=== PATIENT | female | born 1955 | race Caucasian/White ===

== ENCOUNTER 2017-01-29 17:51 | Emergency (ER) | payer OTHER ==
[~2017-01-29] VITALS: Ht 160 cm; Wt 90.7 kg
[2017-01-29] MEDS ORDERED: CEPHALEXIN500 MG ORAL (18:35)
[2017-01-29] MEDS ORDERED: HYDROCHLOROTHIA25 MG ORAL (18:35)
[2017-01-29 18:45] VITALS: BP 142/81
--- NOTE | 2017-01-29 21:37 | Emergency Room Report ---
History of Present Illness General Chief Complaint: Lower Extremity Injury Source: Patient Present Illness [facility] The patient is a 61-year-old female presenting for leg swelling and possible toe infection. She noticed a redness around the left big toe approximately one week prior which has been getting worse. Pain is described as a 7/10 dull ache and worse with touch. She denies injury to the area. She states that she has had an ingrown toenail before this area which feels similar. She denies any fever or chills. She denies other symptoms including N, V, CP Allergies: Coded Allergies: ERYTHROMYCIN BASE (Verified Allergy, Severe, Hives, 01/29/17) SULFAMETHOXAZOLE (Verified Allergy, Severe, Shortness of Breath, 01/29/17) TRIMETHOPRIM (Verified Allergy, Severe, Shortness of Breath, 01/29/17) Patient History Past Medical History: see triage record Pertinent Family History: none Last Menstrual Period: na Now: No Reviewed Nursing Documentation: PMH: Agreed, PSxH: Agreed Nursing Documentation-PMH Past Medical History: No History, Except For Hx Hypertension: Yes Hx Asthma: Yes Hx COPD: Yes Review of Systems All Other Systems: negative except mentioned in HPI Physical Exam Vital Signs Date Time Temp Pulse Resp B/P Pulse Ox O2 Delivery O2 Flow Rate FiO2 01/29/17 18:05 98.1 88 18 142/81 90 Nasal Cannula 2.0 Sp02 EP Interpretation: reviewed, normal General Appearance: no apparent distress, alert, GCS 15, non-toxic Head: normocephalic, atraumatic Eyes: bilateral eye PERRL, bilateral eye normal inspection ENT: hearing grossly normal, normal pharynx, no angioedema, normal voice Musculoskeletal: normal range of motion, no calf tenderness, swelling - bilat lower legs, tender - TTP diffusely of the distal L 1st toe Neurologic: alert, oriented x3, responsive, motor strength/tone normal, sensory intact, speech normal Psychiatric: judgement/insight normal, memory normal, mood/affect normal, no suicidal/homicidal ideation Skin: rash - L 1st toe surrounding nail Medical Decision Making PA Attestation Dr. Chan is my supervising physician. Patient management was discussed with my supervising physician Diagnostic Impression: Primary Impression: Edema Qualified Codes: R60.9 - Edema, unspecified Additional Impression: Ingrowing toenail with infection ER Course The patient is a 61-year-old female presenting for leg swelling and possible toe infection Differential diagnosis considered: ingrown nail, cellulitis, paronychia, among others PE: NAD With nasal canula 2L Bilat pitting edema to lower legs. DP pulse 2+ bilat There is surrounding erythema of the first left toe nail. Tender to palpation. No discharge. The area is cleaned with normal saline and Betadine. Bandages applied to the area in order to help separate the medial skinfold from the nail She'll be prescribed Keflex and HCTZ and needs to followup with primary doctor. She may need podiatry referral. ER precautions are given Last Vital Signs Date Time Temp Pulse Resp B/P Pulse Ox O2 Delivery O2 Flow Rate FiO2 01/29/17 18:45 98.1 18 142/81 90 Nasal Cannula 2.0 01/29/17 18:05 88 Status: improved Disposition: HOME, SELF-CARE Condition: Improved Scripts Hydrochlorothiazide* (HYDROCHLOROTHIAZIDE*) 25 Mg Tablet 25 MG ORAL DAILY, #5 TAB Prov: CATRACHITO LANZA.ARuel 01/29/17 Cephalexin* (KEFLEX*) 500 Mg Capsule 500 MG ORAL EVERY 6 HOURS, #28 CAP Prov: CATRACHITO LANZA P.A. 01/29/17 Referrals: [facility],REFERR[facility] (PCP) Patient Instructions: Ingrown Toenail Additional Instructions: I discussed my findings with the patient. All questions and concerns have been answered. Treatment and medication compliance have been addressed. I advised the patient that they need to follow up with PMD in 3-5 days. Return to ED if symptoms worsen, new symptoms arise, or if needed for any reason. Patient verbalized understanding of discharge instructions. CATRACHITO LANZA Jan 29, 2017 21:37
== END 2017-01-29 18:48 | disposition home or self-care (01) ==
LOC: EMR 18:30
DX: R60.9 Edema, unspecified (principal); L60.0 Ingrowing nail; L03.032 Cellulitis of left toe; Z88.8 Allergy status to other drugs, medicaments and biological substances; Z88.2 Allergy status to sulfonamides; I10 Essential (primary) hypertension; J44.9 Chronic obstructive pulmonary disease, unspecified
CPT/HCPCS: 99284

== ENCOUNTER 2017-04-09 20:22 | Inpatient (IN) | payer OTHER ==
[~2017-04-09] VITALS: Ht 162.6 cm; Wt 95.3 kg
[~2017-04-09 20:22] MED LIST: CEPHALEXIN500 MG ORAL; HYDROCHLOROTHIA25 MG ORAL
[2017-04-09] MEDS ORDERED: Ipratropium 0.02% Inh Soln 2.5ml UD HHN ONE (20:45)
[2017-04-09] MEDS ORDERED: Albuterol ud Inhalation HHN ONE (20:45)
[2017-04-09] MEDS ORDERED: Solu-MEDROL 125mg Inj IVP ONE (20:45)
--- NOTE | 2017-04-09 21:14 | Emergency Room Report ---
History of Present Illness General Chief Complaint: Dyspnea/Respdistress Source: Patient Present Illness HPI 61YOF walk-in with 1 week "more altered than usual" per daughter, fever/chills SOB, on home O2. History of COPD Finished 2x Zpacks recently with no improvement Wants to "cough up sputum" but cant. Denies chest pain, Abd pain, nausea/vomiting Also c/o urinary retention/incontinence Allergies: Coded Allergies: ERYTHROMYCIN BASE (Verified Allergy, Severe, Hives, 01/29/17) SULFAMETHOXAZOLE (Verified Allergy, Severe, Shortness of Breath, 01/29/17) TRIMETHOPRIM (Verified Allergy, Severe, Shortness of Breath, 01/29/17) Patient History Past Medical History: COPD Past Surgical History: none Pertinent Family History: none Now: No Immunizations: UTD Reviewed Nursing Documentation: PMH: Agreed, PSxH: Agreed Nursing Documentation-PMH Hx Hypertension: Yes Hx Asthma: Yes Hx COPD: Yes Review of Systems All Other Systems: negative except mentioned in HPI Physical Exam Vital Signs Date Time Temp Pulse Resp B/P (MAP) Pulse Ox O2 Delivery O2 Flow Rate FiO2 04/09/17 20:23 98.2 93 22 130/86 77 Room Air 04/09/17 20:59 2.0 28 Sp02 EP Interpretation: reviewed, abnormal General Appearance: normal inspection, well appearing, no apparent distress, alert, GCS 15, non-toxic Head: normocephalic, atraumatic Eyes: bilateral eye PERRL, bilateral eye EOMI ENT: normal ENT inspection, hearing grossly normal, normal voice Neck: normal inspection, full range of motion, supple, no bony tend Respiratory: normal inspection, lungs clear, normal breath sounds, no respiratory distress, no retraction, no wheezing, accessory muscle use, speaking full sentences, wheezing Cardiovascular #1: regular rate, rhythm, no edema Gastrointestinal: normal inspection, normal bowel sounds, non tender, soft, no guarding, no hernia Genitourinary: no CVA tenderness Musculoskeletal: normal inspection, back normal, normal range of motion, Devorah' s Sign negative Neurologic: normal inspection, alert, oriented x3, responsive, customer relations assistant III-XII nml as tested, speech normal Psychiatric: normal inspection, judgement/insight normal, mood/affect normal Skin: normal inspection, normal color, no rash Lymphatic: normal inspection Medical Decision Making Diagnostic Impression: Primary Impression: Dyspnea Qualified Codes: R06.00 - Dyspnea, unspecified Additional Impressions: COPD exacerbation Dysuria ER Course CXR: No PNA Blood Cx pending Empiric abx given Improved with nebs, prednisone ABD: Normal pH with CO2 80 and bicarb 39 - likely chronic CO2 retention with appropriate metabolic compensation Tele admit Labs pending at time of signout Endorsed to DR Leung at 1030pm to followup labs/admission hospitalist EKG Diagnostic Results Rate: normal Rhythm: NSR ST Segments: no acute changes ASA given to the pt in ED: No Rhythm Strip Diag. Results EP Interpretation: yes Rate: 84 Rhythm: NSR, no PVC's, no ectopy Chest X-Ray Diagnostic Results Chest X-Ray Diagnostic Results : Chest X-Ray Ordered: Yes # of Views/Limited/Complete: 1 View Indication: Shortness of Breath EP Interpretation: Yes Interpretation: no consolidation, no effusion, no pneumothorax, no acute cardiopulmonary disease Impression: No acute disease Electronically Signed by: Dr Ciro Ball MD Last Vital Signs Date Time Temp Pulse Resp B/P (MAP) Pulse Ox O2 Delivery O2 Flow Rate FiO2 04/09/17 20:59 90 16 Nasal Cannula 2.0 28 04/09/17 20:59 97 04/09/17 20:23 98.2 130/86 Status: improved Disposition: ADMITTED INPATIENT Condition: Serious Scripts Lorazepam* (ATIVAN*) 1 Mg Tablet 1 MG ORAL THREE TIMES A DAY, #20 TAB Prov: LINOMIRALI 04/12/17 Amoxicillin/Potassium Clav 875-125* (AUGMENTIN 875-125 TABLET*) 1 Each Tablet 1 TAB ORAL TWICE A DAY for 5 Days, TAB Prov: LINO,MIRALI 04/12/17 Prednisone (Prednisone) 20 Mg Tablet 20 MG PO DAILY for 7 Days, TAB Prov: RUBIA HUYNH 04/12/17 CIRO BALL M.D. Apr 09, 2017 21:14
[2017-04-09 21:17] VITALS: BP 130/86
[2017-04-09 21:20] LABS: ABG BASE EXCESS 9.4; ABG PCO2 80.6 mmHg (35.0-45.0)
[2017-04-09 21:21] LABS: ABG ALLEN TEST POSITIVE
[2017-04-09 21:34] LABS: BASOPHILS % (AUTO) 2.6 % (0.0-2.0); EOSINOPHILS % (AUTO) 4.3 % (0.0-3.0); LYMPHOCYTES % (AUTO) 36.1 % (20.0-45.0); MEAN CORPUSCULAR HEMOGLOBIN 28.9 PG (27.0-31.0); MEAN CORPUSCULAR HGB CONC 32.1 G/DL (32.0-36.0); MEAN CORPUSCULAR VOLUME 90 FL (80-99); MEAN PLATELET VOLUME 7.2 FL (6.5-10.1); MONOCYTES % (AUTO) 7.8 % (1.0-10.0); NEUTROPHILS % (AUTO) 49.3 % (45.0-75.0); PLATELET COUNT 119 K/UL (150-450); RED CELL DISTRIBUTION WIDTH 13.2 % (11.6-14.8); WHITE BLOOD COUNT 6.7 K/UL (4.8-10.8)
[2017-04-09 21:51] LABS: TROPONIN I < 0.30 ng/mL (<=0.30)
[2017-04-09 21:52] LABS: ALANINE AMINOTRANSFERASE 12 U/L (3-33); ALBUMIN/GLOBULIN RATIO 1.1 (1.0-2.7); ANION GAP 9 (5-15); ASPARTATE AMINO TRANSFERASE 23 U/L (5-40); CALCIUM 8.6 mg/dL (8.6-10.2); CARBON DIOXIDE 34 mEQ/L (20-30); CHLORIDE 96 mEQ/L (98-107); CREATININE 0.7 mg/dL (0.5-0.9); GLOMERULAR FILTRATION RATE > 60 mL/min (>60); HEMOLYSIS 33; POTASSIUM 4.8 mEQ/L (3.4-4.9); SODIUM 139 mEQ/L (135-145); TOTAL PROTEIN 7.4 g/dL (6.6-8.7)
[2017-04-09 22:02] LABS: CKMB 4.5 ng/mL (< 3.8)
[2017-04-09 22:05] LABS: APPEARANCE,URINE CLEAR; KETONES,URINE NEGATIVE (NEGATIVE); LEUKOCYTE ESTERASE ,URINE NEGATIVE (NEGATIVE); NITRITE,URINE NEGATIVE (NEGATIVE); PH,URINE 6 (4.5-8.0); PROTEIN,URINE NEGATIVE (NEGATIVE); UROBILINOGEN,URINE NORMAL MG/DL (0.0-1.0)
[2017-04-09] MEDS ORDERED: Cefepime HCl 2 GM in D5W 110 ML IVPB ONE (22:15)
[2017-04-09 23:05] VITALS: BP 121/89
[2017-04-09] MEDS ORDERED: Cefepime 2gm ONE (23:28)
[2017-04-09] MEDS ORDERED: Ketorolac 30mg Inj IV PRN (23:45)
[2017-04-09] MEDS ORDERED: Nitroglycerin Subl 0.4mg tab SL PRN (23:45)
[2017-04-09] MEDS ORDERED: HYDROmorphone 1mg/ml Carpuject IM ONE (23:45)
[2017-04-09] MEDS ORDERED: Promethazine/Codeine 5ml UD ORAL PRN (23:45)
[2017-04-10] VITALS (7 sets, daily range): BP systolic 127–145; BP diastolic 55–87
[2017-04-10] MEDS: Solu-MEDROL 125mg Inj IV SCH ×5 (00:30→23:12)
--- NOTE | 2017-04-10 01:20 | Emergency Room Report ---
History of Present Illness General Chief Complaint: Dyspnea/Respdistress Source: Patient Present Illness Allergies: Coded Allergies: ERYTHROMYCIN BASE (Verified Allergy, Severe, Hives, 01/29/17) SULFAMETHOXAZOLE (Verified Allergy, Severe, Shortness of Breath, 01/29/17) TRIMETHOPRIM (Verified Allergy, Severe, Shortness of Breath, 01/29/17) Patient History Now: No Nursing Documentation-PMH Hx Hypertension: Yes Hx Asthma: Yes Hx COPD: Yes Physical Exam Vital Signs Date Time Temp Pulse Resp B/P (MAP) Pulse Ox O2 Delivery O2 Flow Rate FiO2 04/09/17 20:23 98.2 93 22 130/86 77 Room Air 04/09/17 20:59 2.0 28 Procedures Central Line Central Line : Consent: Verbal Central Line Lumen: triple Maximal Sterile Barrier Tech: yes cap, yes mask, yes sterile gown, yes sterile gloves, yes large sterile sheet, yes hand hygiene, yes chlorhexidine prep Central Line Postion: femoral (L) Anesthesia: Lidocaine Complications: none Central Line Post Position: sutured, good blood return Attempts: One Patient Tolerated: Well Complications: None Medical Decision Making Diagnostic Impression: Primary Impression: Dyspnea Qualified Codes: R06.00 - Dyspnea, unspecified Additional Impressions: Dysuria COPD exacerbation ER Course patient has difficult IV access. multiple attempts at peripheral line made. patient has h/o IVDA. I placed L femoral central line using ultrasound guided placement. Last Vital Signs Date Time Temp Pulse Resp B/P (MAP) Pulse Ox O2 Delivery O2 Flow Rate FiO2 04/09/17 23:05 99.1 92 20 121/89 92 Nasal Cannula 3.0 28 Status: improved Disposition: ADMITTED INPATIENT Condition: Serious Referrals: [facility]ERR[facility] (PCP) NEAL JEAN M.D. Apr 10, 2017 01:20
[2017-04-10] MEDS ORDERED: Zosyn 3.375gm inj ONE (02:14)
[2017-04-10] MEDS: Zosyn 3.375gm q8h **Extended infusion IVPB SCH ×6 (02:45→17:53)
[2017-04-10] MEDS: Albuterol/Ipratropium 3ml neb HHN PRN ×2 (03:28→20:31)
[2017-04-10] MEDS: Morphine Sulfate 2mg/ml Inj IVP PRN ×4 (04:35→22:01)
[2017-04-10] MEDS ORDERED: Piperacillin/Tazobactam 2.25 GM in D5W 55 ML IV SCH (06:00)
[2017-04-10] MEDS: Theophylline ER 100mg ORAL SCH ×2 (09:11→20:53)
[2017-04-10] MEDS: Heparin 5000 units/ml inj SUBQ SCH ×2 (09:13→20:55)
--- NOTE | 2017-04-10 11:31 | Diagnostic Imaging Report ---
Indication: Dyspnea Comparison: None A single view chest radiograph was obtained. Findings: The heart is borderline enlarged. Prominent pulmonary vascularity and some increased initial markings are noted. The bones are unremarkable. Impression: Suspected mild interstitial edema/CHF
--- NOTE | 2017-04-10 11:40 | History and Physical ---
History of Present Illness General Reason for Hospitalization: Dyspnea/Respdistress Present Illness HPI 61year old female with hx of EX IVDA, on Methadone, COPD, on home Oxygen walk- in with 1 week "more altered than usual" per daughter, fever/chills SOB, on home O2. Wants to "cough up sputum" but cant. Pt is being admitted for acute exacerbation of COPD bronchitis. Allergies: Coded Allergies: ERYTHROMYCIN BASE (Verified Allergy, Severe, Hives, 01/29/17) SULFAMETHOXAZOLE (Verified Allergy, Severe, Shortness of Breath, 01/29/17) TRIMETHOPRIM (Verified Allergy, Severe, Shortness of Breath, 01/29/17) Medication History Scheduled Cephalexin* (Keflex*), 500 MG ORAL EVERY 6 HOURS Hydrochlorothiazide* (Hydrochlorothiazide*), 25 MG ORAL DAILY Patient History Healthcare decision maker Resuscitation status Advanced Directive on File Past Medical/Surgical History Past Medical/Surgical History: (1) COPD exacerbation Review of Systems All Other Systems: negative except mentioned in HPI Physical Exam General Appearance: WD/WN Lines, tubes and drains: peripheral HEENT: normocephalic, atraumatic Neck: non-tender, supple, limited range of motion Respiratory/Chest: chest wall non-tender, lungs clear Breasts: no masses Cardiovascular/Chest: normal peripheral pulses Abdomen: normal bowel sounds Genitourinary/Rectal: normal genital exam Extremities: normal range of motion, non-tender Last 24 Hour Vital Signs Date Time Temp Pulse Resp B/P (MAP) Pulse Ox O2 Delivery O2 Flow Rate FiO2 04/10/17 08:00 86 04/10/17 07:58 96.8 96 22 145/87 93 Nasal Cannula 3.0 04/10/17 06:35 93 Nasal Cannula 3.0 32 04/10/17 06:35 Nasal Cannula 3.0 32 04/10/17 06:35 90 18 93 Nasal Cannula 3.0 32 04/10/17 06:35 90 18 93 Nasal Cannula 3.0 32 04/10/17 06:35 82 18 Nasal Cannula 3.0 32 04/10/17 04:00 97.3 78 21 129/65 94 Nasal Cannula 3.0 04/10/17 04:00 96 04/10/17 03:40 91 18 99 Nasal Cannula 3.0 32 04/10/17 03:33 95 Nasal Cannula 3.0 32 04/10/17 03:32 Nasal Cannula 3.0 32 04/10/17 03:31 82 18 95 Nasal Cannula 3.0 32 04/10/17 03:30 82 18 Nasal Cannula 3.0 32 04/10/17 02:50 82 04/10/17 02:22 98.8 85 15 139/83 92 Nasal Cannula 3.0 28 04/10/17 01:25 98.8 85 15 139/83 92 Nasal Cannula 3.0 04/09/17 23:05 99.1 92 20 121/89 92 Nasal Cannula 3.0 28 04/09/17 21:17 99.1 95 16 130/86 97 Nasal Cannula 2.0 28 04/09/17 21:17 92 14 Nasal Cannula 2.0 94 04/09/17 20:59 90 16 Nasal Cannula 2.0 28 04/09/17 20:59 90 16 97 Nasal Cannula 2.0 28 04/09/17 20:23 98.2 93 22 130/86 77 Room Air Laboratory Tests Test 04/09/17 19:45 04/09/17 20:10 04/09/17 21:11 Urine Color Pale yellow Urine Appearance Clear Urine pH 6 (4.5-8.0) Urine Specific [place] 1.005 (1.005-1.035) Urine Protein Negative (NEGATIVE) Urine Glucose (UA) Negative (NEGATIVE) Urine Ketones Negative (NEGATIVE) Urine Occult Blood Negative (NEGATIVE) Urine Nitrite Negative (NEGATIVE) Urine Bilirubin Negative (NEGATIVE) Urine Urobilinogen Normal MG/DL (0.0-1.0) Urine Leukocyte Esterase Negative (NEGATIVE) Arterial Blood pH 7.303 (7.350-7.450) Arterial Blood Partial Pressure CO2 80.6 mmHg (35.0-45.0) *H Arterial Blood Partial Pressure O2 96.5 mmHg (75.0-100.0) Arterial Blood HCO3 39.0 mmol/L (22.0-26.0) H Arterial Blood Oxygen Saturation 96.9 % (92.0-98.0) Arterial Blood Base Excess 9.4 Fidencio Test Positive White Blood Count 6.7 K/UL (4.8-10.8) Red Blood Count 4.40 M/UL (4.20-5.40) Hemoglobin 12.7 G/DL (12.0-16.0) Hematocrit 39.6 % (37.0-47.0) Mean Corpuscular Volume 90 FL (80-99) Mean Corpuscular Hemoglobin 28.9 PG (27.0-31.0) Mean Corpuscular Hemoglobin Concent 32.1 G/DL (32.0-36.0) Red Cell Distribution Width 13.2 % (11.6-14.8) Platelet Count 119 K/UL (150-450) L Mean Platelet Volume 7.2 FL (6.5-10.1) Neutrophils (%) (Auto) 49.3 % (45.0-75.0) Lymphocytes (%) (Auto) 36.1 % (20.0-45.0) Monocytes (%) (Auto) 7.8 % (1.0-10.0) Eosinophils (%) (Auto) 4.3 % (0.0-3.0) H Basophils (%) (Auto) 2.6 % (0.0-2.0) H Sodium Level 139 mEQ/L (135-145) Potassium Level 4.8 mEQ/L (3.4-4.9) Chloride Level 96 mEQ/L (98-107) L Carbon Dioxide Level 34 mEQ/L (20-30) H Anion Gap 9 (5-15) Blood Urea Nitrogen 10 mg/dL (7-23) Creatinine 0.7 mg/dL (0.5-0.9) Estimat Glomerular Filtration Rate > 60 mL/min (>60) Glucose Level 114 mg/dL (74-106) H Calcium Level 8.6 mg/dL (8.6-10.2) Total Bilirubin 0.2 mg/dL (0.0-1.2) Aspartate Amino Transf (AST/SGOT) 23 U/L (5-40) Alanine Aminotransferase (ALT/SGPT) 12 U/L (3-33) Alkaline Phosphatase 91 U/L (35-104) Total Creatine Kinase 108 U/L (26-140) Creatine Kinase MB 4.5 ng/mL (< 3.8) H Creatine Kinase MB Relative Index 4.1 Troponin I < 0.30 ng/mL (<=0.30) Pro-B-Type Natriuretic Peptide 231 pg/mL (0-125) H Total Protein 7.4 g/dL (6.6-8.7) Albumin 4.0 g/dL (3.5-5.2) Globulin 3.4 g/dL Albumin/Globulin Ratio 1.1 (1.0-2.7) Height (Feet): 5 Height (Inches): 4.00 Weight (Pounds): 210 Medications Current Medications Medications (Trade) Dose Ordered Sig/Sumeet Route PRN Reason Start Time Stop Time Status Last Admin Dose Admin Albuterol/ Ipratropium (DuoNeb 0.5-3(2.5)mg/3ml) 3 ml Q4H PRN HHN dyspnea 04/09/17 23:45 04/14/17 23:44 04/10/17 03:28 Chlorhexidine Gluconate (Lynne-Hex 2%) 1 applic DAILY TOPIC 04/10/17 12:00 05/10/17 11:59 Dextrose (Dextrose 50%) STAT PRN IV Hypoglycemia 04/09/17 23:45 05/09/17 23:44 Heparin Sodium (Porcine) (Heparin 5000 units/ml) 5,000 units EVERY 12 HOURS SUBQ 04/10/17 09:00 05/10/17 08:59 04/10/17 09:13 Ketorolac Tromethamine (Toradol 30mg) 30 mg Q8H PRN IV moderate pain 4-6 04/09/17 23:45 04/14/17 23:44 Lorazepam (Ativan 2mg/ml 1ml) 0.5 mg Q4H PRN IV For Anxiety 04/09/17 23:45 04/16/17 23:44 Methylprednisolone Sodium Succinate (Solu-MEDROL) 60 mg EVERY 6 HOURS IV 04/10/17 00:30 05/10/17 00:29 04/10/17 05:55 Morphine Sulfate (Morphine Sulfate) 2 mg Q4H PRN IVP severe pain 7-10 04/09/17 23:45 04/16/17 23:44 04/10/17 09:47 Nitroglycerin (Ntg) 0.4 mg Q5M X 3 DOSES PRN SL Prn Chest Pain 04/09/17 23:45 05/09/17 23:44 Ondansetron HCl (Zofran) 4 mg Q6H PRN IVP Nausea & Vomiting 04/09/17 23:45 05/09/17 23:44 Piperacillin Sod/ Tazobactam Sod 3.375 gm/Dextrose 110 ml @ 27.5 mls/hr Q8H IVPB 04/10/17 02:00 04/17/17 01:59 04/10/17 10:00 Promethazine HCl/ Codeine (Phenergan with Codeine) 5 ml Q6H PRN ORAL cough 04/09/17 23:45 05/09/17 23:44 04/10/17 09:12 Temazepam (Restoril) 15 mg HSPRN PRN ORAL Insomnia 04/09/17 23:45 04/16/17 23:44 Theophylline (Pancho-Dur) 100 mg EVERY 12 HOURS ORAL 04/10/17 09:00 05/10/17 08:59 04/10/17 09:11 Assessment/Plan Problem List: (1) Acute and chronic respiratory failure ICD Codes: J96.20 - Acute and chronic respiratory failure, unspecified whether with hypoxia or hypercapnia SNOMED: 55395844 (2) Pneumonia ICD Codes: J18.9 - Pneumonia, unspecified organism SNOMED: 021236288 (3) Morbid obesity ICD Codes: E66.01 - Morbid (severe) obesity due to excess calories SNOMED: 338126827, 85190701755822 (4) EX IVDA (5) COPD exacerbation ICD Codes: J44.1 - Chronic obstructive pulmonary disease with (acute) exacerbation SNOMED: 661913217, [id number] Assessment/Plan check sputum IV abx steroids respiratory treatment continue Methadone titrate fio2 to sat of 92% RUBIA HUYNH Apr 10, 2017 11:40
--- NOTE | 2017-04-10 11:42 | Pulmonology Progress Note ---
Assessment/Plan Problems: (1) Acute and chronic respiratory failure (2) Pneumonia (3) Morbid obesity (4) EX IVDA (5) COPD exacerbation Assessment/Plan improving slowly titrate fio2 continue abx/ steroids on Theophyline check echo. cxr bnp in am Subjective ROS Limited/Unobtainable: No Interval Events: less short of breath Allergies: Coded Allergies: ERYTHROMYCIN BASE (Verified Allergy, Severe, Hives, 01/29/17) SULFAMETHOXAZOLE (Verified Allergy, Severe, Shortness of Breath, 01/29/17) TRIMETHOPRIM (Verified Allergy, Severe, Shortness of Breath, 01/29/17) Objective Last 24 Hour Vital Signs Date Time Temp Pulse Resp B/P (MAP) Pulse Ox O2 Delivery O2 Flow Rate FiO2 04/10/17 08:00 86 04/10/17 07:58 96.8 96 22 145/87 93 Nasal Cannula 3.0 04/10/17 06:35 93 Nasal Cannula 3.0 32 04/10/17 06:35 Nasal Cannula 3.0 32 04/10/17 06:35 90 18 93 Nasal Cannula 3.0 32 04/10/17 06:35 90 18 93 Nasal Cannula 3.0 32 04/10/17 06:35 82 18 Nasal Cannula 3.0 32 04/10/17 04:00 97.3 78 21 129/65 94 Nasal Cannula 3.0 04/10/17 04:00 96 04/10/17 03:40 91 18 99 Nasal Cannula 3.0 32 04/10/17 03:33 95 Nasal Cannula 3.0 32 04/10/17 03:32 Nasal Cannula 3.0 32 04/10/17 03:31 82 18 95 Nasal Cannula 3.0 32 04/10/17 03:30 82 18 Nasal Cannula 3.0 32 04/10/17 02:50 82 04/10/17 02:22 98.8 85 15 139/83 92 Nasal Cannula 3.0 28 04/10/17 01:25 98.8 85 15 139/83 92 Nasal Cannula 3.0 04/09/17 23:05 99.1 92 20 121/89 92 Nasal Cannula 3.0 28 04/09/17 21:17 99.1 95 16 130/86 97 Nasal Cannula 2.0 28 04/09/17 21:17 92 14 Nasal Cannula 2.0 94 04/09/17 20:59 90 16 Nasal Cannula 2.0 28 04/09/17 20:59 90 16 97 Nasal Cannula 2.0 28 04/09/17 20:23 98.2 93 22 130/86 77 Room Air General Appearance: WD/WN HEENT: normocephalic, atraumatic Respiratory/Chest: crackles/rales, expiratory wheezing Cardiovascular: normal peripheral pulses, normal rate Abdomen: normal bowel sounds, no organomegaly Genitourinary: normal external genitalia Extremities: no clubbing Skin: no lesions Laboratory Tests 04/09/17 19:45: Urine Color Pale yellow, Urine Appearance Clear, Urine pH 6, Urine Specific [place] 1.005, Urine Protein Negative, Urine Glucose (UA) Negative, Urine Ketones Negative, Urine Occult Blood Negative, Urine Nitrite Negative, Urine Bilirubin Negative, Urine Urobilinogen Normal, Urine Leukocyte Esterase Negative 04/09/17 20:10: Arterial Blood pH 7.303L, Arterial Blood Partial Pressure CO2 80.6*H, Arterial Blood Partial Pressure O2 96.5, Arterial Blood HCO3 39.0H, Arterial Blood Oxygen Saturation 96.9, Arterial Blood Base Excess 9.4, Fidencio Test Positive 04/09/17 21:11: White Blood Count 6.7, Red Blood Count 4.40, Hemoglobin 12.7, Hematocrit 39.6, Mean Corpuscular Volume 90, Mean Corpuscular Hemoglobin 28.9, Mean Corpuscular Hemoglobin Concent 32.1, Red Cell Distribution Width 13.2, Platelet Count 119L, Mean Platelet Volume 7.2, Neutrophils (%) (Auto) 49.3, Lymphocytes (%) (Auto) 36.1, Monocytes (%) (Auto) 7.8, Eosinophils (%) (Auto) 4.3H, Basophils (%) (Auto ) 2.6H, Sodium Level 139, Potassium Level 4.8, Chloride Level 96L, Carbon Dioxide Level 34H, Anion Gap 9, Blood Urea Nitrogen 10, Creatinine 0.7, Estimat Glomerular Filtration Rate > 60, Glucose Level 114H, Calcium Level 8.6, Total Bilirubin 0.2, Aspartate Amino Transf (AST/SGOT) 23, Alanine Aminotransferase ( ALT/SGPT) 12, Alkaline Phosphatase 91, Total Creatine Kinase 108, Creatine Kinase MB 4.5H, Creatine Kinase MB Relative Index 4.1, Troponin I < 0.30, Pro-B- Type Natriuretic Peptide 231H, Total Protein 7.4, Albumin 4.0, Globulin 3.4, Albumin/Globulin Ratio 1.1 Current Medications Medications (Trade) Dose Ordered Sig/Sumeet Route PRN Reason Start Time Stop Time Status Last Admin Dose Admin Albuterol/ Ipratropium (DuoNeb 0.5-3(2.5)mg/3ml) 3 ml Q4H PRN HHN dyspnea 04/09/17 23:45 04/14/17 23:44 04/10/17 03:28 Chlorhexidine Gluconate (Lynne-Hex 2%) 1 applic DAILY TOPIC 04/10/17 12:00 05/10/17 11:59 Dextrose (Dextrose 50%) STAT PRN IV Hypoglycemia 04/09/17 23:45 05/09/17 23:44 Heparin Sodium (Porcine) (Heparin 5000 units/ml) 5,000 units EVERY 12 HOURS SUBQ 04/10/17 09:00 05/10/17 08:59 04/10/17 09:13 Ketorolac Tromethamine (Toradol 30mg) 30 mg Q8H PRN IV moderate pain 4-6 04/09/17 23:45 04/14/17 23:44 Lorazepam (Ativan 2mg/ml 1ml) 0.5 mg Q4H PRN IV For Anxiety 04/09/17 23:45 04/16/17 23:44 Methylprednisolone Sodium Succinate (Solu-MEDROL) 60 mg EVERY 6 HOURS IV 04/10/17 00:30 05/10/17 00:29 04/10/17 05:55 Morphine Sulfate (Morphine Sulfate) 2 mg Q4H PRN IVP severe pain 7-10 04/09/17 23:45 04/16/17 23:44 04/10/17 09:47 Nitroglycerin (Ntg) 0.4 mg Q5M X 3 DOSES PRN SL Prn Chest Pain 04/09/17 23:45 05/09/17 23:44 Ondansetron HCl (Zofran) 4 mg Q6H PRN IVP Nausea & Vomiting 04/09/17 23:45 05/09/17 23:44 Piperacillin Sod/ Tazobactam Sod 3.375 gm/Dextrose 110 ml @ 27.5 mls/hr Q8H IVPB 04/10/17 02:00 04/17/17 01:59 04/10/17 10:00 Promethazine HCl/ Codeine (Phenergan with Codeine) 5 ml Q6H PRN ORAL cough 04/09/17 23:45 05/09/17 23:44 04/10/17 09:12 Temazepam (Restoril) 15 mg HSPRN PRN ORAL Insomnia 04/09/17 23:45 04/16/17 23:44 Theophylline (Pancho-Dur) 100 mg EVERY 12 HOURS ORAL 04/10/17 09:00 05/10/17 08:59 04/10/17 09:11 RUBIA HUYNH Apr 10, 2017 11:42
[2017-04-10] MEDS ORDERED: Dyna-Hex 2% Top Sol 2oz TOPIC SCH (12:00)
[2017-04-10] MEDS ORDERED: KLONOPIN1 MG ORAL (12:47)
[2017-04-10] MEDS ORDERED: METHADONE HCL10 MG PO (12:47)
[2017-04-10] MEDS ORDERED: LISINOPRIL20 MG ORAL (12:47)
[2017-04-10] MEDS ORDERED: BENADRYL25 M3 PO (12:47)
[2017-04-10] MEDS ORDERED: DILAUDID4 MG ORAL (12:47)
[2017-04-10] MEDS ORDERED: NORVASC10 MG ORAL (12:47)
[2017-04-10] MEDS ORDERED: NS 275ml ONE (16:33)
[2017-04-10] MEDS ORDERED: Tubing IV Secondary IV ONE (16:33)
[2017-04-11] VITALS: BP 130/69
[2017-04-11] MEDS: Albuterol/Ipratropium 3ml neb HHN PRN (01:14)
[2017-04-11] MEDS: Zosyn 3.375gm q8h **Extended infusion IVPB SCH ×6 (02:25→17:35)
[2017-04-11] MEDS: Morphine Sulfate 2mg/ml Inj IVP PRN ×5 (02:25→20:34)
[2017-04-11 04:00] VITALS: BP 130/69
[2017-04-11] MEDS: Solu-MEDROL 125mg Inj IV SCH ×3 (06:08→17:34)
--- NOTE | 2017-04-11 07:24 | Cardiology Report ---
APPROVED REPORT EXAM: Two-dimensional and M-mode echocardiogram with Doppler and color Doppler. INDICATION Left ventricular function M-Mode DIMENSIONS IVSd0.7 (0.7-1.1cm)Left Atrium (MM)4.4 (1.6-4.0cm) LVDd5.4 (3.5-5.6cm)Aortic Root3.0 (2.0-3.7cm) PWd1.0 (0.7-1.1cm)Aortic Cusp Exc.2.0 (1.5-2.0cm) LVDs3.1 (2.5-4.0cm) PWs1.2 cm Normal left ventricular chamber size, systolic function and wall motion. Left ventricular ejection fraction estimated to be 60-65%. No evidence of left ventricular hypertrophy. No evidence of pericardial or pleural effusion. Mild bi-atrial enlargement by 2D. Focal aortic valve sclerosis with adequate cusp excursion. Thickened mitral valve leaflets with normal excursion. Mild mitral annulus and aortic root calcification. Pulmonic valve not well visualized. Normal tricuspid valve structure. IVC is normal in size and collapsible with respiration. IVC dilated at 3.1 cm and non-collapsible with respiration indicate increased RA pressure. A color flow and spectral Doppler study was performed and revealed: No aortic regurgitation. No mitral regurgitation. Mitral diastolic velocities suggest reduced left ventricular relaxation c/w diastolic dysfunction grade 1. No tricuspid regurgitation. Tricuspid systolic velocities suggests peak right ventricular systolic pressure of 25mmHg, however this may be an underestimation
[2017-04-11 07:25] LABS: MEAN CORPUSCULAR HEMOGLOBIN 28.7 PG (27.0-31.0); MEAN CORPUSCULAR VOLUME 90 FL (80-99); MEAN PLATELET VOLUME 8.6 FL (6.5-10.1); PLATELET COUNT 159 K/UL (150-450); RED BLOOD COUNT 4.35 M/UL (4.20-5.40); RED CELL DISTRIBUTION WIDTH 13.5 % (11.6-14.8); WHITE BLOOD COUNT 11.1 K/UL (4.8-10.8)
[2017-04-11 07:26] LABS: ALANINE AMINOTRANSFERASE 12 U/L (3-33); ALBUMIN/GLOBULIN RATIO 1.2 (1.0-2.7); ANION GAP 12 (5-15); ASPARTATE AMINO TRANSFERASE 16 U/L (5-40); CALCIUM 8.9 mg/dL (8.6-10.2); CARBON DIOXIDE 33 mEQ/L (20-30); CHLORIDE 93 mEQ/L (98-107); CREATININE 0.9 mg/dL (0.5-0.9); GLOMERULAR FILTRATION RATE > 60 mL/min (>60); HEMOLYSIS 2; POTASSIUM 3.7 mEQ/L (3.4-4.9); SODIUM 138 mEQ/L (135-145); TOTAL PROTEIN 7.3 g/dL (6.6-8.7)
[2017-04-11 08:35] VITALS: BP 115/71
[2017-04-11] MEDS: Heparin 5000 units/ml inj SUBQ SCH ×2 (09:00→20:34)
[2017-04-11 09:40] LABS: BAND NEUTROPHILS % (MANUAL) 0 % (0-8); BASOPHILS % (MANUAL) 0 % (0-2); EOSINOPHILS % (MANUAL) 0 % (0-3); LYMPHOCYTES % (MANUAL) 13 % (20-45); NEUTROPHILS % (MANUAL) 83 % (45-75); PLATELET ESTIMATE ADEQUATE; PLATELET MORPHOLOGY NORMAL; TOTAL CELLS COUNTED 100
[2017-04-11] MEDS: Theophylline ER 100mg ORAL SCH ×2 (09:48→20:32)
[2017-04-11] MEDS ORDERED: Lidocaine 1% Plain 30 ml INJ ONE (11:00)
[2017-04-11] MEDS: Dyna-Hex 2% Top Sol 2oz TOPIC SCH ×2 (11:00→17:32)
[2017-04-11] MEDS ORDERED: Heparin 2000 units/Ns 1000ml INJ ONE (11:00)
--- NOTE | 2017-04-11 12:02 | Diagnostic Imaging Report ---
Indication: DYSPNEA Technique: One view of the chest Comparison: 04/09/2017 Findings: Mild interstitial prominence persists, unchanged or perhaps slightly improved. More focal vascular prominence is again demonstrated the right lung base. Surgical clips overlie the right chest and right mediastinum. The heart is borderline enlarged. The pleural spaces are clear Impression: Stable to slightly improved mild interstitial edema, over 2 days
[2017-04-11 12:08] VITALS: BP 132/78
[2017-04-11 16:00] VITALS: BP 118/69
--- NOTE | 2017-04-11 16:23 | Pulmonology Progress Note ---
Assessment/Plan Problems: (1) Acute and chronic respiratory failure (2) Pneumonia (3) Morbid obesity (4) EX IVDA (5) COPD exacerbation Assessment/Plan improving slowly titrate fio2 continue abx/ steroids on Theophyline check echo. cxr bnp reviewed Subjective ROS Limited/Unobtainable: No Interval Events: still wheezing Allergies: Coded Allergies: ERYTHROMYCIN BASE (Verified Allergy, Severe, Hives, 01/29/17) SULFAMETHOXAZOLE (Verified Allergy, Severe, Shortness of Breath, 01/29/17) TRIMETHOPRIM (Verified Allergy, Severe, Shortness of Breath, 01/29/17) Objective Last 24 Hour Vital Signs Date Time Temp Pulse Resp B/P (MAP) Pulse Ox O2 Delivery O2 Flow Rate FiO2 04/11/17 16:00 97.9 76 19 118/69 89 Nasal Cannula 3.0 04/11/17 12:08 97.8 85 20 132/78 92 Nasal Cannula 2.0 04/11/17 09:50 85 115/71 04/11/17 08:35 97.9 85 20 115/71 92 Nasal Cannula 2.0 04/11/17 04:00 98.1 93 21 130/69 94 Nasal Cannula 2.0 04/11/17 01:24 74 18 97 Nasal Cannula 3.0 32 04/11/17 01:14 86 22 88 Nasal Cannula 2.0 28 04/11/17 00:00 97.6 85 21 130/69 93 Nasal Cannula 2.0 04/10/17 23:42 Nasal Cannula 04/10/17 23:42 Nasal Cannula 04/10/17 22:00 97.5 86 21 139/55 93 Nasal Cannula 2.0 04/10/17 20:40 74 18 94 Nasal Cannula 2.0 28 04/10/17 20:34 Nasal Cannula 2.0 28 04/10/17 20:33 76 20 Nasal Cannula 2.0 28 04/10/17 20:33 92 Nasal Cannula 2.0 28 04/10/17 20:32 76 20 91 Nasal Cannula 2.0 28 04/10/17 20:00 98.1 78 20 129/69 95 Nasal Cannula 3.0 04/10/17 20:00 78 04/10/17 19:30 Nasal Cannula 04/10/17 19:30 Nasal Cannula 2.0 28 04/10/17 17:54 82 132/78 04/10/17 17:39 97.0 82 24 132/78 93 Nasal Cannula 2.3 04/10/17 16:41 83 Intake and Output 04/11/17 04/12/17 19:00 07:00 Intake Total 560 ml Output Total 520 ml Balance 40 ml Intake Oral 560 ml Output Urine Total 520 ml General Appearance: WD/WN, no acute distress HEENT: normocephalic Respiratory/Chest: chest wall non-tender, normal breath sounds, crackles/rales , expiratory wheezing Cardiovascular: normal peripheral pulses, regular rhythm Abdomen: normal bowel sounds, no organomegaly Extremities: no cyanosis Skin: no rash Laboratory Tests 04/11/17 06:00: White Blood Count 11.1#H, Red Blood Count 4.35, Hemoglobin 12.5, Hematocrit 39.1 , Mean Corpuscular Volume 90, Mean Corpuscular Hemoglobin 28.7, Mean Corpuscular Hemoglobin Concent 32.0, Red Cell Distribution Width 13.5, Platelet Count 159, Mean Platelet Volume 8.6, Neutrophils (%) (Auto) , Lymphocytes (%) ( Auto) , Monocytes (%) (Auto) , Eosinophils (%) (Auto) , Basophils (%) (Auto) , Differential Total Cells Counted 100, Neutrophils % (Manual) 83H, Lymphocytes % (Manual) 13L, Monocytes % (Manual) 4, Eosinophils % (Manual) 0, Basophils % ( Manual) 0, Band Neutrophils 0, Platelet Estimate Adequate, Platelet Morphology Normal, Sodium Level 138, Potassium Level 3.7, Chloride Level 93L, Carbon Dioxide Level 33H, Anion Gap 12, Blood Urea Nitrogen 17, Creatinine 0.9, Estimat Glomerular Filtration Rate > 60, Glucose Level 160H, Calcium Level 8.9, Total Bilirubin 0.2, Aspartate Amino Transf (AST/SGOT) 16, Alanine Aminotransferase (ALT/SGPT) 12, Alkaline Phosphatase 80, Pro-B-Type Natriuretic Peptide 266H, Total Protein 7.3, Albumin 4.0, Globulin 3.3, Albumin/Globulin Ratio 1.2 Current Medications Medications (Trade) Dose Ordered Sig/Sumeet Route PRN Reason Start Time Stop Time Status Last Admin Dose Admin Albuterol/ Ipratropium (DuoNeb 0.5-3(2.5)mg/3ml) 3 ml Q4H PRN HHN dyspnea 04/09/17 23:45 04/14/17 23:44 04/11/17 01:14 Amlodipine Besylate (Norvasc) 10 mg DAILY ORAL 04/10/17 17:00 05/10/17 16:59 04/11/17 09:50 Chlorhexidine Gluconate (Lynne-Hex 2%) 1 applic DAILY TOPIC 04/11/17 11:00 05/11/17 10:59 04/11/17 11:00 Dextrose (Dextrose 50%) STAT PRN IV Hypoglycemia 04/09/17 23:45 05/09/17 23:44 Heparin Sodium (Porcine) (Heparin 5000 units/ml) 5,000 units EVERY 12 HOURS SUBQ 04/10/17 09:00 05/10/17 08:59 04/10/17 20:55 Ketorolac Tromethamine (Toradol 30mg) 30 mg Q8H PRN IV moderate pain 4-6 04/09/17 23:45 04/14/17 23:44 Lorazepam (Ativan 2mg/ml 1ml) 0.5 mg Q4H PRN IV For Anxiety 04/09/17 23:45 04/16/17 23:44 Methadone HCl (Methadone HCl) 100 mg DAILY ORAL 04/10/17 15:00 04/17/17 14:59 04/11/17 09:49 Methylprednisolone Sodium Succinate (Solu-MEDROL) 60 mg EVERY 6 HOURS IV 04/10/17 00:30 05/10/17 00:29 04/11/17 12:33 Morphine Sulfate (Morphine Sulfate) 2 mg Q4H PRN IVP severe pain 7-10 04/09/17 23:45 04/16/17 23:44 04/11/17 15:49 Nitroglycerin (Ntg) 0.4 mg Q5M X 3 DOSES PRN SL Prn Chest Pain 04/09/17 23:45 05/09/17 23:44 Ondansetron HCl (Zofran) 4 mg Q6H PRN IVP Nausea & Vomiting 04/09/17 23:45 05/09/17 23:44 04/10/17 14:28 Piperacillin Sod/ Tazobactam Sod 3.375 gm/Dextrose 110 ml @ 27.5 mls/hr Q8H IVPB 04/10/17 02:00 04/17/17 01:59 04/11/17 11:07 Promethazine HCl/ Codeine (Phenergan with Codeine) 5 ml Q6H PRN ORAL cough 04/09/17 23:45 05/09/17 23:44 04/10/17 09:12 Temazepam (Restoril) 15 mg HSPRN PRN ORAL Insomnia 04/09/17 23:45 04/16/17 23:44 Theophylline (Pancho-Dur) 100 mg EVERY 12 HOURS ORAL 04/10/17 09:00 05/10/17 08:59 04/11/17 09:48 RUBIA HUYNH Apr 11, 2017 16:23
[2017-04-11] MEDS: Docusate 100mg cap ORAL SCH (17:32)
[2017-04-11] MEDS: LORazepam Inj 2mg/ml 1ml IV PRN ×2 (17:35→22:38)
[2017-04-11 20:00] VITALS: BP 120/67
[2017-04-12] VITALS: BP 136/72
[2017-04-12] MEDS: Zosyn 3.375gm q8h **Extended infusion IVPB SCH ×4 (00:51→12:37)
[2017-04-12] MEDS: Solu-MEDROL 125mg Inj IV SCH ×3 (00:51→12:38)
[2017-04-12] MEDS: Morphine Sulfate 2mg/ml Inj IVP PRN ×3 (00:51→09:38)
[2017-04-12 01:23] VITALS: BP 136/72
[2017-04-12] MEDS: LORazepam Inj 2mg/ml 1ml IV PRN (03:32)
[2017-04-12 04:00] VITALS: BP 145/82
[2017-04-12 08:11] VITALS: BP 135/78
[2017-04-12] MEDS: Docusate 100mg cap ORAL SCH ×2 (08:23→12:54)
[2017-04-12] MEDS: Theophylline ER 100mg ORAL SCH (08:29)
[2017-04-12] MEDS: Heparin 5000 units/ml inj SUBQ SCH (09:00)
[2017-04-12 11:36] VITALS: BP 146/82
[2017-04-12] MEDS ORDERED: PREDNISONE20 M1 PO (14:47)
[2017-04-12] MEDS ORDERED: AUGMENTIN 875-1 EAC1 ORAL (14:48)
--- NOTE | 2017-04-12 14:49 | Pulmonology Progress Note ---
Assessment/Plan Problems: (1) Acute and chronic respiratory failure (2) Pneumonia (3) Morbid obesity (4) EX IVDA (5) COPD exacerbation Assessment/Plan improving slowly titrate fio2 continue abx/ steroids, change to po on Theophyline Subjective ROS Limited/Unobtainable: No Constitutional: Reports: no symptoms HEENT: Repors: no symptoms Respiratory: Reports: no symptoms Allergies: Coded Allergies: ERYTHROMYCIN BASE (Verified Allergy, Severe, Hives, 01/29/17) SULFAMETHOXAZOLE (Verified Allergy, Severe, Shortness of Breath, 01/29/17) TRIMETHOPRIM (Verified Allergy, Severe, Shortness of Breath, 01/29/17) Objective Last 24 Hour Vital Signs Date Time Temp Pulse Resp B/P (MAP) Pulse Ox O2 Delivery O2 Flow Rate FiO2 04/12/17 11:36 98.2 84 21 146/82 94 Nasal Cannula 2.0 04/12/17 08:29 75 135/78 04/12/17 08:11 75 20 135/78 94 Nasal Cannula 2.0 04/12/17 08:10 Nasal Cannula 3.0 32 04/12/17 08:10 85 18 Nasal Cannula 3.0 32 04/12/17 08:10 94 Nasal Cannula 3.0 32 04/12/17 04:00 98.0 77 24 145/82 95 Nasal Cannula 2.0 04/12/17 00:00 98.0 71 24 136/72 94 Nasal Cannula 3.0 04/11/17 20:10 93 Nasal Cannula 3.0 32 04/11/17 20:10 Nasal Cannula 3.0 32 04/11/17 20:09 88 22 Nasal Cannula 3.0 32 04/11/17 20:00 97.7 79 18 120/67 93 Nasal Cannula 3.0 04/11/17 16:00 97.9 76 19 118/69 89 Nasal Cannula 3.0 Intake and Output 04/12/17 04/13/17 19:00 07:00 Intake Total 520 ml Output Total 500 ml Balance 20 ml Intake Oral 520 ml Output Urine Total 500 ml # Bowel Movements 1 General Appearance: WD/WN, no acute distress HEENT: atraumatic Respiratory/Chest: chest wall non-tender, lungs clear Breasts: no masses Cardiovascular: normal peripheral pulses, normal rate Abdomen: normal bowel sounds, no organomegaly Extremities: no clubbing Skin: no rash Current Medications Medications (Trade) Dose Ordered Sig/Sumeet Route PRN Reason Start Time Stop Time Status Last Admin Dose Admin Albuterol/ Ipratropium (DuoNeb 0.5-3(2.5)mg/3ml) 3 ml Q4H PRN HHN dyspnea 04/09/17 23:45 04/14/17 23:44 04/11/17 01:14 Amlodipine Besylate (Norvasc) 10 mg DAILY ORAL 04/10/17 17:00 05/10/17 16:59 04/12/17 08:29 Chlorhexidine Gluconate (Lynne-Hex 2%) 1 applic DAILY TOPIC 04/11/17 11:00 05/11/17 10:59 04/11/17 17:32 Dextrose (Dextrose 50%) STAT PRN IV Hypoglycemia 04/09/17 23:45 05/09/17 23:44 Docusate Sodium (Colace) 100 mg THREE TIMES A DAY ORAL 04/11/17 18:00 05/11/17 17:59 04/12/17 12:54 Heparin Sodium (Porcine) (Heparin 5000 units/ml) 5,000 units EVERY 12 HOURS SUBQ 04/10/17 09:00 05/10/17 08:59 04/11/17 20:34 Ketorolac Tromethamine (Toradol 30mg) 30 mg Q8H PRN IV moderate pain 4-6 04/09/17 23:45 04/14/17 23:44 Lorazepam (Ativan 2mg/ml 1ml) 0.5 mg Q4H PRN IV For Anxiety 04/09/17 23:45 04/16/17 23:44 04/12/17 03:32 Methadone HCl (Methadone HCl) 100 mg DAILY ORAL 04/10/17 15:00 04/17/17 14:59 04/12/17 08:23 Methylprednisolone Sodium Succinate (Solu-MEDROL) 60 mg EVERY 6 HOURS IV 04/10/17 00:30 05/10/17 00:29 04/12/17 12:38 Morphine Sulfate (Morphine Sulfate) 2 mg Q4H PRN IVP severe pain 7-10 04/09/17 23:45 04/16/17 23:44 04/12/17 09:38 Nitroglycerin (Ntg) 0.4 mg Q5M X 3 DOSES PRN SL Prn Chest Pain 04/09/17 23:45 05/09/17 23:44 Ondansetron HCl (Zofran) 4 mg Q6H PRN IVP Nausea & Vomiting 04/09/17 23:45 05/09/17 23:44 04/10/17 14:28 Piperacillin Sod/ Tazobactam Sod 3.375 gm/Dextrose 110 ml @ 27.5 mls/hr Q8H IVPB 04/10/17 02:00 04/17/17 01:59 04/12/17 12:37 Promethazine HCl/ Codeine (Phenergan with Codeine) 5 ml Q6H PRN ORAL cough 04/09/17 23:45 05/09/17 23:44 04/10/17 09:12 Temazepam (Restoril) 15 mg HSPRN PRN ORAL Insomnia 04/09/17 23:45 04/16/17 23:44 Theophylline (Pancho-Dur) 100 mg EVERY 12 HOURS ORAL 04/10/17 09:00 05/10/17 08:59 04/12/17 08:29 RUBIA HUYNH Apr 12, 2017 14:49
[2017-04-12] MEDS ORDERED: ATIVAN1 MG ORAL (14:50)
--- NOTE | 2017-04-13 09:59 | Discharge Summary ---
Discharge Summary Hospital Course Date of Admission Apr 09, 2017 at 22:43 Date of Discharge Apr 12, 2017 at 16:37 Admitting Diagnosis COPD EXACERBATION HPI April Carlos is a 61 year old female who was admitted on Apr 09, 2017 at 22:43 for Chronic Obstructive Pulmonary Disorder [facility] Hospital Course [id number] Discharge Discharge Disposition Patient was discharged to Home (01) Discharge Diagnoses: Adriane Mallory NP Apr 13, 2017 09:59
--- NOTE | 2017-04-14 07:00 | Discharge Summary 2 SIG ---
DATE OF ADMISSION: 04/09/2017 DATE OF DISCHARGE: 04/12/2017 Brief Hospital Course: The patient is a 61-year-old female with a history of IV drug abuse, on methadone, COPD, and on home O2, presented to ED for 1 week of altered level of consciousness per daughter with fever, chills, and shortness of breath. The patient is on home O2. On evaluation in the ED, chest x-ray done showed no pneumonia, ABG with normal pH, CO2 was elevated to 80 and bicarbonate 39, likely chronic CO2 retention with appropriate metabolic compensation. She was given nebulizer treatments and was given prednisone. She had a difficult IV access and a central line to the left femoral was inserted. She was admitted to [facility] for COPD exacerbation and was continued on methadone. She was started on Zosyn and theophylline. She was given IV Solu-Medrol and antitussives. She was continued on Norvasc 10 mg for high blood pressure. She was breathing better with good O2 saturation. She was saturating 77% on room air during admission. At the time of discharge, she was on 2L nasal cannula, O2 saturation was in the 90s. She was eventually discharged home. FINAL DIAGNOSES: 1. Acute chronic obstructive pulmonary disease exacerbation. 2. Pneumonia. 3. Morbid obesity. 4. History of intravenous drug abuse. DISPOSITION: The patient was discharged home. Discharge Medications: Refer to medication list. Continue Augmentin for 5 more days and prednisone 20 mg for a week. FOLLOWUP: The patient was advised to follow up with PMD in a week. Derik Stewart M.D. I have been assigned to dictate discharge summary on this account and I was not involved in the patient's management. Adriane Mallory N.P. DR: DIEGO JOB#: [id number] CC: EMRE
--- NOTE | 2017-05-06 18:03 | Cardiology Report ---
APPROVED REPORT EKG Measurement Heart [id number] NM 150P42 [id number] Normal sinus rhythm Prolonged QT Abnormal ECG
== END 2017-04-12 16:37 | disposition home or self-care (01) | DRG 140 ==
LOC: EDBEDREQSVC 21:34 → EMR 21:57 → EDBEDREQSVC 22:37 → 2W 22:43 → EDBEDREQSVC 23:10 → EDBEDREQ 23:11 → 2W 04-10 00:42 → 4E 04-10 21:44
PROC: 06HN33Z Insertion of Infusion Device into Left Femoral Vein, Percutaneous Approach (ICD-10-PCS; principal; 2017-04-09)
PROC: B54CZZA Ultrasonography of Left Lower Extremity Veins, Guidance (ICD-10-PCS; 2017-04-09)
DX: J44.0 Chronic obstructive pulmonary disease with (acute) lower respiratory infection (principal); J96.20 Acute and chronic respiratory failure, unspecified whether with hypoxia or hypercapnia; J18.9 Pneumonia, unspecified organism; Z99.81 Dependence on supplemental oxygen; E66.01 Morbid (severe) obesity due to excess calories; Z68.36 Body mass index [BMI] 36.0-36.9, adult; J44.1 Chronic obstructive pulmonary disease with (acute) exacerbation; F19.21 Other psychoactive substance dependence, in remission
CPT/HCPCS: 36415; 36600; 71010; 80053; 81003; 82550; 82553; 82803; 83880; 84484; 85007; 85025; 87070; 87205; 93005; 93306; 94640; 94664; 94760; 99285; J2405; J7620

== ENCOUNTER 2017-07-13 16:53 | Inpatient (IN) | payer OTHER ==
[2017-07-13] VITALS (7 sets, daily range): BP systolic 128–181; BP diastolic 60–94
[~2017-07-13] VITALS: Ht 162.6 cm; Wt 83.0 kg
[~2017-07-13 16:53] MED LIST changes: +ATIVAN1 MG ORAL; +AUGMENTIN 875-1 EAC1 ORAL; +BENADRYL25 M3 PO; +DILAUDID4 MG ORAL; +KLONOPIN1 MG ORAL; +LISINOPRIL20 MG ORAL; +METHADONE HCL10 MG PO; +NORVASC10 MG ORAL; +PREDNISONE20 M1 PO
[2017-07-13] MEDS ORDERED: Sodium Chloride 500ML 500 ML IV ONE (17:19)
[2017-07-13] MEDS ORDERED: Ipratropium 0.02% Inh Soln 2.5ml UD HHN ONE (17:30)
[2017-07-13] MEDS ORDERED: Albuterol ud Inhalation HHN ONE ×3 (17:30→19:15)
[2017-07-13] MEDS ORDERED: Solu-MEDROL 125mg Inj IVP ONE (17:30)
[2017-07-13] MEDS ORDERED: METHADONE10 MG/1 M1 PO (19:11)
[2017-07-13] MEDS ORDERED: ALBUTEROL SULF8.5 GM INH (19:11)
[2017-07-13] MEDS ORDERED: DILAUDID4 MG ORAL (19:11)
[2017-07-13] MEDS ORDERED: ZITHROMAX250 MG ORAL (19:11)
[2017-07-13 19:24] LABS: BASOPHILS % (AUTO) 1.5 % (0.0-2.0); EOSINOPHILS % (AUTO) 0.7 % (0.0-3.0); HEMATOCRIT 34.3 % (37.0-47.0); LYMPHOCYTES % (AUTO) 20.9 % (20.0-45.0); MEAN CORPUSCULAR VOLUME 88 FL (80-99); MONOCYTES % (AUTO) 7.7 % (1.0-10.0); NEUTROPHILS % (AUTO) 69.2 % (45.0-75.0); PLATELET COUNT 115 K/UL (150-450); RED BLOOD COUNT 3.89 M/UL (4.20-5.40); RED CELL DISTRIBUTION WIDTH 14.5 % (11.6-14.8); WHITE BLOOD COUNT 11.3 K/UL (4.8-10.8)
[2017-07-13 19:38] LABS: ANION GAP 2 mmol/L (5-15); BLOOD UREA NITROGEN 8 mg/dL (7-18); CALCIUM 6.4 MG/DL (8.5-10.1); CARBON DIOXIDE 33 MMOL/L (21-32); CHLORIDE 104 MMOL/L (98-107); CREATININE 0.6 MG/DL (0.55-1.30); POTASSIUM 2.9 MMOL/L (3.5-5.1); SODIUM 139 MMOL/L (136-145)
[2017-07-13 19:48] LABS: ALANINE AMINOTRANSFERASE 10 U/L (12-78); ALBUMIN 2.7 G/DL (3.4-5.0); ALBUMIN/GLOBULIN RATIO 0.8 (1.0-2.7); ALKALINE PHOSPHATASE 63 U/L (46-116); ASPARTATE AMINO TRANSFERASE 18 U/L (15-37); BILIRUBIN,TOTAL 0.4 MG/DL (0.2-1.0); CKMB 1.8 NG/ML (0.0-3.6); CREATINE KINASE 104 U/L (26-308)
[2017-07-13] MEDS ORDERED: Succinylcholine 20mg/ml 10ml vial IV ONE (21:45)
--- NOTE | 2017-07-13 22:46 | Emergency Room Report ---
History of Present Illness General Chief Complaint: Dyspnea/Respdistress Source: Patient, Family Member Present Illness HPI Patient presents for complaints of confusion Shortness of breath patient has extensive past medical history And is on methadone patient also has history of COPD Respirations have been worsening over the past several days Family felt the patient was confused Patient had increased cough Unknown regarding fever however did have documented fever her Family denies any recent travel Patient presents in acute distress Allergies: Coded Allergies: ERYTHROMYCIN BASE (Verified Allergy, Severe, Hives, 01/29/17) SULFAMETHOXAZOLE (Verified Allergy, Severe, Shortness of Breath, 01/29/17) TRIMETHOPRIM (Verified Allergy, Severe, Shortness of Breath, 01/29/17) Patient History Limited by: medical condition Past Medical History: see triage record Pertinent Family History: none Reviewed Nursing Documentation: PMH: Agreed, PSxH: Agreed Nursing Documentation-PMH Hx Hypertension: Yes Hx Asthma: Yes Hx COPD: Yes Hx Cancer: No Hx Gastrointestinal Problems: No Review of Systems All Other Systems: negative except mentioned in HPI Physical Exam Vital Signs Date Time Temp Pulse Resp B/P (MAP) Pulse Ox O2 Delivery O2 Flow Rate FiO2 07/13/17 16:56 98.2 111 20 145/79 78 Room Air 07/13/17 17:20 2.0 82 Sp02 EP Interpretation: reviewed, abnormal - 70% is considered low percentage, on breathing treatments patient is at 94% which is normal oxygenation General Appearance: moderate distress - Patient appears hypoxic, lethargic, in acute distress Head: normocephalic, atraumatic Eyes: bilateral eye PERRL, bilateral eye EOMI ENT: dry mucus membranes Neck: full range of motion, supple Respiratory: accessory muscle use - Crackles or mild wheezing diffusely, patient appears in acute respiratory distress Cardiovascular #1: no gallop, no JVD, tachycardia Gastrointestinal: non tender, soft, no mass Genitourinary: no CVA tenderness Musculoskeletal: normal inspection, back normal Neurologic: alert, responsive, flag signaler III-XII nml as tested Skin: other - Poor skin turgor Lymphatic: no adenopathy Procedures Critical Care Time Critical Care Time 70 minutes, multiple re\re evaluations critical presentation, findings concerning for respiratory arrest and possible , not including any procedural time, Central Line Central Line : Consent: Emergent Central Line Lumen: triple Maximal Sterile Barrier Tech: yes cap, yes mask, yes sterile gown, yes sterile gloves, yes large sterile sheet, yes hand hygiene, yes chlorhexidine prep Central Line Postion: femoral (R) Anesthesia: Lidocaine cc's of anesthesia: 4 Complications: none Central Line Post Position: sutured Attempts: One Patient Tolerated: Well Complications: None Intubation Intubation : Consent: Emergent Intubation Method: orotracheal Tube Size (cm): 8.0 Medications: Succinylcholine Breath Sounds after Intubation: equal Intubation Complications: no complications Post Intubation Xray: Yes Progress/Xray Impression: ET tube appropriately positioned, bilateral infiltrates, cardiomegaly Attempts: One Patient Tolerated: Well Complications: None Medical Decision Making Diagnostic Impression: Primary Impression: Acute and chronic respiratory failure Additional Impressions: Respiratory distress COPD exacerbation ER Course Patient is a fairly complex patient with multiple differential to consideration including but not limited to cardiac cardiopulmonary and vascular emergencies Patient has history of COPD Also previous drug abuse poor IV access, requiring central line Patient is on methadone Initial BiPAP was attempted, patient initially did not tolerate very well on repeat exam appears to be worsening with ABG and requiring airway intubation Patient receiving further hydration In critical condition and admitted to ICU Labs Test 07/13/17 17:58 07/13/17 18:55 07/13/17 21:19 Arterial Blood pH 7.347 (7.350-7.450) 7.238 (7.350-7.450) Arterial Blood Partial Pressure CO2 64.0 mmHg (35.0-45.0) 76.2 mmHg (35.0-45.0) Arterial Blood Partial Pressure O2 51.5 mmHg (75.0-100.0) 164.7 mmHg (75.0-100.0) Arterial Blood HCO3 34.3 mmol/L (22.0-26.0) 31.8 mmol/L (22.0-26.0) Arterial Blood Oxygen Saturation 87.7 % (92.0-98.0) 98.8 % (92.0-98.0) Arterial Blood Base Excess 6.6 2.4 Fidencio Test Positive Positive White Blood Count 11.3 K/UL (4.8-10.8) Red Blood Count 3.89 M/UL (4.20-5.40) Hemoglobin 10.0 G/DL (12.0-16.0) Hematocrit 34.3 % (37.0-47.0) Mean Corpuscular Volume 88 FL (80-99) Mean Corpuscular Hemoglobin 25.8 PG (27.0-31.0) Mean Corpuscular Hemoglobin Concent 29.2 G/DL (32.0-36.0) Red Cell Distribution Width 14.5 % (11.6-14.8) Platelet Count 115 K/UL (150-450) Mean Platelet Volume 7.1 FL (6.5-10.1) Neutrophils (%) (Auto) 69.2 % (45.0-75.0) Lymphocytes (%) (Auto) 20.9 % (20.0-45.0) Monocytes (%) (Auto) 7.7 % (1.0-10.0) Eosinophils (%) (Auto) 0.7 % (0.0-3.0) Basophils (%) (Auto) 1.5 % (0.0-2.0) Sodium Level 139 MMOL/L (136-145) Potassium Level 2.9 MMOL/L (3.5-5.1) Chloride Level 104 MMOL/L (98-107) Carbon Dioxide Level 33 MMOL/L (21-32) Anion Gap 2 mmol/L (5-15) Blood Urea Nitrogen 8 mg/dL (7-18) Creatinine 0.6 MG/DL (0.55-1.30) Estimat Glomerular Filtration Rate > 60 mL/min (>60) Glucose Level 131 MG/DL (74-106) Calcium Level 6.4 MG/DL (8.5-10.1) Total Bilirubin 0.4 MG/DL (0.2-1.0) Aspartate Amino Transf (AST/SGOT) 18 U/L (15-37) Alanine Aminotransferase (ALT/SGPT) 10 U/L (12-78) Alkaline Phosphatase 63 U/L (46-116) Total Creatine Kinase 104 U/L (26-308) Creatine Kinase MB 1.8 NG/ML (0.0-3.6) Creatine Kinase MB Relative Index 1.7 Troponin I 0.017 ng/mL (0.000-0.056) Pro-B-Type Natriuretic Peptide 825 pg/mL (0-125) Total Protein 6.3 G/DL (6.4-8.2) Albumin 2.7 G/DL (3.4-5.0) Globulin 3.6 g/dL Albumin/Globulin Ratio 0.8 (1.0-2.7) Lipase 27 U/L (73-393) EKG Diagnostic Results Rate: tachycardiac Rhythm: NSR ST Segments: other - Nonspecific ST T-wave changes Rhythm Strip Diag. Results EP Interpretation: yes Rate: 102 Rhythm: no PVC's, no ectopy, other - sinus tach Chest X-Ray Diagnostic Results Chest X-Ray Diagnostic Results #1: Chest X-Ray Ordered: Yes # of Views/Limited/Complete: 1 View Indication: Shortness of Breath EP Interpretation: Yes Interpretation: no consolidation, no pneumothorax, other - Viral interstitial disease, heart size borderline enlarged Impression: Other - bilateral interstitial disease Electronically Signed by: Candice Ruth DO Chest X-Ray Diagnostic Results #2: Chest X-Ray Ordered: Yes # of Views/Limited/Complete: 1 View Indication: Other - intubation EP Interpretation: Yes Interpretation: no effusion, no pneumothorax, other - ET tube appropriately positioned, borderline cardiomegaly bilateral interstitial disease Impression: Other - ET tube appropriate Electronically Signed by: Candice Ruth DO Last Vital Signs Date Time Temp Pulse Resp B/P (MAP) Pulse Ox O2 Delivery O2 Flow Rate FiO2 07/13/17 21:08 102 18 98 Facial 80 07/13/17 19:54 2.0 07/13/17 19:00 181/65 07/13/17 17:20 102.9 Status: worsened Disposition: ADMITTED INPATIENT Condition: Critical Referrals: NON PHYSICIAN (PCP) CANDICE RUTH D.O. Jul 13, 2017 22:45
[2017-07-14] VITALS (26 sets, daily range): BP systolic 115–158; BP diastolic 39–99
[2017-07-14] MEDS ORDERED: Heparin 5000 units/ml inj SUBQ ONE (05:30)
[2017-07-14 06:26] LABS: APPEARANCE,URINE CLEAR; BILIRUBIN, URINE NEGATIVE (NEGATIVE); COLOR,URINE PALE YELLOW; GLUCOSE, URINE (UA) NEGATIVE (NEGATIVE); KETONES,URINE 1+ (NEGATIVE); LEUKOCYTE ESTERASE ,URINE NEGATIVE (NEGATIVE); NITRITE,URINE NEGATIVE (NEGATIVE); PH,URINE 7 (4.5-8.0); PROTEIN,URINE NEGATIVE (NEGATIVE); UROBILINOGEN,URINE 1 MG/DL (0.0-1.0)
[2017-07-14 06:28] LABS: BASOPHILS % (AUTO) 0.7 % (0.0-2.0); EOSINOPHILS % (AUTO) 0.2 % (0.0-3.0); HEMATOCRIT 36.7 % (37.0-47.0); HEMOGLOBIN 12.1 G/DL (12.0-16.0); LYMPHOCYTES % (AUTO) 13.3 % (20.0-45.0); MEAN CORPUSCULAR VOLUME 88 FL (80-99); MONOCYTES % (AUTO) 6.6 % (1.0-10.0); NEUTROPHILS % (AUTO) 79.3 % (45.0-75.0); PLATELET COUNT 133 K/UL (150-450); RED BLOOD COUNT 4.17 M/UL (4.20-5.40); RED CELL DISTRIBUTION WIDTH 14.5 % (11.6-14.8); WHITE BLOOD COUNT 9.8 K/UL (4.8-10.8)
[2017-07-14 06:41] LABS: ALANINE AMINOTRANSFERASE 17 U/L (12-78); ALBUMIN 2.8 G/DL (3.4-5.0); ALBUMIN/GLOBULIN RATIO 0.7 (1.0-2.7); ALKALINE PHOSPHATASE 72 U/L (46-116); ANION GAP 4 mmol/L (5-15); ASPARTATE AMINO TRANSFERASE 22 U/L (15-37); BILIRUBIN,TOTAL 0.7 MG/DL (0.2-1.0); BLOOD UREA NITROGEN 7 mg/dL (7-18); CALCIUM 7.3 MG/DL (8.5-10.1); CARBON DIOXIDE 31 MMOL/L (21-32); CHLORIDE 101 MMOL/L (98-107); CREATININE 0.5 MG/DL (0.55-1.30); POTASSIUM 4.4 MMOL/L (3.5-5.1); SODIUM 136 MMOL/L (136-145)
[2017-07-14] MEDS: Sodium Chloride 500ML 550 ML IV SCH ×3 (06:44→20:06)
[2017-07-14] MEDS: LORazepam Inj 2mg/ml 1ml IV PRN ×2 (07:54→10:27)
--- NOTE | 2017-07-14 08:06 | Diagnostic Imaging Report ---
Indication: Shortness of breath Technique: XRAY Chest 1v Comparison: 04/11/2017 Findings: Heart is mildly enlarged but stable in size allowing for differences in technique. The mediastinal contours appear sharp. There is mild interstitial opacification/edema with focal haziness in the right base which may related to vascular crowding, foci of developing alveolar edema, layering pleural effusion and/or pneumonia. There is no pneumothorax. Surgical sutures noted in the right lung and surgical clips noted just to the right of midline. No acute osseous abnormality seen. Impression: Cardiomegaly with bilateral interstitial opacification and more focal haziness in the right lower lung. Findings may related to fluid overload/pulmonary edema. Superimposed pneumonia is not excluded. Clinical correlation and follow-up exam recommended.
--- NOTE | 2017-07-14 08:25 | Diagnostic Imaging Report ---
Indication: Shortness of breath Technique: XRAY Chest 1v Comparison: 07/13/2017, 17:57 Findings: Interval endotracheal intubation with ET tube tip approximately 3.8 cm above the adrian. Mild cardiomegaly and persistent interstitial opacification/edema. No acute osseous abnormality seen. No pneumothorax. Impression: Satisfactory endotracheal intubation. Additional findings unchanged.
[2017-07-14] MEDS: Pantoprazole Inj IVP SCH (09:10)
[2017-07-14] MEDS: Heparin 5000 units/ml inj SUBQ SCH ×2 (09:11→21:12)
[2017-07-14] MEDS: Morphine Sulfate 2mg/ml Inj IVP PRN ×2 (09:55→22:56)
--- NOTE | 2017-07-14 11:20 | Diagnostic Imaging Report ---
Indication: NG tube Technique: XRAY Abdomen 1v Comparison: Correlation made to concurrent chest radiograph Findings: Oval NG tube placement, tip in the distal stomach. Bowel gas pattern is nonobstructive. Cardiomegaly with interstitial prominence. Impression: Interval NG tube placement. Tip in the distal stomach.
--- NOTE | 2017-07-14 12:22 | Critical Care Progress Note ---
Assessment/Plan Assessment/Plan respiratory failure COPD acute encephalopathy methadone dependent PLAN care noted IV antibiotics respiratory care Ventilatory support supportive care suction no wean today oxygen therapy check ABG prognosis guarded Critical Care - Subjective Interval Events: asked to follow for pulmonary d/w nursing confirmed daily methadone use ROS Limited/Unobtainable: Yes Condition: critical EKG Rhythm: Sinus Rhythm I&O: Intake and Output 07/13/17 07/14/17 19:00 07:00 Intake Total 40.19 ml Output Total 900 ml Balance -859.81 ml Intake Oral 0 ml IV Total 40.19 ml Output Urine Total 900 ml Critical Care - Objective CXR: mild edema ET-Tube: 8.0 ET Position: 22 Last 24 Hour Vital Signs Date Time Temp Pulse Resp B/P (MAP) Pulse Ox O2 Delivery O2 Flow Rate FiO2 07/14/17 11:00 93 19 145/84 97 Mechanical Ventilator 30 07/14/17 10:51 93 22 30 07/14/17 10:00 80 19 144/74 99 Mechanical Ventilator 30 07/14/17 09:00 99.6 99 19 143/84 95 Mechanical Ventilator 30 07/14/17 08:55 100 24 30 07/14/17 08:00 30 07/14/17 08:00 82 07/14/17 08:00 90 19 144/84 97 Mechanical Ventilator 30 07/14/17 07:00 83 20 115/41 97 Mechanical Ventilator 30 07/14/17 06:50 85 22 30 07/14/17 06:00 86 22 136/71 98 Mechanical Ventilator 30 07/14/17 05:46 22 07/14/17 05:30 80 07/14/17 05:30 98.0 86 22 136/73 98 Mechanical Ventilator 30 07/14/17 05:30 30 07/14/17 04:52 73 23 30 07/14/17 03:45 98.9 88 22 139/73 97 Mechanical Ventilator 2.0 30 07/14/17 03:45 88 22 139/73 97 Mechanical Ventilator 2.0 30 07/14/17 03:30 90 20 30 07/14/17 03:00 89 20 129/75 98 Mechanical Ventilator 2.0 30 07/14/17 02:00 91 21 134/65 98 Mechanical Ventilator 2.0 30 07/14/17 02:00 21 07/14/17 01:45 21 07/14/17 01:45 98.9 108 26 136/70 95 Mechanical Ventilator 2.0 30 07/14/17 01:30 92 22 30 07/14/17 01:30 22 07/14/17 01:30 105 23 158/99 91 Mechanical Ventilator 2.0 30 07/14/17 01:15 97 24 147/72 96 Mechanical Ventilator 07/14/17 01:15 24 07/14/17 01:00 22 07/14/17 01:00 102.9 94 22 129/66 98 Mechanical Ventilator 2.0 30 07/13/17 23:50 16 07/13/17 23:50 105 16 155/79 96 Mechanical Ventilator 2.0 30 07/13/17 23:35 99 20 147/76 99 Mechanical Ventilator 2.0 30 07/13/17 23:35 20 07/13/17 23:20 97 21 137/77 98 Mechanical Ventilator 07/13/17 23:20 21 07/13/17 23:18 21 07/13/17 23:00 99 22 136/75 95 Mechanical Ventilator 07/13/17 22:53 98 22 30 07/13/17 21:08 102 18 98 Facial 80 07/13/17 21:00 100 18 138/60 98 Nasal Cannula 07/13/17 20:16 106 20 98 Facial 80 07/13/17 19:54 116 20 98 Nasal Cannula 2.0 07/13/17 19:49 107 20 92 Nasal Cannula 2.0 07/13/17 19:48 107 20 Nasal Cannula 2.0 07/13/17 19:00 111 30 181/65 98 Nasal Cannula 2.0 07/13/17 17:39 112 24 97 Nasal Cannula 2.0 07/13/17 17:30 110 26 94 Nasal Cannula 2.0 07/13/17 17:20 102.9 111 17 128/94 82 Nasal Cannula 2.0 07/13/17 17:20 111 17 Nasal Cannula 2.0 82 07/13/17 16:56 98.2 111 20 145/79 78 Room Air Labs: Labs Test 07/13/17 17:58 07/13/17 18:55 07/13/17 21:19 07/14/17 02:00 Arterial Blood pH 7.347 (7.350-7.450) 7.238 (7.350-7.450) Arterial Blood Partial Pressure CO2 64.0 mmHg (35.0-45.0) 76.2 mmHg (35.0-45.0) Arterial Blood Partial Pressure O2 51.5 mmHg (75.0-100.0) 164.7 mmHg (75.0-100.0) Arterial Blood HCO3 34.3 mmol/L (22.0-26.0) 31.8 mmol/L (22.0-26.0) Arterial Blood Oxygen Saturation 87.7 % (92.0-98.0) 98.8 % (92.0-98.0) Arterial Blood Base Excess 6.6 2.4 Fidencio Test Positive Positive White Blood Count 11.3 K/UL (4.8-10.8) Red Blood Count 3.89 M/UL (4.20-5.40) Hemoglobin 10.0 G/DL (12.0-16.0) Hematocrit 34.3 % (37.0-47.0) Mean Corpuscular Volume 88 FL (80-99) Mean Corpuscular Hemoglobin 25.8 PG (27.0-31.0) Mean Corpuscular Hemoglobin Concent 29.2 G/DL (32.0-36.0) Red Cell Distribution Width 14.5 % (11.6-14.8) Platelet Count 115 K/UL (150-450) Mean Platelet Volume 7.1 FL (6.5-10.1) Neutrophils (%) (Auto) 69.2 % (45.0-75.0) Lymphocytes (%) (Auto) 20.9 % (20.0-45.0) Monocytes (%) (Auto) 7.7 % (1.0-10.0) Eosinophils (%) (Auto) 0.7 % (0.0-3.0) Basophils (%) (Auto) 1.5 % (0.0-2.0) Sodium Level 139 MMOL/L (136-145) Potassium Level 2.9 MMOL/L (3.5-5.1) Chloride Level 104 MMOL/L (98-107) Carbon Dioxide Level 33 MMOL/L (21-32) Anion Gap 2 mmol/L (5-15) Blood Urea Nitrogen 8 mg/dL (7-18) Creatinine 0.6 MG/DL (0.55-1.30) Estimat Glomerular Filtration Rate > 60 mL/min (>60) Glucose Level 131 MG/DL (74-106) Calcium Level 6.4 MG/DL (8.5-10.1) Total Bilirubin 0.4 MG/DL (0.2-1.0) Aspartate Amino Transf (AST/SGOT) 18 U/L (15-37) Alanine Aminotransferase (ALT/SGPT) 10 U/L (12-78) Alkaline Phosphatase 63 U/L (46-116) Total Creatine Kinase 104 U/L (26-308) Creatine Kinase MB 1.8 NG/ML (0.0-3.6) Creatine Kinase MB Relative Index 1.7 Troponin I 0.017 ng/mL (0.000-0.056) Pro-B-Type Natriuretic Peptide 825 pg/mL (0-125) Total Protein 6.3 G/DL (6.4-8.2) Albumin 2.7 G/DL (3.4-5.0) Globulin 3.6 g/dL Albumin/Globulin Ratio 0.8 (1.0-2.7) Lipase 27 U/L (73-393) Triglycerides Level 57 MG/DL (30-150) Test 07/14/17 05:00 07/14/17 05:50 Urine Color Pale yellow Urine Appearance Clear Urine pH 7 (4.5-8.0) Urine Specific [place] 1.015 (1.005-1.035) Urine Protein Negative (NEGATIVE) Urine Glucose (UA) Negative (NEGATIVE) Urine Ketones 1+ (NEGATIVE) Urine Occult Blood Negative (NEGATIVE) Urine Nitrite Negative (NEGATIVE) Urine Bilirubin Negative (NEGATIVE) Urine Urobilinogen 1 MG/DL (0.0-1.0) Urine Leukocyte Esterase Negative (NEGATIVE) Urine Opiates Screen Positive (NEGATIVE) Urine Barbiturates Screen Negative (NEGATIVE) Phencyclidine (PCP) Screen Negative (NEGATIVE) Urine Amphetamines Screen Negative (NEGATIVE) Urine Benzodiazepines Screen Positive (NEGATIVE) Urine Cocaine Screen Negative (NEGATIVE) Urine Marijuana (THC) Screen Negative (NEGATIVE) White Blood Count 9.8 K/UL (4.8-10.8) Red Blood Count 4.17 M/UL (4.20-5.40) Hemoglobin 12.1 G/DL (12.0-16.0) Hematocrit 36.7 % (37.0-47.0) Mean Corpuscular Volume 88 FL (80-99) Mean Corpuscular Hemoglobin 28.9 PG (27.0-31.0) Mean Corpuscular Hemoglobin Concent 32.8 G/DL (32.0-36.0) Red Cell Distribution Width 14.5 % (11.6-14.8) Platelet Count 133 K/UL (150-450) Mean Platelet Volume 7.4 FL (6.5-10.1) Neutrophils (%) (Auto) 79.3 % (45.0-75.0) Lymphocytes (%) (Auto) 13.3 % (20.0-45.0) Monocytes (%) (Auto) 6.6 % (1.0-10.0) Eosinophils (%) (Auto) 0.2 % (0.0-3.0) Basophils (%) (Auto) 0.7 % (0.0-2.0) Sodium Level 136 MMOL/L (136-145) Potassium Level 4.4 MMOL/L (3.5-5.1) Chloride Level 101 MMOL/L (98-107) Carbon Dioxide Level 31 MMOL/L (21-32) Anion Gap 4 mmol/L (5-15) Blood Urea Nitrogen 7 mg/dL (7-18) Creatinine 0.5 MG/DL (0.55-1.30) Estimat Glomerular Filtration Rate > 60 mL/min (>60) Glucose Level 138 MG/DL (74-106) Calcium Level 7.3 MG/DL (8.5-10.1) Total Bilirubin 0.7 MG/DL (0.2-1.0) Aspartate Amino Transf (AST/SGOT) 22 U/L (15-37) Alanine Aminotransferase (ALT/SGPT) 17 U/L (12-78) Alkaline Phosphatase 72 U/L (46-116) Troponin I 0.000 ng/mL (0.000-0.056) Total Protein 7.1 G/DL (6.4-8.2) Albumin 2.8 G/DL (3.4-5.0) Globulin 4.3 g/dL Albumin/Globulin Ratio 0.7 (1.0-2.7) Objective: WDWN NAD reduced breath sounds bilaterally without rhonchi or wheeze [id number] without MRG NABS nontender no HSM no CCE nonfocal sedated Micro: Microbiology Date/Time Source Procedure Growth Status 07/13/17 01:00 Nasal Nares Influenza Types A,B Antigen (BILLIE) - Final Complete MONTEZ JIANG Jul 14, 2017 12:22
[2017-07-14] MEDS: Dyna-Hex 2% Top Sol 2oz TOPIC SCH (20:11)
--- NOTE | 2017-07-14 20:25 | History & Physical ---
History and Physical History & Physicial JOB ID [id number] Nando Mccracken Jul 14, 2017 20:25
[2017-07-15] VITALS (24 sets, daily range): BP systolic 120–172; BP diastolic 70–88
--- NOTE | 2017-07-15 01:02 | History and Physical Report ---
DATE OF ADMISSION: 07/13/2017 NOTE: POOR AUDIO INTERNAL MEDICINE HISTORY AND PHYSICAL REASON FOR ADMISSION: Acute hypoxic respiratory failure. IDENTIFICATION DATA: The patient is a pleasant 61-year-old female, who has been admitted to [facility] before in March 2017. At this time, she presents back to the hospital with confusion. Extensive past medical history again noted. She has been on methadone chronically. I have consulted Pain Management Service as well as Pulmonary team as the patient acutely decompensated and was initially taken to the [facility], however, decompensated again and was intubated. Currently, she is on a vent and being managed by Pulmonary team. PAST MEDICAL HISTORY: Hypertension, asthma, COPD, and pain disorder. ALLERGIES: Erythromycin, Bactrim, and . FAMILY HISTORY: Noncontributory. REVIEW OF SYSTEMS: Otherwise negative except as noted in history of present illness. PHYSICAL EXAMINATION: VITAL SIGNS: Reviewed. GENERAL: No acute distress. PULMONARY: Decreased breath sounds. She is on a vent. CARDIOVASCULAR: Regular rate. No S3 or S4. ABDOMEN: Soft, nontender, and nondistended. EXTREMITIES: No cyanosis, swelling, or edema. LABORATORY DATA: Platelet count 133, hemoglobin 12.1, and WBC 9.8. BUN 7 and creatinine 0.5. Troponin 0.017 0.070. Albumin 2.8. Urine negative for UTI. ASSESSMENT AND RECOMMENDATIONS: 1. Acute respiratory failure, potentially secondary to either drug induced and/or chronic obstructive pulmonary disease exacerbation. The patient is methadone dependent. Currently, intubated at this time. Weaning protocol daily. Continue oxygen management per Pulmonary team. 2. Acute encephalopathy, potentially secondary to medications. She is on methadone, long-standing history of chronic obstructive pulmonary disease and worsened over the past several days. 3. . Neurology has been consulted. 4. Increasing cough, potentially related to underlying infection and component to acute respiratory failure. 5. Methadone dependence. Consulted pain management. 6. Chronic obstructive pulmonary disease. I appreciate the multi site leasing consultant care. Nando Mccracken M.D. DR: Tiff JOB#: [id number] CC:
[2017-07-15] MEDS: LORazepam Inj 2mg/ml 1ml IV PRN ×4 (02:13→21:45)
[2017-07-15] MEDS: Morphine Sulfate 2mg/ml Inj IVP PRN ×2 (04:13→19:55)
[2017-07-15] MEDS: Sodium Chloride 500ML 550 ML IV SCH ×3 (04:14→18:37)
[2017-07-15 08:32] LABS: BASOPHILS % (AUTO) 0.8 % (0.0-2.0); EOSINOPHILS % (AUTO) 1.7 % (0.0-3.0); HEMATOCRIT 39.7 % (37.0-47.0); HEMOGLOBIN 12.4 G/DL (12.0-16.0); LYMPHOCYTES % (AUTO) 15.6 % (20.0-45.0); MEAN CORPUSCULAR VOLUME 86 FL (80-99); MONOCYTES % (AUTO) 7.7 % (1.0-10.0); NEUTROPHILS % (AUTO) 74.1 % (45.0-75.0); PLATELET COUNT 177 K/UL (150-450); RED CELL DISTRIBUTION WIDTH 14.7 % (11.6-14.8); WHITE BLOOD COUNT 8.8 K/UL (4.8-10.8)
[2017-07-15 08:44] LABS: ANION GAP 7 mmol/L (5-15); BLOOD UREA NITROGEN 8 mg/dL (7-18); CALCIUM 7.2 MG/DL (8.5-10.1); CARBON DIOXIDE 30 MMOL/L (21-32); CHLORIDE 101 MMOL/L (98-107); CREATININE 0.6 MG/DL (0.55-1.30); POTASSIUM 3.4 MMOL/L (3.5-5.1); SODIUM 137 MMOL/L (136-145)
[2017-07-15] MEDS: Pantoprazole Inj IVP SCH (08:45)
[2017-07-15] MEDS: Heparin 5000 units/ml inj SUBQ SCH ×2 (08:48→21:01)
--- NOTE | 2017-07-15 09:29 | Critical Care Progress Note ---
Assessment/Plan Assessment/Plan respiratory failure COPD acute encephalopathy methadone dependent PLAN care noted IV antibiotics respiratory care Ventilatory support supportive care suction no wean today oxygen therapy check ABG prognosis guarded Critical Care - Subjective Interval Events: care noted and reviewed orders overnight noted ROS Limited/Unobtainable: Yes EKG Rhythm: Sinus Rhythm Residuals: minimal Tube Feeding Tolerated: yes I&O: Intake and Output 07/14/17 07/15/17 19:00 07:00 Intake Total 950 ml 825 ml Output Total 900 ml 620 ml Balance 50 ml 205 ml Intake Oral 0 ml IV Total 850 ml 825 ml Other 100 ml Output Urine Total 900 ml 620 ml Critical Care - Objective ET-Tube: 8.0 ET Position: 22 Last 24 Hour Vital Signs Date Time Temp Pulse Resp B/P (MAP) Pulse Ox O2 Delivery O2 Flow Rate FiO2 07/15/17 09:19 96 16 35 07/15/17 08:00 35 07/15/17 08:00 99.5 93 20 148/87 96 Mechanical Ventilator 35 07/15/17 08:00 98 07/15/17 07:04 95 16 35 07/15/17 07:00 97 16 150/88 97 Mechanical Ventilator 35 07/15/17 06:00 103 20 153/74 96 Mechanical Ventilator 35 07/15/17 05:30 95 16 35 07/15/17 05:00 95 16 138/75 94 Mechanical Ventilator 35 07/15/17 04:00 103 07/15/17 04:00 35 07/15/17 04:00 98.9 106 21 172/82 97 Mechanical Ventilator 35 07/15/17 03:30 86 16 35 07/15/17 03:00 84 15 134/76 96 Mechanical Ventilator 35 07/15/17 02:00 90 16 138/86 97 Mechanical Ventilator 35 07/15/17 01:30 83 16 35 07/15/17 01:01 83 16 136/76 96 Mechanical Ventilator 35 07/15/17 00:03 86 07/15/17 00:03 35 07/15/17 00:00 98.8 89 18 138/78 97 Mechanical Ventilator 35 07/14/17 23:30 97 16 35 07/14/17 23:00 87 16 135/75 97 Mechanical Ventilator 35 07/14/17 22:04 86 16 133/79 96 Mechanical Ventilator 35 07/14/17 21:00 85 16 140/75 96 Mechanical Ventilator 35 07/14/17 20:55 95 17 35 07/14/17 20:00 35 07/14/17 20:00 82 07/14/17 20:00 99.6 82 16 133/75 95 Mechanical Ventilator 35 07/14/17 19:30 92 18 35 07/14/17 19:00 84 17 123/69 97 Mechanical Ventilator 35 07/14/17 18:00 99.8 85 17 129/72 95 Mechanical Ventilator 35 07/14/17 17:43 99.8 07/14/17 17:00 88 16 134/74 97 Mechanical Ventilator 35 07/14/17 16:52 86 16 35 07/14/17 16:00 91 07/14/17 16:00 100.3 90 16 133/76 96 Mechanical Ventilator 35 07/14/17 15:00 90 16 141/78 96 Mechanical Ventilator 35 07/14/17 14:51 105 19 35 07/14/17 14:00 79 16 141/76 97 Mechanical Ventilator 35 07/14/17 13:00 79 18 144/39 97 Mechanical Ventilator 35 07/14/17 12:52 35 07/14/17 12:50 80 16 35 07/14/17 12:00 99.5 81 22 135/77 95 Mechanical Ventilator 30 07/14/17 12:00 81 07/14/17 12:00 30 07/14/17 11:00 93 19 145/84 97 Mechanical Ventilator 30 07/14/17 10:51 93 22 30 07/14/17 10:00 80 19 144/74 99 Mechanical Ventilator 30 Labs: Labs Test 07/13/17 17:58 07/13/17 18:55 07/13/17 21:19 07/14/17 02:00 Arterial Blood pH 7.347 (7.350-7.450) 7.238 (7.350-7.450) Arterial Blood Partial Pressure CO2 64.0 mmHg (35.0-45.0) 76.2 mmHg (35.0-45.0) Arterial Blood Partial Pressure O2 51.5 mmHg (75.0-100.0) 164.7 mmHg (75.0-100.0) Arterial Blood HCO3 34.3 mmol/L (22.0-26.0) 31.8 mmol/L (22.0-26.0) Arterial Blood Oxygen Saturation 87.7 % (92.0-98.0) 98.8 % (92.0-98.0) Arterial Blood Base Excess 6.6 2.4 Fidencio Test Positive Positive White Blood Count 11.3 K/UL (4.8-10.8) Red Blood Count 3.89 M/UL (4.20-5.40) Hemoglobin 10.0 G/DL (12.0-16.0) Hematocrit 34.3 % (37.0-47.0) Mean Corpuscular Volume 88 FL (80-99) Mean Corpuscular Hemoglobin 25.8 PG (27.0-31.0) Mean Corpuscular Hemoglobin Concent 29.2 G/DL (32.0-36.0) Red Cell Distribution Width 14.5 % (11.6-14.8) Platelet Count 115 K/UL (150-450) Mean Platelet Volume 7.1 FL (6.5-10.1) Neutrophils (%) (Auto) 69.2 % (45.0-75.0) Lymphocytes (%) (Auto) 20.9 % (20.0-45.0) Monocytes (%) (Auto) 7.7 % (1.0-10.0) Eosinophils (%) (Auto) 0.7 % (0.0-3.0) Basophils (%) (Auto) 1.5 % (0.0-2.0) Sodium Level 139 MMOL/L (136-145) Potassium Level 2.9 MMOL/L (3.5-5.1) Chloride Level 104 MMOL/L (98-107) Carbon Dioxide Level 33 MMOL/L (21-32) Anion Gap 2 mmol/L (5-15) Blood Urea Nitrogen 8 mg/dL (7-18) Creatinine 0.6 MG/DL (0.55-1.30) Estimat Glomerular Filtration Rate > 60 mL/min (>60) Glucose Level 131 MG/DL (74-106) Calcium Level 6.4 MG/DL (8.5-10.1) Total Bilirubin 0.4 MG/DL (0.2-1.0) Aspartate Amino Transf (AST/SGOT) 18 U/L (15-37) Alanine Aminotransferase (ALT/SGPT) 10 U/L (12-78) Alkaline Phosphatase 63 U/L (46-116) Total Creatine Kinase 104 U/L (26-308) Creatine Kinase MB 1.8 NG/ML (0.0-3.6) Creatine Kinase MB Relative Index 1.7 Troponin I 0.017 ng/mL (0.000-0.056) Pro-B-Type Natriuretic Peptide 825 pg/mL (0-125) Total Protein 6.3 G/DL (6.4-8.2) Albumin 2.7 G/DL (3.4-5.0) Globulin 3.6 g/dL Albumin/Globulin Ratio 0.8 (1.0-2.7) Lipase 27 U/L (73-393) Triglycerides Level 57 MG/DL (30-150) Test 07/14/17 05:00 07/14/17 05:50 07/14/17 12:20 07/15/17 04:00 Urine Color Pale yellow Urine Appearance Clear Urine pH 7 (4.5-8.0) Urine Specific [place] 1.015 (1.005-1.035) Urine Protein Negative (NEGATIVE) Urine Glucose (UA) Negative (NEGATIVE) Urine Ketones 1+ (NEGATIVE) Urine Occult Blood Negative (NEGATIVE) Urine Nitrite Negative (NEGATIVE) Urine Bilirubin Negative (NEGATIVE) Urine Urobilinogen 1 MG/DL (0.0-1.0) Urine Leukocyte Esterase Negative (NEGATIVE) Urine Opiates Screen Positive (NEGATIVE) Urine Barbiturates Screen Negative (NEGATIVE) Phencyclidine (PCP) Screen Negative (NEGATIVE) Urine Amphetamines Screen Negative (NEGATIVE) Urine Benzodiazepines Screen Positive (NEGATIVE) Urine Cocaine Screen Negative (NEGATIVE) Urine Marijuana (THC) Screen Negative (NEGATIVE) White Blood Count 9.8 K/UL (4.8-10.8) Red Blood Count 4.17 M/UL (4.20-5.40) Hemoglobin 12.1 G/DL (12.0-16.0) Hematocrit 36.7 % (37.0-47.0) Mean Corpuscular Volume 88 FL (80-99) Mean Corpuscular Hemoglobin 28.9 PG (27.0-31.0) Mean Corpuscular Hemoglobin Concent 32.8 G/DL (32.0-36.0) Red Cell Distribution Width 14.5 % (11.6-14.8) Platelet Count 133 K/UL (150-450) Mean Platelet Volume 7.4 FL (6.5-10.1) Neutrophils (%) (Auto) 79.3 % (45.0-75.0) Lymphocytes (%) (Auto) 13.3 % (20.0-45.0) Monocytes (%) (Auto) 6.6 % (1.0-10.0) Eosinophils (%) (Auto) 0.2 % (0.0-3.0) Basophils (%) (Auto) 0.7 % (0.0-2.0) Sodium Level 136 MMOL/L (136-145) Potassium Level 4.4 MMOL/L (3.5-5.1) Chloride Level 101 MMOL/L (98-107) Carbon Dioxide Level 31 MMOL/L (21-32) Anion Gap 4 mmol/L (5-15) Blood Urea Nitrogen 7 mg/dL (7-18) Creatinine 0.5 MG/DL (0.55-1.30) Estimat Glomerular Filtration Rate > 60 mL/min (>60) Glucose Level 138 MG/DL (74-106) Calcium Level 7.3 MG/DL (8.5-10.1) Total Bilirubin 0.7 MG/DL (0.2-1.0) Aspartate Amino Transf (AST/SGOT) 22 U/L (15-37) Alanine Aminotransferase (ALT/SGPT) 17 U/L (12-78) Alkaline Phosphatase 72 U/L (46-116) Troponin I 0.000 ng/mL (0.000-0.056) Total Protein 7.1 G/DL (6.4-8.2) Albumin 2.8 G/DL (3.4-5.0) Globulin 4.3 g/dL Albumin/Globulin Ratio 0.7 (1.0-2.7) Arterial Blood pH 7.510 (7.350-7.450) Arterial Blood Partial Pressure CO2 38.9 mmHg (35.0-45.0) Arterial Blood Partial Pressure O2 61.3 mmHg (75.0-100.0) Arterial Blood HCO3 31.0 mmol/L (22.0-26.0) Arterial Blood Oxygen Saturation 94.4 % (92.0-98.0) Arterial Blood Base Excess 7.6 Fidencio Test Positive Amylase Level 8 U/L (25-115) Test 07/15/17 08:15 White Blood Count 8.8 K/UL (4.8-10.8) Red Blood Count 4.60 M/UL (4.20-5.40) Hemoglobin 12.4 G/DL (12.0-16.0) Hematocrit 39.7 % (37.0-47.0) Mean Corpuscular Volume 86 FL (80-99) Mean Corpuscular Hemoglobin 27.0 PG (27.0-31.0) Mean Corpuscular Hemoglobin Concent 31.3 G/DL (32.0-36.0) Red Cell Distribution Width 14.7 % (11.6-14.8) Platelet Count 177 K/UL (150-450) Mean Platelet Volume 7.1 FL (6.5-10.1) Neutrophils (%) (Auto) 74.1 % (45.0-75.0) Lymphocytes (%) (Auto) 15.6 % (20.0-45.0) Monocytes (%) (Auto) 7.7 % (1.0-10.0) Eosinophils (%) (Auto) 1.7 % (0.0-3.0) Basophils (%) (Auto) 0.8 % (0.0-2.0) Sodium Level 137 MMOL/L (136-145) Potassium Level 3.4 MMOL/L (3.5-5.1) Chloride Level 101 MMOL/L (98-107) Carbon Dioxide Level 30 MMOL/L (21-32) Anion Gap 7 mmol/L (5-15) Blood Urea Nitrogen 8 mg/dL (7-18) Creatinine 0.6 MG/DL (0.55-1.30) Estimat Glomerular Filtration Rate > 60 mL/min (>60) Glucose Level 106 MG/DL (74-106) Calcium Level 7.2 MG/DL (8.5-10.1) Objective: WDWN NAD reduced breath sounds bilaterally without rhonchi or wheeze [id number] without MRG NABS nontender no HSM no CCE nonfocal sedated Micro: Microbiology Date/Time Source Procedure Growth Status 07/13/17 18:55 Blood Blood Culture - Preliminary NO GROWTH AFTER 24 HOURS Resulted 07/13/17 18:50 Blood Blood Culture - Preliminary NO GROWTH AFTER 24 HOURS Resulted 07/13/17 01:00 Nasal Nares Influenza Types A,B Antigen (BILLIE) - Final Complete 07/14/17 05:00 Indwelling Cath Urine Culture - Preliminary NO GROWTH Resulted MONTEZ JIANG Jul 15, 2017 09:29
--- NOTE | 2017-07-15 09:32 | Consultation ---
History of Present Illness General Date patient seen: Jul 15, 2017 Present Illness Allergies: Coded Allergies: ERYTHROMYCIN BASE (Verified Allergy, Severe, Hives, 01/29/17) SULFAMETHOXAZOLE (Verified Allergy, Severe, Shortness of Breath, 01/29/17) TRIMETHOPRIM (Verified Allergy, Severe, Shortness of Breath, 01/29/17) Medication History Scheduled Albuterol Sulfate* (Albuterol Sulfate Mdi*), 2 PUFF INH Q6H, (Reported) Amlodipine Besylate (Norvasc), 10 MG ORAL DAILY, (Reported) Clonazepam* (Klonopin*), 1 MG ORAL QID, (Reported) Diphenhydramine HCl (Benadryl), 50 MG PO FOUR TIMES A DAY, (Reported) Hydromorphone HCl (Dilaudid), 4 MG ORAL Q4H, (Reported) Lisinopril (Lisinopril*), 40 MG ORAL DAILY, (Reported) Methadone Hcl (Methadone Hcl), 88 MG PO DAILY, (Reported) Miscellaneous Medications Azithromycin* (Zithromax*), 250 MG ORAL, (Reported) Discontinued Medications Amoxicillin/Potassium Clav 875-125* (Augmentin 875-125 Tablet*), 1 TAB ORAL TWICE A DAY Discontinued Reason: Pt stopped taking med Hydromorphone HCl (Dilaudid), 4 MG ORAL QID, (Reported) Discontinued Reason: Medication dose changed Lorazepam* (Ativan*), 1 MG ORAL THREE TIMES A DAY Discontinued Reason: Pt stopped taking med Methadone Hcl* (Methadone*), 100 MG PO DAILY, (Reported) Discontinued Reason: Medication dose changed Prednisone (Prednisone), 20 MG PO DAILY Discontinued Reason: Pt stopped taking med Patient History Healthcare decision maker SELF Resuscitation status Full Code Advanced Directive on File No Physical Exam Last 24 Hour Vital Signs Date Time Temp Pulse Resp B/P (MAP) Pulse Ox O2 Delivery O2 Flow Rate FiO2 07/15/17 09:19 96 16 35 07/15/17 08:00 35 07/15/17 08:00 99.5 93 20 148/87 96 Mechanical Ventilator 35 07/15/17 08:00 98 07/15/17 07:04 95 16 35 07/15/17 07:00 97 16 150/88 97 Mechanical Ventilator 35 07/15/17 06:00 103 20 153/74 96 Mechanical Ventilator 35 07/15/17 05:30 95 16 35 07/15/17 05:00 95 16 138/75 94 Mechanical Ventilator 35 07/15/17 04:00 103 07/15/17 04:00 35 07/15/17 04:00 98.9 106 21 172/82 97 Mechanical Ventilator 35 07/15/17 03:30 86 16 35 07/15/17 03:00 84 15 134/76 96 Mechanical Ventilator 35 07/15/17 02:00 90 16 138/86 97 Mechanical Ventilator 35 07/15/17 01:30 83 16 35 07/15/17 01:01 83 16 136/76 96 Mechanical Ventilator 35 07/15/17 00:03 86 07/15/17 00:03 35 07/15/17 00:00 98.8 89 18 138/78 97 Mechanical Ventilator 35 07/14/17 23:30 97 16 35 07/14/17 23:00 87 16 135/75 97 Mechanical Ventilator 35 07/14/17 22:04 86 16 133/79 96 Mechanical Ventilator 35 07/14/17 21:00 85 16 140/75 96 Mechanical Ventilator 35 07/14/17 20:55 95 17 35 07/14/17 20:00 35 07/14/17 20:00 82 07/14/17 20:00 99.6 82 16 133/75 95 Mechanical Ventilator 35 07/14/17 19:30 92 18 35 07/14/17 19:00 84 17 123/69 97 Mechanical Ventilator 35 07/14/17 18:00 99.8 85 17 129/72 95 Mechanical Ventilator 35 07/14/17 17:43 99.8 07/14/17 17:00 88 16 134/74 97 Mechanical Ventilator 35 07/14/17 16:52 86 16 35 07/14/17 16:00 91 07/14/17 16:00 100.3 90 16 133/76 96 Mechanical Ventilator 35 07/14/17 15:00 90 16 141/78 96 Mechanical Ventilator 35 07/14/17 14:51 105 19 35 07/14/17 14:00 79 16 141/76 97 Mechanical Ventilator 35 07/14/17 13:00 79 18 144/39 97 Mechanical Ventilator 35 07/14/17 12:52 35 07/14/17 12:50 80 16 35 07/14/17 12:00 99.5 81 22 135/77 95 Mechanical Ventilator 30 07/14/17 12:00 81 07/14/17 12:00 30 07/14/17 11:00 93 19 145/84 97 Mechanical Ventilator 30 07/14/17 10:51 93 22 30 07/14/17 10:00 80 19 144/74 99 Mechanical Ventilator 30 Intake and Output 07/14/17 07/15/17 19:00 07:00 Intake Total 950 ml 825 ml Output Total 900 ml 620 ml Balance 50 ml 205 ml Intake Oral 0 ml IV Total 850 ml 825 ml Other 100 ml Output Urine Total 900 ml 620 ml Laboratory Tests Test 07/14/17 12:20 07/15/17 04:00 07/15/17 08:15 Arterial Blood pH 7.510 (7.350-7.450) Arterial Blood Partial Pressure CO2 38.9 mmHg (35.0-45.0) Arterial Blood Partial Pressure O2 61.3 mmHg (75.0-100.0) L Arterial Blood HCO3 31.0 mmol/L (22.0-26.0) H Arterial Blood Oxygen Saturation 94.4 % (92.0-98.0) Arterial Blood Base Excess 7.6 Fidencio Test Positive Amylase Level 8 U/L (25-115) L White Blood Count 8.8 K/UL (4.8-10.8) Red Blood Count 4.60 M/UL (4.20-5.40) Hemoglobin 12.4 G/DL (12.0-16.0) Hematocrit 39.7 % (37.0-47.0) Mean Corpuscular Volume 86 FL (80-99) Mean Corpuscular Hemoglobin 27.0 PG (27.0-31.0) Mean Corpuscular Hemoglobin Concent 31.3 G/DL (32.0-36.0) L Red Cell Distribution Width 14.7 % (11.6-14.8) Platelet Count 177 K/UL (150-450) Mean Platelet Volume 7.1 FL (6.5-10.1) Neutrophils (%) (Auto) 74.1 % (45.0-75.0) Lymphocytes (%) (Auto) 15.6 % (20.0-45.0) L Monocytes (%) (Auto) 7.7 % (1.0-10.0) Eosinophils (%) (Auto) 1.7 % (0.0-3.0) Basophils (%) (Auto) 0.8 % (0.0-2.0) Sodium Level 137 MMOL/L (136-145) Potassium Level 3.4 MMOL/L (3.5-5.1) L Chloride Level 101 MMOL/L (98-107) Carbon Dioxide Level 30 MMOL/L (21-32) Anion Gap 7 mmol/L (5-15) Blood Urea Nitrogen 8 mg/dL (7-18) Creatinine 0.6 MG/DL (0.55-1.30) Estimat Glomerular Filtration Rate > 60 mL/min (>60) Glucose Level 106 MG/DL (74-106) Calcium Level 7.2 MG/DL (8.5-10.1) L Height (Feet): 5 Height (Inches): 4.00 Weight (Pounds): 203 Medications Current Medications Medications (Trade) Dose Ordered Sig/Sumeet Route PRN Reason Start Time Stop Time Status Last Admin Dose Admin Acetaminophen (Tylenol) 650 mg Q6H PRN ORAL Mild Pain/Temp > 100.5 07/14/17 16:15 08/13/17 16:14 07/14/17 16:44 Chlorhexidine Gluconate (Lynne-Hex 2%) 1 applic 1999 TOPIC 07/14/17 20:00 08/13/17 19:59 07/14/17 20:11 Heparin Sodium (Porcine) (Heparin 5000 units/ml) 5,000 units EVERY 12 HOURS SUBQ 07/14/17 09:00 08/13/17 08:59 07/15/17 08:48 Lorazepam (Ativan 2mg/ml 1ml) 2 mg Q2H PRN IV AGITATION 07/14/17 05:30 07/21/17 05:29 07/15/17 07:43 Methadone HCl (Methadone HCl) 50 mg DAILY ORAL 07/16/17 09:00 07/23/17 08:59 UNV Morphine Sulfate (Morphine Sulfate) 2 mg Q4H PRN IVP For Pain 07/14/17 05:30 07/21/17 05:29 07/15/17 04:13 Pantoprazole (Protonix) 40 mg DAILY IVP 07/14/17 09:00 08/13/17 08:59 07/15/17 08:45 Sodium Chloride 550 ml @ 75 mls/hr Q7H20M IV 07/14/17 05:30 08/13/17 05:29 07/15/17 04:14 Assessment/Plan Assessment/Plan (1) Acute respiratory failure intubated (2) COPD Exacerbation (3) Polysubstance abuse on Methadone (4) Lumbar DDD (5) Lumbar Spondylosis (6) Lumbar Radiculopathy (7) Right hip pain (8) Right hip OA seen dictated. ADRIANA JUNIOR PConnor Jul 15, 2017 09:32
--- NOTE | 2017-07-15 13:20 | Diagnostic Imaging Report ---
Indication: Shortness of breath Technique: XRAY Chest 1v Comparison: 07/13/2017 Findings: ET tube tip above the adrian. NG tube tip appears to terminate in the proximal stomach. Advancement is recommended. Stable cardiomegaly. Slight improvement in interstitial edema/opacification and improved aeration of the left base. No acute osseous abnormality. Impression: Slight improvement in interstitial edema/opacification and slight improved aeration at the left base. NG tube tip in the proximal stomach, side-port likely in the region of the gastroesophageal junction. Advancement is recommended.
[2017-07-15] MEDS: Dyna-Hex 2% Top Sol 2oz TOPIC SCH (19:59)
--- NOTE | 2017-07-15 20:40 | General Progress Note ---
Assessment/Plan Assessment/Plan ASSESSMENT AND RECOMMENDATIONS: #. Acute respiratory failure, potentially secondary to either drug induced and/ or chronic obstructive pulmonary disease exacerbation. The patient is methadone dependent. Currently, intubated at this time --> Weaning protocol daily. Continue oxygen management per Pulmonary team. Vent management #. Acute encephalopathy, potentially secondary to medications. She i on methadone, long-standing history of chronic obstructive pulmonary disease #. Increasing cough, potentially related to underlying infection and component to acute respiratory failure. #. Methadone dependence. Consulted pain management. #. Chronic obstructive pulmonary disease. I appreciate the technology methodology consultant care. Subjective Allergies: Coded Allergies: ERYTHROMYCIN BASE (Verified Allergy, Severe, Hives, 01/29/17) SULFAMETHOXAZOLE (Verified Allergy, Severe, Shortness of Breath, 01/29/17) TRIMETHOPRIM (Verified Allergy, Severe, Shortness of Breath, 01/29/17) All Systems: reviewed and negative except above Subjective in icu received morphine Objective Last 24 Hour Vital Signs Date Time Temp Pulse Resp B/P (MAP) Pulse Ox O2 Delivery O2 Flow Rate FiO2 07/15/17 19:19 100 17 35 07/15/17 19:00 95 17 143/75 95 Mechanical Ventilator 35 07/15/17 18:00 99 16 156/73 97 Mechanical Ventilator 35 07/15/17 17:20 98 20 35 07/15/17 17:00 90 16 136/70 95 Mechanical Ventilator 35 07/15/17 16:00 85 07/15/17 16:00 35 07/15/17 16:00 99.5 93 16 123/71 95 Mechanical Ventilator 35 07/15/17 15:08 98 20 35 07/15/17 15:00 88 16 129/74 95 Mechanical Ventilator 35 07/15/17 14:00 95 16 138/83 96 Mechanical Ventilator 35 07/15/17 14:00 35 07/15/17 13:00 95 16 143/83 95 Mechanical Ventilator 35 07/15/17 12:50 35 07/15/17 12:49 97 18 35 07/15/17 12:00 99.1 89 19 141/75 94 Mechanical Ventilator 35 07/15/17 12:00 91 07/15/17 11:45 35 07/15/17 11:44 96 07/15/17 11:00 81 16 134/76 96 Mechanical Ventilator 35 07/15/17 10:39 84 18 35 07/15/17 10:00 88 16 135/77 95 Mechanical Ventilator 35 07/15/17 09:19 96 16 35 07/15/17 09:00 104 21 139/82 97 Mechanical Ventilator 35 07/15/17 08:00 35 07/15/17 08:00 99.5 93 20 148/87 96 Mechanical Ventilator 35 07/15/17 08:00 98 07/15/17 07:04 95 16 35 07/15/17 07:00 97 16 150/88 97 Mechanical Ventilator 35 07/15/17 06:00 103 20 153/74 96 Mechanical Ventilator 35 07/15/17 05:30 95 16 35 07/15/17 05:00 95 16 138/75 94 Mechanical Ventilator 35 07/15/17 04:00 103 07/15/17 04:00 35 07/15/17 04:00 98.9 106 21 172/82 97 Mechanical Ventilator 35 07/15/17 03:30 86 16 35 07/15/17 03:00 84 15 134/76 96 Mechanical Ventilator 35 07/15/17 02:00 90 16 138/86 97 Mechanical Ventilator 35 07/15/17 01:30 83 16 35 07/15/17 01:01 83 16 136/76 96 Mechanical Ventilator 35 07/15/17 00:03 86 07/15/17 00:03 35 07/15/17 00:00 98.8 89 18 138/78 97 Mechanical Ventilator 35 07/14/17 23:30 97 16 35 07/14/17 23:00 87 16 135/75 97 Mechanical Ventilator 35 07/14/17 22:04 86 16 133/79 96 Mechanical Ventilator 35 07/14/17 21:00 85 16 140/75 96 Mechanical Ventilator 35 07/14/17 20:55 95 17 35 Intake and Output 07/14/17 07/15/17 19:00 07:00 Intake Total 950 ml 900 ml Output Total 900 ml 620 ml Balance 50 ml 280 ml Intake Oral 0 ml IV Total 850 ml 900 ml Other 100 ml Output Urine Total 900 ml 620 ml Laboratory Tests 07/15/17 04:00: Amylase Level 8L 07/15/17 08:15: White Blood Count 8.8, Red Blood Count 4.60, Hemoglobin 12.4, Hematocrit 39.7, Mean Corpuscular Volume 86, Mean Corpuscular Hemoglobin 27.0, Mean Corpuscular Hemoglobin Concent 31.3L, Red Cell Distribution Width 14.7, Platelet Count 177, Mean Platelet Volume 7.1, Neutrophils (%) (Auto) 74.1, Lymphocytes (%) (Auto) 15.6L, Monocytes (%) (Auto) 7.7, Eosinophils (%) (Auto) 1.7, Basophils (%) (Auto ) 0.8, Sodium Level 137, Potassium Level 3.4L, Chloride Level 101, Carbon Dioxide Level 30, Anion Gap 7, Blood Urea Nitrogen 8, Creatinine 0.6, Estimat Glomerular Filtration Rate > 60, Glucose Level 106, Calcium Level 7.2L 07/15/17 13:56: Arterial Blood pH 7.280L, Arterial Blood Partial Pressure CO2 66.6*H, Arterial Blood Partial Pressure O2 73.4L, Arterial Blood HCO3 30.7H, Arterial Blood Oxygen Saturation 94.2, Arterial Blood Base Excess 2.3, Fidencio Test Positive Height (Feet): 5 Height (Inches): 4.00 Weight (Pounds): 203 General Appearance: alert EENT: TMs normal Neck: supple Cardiovascular: no gallop/murmur Respiratory/Chest: normal breath sounds Abdomen: no mass Extremities: non-tender Edema: no edema noted Leg (L), no edema noted Leg (R) Neurologic: no motor/sensory deficits Skin: warm/dry Nando Mccracken Jul 15, 2017 20:40
--- NOTE | 2017-07-15 21:00 | Consultation ---
DATE OF CONSULTATION: 07/15/2017 PAIN MANAGEMENT CONSULTATION CONSULTING PHYSICIAN: Jj Mena M.D. ATTENDING/REFERRING PHYSICIAN: Nando Mccracken M.D. PHYSICIAN DISTRIBUTOR SALES CONSULTANT: Coretta Herrera CHIEF COMPLAINT: Generalized body pain. HISTORY OF PRESENT ILLNESS: This is a 61-year-old female, who is being seen in the ICU of [facility] for comprehensive pain management consultation. The patient is a known patient from prior admissions to hospitals, now admitted under the care of Dr. Mccracken due to COPD exacerbation causing intubation, on ventilator at this time. NG tube was placed. The patient is a known patient to have lumbar degenerative disk disease, spondylosis, radiculopathy as well as right hip pain caused by osteoarthritis, receiving Dilaudid 4 mg tablets 4 times a day per Dr. Shon Costello as well as going to methadone clinic receiving 88 mg daily, which was verified with [facility] due to heroin abuse. At this time, the patient was on 85 mg daily, has received 2 doses as well as morphine 2 mg IV every 4 hours as needed for breakthrough pain. At this time, the patient is alert, awake and oriented, and at times reports agitation. I discussed with Dr. Mena. We will taper down the dose of the methadone to 50 mg dosage daily for weaning process. Once the patient is off intubation and stabilized, we will reassess and possibly we will increase the methadone to 85 mg daily. This was discussed with the patient. The patient seems to understand and we will continue the morphine for breakthrough pain. PAST MEDICAL HISTORY: Hypertension, asthma, and COPD. SOCIAL HISTORY: History of heroin abuse. ALLERGIES: Erythromycin, sulfamethoxazole/trimethoprim. MEDICATIONS: Methadone, Dilaudid, albuterol, Norvasc, Klonopin, Benadryl, lisinopril, and azithromycin. REVIEW OF SYSTEMS: Unable to obtain due to the patient's status. PHYSICAL EXAMINATION: GENERAL: Alert, awake. VITAL SIGNS: Blood pressure 148/87, heart rate is 93, oxygen saturation 92%, respiratory rate 16, and temperature is 99.5 degrees Fahrenheit. LUNGS: Decreased breath sounds bilaterally. The patient is intubated, on ventilator. HEART: S1, S2. Regular. ABDOMEN: Obese. EXTREMITIES: No cyanosis. No clubbing. With edema noted. NEUROLOGIC: A 4/5 in all muscles bilaterally in upper and lower extremities. ASSESSMENT AND PLAN: This is a 61-year-old female with polysubstance abuse, on methadone, acute respiratory failure, intubated, chronic obstructive pulmonary disease exacerbation, lumbar degenerative disk disease, lumbar spondylosis, lumbar radiculopathy, right hip pain, and right hip osteoarthritis. The patient will be decreased down to 50 mg of methadone daily for weaning process. Once the patient is extubated, we will reassess and possibly increase the methadone back to 85 mg. The patient will be also continued on the morphine 2 mg intravenous as needed for breakthrough pain. The patient was discussed with Dr. Mena and Dr. Mena concurred. We will follow the patient. Thank you very much for the courtesy of this consultation. Jj Mena M.D. JIGNA Herrera DR: KRYS JOB#: [id number] CC: EMRE
[2017-07-15] MEDS ORDERED: Succinylcholine 20mg/ml 10ml vial ONE (22:48)
[2017-07-16] VITALS (24 sets, daily range): BP systolic 92–159; BP diastolic 43–111
[2017-07-16] MEDS: LORazepam Inj 2mg/ml 1ml IV PRN ×4 (01:31→23:14)
[2017-07-16] MEDS: Sodium Chloride 500ML 550 ML IV SCH ×4 (01:38→23:57)
--- NOTE | 2017-07-16 08:55 | Critical Care Progress Note ---
Assessment/Plan Assessment/Plan respiratory failure COPD acute encephalopathy methadone dependent PLAN care noted IV antibiotics respiratory care Ventilatory support supportive care suction try to wean again oxygen therapy nutrition methadone daily check ABG on wean prognosis guarded Critical Care - Subjective Interval Events: did not tolerate wean became acidotic ROS Limited/Unobtainable: Yes Condition: critical EKG Rhythm: Sinus Rhythm I&O: Intake and Output 07/15/17 07/16/17 19:00 07:00 Intake Total 875 ml 900 ml Output Total 1030 ml 740 ml Balance -155 ml 160 ml IV Total 875 ml 900 ml Output Urine Total 1030 ml 740 ml Stool Total 0 ml # Bowel Movements 3 Critical Care - Objective ET-Tube: 8.0 ET Position: 23 Last 24 Hour Vital Signs Date Time Temp Pulse Resp B/P (MAP) Pulse Ox O2 Delivery O2 Flow Rate FiO2 07/16/17 08:00 99.1 89 17 142/72 95 Mechanical Ventilator 35 07/16/17 08:00 87 07/16/17 08:00 35 07/16/17 07:37 106 25 35 07/16/17 07:00 92 17 141/73 99 Mechanical Ventilator 35 07/16/17 06:00 89 19 136/69 95 Mechanical Ventilator 35 07/16/17 05:18 97 19 35 07/16/17 05:00 90 17 152/80 95 Mechanical Ventilator 35 07/16/17 04:00 35 07/16/17 04:00 99.0 88 16 128/67 93 Mechanical Ventilator 35 07/16/17 04:00 88 07/16/17 03:30 88 16 35 07/16/17 03:00 77 16 138/68 93 Mechanical Ventilator 35 07/16/17 02:00 79 16 142/75 94 Mechanical Ventilator 35 07/16/17 01:19 90 16 35 07/16/17 01:00 84 16 133/68 95 Mechanical Ventilator 35 07/16/17 00:00 35 07/16/17 00:00 80 07/16/17 00:00 99.2 76 16 142/74 96 Mechanical Ventilator 35 07/15/17 23:17 82 16 35 07/15/17 23:00 80 16 120/70 96 Mechanical Ventilator 35 07/15/17 22:00 84 16 137/73 95 Mechanical Ventilator 35 07/15/17 21:30 88 16 35 07/15/17 21:00 95 16 133/76 96 Mechanical Ventilator 35 07/15/17 20:00 99.0 95 17 142/78 95 Mechanical Ventilator 35 07/15/17 20:00 95 07/15/17 19:19 100 17 35 07/15/17 19:00 95 17 143/75 95 Mechanical Ventilator 35 07/15/17 18:00 99 16 156/73 97 Mechanical Ventilator 35 07/15/17 17:20 98 20 35 07/15/17 17:00 90 16 136/70 95 Mechanical Ventilator 35 07/15/17 16:00 85 07/15/17 16:00 35 07/15/17 16:00 99.5 93 16 123/71 95 Mechanical Ventilator 35 07/15/17 15:08 98 20 35 07/15/17 15:00 88 16 129/74 95 Mechanical Ventilator 35 07/15/17 14:00 95 16 138/83 96 Mechanical Ventilator 35 07/15/17 14:00 35 07/15/17 13:00 95 16 143/83 95 Mechanical Ventilator 35 07/15/17 12:50 35 07/15/17 12:49 97 18 35 07/15/17 12:00 99.1 89 19 141/75 94 Mechanical Ventilator 35 07/15/17 12:00 91 07/15/17 11:45 35 07/15/17 11:44 96 07/15/17 11:00 81 16 134/76 96 Mechanical Ventilator 35 07/15/17 10:39 84 18 35 07/15/17 10:00 88 16 135/77 95 Mechanical Ventilator 35 07/15/17 09:19 96 16 35 07/15/17 09:00 104 21 139/82 97 Mechanical Ventilator 35 Labs: Labs Test 07/13/17 17:58 07/13/17 18:55 07/13/17 21:19 07/14/17 02:00 Arterial Blood pH 7.347 (7.350-7.450) 7.238 (7.350-7.450) Arterial Blood Partial Pressure CO2 64.0 mmHg (35.0-45.0) 76.2 mmHg (35.0-45.0) Arterial Blood Partial Pressure O2 51.5 mmHg (75.0-100.0) 164.7 mmHg (75.0-100.0) Arterial Blood HCO3 34.3 mmol/L (22.0-26.0) 31.8 mmol/L (22.0-26.0) Arterial Blood Oxygen Saturation 87.7 % (92.0-98.0) 98.8 % (92.0-98.0) Arterial Blood Base Excess 6.6 2.4 Fidencio Test Positive Positive White Blood Count 11.3 K/UL (4.8-10.8) Red Blood Count 3.89 M/UL (4.20-5.40) Hemoglobin 10.0 G/DL (12.0-16.0) Hematocrit 34.3 % (37.0-47.0) Mean Corpuscular Volume 88 FL (80-99) Mean Corpuscular Hemoglobin 25.8 PG (27.0-31.0) Mean Corpuscular Hemoglobin Concent 29.2 G/DL (32.0-36.0) Red Cell Distribution Width 14.5 % (11.6-14.8) Platelet Count 115 K/UL (150-450) Mean Platelet Volume 7.1 FL (6.5-10.1) Neutrophils (%) (Auto) 69.2 % (45.0-75.0) Lymphocytes (%) (Auto) 20.9 % (20.0-45.0) Monocytes (%) (Auto) 7.7 % (1.0-10.0) Eosinophils (%) (Auto) 0.7 % (0.0-3.0) Basophils (%) (Auto) 1.5 % (0.0-2.0) Sodium Level 139 MMOL/L (136-145) Potassium Level 2.9 MMOL/L (3.5-5.1) Chloride Level 104 MMOL/L (98-107) Carbon Dioxide Level 33 MMOL/L (21-32) Anion Gap 2 mmol/L (5-15) Blood Urea Nitrogen 8 mg/dL (7-18) Creatinine 0.6 MG/DL (0.55-1.30) Estimat Glomerular Filtration Rate > 60 mL/min (>60) Glucose Level 131 MG/DL (74-106) Calcium Level 6.4 MG/DL (8.5-10.1) Total Bilirubin 0.4 MG/DL (0.2-1.0) Aspartate Amino Transf (AST/SGOT) 18 U/L (15-37) Alanine Aminotransferase (ALT/SGPT) 10 U/L (12-78) Alkaline Phosphatase 63 U/L (46-116) Total Creatine Kinase 104 U/L (26-308) Creatine Kinase MB 1.8 NG/ML (0.0-3.6) Creatine Kinase MB Relative Index 1.7 Troponin I 0.017 ng/mL (0.000-0.056) Pro-B-Type Natriuretic Peptide 825 pg/mL (0-125) Total Protein 6.3 G/DL (6.4-8.2) Albumin 2.7 G/DL (3.4-5.0) Globulin 3.6 g/dL Albumin/Globulin Ratio 0.8 (1.0-2.7) Lipase 27 U/L (73-393) Triglycerides Level 57 MG/DL (30-150) Test 07/14/17 05:00 07/14/17 05:50 07/14/17 12:20 07/15/17 04:00 Urine Color Pale yellow Urine Appearance Clear Urine pH 7 (4.5-8.0) Urine Specific [place] 1.015 (1.005-1.035) Urine Protein Negative (NEGATIVE) Urine Glucose (UA) Negative (NEGATIVE) Urine Ketones 1+ (NEGATIVE) Urine Occult Blood Negative (NEGATIVE) Urine Nitrite Negative (NEGATIVE) Urine Bilirubin Negative (NEGATIVE) Urine Urobilinogen 1 MG/DL (0.0-1.0) Urine Leukocyte Esterase Negative (NEGATIVE) Urine Opiates Screen Positive (NEGATIVE) Urine Barbiturates Screen Negative (NEGATIVE) Phencyclidine (PCP) Screen Negative (NEGATIVE) Urine Amphetamines Screen Negative (NEGATIVE) Urine Benzodiazepines Screen Positive (NEGATIVE) Urine Cocaine Screen Negative (NEGATIVE) Urine Marijuana (THC) Screen Negative (NEGATIVE) White Blood Count 9.8 K/UL (4.8-10.8) Red Blood Count 4.17 M/UL (4.20-5.40) Hemoglobin 12.1 G/DL (12.0-16.0) Hematocrit 36.7 % (37.0-47.0) Mean Corpuscular Volume 88 FL (80-99) Mean Corpuscular Hemoglobin 28.9 PG (27.0-31.0) Mean Corpuscular Hemoglobin Concent 32.8 G/DL (32.0-36.0) Red Cell Distribution Width 14.5 % (11.6-14.8) Platelet Count 133 K/UL (150-450) Mean Platelet Volume 7.4 FL (6.5-10.1) Neutrophils (%) (Auto) 79.3 % (45.0-75.0) Lymphocytes (%) (Auto) 13.3 % (20.0-45.0) Monocytes (%) (Auto) 6.6 % (1.0-10.0) Eosinophils (%) (Auto) 0.2 % (0.0-3.0) Basophils (%) (Auto) 0.7 % (0.0-2.0) Sodium Level 136 MMOL/L (136-145) Potassium Level 4.4 MMOL/L (3.5-5.1) Chloride Level 101 MMOL/L (98-107) Carbon Dioxide Level 31 MMOL/L (21-32) Anion Gap 4 mmol/L (5-15) Blood Urea Nitrogen 7 mg/dL (7-18) Creatinine 0.5 MG/DL (0.55-1.30) Estimat Glomerular Filtration Rate > 60 mL/min (>60) Glucose Level 138 MG/DL (74-106) Calcium Level 7.3 MG/DL (8.5-10.1) Total Bilirubin 0.7 MG/DL (0.2-1.0) Aspartate Amino Transf (AST/SGOT) 22 U/L (15-37) Alanine Aminotransferase (ALT/SGPT) 17 U/L (12-78) Alkaline Phosphatase 72 U/L (46-116) Troponin I 0.000 ng/mL (0.000-0.056) Total Protein 7.1 G/DL (6.4-8.2) Albumin 2.8 G/DL (3.4-5.0) Globulin 4.3 g/dL Albumin/Globulin Ratio 0.7 (1.0-2.7) Arterial Blood pH 7.510 (7.350-7.450) Arterial Blood Partial Pressure CO2 38.9 mmHg (35.0-45.0) Arterial Blood Partial Pressure O2 61.3 mmHg (75.0-100.0) Arterial Blood HCO3 31.0 mmol/L (22.0-26.0) Arterial Blood Oxygen Saturation 94.4 % (92.0-98.0) Arterial Blood Base Excess 7.6 Fidencio Test Positive Amylase Level 8 U/L (25-115) Test 07/15/17 08:15 07/15/17 13:56 White Blood Count 8.8 K/UL (4.8-10.8) Red Blood Count 4.60 M/UL (4.20-5.40) Hemoglobin 12.4 G/DL (12.0-16.0) Hematocrit 39.7 % (37.0-47.0) Mean Corpuscular Volume 86 FL (80-99) Mean Corpuscular Hemoglobin 27.0 PG (27.0-31.0) Mean Corpuscular Hemoglobin Concent 31.3 G/DL (32.0-36.0) Red Cell Distribution Width 14.7 % (11.6-14.8) Platelet Count 177 K/UL (150-450) Mean Platelet Volume 7.1 FL (6.5-10.1) Neutrophils (%) (Auto) 74.1 % (45.0-75.0) Lymphocytes (%) (Auto) 15.6 % (20.0-45.0) Monocytes (%) (Auto) 7.7 % (1.0-10.0) Eosinophils (%) (Auto) 1.7 % (0.0-3.0) Basophils (%) (Auto) 0.8 % (0.0-2.0) Sodium Level 137 MMOL/L (136-145) Potassium Level 3.4 MMOL/L (3.5-5.1) Chloride Level 101 MMOL/L (98-107) Carbon Dioxide Level 30 MMOL/L (21-32) Anion Gap 7 mmol/L (5-15) Blood Urea Nitrogen 8 mg/dL (7-18) Creatinine 0.6 MG/DL (0.55-1.30) Estimat Glomerular Filtration Rate > 60 mL/min (>60) Glucose Level 106 MG/DL (74-106) Calcium Level 7.2 MG/DL (8.5-10.1) Arterial Blood pH 7.280 (7.350-7.450) Arterial Blood Partial Pressure CO2 66.6 mmHg (35.0-45.0) Arterial Blood Partial Pressure O2 73.4 mmHg (75.0-100.0) Arterial Blood HCO3 30.7 mmol/L (22.0-26.0) Arterial Blood Oxygen Saturation 94.2 % (92.0-98.0) Arterial Blood Base Excess 2.3 Fidencio Test Positive Objective: WDWN NAD reduced breath sounds bilaterally without rhonchi or wheeze [id number] without MRG NABS nontender no HSM no CCE nonfocal sedated Micro: Microbiology Date/Time Source Procedure Growth Status 07/13/17 18:55 Blood Blood Culture - Preliminary NO GROWTH AFTER 48 HOURS Resulted 07/13/17 18:50 Blood Blood Culture - Preliminary NO GROWTH AFTER 48 HOURS Resulted 07/14/17 05:00 Indwelling Cath Urine Culture - Preliminary NO GROWTH AFTER 24 HOURS Resulted MONTEZ JIANG Jul 16, 2017 08:55
[2017-07-16] MEDS: Pantoprazole Inj IVP SCH (08:59)
[2017-07-16] MEDS: Heparin 5000 units/ml inj SUBQ SCH ×2 (09:02→20:58)
[2017-07-16] MEDS ORDERED: NS 500ML ONE ×3 (14:40→17:20)
[2017-07-16 15:31] LABS: BASOPHILS % (AUTO) 1.6 % (0.0-2.0); EOSINOPHILS % (AUTO) 2.8 % (0.0-3.0); HEMOGLOBIN 12.2 G/DL (12.0-16.0); LYMPHOCYTES % (AUTO) 18.2 % (20.0-45.0); MEAN CORPUSCULAR VOLUME 88 FL (80-99); NEUTROPHILS % (AUTO) 69.3 % (45.0-75.0); PLATELET COUNT 200 K/UL (150-450); RED BLOOD COUNT 4.44 M/UL (4.20-5.40); RED CELL DISTRIBUTION WIDTH 14.6 % (11.6-14.8)
[2017-07-16 15:36] LABS: ANION GAP 6 mmol/L (5-15); BLOOD UREA NITROGEN 11 mg/dL (7-18); CALCIUM 7.4 MG/DL (8.5-10.1); CARBON DIOXIDE 31 MMOL/L (21-32); CHLORIDE 102 MMOL/L (98-107); CREATININE 0.5 MG/DL (0.55-1.30); POTASSIUM 3.8 MMOL/L (3.5-5.1); SODIUM 139 MMOL/L (136-145)
[2017-07-16] MEDS ORDERED: Tubing IV Secondary IV ONE (17:20)
--- NOTE | 2017-07-16 18:30 | General Progress Note ---
Assessment/Plan Assessment/Plan (1) Acute respiratory failure intubated (2) COPD Exacerbation (3) Polysubstance abuse on Methadone (4) Lumbar DDD (5) Lumbar Spondylosis (6) Lumbar Radiculopathy (7) Right hip pain (8) Right hip OA Pt to be continued on Methadone and Morphine D/w Dr. Mena and he concurred. Subjective Date patient seen: Jul 16, 2017 Time patient seen: 05:15 - pm Allergies: Coded Allergies: ERYTHROMYCIN BASE (Verified Allergy, Severe, Hives, 01/29/17) SULFAMETHOXAZOLE (Verified Allergy, Severe, Shortness of Breath, 01/29/17) TRIMETHOPRIM (Verified Allergy, Severe, Shortness of Breath, 01/29/17) Subjective REVIEW OF SYSTEMS: Unable to obtain due to the patient's status. SUBJECTIVE: Pt is in bed and continues to be intubated on vent. She has received he Methadone dose and was last given Morphine at 19:55 on 07/15/2017. Objective Last 24 Hour Vital Signs Date Time Temp Pulse Resp B/P (MAP) Pulse Ox O2 Delivery O2 Flow Rate FiO2 07/16/17 18:00 98.5 76 16 127/70 97 Mechanical Ventilator 35 07/16/17 17:00 80 16 92/68 97 Mechanical Ventilator 35 07/16/17 16:30 77 16 35 07/16/17 16:00 76 07/16/17 16:00 97.9 76 18 125/70 94 Mechanical Ventilator 35 07/16/17 16:00 35 07/16/17 15:40 35 07/16/17 15:28 85 16 35 07/16/17 15:00 91 18 146/71 92 Mechanical Ventilator 35 07/16/17 14:00 85 16 138/81 93 Mechanical Ventilator 35 07/16/17 13:17 93 17 35 07/16/17 13:00 84 15 140/70 93 Mechanical Ventilator 35 07/16/17 12:00 99.5 84 15 139/75 99 Mechanical Ventilator 35 07/16/17 12:00 94 07/16/17 11:25 35 07/16/17 11:00 93 20 35 07/16/17 11:00 93 16 145/75 94 Mechanical Ventilator 35 07/16/17 10:00 97 16 159/76 96 Mechanical Ventilator 35 07/16/17 10:00 35 07/16/17 09:55 101 31 35 07/16/17 09:06 103 22 35 07/16/17 09:00 83 16 152/43 96 Mechanical Ventilator 35 07/16/17 08:00 99.1 89 17 142/72 95 Mechanical Ventilator 35 07/16/17 08:00 87 07/16/17 08:00 35 07/16/17 07:37 106 25 35 07/16/17 07:00 92 17 141/73 99 Mechanical Ventilator 35 07/16/17 06:00 89 19 136/69 95 Mechanical Ventilator 35 07/16/17 05:18 97 19 35 07/16/17 05:00 90 17 152/80 95 Mechanical Ventilator 35 07/16/17 04:00 35 07/16/17 04:00 99.0 88 16 128/67 93 Mechanical Ventilator 35 07/16/17 04:00 88 07/16/17 03:30 88 16 35 07/16/17 03:00 77 16 138/68 93 Mechanical Ventilator 35 07/16/17 02:00 79 16 142/75 94 Mechanical Ventilator 35 07/16/17 01:19 90 16 35 07/16/17 01:00 84 16 133/68 95 Mechanical Ventilator 35 07/16/17 00:00 35 07/16/17 00:00 80 07/16/17 00:00 99.2 76 16 142/74 96 Mechanical Ventilator 35 07/15/17 23:17 82 16 35 07/15/17 23:00 80 16 120/70 96 Mechanical Ventilator 35 07/15/17 22:00 84 16 137/73 95 Mechanical Ventilator 35 07/15/17 21:30 88 16 35 07/15/17 21:00 95 16 133/76 96 Mechanical Ventilator 35 07/15/17 20:00 99.0 95 17 142/78 95 Mechanical Ventilator 35 07/15/17 20:00 95 07/15/17 19:19 100 17 35 07/15/17 19:00 95 17 143/75 95 Mechanical Ventilator 35 Intake and Output 07/15/17 07/16/17 19:00 07:00 Intake Total 875 ml 900 ml Output Total 1030 ml 740 ml Balance -155 ml 160 ml IV Total 875 ml 900 ml Output Urine Total 1030 ml 740 ml Stool Total 0 ml # Bowel Movements 3 Laboratory Tests 1/1/18 11:05: Arterial Blood pH 7.292L, Arterial Blood Partial Pressure CO2 64.1*H, Arterial Blood Partial Pressure O2 78.5, Arterial Blood HCO3 30.3H, Arterial Blood Oxygen Saturation 94.8, Arterial Blood Base Excess 2.1, Fidencio Test Positive 07/16/17 14:48: White Blood Count 9.0, Red Blood Count 4.44, Hemoglobin 12.2, Hematocrit 39.0, Mean Corpuscular Volume 88, Mean Corpuscular Hemoglobin 27.4, Mean Corpuscular Hemoglobin Concent 31.2L, Red Cell Distribution Width 14.6, Platelet Count 200, Mean Platelet Volume 6.5, Neutrophils (%) (Auto) 69.3, Lymphocytes (%) (Auto) 18.2L, Monocytes (%) (Auto) 8.0, Eosinophils (%) (Auto) 2.8, Basophils (%) (Auto ) 1.6, Sodium Level 139, Potassium Level 3.8, Chloride Level 102, Carbon Dioxide Level 31, Anion Gap 6, Blood Urea Nitrogen 11, Creatinine 0.5L, Estimat Glomerular Filtration Rate > 60, Glucose Level 84, Calcium Level 7.4L Height (Feet): 5 Height (Inches): 4.00 Weight (Pounds): 205 Objective GENERAL: Alert, awake. LUNGS: Decreased breath sounds bilaterally. The patient is intubated, on ventilator. HEART: S1, S2. Regular. ABDOMEN: Obese. EXTREMITIES: No cyanosis. No clubbing. With edema noted. NEUROLOGIC: No changes. ADRIANA JUNIOR Jul 16, 2017 18:30
[2017-07-16] MEDS: Dyna-Hex 2% Top Sol 2oz TOPIC SCH (19:55)
[2017-07-16] MEDS: Morphine Sulfate 2mg/ml Inj IVP PRN (19:56)
--- NOTE | 2017-07-16 20:20 | General Progress Note ---
Assessment/Plan Assessment/Plan ASSESSMENT AND RECOMMENDATIONS: #. Acute respiratory failure, potentially secondary to either drug induced and/ or chronic obstructive pulmonary disease exacerbation. The patient is methadone dependent. Currently, intubated at this time --> Weaning protocol daily. Continue oxygen management per Pulmonary team. Vent management #. Acute encephalopathy, potentially secondary to medications. She i on methadone, long-standing history of chronic obstructive pulmonary disease #. Increasing cough, potentially related to underlying infection and component to acute respiratory failure. #. Methadone dependence. Consulted pain management eval #. Chronic obstructive pulmonary disease. I appreciate the law firm consultant care. Subjective Allergies: Coded Allergies: ERYTHROMYCIN BASE (Verified Allergy, Severe, Hives, 01/29/17) SULFAMETHOXAZOLE (Verified Allergy, Severe, Shortness of Breath, 01/29/17) TRIMETHOPRIM (Verified Allergy, Severe, Shortness of Breath, 01/29/17) Subjective in icu received morphine and methadone, d/w RN Objective Last 24 Hour Vital Signs Date Time Temp Pulse Resp B/P (MAP) Pulse Ox O2 Delivery O2 Flow Rate FiO2 07/16/17 19:05 73 16 35 07/16/17 19:00 73 16 134/75 96 Mechanical Ventilator 35 07/16/17 18:00 98.5 76 16 127/70 97 Mechanical Ventilator 35 07/16/17 17:00 80 16 92/68 97 Mechanical Ventilator 35 07/16/17 16:30 77 16 35 07/16/17 16:00 76 07/16/17 16:00 97.9 76 18 125/70 94 Mechanical Ventilator 35 07/16/17 16:00 35 07/16/17 15:40 35 07/16/17 15:28 85 16 35 07/16/17 15:00 91 18 146/71 92 Mechanical Ventilator 35 07/16/17 14:00 85 16 138/81 93 Mechanical Ventilator 35 07/16/17 13:17 93 17 35 07/16/17 13:00 84 15 140/70 93 Mechanical Ventilator 35 07/16/17 12:00 99.5 84 15 139/75 99 Mechanical Ventilator 35 07/16/17 12:00 94 07/16/17 11:25 35 07/16/17 11:00 93 20 35 07/16/17 11:00 93 16 145/75 94 Mechanical Ventilator 35 07/16/17 10:00 97 16 159/76 96 Mechanical Ventilator 35 07/16/17 10:00 35 07/16/17 09:55 101 31 35 07/16/17 09:06 103 22 35 07/16/17 09:00 83 16 152/43 96 Mechanical Ventilator 35 07/16/17 08:00 99.1 89 17 142/72 95 Mechanical Ventilator 35 07/16/17 08:00 87 07/16/17 08:00 35 07/16/17 07:37 106 25 35 07/16/17 07:00 92 17 141/73 99 Mechanical Ventilator 35 07/16/17 06:00 89 19 136/69 95 Mechanical Ventilator 35 07/16/17 05:18 97 19 35 07/16/17 05:00 90 17 152/80 95 Mechanical Ventilator 35 07/16/17 04:00 35 07/16/17 04:00 99.0 88 16 128/67 93 Mechanical Ventilator 35 07/16/17 04:00 88 07/16/17 03:30 88 16 35 07/16/17 03:00 77 16 138/68 93 Mechanical Ventilator 35 07/16/17 02:00 79 16 142/75 94 Mechanical Ventilator 35 07/16/17 01:19 90 16 35 07/16/17 01:00 84 16 133/68 95 Mechanical Ventilator 35 07/16/17 00:00 35 07/16/17 00:00 80 07/16/17 00:00 99.2 76 16 142/74 96 Mechanical Ventilator 35 07/15/17 23:17 82 16 35 07/15/17 23:00 80 16 120/70 96 Mechanical Ventilator 35 07/15/17 22:00 84 16 137/73 95 Mechanical Ventilator 35 07/15/17 21:30 88 16 35 07/15/17 21:00 95 16 133/76 96 Mechanical Ventilator 35 Intake and Output 07/15/17 07/16/17 19:00 07:00 Intake Total 875 ml 900 ml Output Total 1030 ml 740 ml Balance -155 ml 160 ml IV Total 875 ml 900 ml Output Urine Total 1030 ml 740 ml Stool Total 0 ml # Bowel Movements 3 Laboratory Tests 07/16/17 11:05: Arterial Blood pH 7.292L, Arterial Blood Partial Pressure CO2 64.1*H, Arterial Blood Partial Pressure O2 78.5, Arterial Blood HCO3 30.3H, Arterial Blood Oxygen Saturation 94.8, Arterial Blood Base Excess 2.1, Fidencio Test Positive 07/16/17 14:48: White Blood Count 9.0, Red Blood Count 4.44, Hemoglobin 12.2, Hematocrit 39.0, Mean Corpuscular Volume 88, Mean Corpuscular Hemoglobin 27.4, Mean Corpuscular Hemoglobin Concent 31.2L, Red Cell Distribution Width 14.6, Platelet Count 200, Mean Platelet Volume 6.5, Neutrophils (%) (Auto) 69.3, Lymphocytes (%) (Auto) 18.2L, Monocytes (%) (Auto) 8.0, Eosinophils (%) (Auto) 2.8, Basophils (%) (Auto ) 1.6, Sodium Level 139, Potassium Level 3.8, Chloride Level 102, Carbon Dioxide Level 31, Anion Gap 6, Blood Urea Nitrogen 11, Creatinine 0.5L, Estimat Glomerular Filtration Rate > 60, Glucose Level 84, Calcium Level 7.4L Height (Feet): 5 Height (Inches): 4.00 Weight (Pounds): 205 General Appearance: no apparent distress EENT: TMs normal Neck: supple Cardiovascular: regular rhythm Respiratory/Chest: no respiratory distress Nando Mccracken Jul 16, 2017 20:20
[2017-07-17] VITALS (24 sets, daily range): BP systolic 122–159; BP diastolic 49–105
[2017-07-17] MEDS: Morphine Sulfate 2mg/ml Inj IVP PRN ×3 (02:21→16:45)
[2017-07-17] MEDS: Sodium Chloride 500ML 550 ML IV SCH ×3 (06:56→21:36)
[2017-07-17] MEDS ORDERED: Sennosides 8.6mg ORAL PRN (08:00)
[2017-07-17] MEDS: Pantoprazole Inj IVP SCH (08:46)
[2017-07-17] MEDS: Heparin 5000 units/ml inj SUBQ SCH ×2 (08:46→21:00)
--- NOTE | 2017-07-17 09:03 | General Progress Note ---
Assessment/Plan Assessment/Plan (1) Acute respiratory failure intubated (2) COPD Exacerbation (3) Polysubstance abuse on Methadone (4) Lumbar DDD (5) Lumbar Spondylosis (6) Lumbar Radiculopathy (7) Right hip pain (8) Right hip OA Pt to be continued on Methadone and Morphine D/w Dr. Mena and he concurred. Subjective Date patient seen: Jul 17, 2017 Time patient seen: 07:15 - am Allergies: Coded Allergies: ERYTHROMYCIN BASE (Verified Allergy, Severe, Hives, 01/29/17) SULFAMETHOXAZOLE (Verified Allergy, Severe, Shortness of Breath, 01/29/17) TRIMETHOPRIM (Verified Allergy, Severe, Shortness of Breath, 01/29/17) Subjective REVIEW OF SYSTEMS: Unable to obtain due to the patient's status. SUBJECTIVE: Pt is in bed and continues to be intubated on vent. She has received he Methadone dose and was last given Morphine 3 doses in the last 24hrs Objective Last 24 Hour Vital Signs Date Time Temp Pulse Resp B/P (MAP) Pulse Ox O2 Delivery O2 Flow Rate FiO2 07/17/17 07:12 92 18 35 07/17/17 07:00 87 21 159/79 96 Mechanical Ventilator 35 07/17/17 06:00 98 21 148/87 97 Mechanical Ventilator 35 07/17/17 05:26 99 20 35 07/17/17 05:00 98 20 148/105 97 Mechanical Ventilator 35 07/17/17 04:00 35 07/17/17 04:00 84 07/17/17 04:00 98.2 85 16 148/105 96 Mechanical Ventilator 35 07/17/17 03:24 76 16 35 07/17/17 03:00 78 16 139/81 96 Mechanical Ventilator 35 07/17/17 02:55 98.3 07/17/17 02:00 81 16 147/77 95 Mechanical Ventilator 35 07/17/17 01:10 93 18 35 07/17/17 01:00 85 16 132/75 95 Mechanical Ventilator 35 07/17/17 00:00 92 07/17/17 00:00 98.3 85 16 139/74 96 Mechanical Ventilator 35 07/16/17 23:06 95 21 35 07/16/17 23:00 90 16 144/111 96 Mechanical Ventilator 35 07/16/17 22:00 87 17 140/90 96 Mechanical Ventilator 35 07/16/17 21:25 80 16 35 07/16/17 21:00 83 17 146/78 95 Mechanical Ventilator 35 07/16/17 20:00 35 07/16/17 20:00 98.5 86 17 139/72 95 Mechanical Ventilator 35 07/16/17 20:00 73 07/16/17 19:05 73 16 35 07/16/17 19:00 73 16 134/75 96 Mechanical Ventilator 35 07/16/17 18:00 98.5 76 16 127/70 97 Mechanical Ventilator 35 07/16/17 17:00 80 16 92/68 97 Mechanical Ventilator 35 07/16/17 16:30 77 16 35 07/16/17 16:00 76 07/16/17 16:00 97.9 76 18 125/70 94 Mechanical Ventilator 35 07/16/17 16:00 35 07/16/17 15:40 35 07/16/17 15:28 85 16 35 07/16/17 15:00 91 18 146/71 92 Mechanical Ventilator 35 07/16/17 14:00 85 16 138/81 93 Mechanical Ventilator 35 07/16/17 13:17 93 17 35 07/16/17 13:00 84 15 140/70 93 Mechanical Ventilator 35 07/16/17 12:00 99.5 84 15 139/75 99 Mechanical Ventilator 35 07/16/17 12:00 94 07/16/17 11:25 35 07/16/17 11:00 93 20 35 07/16/17 11:00 93 16 145/75 94 Mechanical Ventilator 35 07/16/17 10:00 97 16 159/76 96 Mechanical Ventilator 35 07/16/17 10:00 35 07/16/17 09:55 101 31 35 07/16/17 09:06 103 22 35 Intake and Output 07/16/17 07/17/17 19:00 07:00 Intake Total 820 ml 900 ml Output Total 1390 ml 520 ml Balance -570 ml 380 ml IV Total 770 ml 900 ml Other 50 ml Output Urine Total 1390 ml 520 ml # Bowel Movements 2 2 Laboratory Tests 07/16/17 11:05: Arterial Blood pH 7.292L, Arterial Blood Partial Pressure CO2 64.1*H, Arterial Blood Partial Pressure O2 78.5, Arterial Blood HCO3 30.3H, Arterial Blood Oxygen Saturation 94.8, Arterial Blood Base Excess 2.1, Fidencio Test Positive 07/16/17 14:48: White Blood Count 9.0, Red Blood Count 4.44, Hemoglobin 12.2, Hematocrit 39.0, Mean Corpuscular Volume 88, Mean Corpuscular Hemoglobin 27.4, Mean Corpuscular Hemoglobin Concent 31.2L, Red Cell Distribution Width 14.6, Platelet Count 200, Mean Platelet Volume 6.5, Neutrophils (%) (Auto) 69.3, Lymphocytes (%) (Auto) 18.2L, Monocytes (%) (Auto) 8.0, Eosinophils (%) (Auto) 2.8, Basophils (%) (Auto ) 1.6, Sodium Level 139, Potassium Level 3.8, Chloride Level 102, Carbon Dioxide Level 31, Anion Gap 6, Blood Urea Nitrogen 11, Creatinine 0.5L, Estimat Glomerular Filtration Rate > 60, Glucose Level 84, Calcium Level 7.4L Height (Feet): 5 Height (Inches): 4.00 Weight (Pounds): 206 Objective GENERAL: Alert, awake. LUNGS: Decreased breath sounds bilaterally. The patient is intubated, on ventilator. HEART: S1, S2. Regular. ABDOMEN: Obese. EXTREMITIES: No cyanosis. No clubbing. With edema noted. NEUROLOGIC: No changes. ADRIANA JUNIOR Jul 17, 2017 09:03
[2017-07-17] MEDS: Albuterol/Ipratropium 3ml neb HHN PRN (09:47)
[2017-07-17 09:56] LABS: HEMATOCRIT 41.6 % (37.0-47.0); HEMOGLOBIN 13.1 G/DL (12.0-16.0); LYMPHOCYTES % (AUTO) 13.8 % (20.0-45.0); MEAN CORPUSCULAR VOLUME 87 FL (80-99); MONOCYTES % (AUTO) 7.3 % (1.0-10.0); PLATELET COUNT 224 K/UL (150-450); RED BLOOD COUNT 4.77 M/UL (4.20-5.40); RED CELL DISTRIBUTION WIDTH 14.3 % (11.6-14.8); WHITE BLOOD COUNT 7.5 K/UL (4.8-10.8)
[2017-07-17 10:07] LABS: ALANINE AMINOTRANSFERASE 23 U/L (12-78); ALBUMIN 2.8 G/DL (3.4-5.0); ALBUMIN/GLOBULIN RATIO 0.5 (1.0-2.7); ALKALINE PHOSPHATASE 81 U/L (46-116); ANION GAP 10 mmol/L (5-15); ASPARTATE AMINO TRANSFERASE 30 U/L (15-37); BILIRUBIN,TOTAL 0.5 MG/DL (0.2-1.0); BLOOD UREA NITROGEN 10 mg/dL (7-18); CALCIUM 7.9 MG/DL (8.5-10.1); CARBON DIOXIDE 28 MMOL/L (21-32); CHLORIDE 102 MMOL/L (98-107); CREATININE 0.5 MG/DL (0.55-1.30); POTASSIUM 3.7 MMOL/L (3.5-5.1); SODIUM 140 MMOL/L (136-145)
--- NOTE | 2017-07-17 10:46 | Pulmonolgy Critical Care Note ---
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 - Objective Last 24 Hour Vital Signs Date Time Temp Pulse Resp B/P (MAP) Pulse Ox O2 Delivery O2 Flow Rate FiO2 07/17/17 10:38 90 17 35 07/17/17 10:00 88 16 151/78 96 Mechanical Ventilator 35 07/17/17 09:56 90 15 97 Mechanical Ventilator 35 07/17/17 09:49 107 16 97 Mechanical Ventilator 35 07/17/17 09:30 35 07/17/17 09:14 91 20 35 07/17/17 09:13 100 07/17/17 09:00 93 21 159/79 96 Mechanical Ventilator 35 07/17/17 08:00 98.3 87 18 149/69 96 Mechanical Ventilator 35 07/17/17 08:00 35 07/17/17 07:12 92 18 35 07/17/17 07:00 87 21 159/79 96 Mechanical Ventilator 35 07/17/17 06:00 98 21 148/87 97 Mechanical Ventilator 35 07/17/17 05:26 99 20 35 07/17/17 05:00 98 20 148/105 97 Mechanical Ventilator 35 07/17/17 04:00 35 07/17/17 04:00 84 07/17/17 04:00 98.2 85 16 148/105 96 Mechanical Ventilator 35 07/17/17 03:24 76 16 35 07/17/17 03:00 78 16 139/81 96 Mechanical Ventilator 35 07/17/17 02:55 98.3 07/17/17 02:00 81 16 147/77 95 Mechanical Ventilator 35 07/17/17 01:10 93 18 35 07/17/17 01:00 85 16 132/75 95 Mechanical Ventilator 35 07/17/17 00:00 92 07/17/17 00:00 98.3 85 16 139/74 96 Mechanical Ventilator 35 07/16/17 23:06 95 21 35 07/16/17 23:00 90 16 144/111 96 Mechanical Ventilator 35 07/16/17 22:00 87 17 140/90 96 Mechanical Ventilator 35 07/16/17 21:25 80 16 35 07/16/17 21:00 83 17 146/78 95 Mechanical Ventilator 35 07/16/17 20:00 35 07/16/17 20:00 98.5 86 17 139/72 95 Mechanical Ventilator 35 07/16/17 20:00 73 07/16/17 19:05 73 16 35 07/16/17 19:00 73 16 134/75 96 Mechanical Ventilator 35 07/16/17 18:00 98.5 76 16 127/70 97 Mechanical Ventilator 35 07/16/17 17:00 80 16 92/68 97 Mechanical Ventilator 35 07/16/17 16:30 77 16 35 07/16/17 16:00 76 07/16/17 16:00 97.9 76 18 125/70 94 Mechanical Ventilator 35 07/16/17 16:00 35 07/16/17 15:40 35 07/16/17 15:28 85 16 35 07/16/17 15:00 91 18 146/71 92 Mechanical Ventilator 35 07/16/17 14:00 85 16 138/81 93 Mechanical Ventilator 35 07/16/17 13:17 93 17 35 07/16/17 13:00 84 15 140/70 93 Mechanical Ventilator 35 07/16/17 12:00 99.5 84 15 139/75 99 Mechanical Ventilator 35 07/16/17 12:00 94 07/16/17 11:25 35 07/16/17 11:00 93 20 35 07/16/17 11:00 93 16 145/75 94 Mechanical Ventilator 35 Status: awake Condition: critical HEENT: atraumatic Neck: full ROM Heart: HR/BP stable, HR/BP unstable Abdomen: soft, active bowel sounds Extremities: edema Critical Care - Subjective ROS Limited/Unobtainable: Yes ICU Day: 4 Intubation Day: 4 Condition: critical EKG Rhythm: Sinus Rhythm FI02: 35 Vent Support Breath Rate: 16 Vent Support Mode: CPAP Vent Tidal Volume: 550 Sputum Amount: Large PIP: 25 Fluids: 100 cc/hour I&O: Intake and Output 07/16/17 07/17/17 19:00 07:00 Intake Total 820 ml 900 ml Output Total 1390 ml 520 ml Balance -570 ml 380 ml IV Total 770 ml 900 ml Other 50 ml Output Urine Total 1390 ml 520 ml # Bowel Movements 2 2 CXR: ET in good position ET-Tube: 8.0 ET Position: 22 Labs: Laboratory Tests Test 07/16/17 11:05 07/16/17 14:48 07/17/17 09:30 07/17/17 10:10 Arterial Blood pH 7.292 (7.350-7.450) 7.295 (7.350-7.450) Arterial Blood Partial Pressure CO2 64.1 mmHg (35.0-45.0) *H 61.4 mmHg (35.0-45.0) *H Arterial Blood Partial Pressure O2 78.5 mmHg (75.0-100.0) 86.8 mmHg (75.0-100.0) Arterial Blood HCO3 30.3 mmol/L (22.0-26.0) H 29.2 mmol/L (22.0-26.0) H Arterial Blood Oxygen Saturation 94.8 % (92.0-98.0) 96.4 % (92.0-98.0) Arterial Blood Base Excess 2.1 1.3 Fidencio Test Positive Positive White Blood Count 9.0 K/UL (4.8-10.8) 7.5 K/UL (4.8-10.8) Red Blood Count 4.44 M/UL (4.20-5.40) 4.77 M/UL (4.20-5.40) Hemoglobin 12.2 G/DL (12.0-16.0) 13.1 G/DL (12.0-16.0) Hematocrit 39.0 % (37.0-47.0) 41.6 % (37.0-47.0) Mean Corpuscular Volume 88 FL (80-99) 87 FL (80-99) Mean Corpuscular Hemoglobin 27.4 PG (27.0-31.0) 27.4 PG (27.0-31.0) Mean Corpuscular Hemoglobin Concent 31.2 G/DL (32.0-36.0) L 31.4 G/DL (32.0-36.0) L Red Cell Distribution Width 14.6 % (11.6-14.8) 14.3 % (11.6-14.8) Platelet Count 200 K/UL (150-450) 224 K/UL (150-450) Mean Platelet Volume 6.5 FL (6.5-10.1) 6.2 FL (6.5-10.1) L Neutrophils (%) (Auto) 69.3 % (45.0-75.0) 76.0 % (45.0-75.0) H Lymphocytes (%) (Auto) 18.2 % (20.0-45.0) L 13.8 % (20.0-45.0) L Monocytes (%) (Auto) 8.0 % (1.0-10.0) 7.3 % (1.0-10.0) Eosinophils (%) (Auto) 2.8 % (0.0-3.0) 2.0 % (0.0-3.0) Basophils (%) (Auto) 1.6 % (0.0-2.0) 1.0 % (0.0-2.0) Sodium Level 139 MMOL/L (136-145) 140 MMOL/L (136-145) Potassium Level 3.8 MMOL/L (3.5-5.1) 3.7 MMOL/L (3.5-5.1) Chloride Level 102 MMOL/L (98-107) 102 MMOL/L (98-107) Carbon Dioxide Level 31 MMOL/L (21-32) 28 MMOL/L (21-32) Anion Gap 6 mmol/L (5-15) 10 mmol/L (5-15) Blood Urea Nitrogen 11 mg/dL (7-18) 10 mg/dL (7-18) Creatinine 0.5 MG/DL (0.55-1.30) L 0.5 MG/DL (0.55-1.30) L Estimat Glomerular Filtration Rate > 60 mL/min (>60) > 60 mL/min (>60) Glucose Level 84 MG/DL (74-106) 95 MG/DL (74-106) Calcium Level 7.4 MG/DL (8.5-10.1) L 7.9 MG/DL (8.5-10.1) L Total Bilirubin 0.5 MG/DL (0.2-1.0) Aspartate Amino Transf (AST/SGOT) 30 U/L (15-37) Alanine Aminotransferase (ALT/SGPT) 23 U/L (12-78) Alkaline Phosphatase 81 U/L (46-116) Total Protein 7.9 G/DL (6.4-8.2) Albumin 2.8 G/DL (3.4-5.0) L Globulin 5.1 g/dL Albumin/Globulin Ratio 0.5 (1.0-2.7) L RUBIA HUYNH Jul 17, 2017 10:46
[2017-07-17] MEDS: Solu-MEDROL 125mg Inj IV SCH ×2 (11:16→17:45)
--- NOTE | 2017-07-17 11:26 | Consultation ---
History of Present Illness General Date patient seen: Jul 17, 2017 Time patient seen: 11:24 Chief Complaint: Dyspnea/Respdistress Present Illness HPI 61 y/o F with hx of HTN, asthma/COPD, lumbar DJD w/ radiculopathy, pain disorder , prior heroin abuse now on chronic methadone presents to ED on 07/13 with confusion and worsening SOB and cough over several days prior to admission. Admitted for COPD exacerbation and required intubation Of note, patient admitted here in Mar 2017 NO recent travel [place], now afebrile >48hrs. M ild leukocytosis, resolved. Allergies: Coded Allergies: ERYTHROMYCIN BASE (Verified Allergy, Severe, Hives, 01/29/17) SULFAMETHOXAZOLE (Verified Allergy, Severe, Shortness of Breath, 01/29/17) TRIMETHOPRIM (Verified Allergy, Severe, Shortness of Breath, 01/29/17) Medication History Scheduled Albuterol Sulfate* (Albuterol Sulfate Mdi*), 2 PUFF INH Q6H, (Reported) Amlodipine Besylate (Norvasc), 10 MG ORAL DAILY, (Reported) Clonazepam* (Klonopin*), 1 MG ORAL QID, (Reported) Diphenhydramine HCl (Benadryl), 50 MG PO FOUR TIMES A DAY, (Reported) Hydromorphone HCl (Dilaudid), 4 MG ORAL Q4H, (Reported) Lisinopril (Lisinopril*), 40 MG ORAL DAILY, (Reported) Methadone Hcl (Methadone Hcl), 88 MG PO DAILY, (Reported) Miscellaneous Medications Azithromycin* (Zithromax*), 250 MG ORAL, (Reported) Discontinued Medications Amoxicillin/Potassium Clav 875-125* (Augmentin 875-125 Tablet*), 1 TAB ORAL TWICE A DAY Discontinued Reason: Pt stopped taking med Hydromorphone HCl (Dilaudid), 4 MG ORAL QID, (Reported) Discontinued Reason: Medication dose changed Lorazepam* (Ativan*), 1 MG ORAL THREE TIMES A DAY Discontinued Reason: Pt stopped taking med Methadone Hcl* (Methadone*), 100 MG PO DAILY, (Reported) Discontinued Reason: Medication dose changed Prednisone (Prednisone), 20 MG PO DAILY Discontinued Reason: Pt stopped taking med Patient History Healthcare decision maker SELF Resuscitation status Full Code Advanced Directive on File No Patient History Narrative PMhx: as above Shx: reviewed Fhx: non contributory Review of Systems ROS Narrative uanble to obtain Physical Exam Physical Exam Narrative GENERAL: No acute distress. PULMONARY: Decreased breath sounds. She is on a vent. CARDIOVASCULAR: Regular rate. No S3 or S4. ABDOMEN: Soft, nontender, and nondistended. EXTREMITIES: No cyanosis, swelling, or edema. Last 24 Hour Vital Signs Date Time Temp Pulse Resp B/P (MAP) Pulse Ox O2 Delivery O2 Flow Rate FiO2 07/17/17 10:38 90 17 35 07/17/17 10:00 88 16 151/78 96 Mechanical Ventilator 35 07/17/17 09:56 90 15 97 Mechanical Ventilator 35 07/17/17 09:49 107 16 97 Mechanical Ventilator 35 07/17/17 09:30 35 07/17/17 09:14 91 20 35 07/17/17 09:13 100 07/17/17 09:00 93 21 159/79 96 Mechanical Ventilator 35 07/17/17 08:00 89 07/17/17 08:00 98.3 87 18 149/69 96 Mechanical Ventilator 35 07/17/17 08:00 35 07/17/17 07:12 92 18 35 07/17/17 07:00 87 21 159/79 96 Mechanical Ventilator 35 07/17/17 06:00 98 21 148/87 97 Mechanical Ventilator 35 07/17/17 05:26 99 20 35 07/17/17 05:00 98 20 148/105 97 Mechanical Ventilator 35 07/17/17 04:00 35 07/17/17 04:00 84 07/17/17 04:00 98.2 85 16 148/105 96 Mechanical Ventilator 35 07/17/17 03:24 76 16 35 07/17/17 03:00 78 16 139/81 96 Mechanical Ventilator 35 07/17/17 02:55 98.3 07/17/17 02:00 81 16 147/77 95 Mechanical Ventilator 35 07/17/17 01:10 93 18 35 07/17/17 01:00 85 16 132/75 95 Mechanical Ventilator 35 07/17/17 00:00 92 07/17/17 00:00 98.3 85 16 139/74 96 Mechanical Ventilator 35 07/16/17 23:06 95 21 35 07/16/17 23:00 90 16 144/111 96 Mechanical Ventilator 35 07/16/17 22:00 87 17 140/90 96 Mechanical Ventilator 35 07/16/17 21:25 80 16 35 07/16/17 21:00 83 17 146/78 95 Mechanical Ventilator 35 07/16/17 20:00 35 07/16/17 20:00 98.5 86 17 139/72 95 Mechanical Ventilator 35 07/16/17 20:00 73 07/16/17 19:05 73 16 35 07/16/17 19:00 73 16 134/75 96 Mechanical Ventilator 35 07/16/17 18:00 98.5 76 16 127/70 97 Mechanical Ventilator 35 07/16/17 17:00 80 16 92/68 97 Mechanical Ventilator 35 07/16/17 16:30 77 16 35 07/16/17 16:00 76 07/16/17 16:00 97.9 76 18 125/70 94 Mechanical Ventilator 35 07/16/17 16:00 35 07/16/17 15:40 35 07/16/17 15:28 85 16 35 07/16/17 15:00 91 18 146/71 92 Mechanical Ventilator 35 07/16/17 14:00 85 16 138/81 93 Mechanical Ventilator 35 07/16/17 13:17 93 17 35 07/16/17 13:00 84 15 140/70 93 Mechanical Ventilator 35 07/16/17 12:00 99.5 84 15 139/75 99 Mechanical Ventilator 35 07/16/17 12:00 94 07/16/17 11:25 35 Intake and Output 07/16/17 07/17/17 19:00 07:00 Intake Total 820 ml 900 ml Output Total 1390 ml 520 ml Balance -570 ml 380 ml IV Total 770 ml 900 ml Other 50 ml Output Urine Total 1390 ml 520 ml # Bowel Movements 2 2 Laboratory Tests Test 07/16/17 14:48 07/17/17 09:30 07/17/17 10:10 White Blood Count 9.0 K/UL (4.8-10.8) 7.5 K/UL (4.8-10.8) Red Blood Count 4.44 M/UL (4.20-5.40) 4.77 M/UL (4.20-5.40) Hemoglobin 12.2 G/DL (12.0-16.0) 13.1 G/DL (12.0-16.0) Hematocrit 39.0 % (37.0-47.0) 41.6 % (37.0-47.0) Mean Corpuscular Volume 88 FL (80-99) 87 FL (80-99) Mean Corpuscular Hemoglobin 27.4 PG (27.0-31.0) 27.4 PG (27.0-31.0) Mean Corpuscular Hemoglobin Concent 31.2 G/DL (32.0-36.0) L 31.4 G/DL (32.0-36.0) L Red Cell Distribution Width 14.6 % (11.6-14.8) 14.3 % (11.6-14.8) Platelet Count 200 K/UL (150-450) 224 K/UL (150-450) Mean Platelet Volume 6.5 FL (6.5-10.1) 6.2 FL (6.5-10.1) L Neutrophils (%) (Auto) 69.3 % (45.0-75.0) 76.0 % (45.0-75.0) H Lymphocytes (%) (Auto) 18.2 % (20.0-45.0) L 13.8 % (20.0-45.0) L Monocytes (%) (Auto) 8.0 % (1.0-10.0) 7.3 % (1.0-10.0) Eosinophils (%) (Auto) 2.8 % (0.0-3.0) 2.0 % (0.0-3.0) Basophils (%) (Auto) 1.6 % (0.0-2.0) 1.0 % (0.0-2.0) Sodium Level 139 MMOL/L (136-145) 140 MMOL/L (136-145) Potassium Level 3.8 MMOL/L (3.5-5.1) 3.7 MMOL/L (3.5-5.1) Chloride Level 102 MMOL/L (98-107) 102 MMOL/L (98-107) Carbon Dioxide Level 31 MMOL/L (21-32) 28 MMOL/L (21-32) Anion Gap 6 mmol/L (5-15) 10 mmol/L (5-15) Blood Urea Nitrogen 11 mg/dL (7-18) 10 mg/dL (7-18) Creatinine 0.5 MG/DL (0.55-1.30) L 0.5 MG/DL (0.55-1.30) L Estimat Glomerular Filtration Rate > 60 mL/min (>60) > 60 mL/min (>60) Glucose Level 84 MG/DL (74-106) 95 MG/DL (74-106) Calcium Level 7.4 MG/DL (8.5-10.1) L 7.9 MG/DL (8.5-10.1) L Total Bilirubin 0.5 MG/DL (0.2-1.0) Aspartate Amino Transf (AST/SGOT) 30 U/L (15-37) Alanine Aminotransferase (ALT/SGPT) 23 U/L (12-78) Alkaline Phosphatase 81 U/L (46-116) Total Protein 7.9 G/DL (6.4-8.2) Albumin 2.8 G/DL (3.4-5.0) L Globulin 5.1 g/dL Albumin/Globulin Ratio 0.5 (1.0-2.7) L Arterial Blood pH 7.295 (7.350-7.450) Arterial Blood Partial Pressure CO2 61.4 mmHg (35.0-45.0) *H Arterial Blood Partial Pressure O2 86.8 mmHg (75.0-100.0) Arterial Blood HCO3 29.2 mmol/L (22.0-26.0) H Arterial Blood Oxygen Saturation 96.4 % (92.0-98.0) Arterial Blood Base Excess 1.3 Fidencio Test Positive Height (Feet): 5 Height (Inches): 4.00 Weight (Pounds): 206 Medications Current Medications Medications (Trade) Dose Ordered Sig/Sumeet Route PRN Reason Start Time Stop Time Status Last Admin Dose Admin Acetaminophen (Tylenol) 650 mg Q6H PRN ORAL Mild Pain/Temp > 100.5 07/14/17 16:15 08/13/17 16:14 07/14/17 16:44 Albuterol/ Ipratropium (Albuterol/ Ipratropium) 3 ml Q4H PRN HHN Shortness of Breath 07/17/17 08:00 07/22/17 07:59 07/17/17 09:47 Chlorhexidine Gluconate (Lynne-Hex 2%) 1999 TOPIC 07/14/17 20:00 08/13/17 19:59 07/16/17 19:55 Heparin Sodium (Porcine) (Heparin 5000 units/ml) 5,000 units EVERY 12 HOURS SUBQ 07/14/17 09:00 08/13/17 08:59 07/17/17 08:46 Lorazepam (Ativan 2mg/ml 1ml) 2 mg Q2H PRN IV AGITATION 07/14/17 05:30 07/21/17 05:29 07/16/17 23:14 Methadone HCl (Methadone HCl) 50 mg DAILY ORAL 07/16/17 09:00 07/23/17 08:59 07/17/17 08:37 Methylprednisolone Sodium Succinate (Solu-MEDROL) 60 mg EVERY 6 HOURS IV 07/17/17 11:00 08/16/17 10:59 07/17/17 11:16 Morphine Sulfate (Morphine Sulfate) 2 mg Q4H PRN IVP For Pain 07/14/17 05:30 07/21/17 05:29 07/17/17 08:41 Pantoprazole (Protonix) 40 mg DAILY IVP 07/14/17 09:00 08/13/17 08:59 07/17/17 08:46 Sennosides (Senokot) 1 tab DAILYPRN PRN ORAL Constipation 07/17/17 08:00 08/16/17 07:59 Sodium Chloride 550 ml @ 75 mls/hr Q7H20M IV 07/14/17 05:30 08/13/17 05:29 07/17/17 06:56 Assessment/Plan Assessment/Plan Abx: None Assessment: COPD exacerbation Possible CAP -CXR 07/15: Slight improvement in interstitial edema/opacification and improved aeration of the left base -CXR 07/13: Cardiomegaly with bilateral interstitial opacification and more focal haziness in the right lower lung. Findings may related to fluid overload/ pulmonary edema. Superimposed pneumonia is not excluded. -Influenza neg Acute respiratory failure s/p intubation Fever/leukocytosis- improving -ucx neg -Bcx NTD HTN, asthma/COPD, lumbar DJD w/ radiculopathy, pain disorder, prior heroin abuse now on chronic methadone Plan: -Start PO Levaquin for possible CAP -obtain sputum cx -f/u cx -Monitor CBC/BMP, temperatures -ETT care -Aspiration precautions Thank you for this consultation. Will continue to follow along with you. Discussed with JOSE. Irene Farley M.D. Jul 17, 2017 11:26
[2017-07-17] MEDS: LORazepam Inj 2mg/ml 1ml IV PRN ×3 (13:02→22:38)
[2017-07-17] MEDS: Levofloxacin 500mg tab ORAL SCH (16:44)
[2017-07-17] MEDS: Dyna-Hex 2% Top Sol 2oz TOPIC SCH (20:18)
[2017-07-18] VITALS (24 sets, daily range): BP systolic 118–165; BP diastolic 44–106
[2017-07-18] MEDS: LORazepam Inj 2mg/ml 1ml IV PRN ×6 (02:56→23:06)
[2017-07-18] MEDS: Solu-MEDROL 125mg Inj IV SCH ×5 (02:59→23:31)
[2017-07-18] MEDS: Morphine Sulfate 2mg/ml Inj IVP PRN ×5 (03:50→23:27)
[2017-07-18] MEDS: Sodium Chloride 500ML 550 ML IV SCH ×3 (04:50→18:55)
[2017-07-18 05:47] LABS: BASOPHILS % (AUTO) 0.5 % (0.0-2.0); HEMATOCRIT 41.7 % (37.0-47.0); LYMPHOCYTES % (AUTO) 12.5 % (20.0-45.0); MEAN CORPUSCULAR VOLUME 88 FL (80-99); MONOCYTES % (AUTO) 4.2 % (1.0-10.0); NEUTROPHILS % (AUTO) 82.8 % (45.0-75.0); PLATELET COUNT 227 K/UL (150-450); RED BLOOD COUNT 4.74 M/UL (4.20-5.40); RED CELL DISTRIBUTION WIDTH 14.3 % (11.6-14.8); WHITE BLOOD COUNT 6.4 K/UL (4.8-10.8)
[2017-07-18 06:10] LABS: ALANINE AMINOTRANSFERASE 25 U/L (12-78); ALBUMIN 2.7 G/DL (3.4-5.0); ALBUMIN/GLOBULIN RATIO 0.5 (1.0-2.7); ALKALINE PHOSPHATASE 78 U/L (46-116); ANION GAP 8 mmol/L (5-15); ASPARTATE AMINO TRANSFERASE 27 U/L (15-37); BILIRUBIN,TOTAL 0.4 MG/DL (0.2-1.0); BLOOD UREA NITROGEN 16 mg/dL (7-18); CARBON DIOXIDE 33 MMOL/L (21-32); CHLORIDE 103 MMOL/L (98-107); CREATININE 0.5 MG/DL (0.55-1.30); PHOSPHORUS 3.3 MG/DL (2.5-4.9); POTASSIUM 3.6 MMOL/L (3.5-5.1); SODIUM 144 MMOL/L (136-145)
[2017-07-18] MEDS: Albuterol/Ipratropium 3ml neb HHN PRN ×2 (07:06→10:55)
[2017-07-18] MEDS: Levofloxacin 500mg tab ORAL SCH (08:09)
[2017-07-18] MEDS: Pantoprazole Inj IVP SCH (08:09)
[2017-07-18] MEDS: Heparin 5000 units/ml inj SUBQ SCH ×2 (08:10→21:00)
--- NOTE | 2017-07-18 08:50 | General Progress Note ---
Assessment/Plan Assessment/Plan (1) Acute respiratory failure intubated (2) COPD Exacerbation (3) Polysubstance abuse on Methadone (4) Lumbar DDD (5) Lumbar Spondylosis (6) Lumbar Radiculopathy (7) Right hip pain (8) Right hip OA Pt to be continued on Methadone and Morphine D/w Dr. Mena and he concurred. Subjective Date patient seen: Jul 18, 2017 Time patient seen: 07:30 - am Allergies: Coded Allergies: ERYTHROMYCIN BASE (Verified Allergy, Severe, Hives, 01/29/17) SULFAMETHOXAZOLE (Verified Allergy, Severe, Shortness of Breath, 01/29/17) TRIMETHOPRIM (Verified Allergy, Severe, Shortness of Breath, 01/29/17) Subjective REVIEW OF SYSTEMS: Unable to obtain due to the patient's status. SUBJECTIVE: Pt is in bed and continues to be intubated on vent. She has received the Methadone daily and was last given Morphine 3 doses in the last 24hrs. Pt has no signs of pain at this time. Objective Last 24 Hour Vital Signs Date Time Temp Pulse Resp B/P (MAP) Pulse Ox O2 Delivery O2 Flow Rate FiO2 07/18/17 07:11 68 16 98 Mechanical Ventilator 35 07/18/17 07:06 83 16 35 07/18/17 07:00 73 16 96 Mechanical Ventilator 35 07/18/17 07:00 76 12 140/79 94 Mechanical Ventilator 35 07/18/17 06:00 90 12 133/75 95 Mechanical Ventilator 35 07/18/17 05:08 75 16 35 07/18/17 05:00 85 12 128/72 93 Mechanical Ventilator 35 07/18/17 04:20 97.8 07/18/17 04:00 99.0 91 18 137/80 94 Mechanical Ventilator 35 07/18/17 04:00 88 07/18/17 04:00 35 07/18/17 03:00 70 14 140/85 95 Mechanical Ventilator 35 07/18/17 02:59 62 18 35 07/18/17 02:00 65 16 131/72 98 Mechanical Ventilator 35 07/18/17 01:09 57 16 35 07/18/17 01:00 66 14 124/65 94 Mechanical Ventilator 35 07/18/17 00:00 70 07/18/17 00:00 97.8 65 18 130/88 100 Mechanical Ventilator 35 07/17/17 23:09 82 16 35 07/17/17 23:00 77 16 122/70 94 Mechanical Ventilator 35 07/17/17 22:00 95 18 127/77 95 Mechanical Ventilator 35 07/17/17 21:04 81 18 35 07/17/17 21:00 91 19 135/80 95 Mechanical Ventilator 35 07/17/17 20:00 91 07/17/17 20:00 35 07/17/17 20:00 98.5 82 20 152/74 97 Mechanical Ventilator 35 07/17/17 19:12 86 15 35 07/17/17 19:00 89 20 145/82 95 Mechanical Ventilator 35 07/17/17 18:00 88 19 141/77 95 Mechanical Ventilator 35 07/17/17 17:00 86 19 150/77 94 Mechanical Ventilator 35 07/17/17 16:59 82 16 35 07/17/17 16:00 84 07/17/17 16:00 98.6 87 18 141/76 94 Mechanical Ventilator 35 07/17/17 16:00 35 07/17/17 15:15 89 16 35 07/17/17 15:00 97 20 126/49 93 Mechanical Ventilator 35 07/17/17 14:00 97 17 152/79 95 Mechanical Ventilator 35 07/17/17 13:00 95 20 147/79 95 Mechanical Ventilator 35 07/17/17 12:59 98 22 35 07/17/17 12:00 98.3 95 19 155/83 95 Mechanical Ventilator 35 07/17/17 12:00 101 07/17/17 11:00 98 19 149/77 95 Mechanical Ventilator 35 07/17/17 10:38 90 17 35 07/17/17 10:00 88 16 151/78 96 Mechanical Ventilator 35 07/17/17 09:56 90 15 97 Mechanical Ventilator 35 07/17/17 09:49 107 16 97 Mechanical Ventilator 35 07/17/17 09:30 35 07/17/17 09:14 91 20 35 07/17/17 09:13 100 07/17/17 09:00 93 21 159/79 96 Mechanical Ventilator 35 Intake and Output 07/17/17 07/18/17 19:00 07:00 Intake Total 60 ml 985 ml Output Total 755 ml 565 ml Balance -695 ml 420 ml IV Total 635 ml Tube Feeding 60 ml 350 ml Output Urine Total 755 ml 565 ml # Bowel Movements 13 Laboratory Tests 07/17/17 09:30: White Blood Count 7.5, Red Blood Count 4.77, Hemoglobin 13.1, Hematocrit 41.6, Mean Corpuscular Volume 87, Mean Corpuscular Hemoglobin 27.4, Mean Corpuscular Hemoglobin Concent 31.4L, Red Cell Distribution Width 14.3, Platelet Count 224, Mean Platelet Volume 6.2L, Neutrophils (%) (Auto) 76.0H, Lymphocytes (%) (Auto) 13.8L, Monocytes (%) (Auto) 7.3, Eosinophils (%) (Auto) 2.0, Basophils (%) (Auto ) 1.0, Sodium Level 140, Potassium Level 3.7, Chloride Level 102, Carbon Dioxide Level 28, Anion Gap 10, Blood Urea Nitrogen 10, Creatinine 0.5L, Estimat Glomerular Filtration Rate > 60, Glucose Level 95, Calcium Level 7.9L, Total Bilirubin 0.5, Aspartate Amino Transf (AST/SGOT) 30, Alanine Aminotransferase (ALT/SGPT) 23, Alkaline Phosphatase 81, Total Protein 7.9, Albumin 2.8L, Globulin 5.1, Albumin/Globulin Ratio 0.5L 07/17/17 10:10: Arterial Blood pH 7.295L, Arterial Blood Partial Pressure CO2 61.4*H, Arterial Blood Partial Pressure O2 86.8, Arterial Blood HCO3 29.2H, Arterial Blood Oxygen Saturation 96.4, Arterial Blood Base Excess 1.3, Fidencio Test Positive 07/18/17 03:50: White Blood Count 6.4, Red Blood Count 4.74, Hemoglobin 13.0, Hematocrit 41.7, Mean Corpuscular Volume 88, Mean Corpuscular Hemoglobin 27.4, Mean Corpuscular Hemoglobin Concent 31.2L, Red Cell Distribution Width 14.3, Platelet Count 227, Mean Platelet Volume 6.1L, Neutrophils (%) (Auto) 82.8H, Lymphocytes (%) (Auto) 12.5L, Monocytes (%) (Auto) 4.2, Eosinophils (%) (Auto) 0.0, Basophils (%) (Auto ) 0.5, Sodium Level 144, Potassium Level 3.6, Chloride Level 103, Carbon Dioxide Level 33H, Anion Gap 8, Blood Urea Nitrogen 16, Creatinine 0.5L, Estimat Glomerular Filtration Rate > 60, Glucose Level 153H, Calcium Level 8.0L , Total Bilirubin 0.4, Aspartate Amino Transf (AST/SGOT) 27, Alanine Aminotransferase (ALT/SGPT) 25, Alkaline Phosphatase 78, Total Protein 7.9, Albumin 2.7L, Globulin 5.2, Albumin/Globulin Ratio 0.5L, Phosphorus Level 3.3, Magnesium Level 2.0 07/18/17 08:15: Arterial Blood pH 7.338L, Arterial Blood Partial Pressure CO2 59.3*H, Arterial Blood Partial Pressure O2 89.3, Arterial Blood HCO3 31.1H, Arterial Blood Oxygen Saturation 96.7, Arterial Blood Base Excess 3.6, Fidencio Test Positive Height (Feet): 5 Height (Inches): 4.00 Weight (Pounds): 207 Objective GENERAL: Alert, awake. LUNGS: Decreased breath sounds bilaterally. The patient is intubated, on ventilator. HEART: S1, S2. Regular. ABDOMEN: Obese. EXTREMITIES: No cyanosis. No clubbing. With edema noted. NEUROLOGIC: No changes. ADRIANA JUNIOR PConnor Jul 18, 2017 08:50
--- NOTE | 2017-07-18 09:53 | Infectious Diseases Prog Note ---
Assessment/Plan Assessment/Plan Abx: LEvaquin 07/16- Assessment: COPD exacerbation Possible CAP -CXR 07/15: Slight improvement in interstitial edema/opacification and improved aeration of the left base -CXR 07/13: Cardiomegaly with bilateral interstitial opacification and more focal haziness in the right lower lung. Findings may related to fluid overload/ pulmonary edema. Superimposed pneumonia is not excluded. -Influenza neg -sp cx 07/16 p Acute respiratory failure s/p intubation Fever/leukocytosis- improving -ucx neg -Bcx NTD HTN, asthma/COPD, lumbar DJD w/ radiculopathy, pain disorder, prior heroin abuse now on chronic methadone Plan: -Continue PO Levaquin #2/5 for possible CAP -f/u sputum cx -f/u cx -Monitor CBC/BMP, temperatures -ETT care -Aspiration precautions Thank you for this consultation. Will continue to follow along with you. Discussed with RN. Subjective Allergies: Coded Allergies: ERYTHROMYCIN BASE (Verified Allergy, Severe, Hives, 01/29/17) SULFAMETHOXAZOLE (Verified Allergy, Severe, Shortness of Breath, 01/29/17) TRIMETHOPRIM (Verified Allergy, Severe, Shortness of Breath, 01/29/17) Subjective aFebrile in >48hyrs no leukocytosis sp cx p Objective Vital Signs Last 24 Hour Vital Signs Date Time Temp Pulse Resp B/P (MAP) Pulse Ox O2 Delivery O2 Flow Rate FiO2 07/18/17 09:33 66 12 35 07/18/17 09:32 95 07/18/17 09:00 62 15 145/106 96 Mechanical Ventilator 35 07/18/17 08:00 35 07/18/17 08:00 98.0 60 16 118/44 96 Mechanical Ventilator 35 07/18/17 08:00 64 07/18/17 07:11 68 16 98 Mechanical Ventilator 35 07/18/17 07:06 83 16 35 07/18/17 07:00 73 16 96 Mechanical Ventilator 35 07/18/17 07:00 76 12 140/79 94 Mechanical Ventilator 35 07/18/17 06:00 90 12 133/75 95 Mechanical Ventilator 35 07/18/17 05:08 75 16 35 07/18/17 05:00 85 12 128/72 93 Mechanical Ventilator 35 07/18/17 04:20 97.8 1/3/18 04:00 99.0 91 18 137/80 94 Mechanical Ventilator 35 /3/18 04:00 88 07/18/17 04:00 35 18 03:00 70 14 140/85 95 Mechanical Ventilator 35 /318 02:59 62 18 35 /3/18 02:00 65 16 131/72 98 Mechanical Ventilator 35 /318 01:09 57 16 35 18 01:00 66 14 124/65 94 Mechanical Ventilator 35 18 00:00 70 07/18/17 00:00 97.8 65 18 130/88 100 Mechanical Ventilator 35 /2/18 23:09 82 16 35 /2/18 23:00 77 16 122/70 94 Mechanical Ventilator 35 07/17/18 22:00 95 18 127/77 95 Mechanical Ventilator 35 /2/18 21:04 81 18 35 /2/18 21:00 91 19 135/80 95 Mechanical Ventilator 35 /2/18 20:00 91 07/17/17 20:00 35 18 20:00 98.5 82 20 152/74 97 Mechanical Ventilator 35 2/18 19:12 86 15 35 /2/18 19:00 89 20 145/82 95 Mechanical Ventilator 35 07/17/18 18:00 88 19 141/77 95 Mechanical Ventilator 35 18 17:00 86 19 150/77 94 Mechanical Ventilator 35 /2/18 16:59 82 16 35 /2/18 16:00 84 2/18 16:00 98.6 87 18 141/76 94 Mechanical Ventilator 35 2/18 16:00 35 2/18 15:15 89 16 35 /2/18 15:00 97 20 126/49 93 Mechanical Ventilator 35 /2/18 14:00 97 17 152/79 95 Mechanical Ventilator 35 /2/18 13:00 95 20 147/79 95 Mechanical Ventilator 35 /2/18 12:59 98 22 35 /2/18 12:00 98.3 95 19 155/83 95 Mechanical Ventilator 35 /2/18 12:00 101 18 11:00 98 19 149/77 95 Mechanical Ventilator 35 /2/18 10:38 90 17 35 /2/18 10:00 88 16 151/78 96 Mechanical Ventilator 35 07/17/17 09:56 90 15 97 Mechanical Ventilator 35 Height (Feet): 5 Height (Inches): 4.00 Weight (Pounds): 207 Objective GENERAL: No acute distress. PULMONARY: Decreased breath sounds. She is on a vent. CARDIOVASCULAR: Regular rate. No S3 or S4. ABDOMEN: Soft, nontender, and nondistended. EXTREMITIES: No cyanosis, swelling, or edema. Microbiology Date/Time Source Procedure Growth Status 07/16/17 14:40 Sputum Gram Stain - Final Resulted 07/16/17 14:40 Sputum Sputum Culture - Preliminary Resulted Laboratory Tests Test 07/17/17 10:10 07/18/17 03:50 07/18/17 08:15 Arterial Blood pH 7.295 (7.350-7.450) 7.338 (7.350-7.450) Arterial Blood Partial Pressure CO2 61.4 mmHg (35.0-45.0) *H 59.3 mmHg (35.0-45.0) *H Arterial Blood Partial Pressure O2 86.8 mmHg (75.0-100.0) 89.3 mmHg (75.0-100.0) Arterial Blood HCO3 29.2 mmol/L (22.0-26.0) H 31.1 mmol/L (22.0-26.0) H Arterial Blood Oxygen Saturation 96.4 % (92.0-98.0) 96.7 % (92.0-98.0) Arterial Blood Base Excess 1.3 3.6 Fidencio Test Positive Positive White Blood Count 6.4 K/UL (4.8-10.8) Red Blood Count 4.74 M/UL (4.20-5.40) Hemoglobin 13.0 G/DL (12.0-16.0) Hematocrit 41.7 % (37.0-47.0) Mean Corpuscular Volume 88 FL (80-99) Mean Corpuscular Hemoglobin 27.4 PG (27.0-31.0) Mean Corpuscular Hemoglobin Concent 31.2 G/DL (32.0-36.0) L Red Cell Distribution Width 14.3 % (11.6-14.8) Platelet Count 227 K/UL (150-450) Mean Platelet Volume 6.1 FL (6.5-10.1) L Neutrophils (%) (Auto) 82.8 % (45.0-75.0) H Lymphocytes (%) (Auto) 12.5 % (20.0-45.0) L Monocytes (%) (Auto) 4.2 % (1.0-10.0) Eosinophils (%) (Auto) 0.0 % (0.0-3.0) Basophils (%) (Auto) 0.5 % (0.0-2.0) Sodium Level 144 MMOL/L (136-145) Potassium Level 3.6 MMOL/L (3.5-5.1) Chloride Level 103 MMOL/L (98-107) Carbon Dioxide Level 33 MMOL/L (21-32) H Anion Gap 8 mmol/L (5-15) Blood Urea Nitrogen 16 mg/dL (7-18) Creatinine 0.5 MG/DL (0.55-1.30) L Estimat Glomerular Filtration Rate > 60 mL/min (>60) Glucose Level 153 MG/DL (74-106) H Calcium Level 8.0 MG/DL (8.5-10.1) L Phosphorus Level 3.3 MG/DL (2.5-4.9) Magnesium Level 2.0 MG/DL (1.8-2.4) Total Bilirubin 0.4 MG/DL (0.2-1.0) Aspartate Amino Transf (AST/SGOT) 27 U/L (15-37) Alanine Aminotransferase (ALT/SGPT) 25 U/L (12-78) Alkaline Phosphatase 78 U/L (46-116) Total Protein 7.9 G/DL (6.4-8.2) Albumin 2.7 G/DL (3.4-5.0) L Globulin 5.2 g/dL Albumin/Globulin Ratio 0.5 (1.0-2.7) L Current Medications Medications (Trade) Dose Ordered Sig/Sumeet Route PRN Reason Start Time Stop Time Status Last Admin Dose Admin Acetaminophen (Tylenol) 650 mg Q6H PRN ORAL Mild Pain/Temp > 100.5 07/14/17 16:15 08/13/17 16:14 07/14/17 16:44 Albuterol/ Ipratropium (Albuterol/ Ipratropium) 3 ml Q4H PRN HHN Shortness of Breath 07/17/17 08:00 07/22/17 07:59 07/18/17 07:06 Chlorhexidine Gluconate (Lynne-Hex 2%) 1 applic 2000 TOPIC 07/14/17 20:00 08/13/17 19:59 07/17/17 20:18 Heparin Sodium (Porcine) (Heparin 5000 units/ml) 5,000 units EVERY 12 HOURS SUBQ 07/14/17 09:00 08/13/17 08:59 07/18/17 08:10 Levofloxacin (Levaquin) 500 mg DAILY ORAL 07/17/17 12:13 07/21/17 23:59 07/18/17 08:09 Lorazepam (Ativan 2mg/ml 1ml) 2 mg Q2H PRN IV AGITATION 07/14/17 05:30 07/21/17 05:29 07/18/17 09:42 Methadone HCl (Methadone HCl) 50 mg DAILY ORAL 07/16/17 09:00 07/23/17 08:59 07/18/17 08:09 Methylprednisolone Sodium Succinate (Solu-MEDROL) 60 mg EVERY 6 HOURS IV 07/17/17 11:00 08/16/17 10:59 07/18/17 05:41 Morphine Sulfate (Morphine Sulfate) 2 mg Q4H PRN IVP For Pain 07/14/17 05:30 07/21/17 05:29 07/18/17 09:42 Pantoprazole (Protonix) 40 mg DAILY IVP 07/14/17 09:00 08/13/17 08:59 07/18/17 08:09 Sennosides (Senokot) 1 tab DAILYPRN PRN ORAL Constipation 07/17/17 08:00 08/16/17 07:59 Sodium Chloride 550 ml @ 75 mls/hr Q7H20M IV 07/14/17 05:30 08/13/17 05:29 07/18/17 04:50 Irene Farley M.D. Jul 18, 2017 09:53
--- NOTE | 2017-07-18 10:53 | Pulmonolgy Critical Care Note ---
Critical Care - Asmt/Plan Problems: (1) Morbid obesity (2) Pneumonia (3) Acute and chronic respiratory failure (4) COPD exacerbation Respiratory: monitor respiratory rate, adjust FIO2, CXR, weaning trial Cardiac: continue to monitor HR/BP Renal: F/U I&O, keep IV fluid Infectious Disease: check cultures Gastrointestinal: continue feedings/current rate Endocrine: monitor blood sugar, check TSH, check HgA1C Affect: PRN ativan Prophylaxis: Protonix, Heparin Disposition: keep in ICU Discussed with: nurses, consultants, case manager specialist, family member Critical Care - Objective Last 24 Hour Vital Signs Date Time Temp Pulse Resp B/P (MAP) Pulse Ox O2 Delivery O2 Flow Rate FiO2 07/18/17 10:00 71 15 144/74 93 Mechanical Ventilator 35 07/18/17 09:33 66 12 35 07/18/17 09:32 95 07/18/17 09:00 62 15 145/106 96 Mechanical Ventilator 35 07/18/17 08:00 35 07/18/17 08:00 98.0 60 16 118/44 96 Mechanical Ventilator 35 07/18/17 08:00 64 07/18/17 07:11 68 16 98 Mechanical Ventilator 35 07/18/17 07:06 83 16 35 07/18/17 07:00 73 16 96 Mechanical Ventilator 35 07/18/17 07:00 76 12 140/79 94 Mechanical Ventilator 35 07/18/17 06:00 90 12 133/75 95 Mechanical Ventilator 35 07/18/17 05:08 75 16 35 07/18/17 05:00 85 12 128/72 93 Mechanical Ventilator 35 07/18/17 04:20 97.8 07/18/17 04:00 99.0 91 18 137/80 94 Mechanical Ventilator 35 07/18/17 04:00 88 07/18/17 04:00 35 07/18/17 03:00 70 14 140/85 95 Mechanical Ventilator 35 07/18/17 02:59 62 18 35 07/18/17 02:00 65 16 131/72 98 Mechanical Ventilator 35 07/18/17 01:09 57 16 35 07/18/17 01:00 66 14 124/65 94 Mechanical Ventilator 35 07/18/17 00:00 70 07/18/17 00:00 97.8 65 18 130/88 100 Mechanical Ventilator 35 07/17/17 23:09 82 16 35 07/17/17 23:00 77 16 122/70 94 Mechanical Ventilator 35 07/17/17 22:00 95 18 127/77 95 Mechanical Ventilator 35 07/17/17 21:04 81 18 35 07/17/17 21:00 91 19 135/80 95 Mechanical Ventilator 35 07/17/17 20:00 91 07/17/17 20:00 35 07/17/17 20:00 98.5 82 20 152/74 97 Mechanical Ventilator 35 07/17/17 19:12 86 15 35 07/17/17 19:00 89 20 145/82 95 Mechanical Ventilator 35 07/17/17 18:00 88 19 141/77 95 Mechanical Ventilator 35 07/17/17 17:00 86 19 150/77 94 Mechanical Ventilator 35 07/17/17 16:59 82 16 35 07/17/17 16:00 84 07/17/17 16:00 98.6 87 18 141/76 94 Mechanical Ventilator 35 07/17/17 16:00 35 07/17/17 15:15 89 16 35 07/17/17 15:00 97 20 126/49 93 Mechanical Ventilator 35 07/17/17 14:00 97 17 152/79 95 Mechanical Ventilator 35 07/17/17 13:00 95 20 147/79 95 Mechanical Ventilator 35 07/17/17 12:59 98 22 35 07/17/17 12:00 98.3 95 19 155/83 95 Mechanical Ventilator 35 07/17/17 12:00 101 07/17/17 11:00 98 19 149/77 95 Mechanical Ventilator 35 Status: awake Condition: critical HEENT: atraumatic Lungs: clear, chest wall tender Heart: HR/BP stable, HR/BP unstable Abdomen: soft, non-tender, active bowel sounds Extremities: no C/C/E, edema Decubiti: stage Micro: Microbiology Date/Time Source Procedure Growth Status 07/16/17 14:40 Sputum Gram Stain - Final Resulted 07/16/17 14:40 Sputum Sputum Culture - Preliminary Resulted Critical Care - Subjective ROS Limited/Unobtainable: Yes ICU Day: 5 Intubation Day: 5 Condition: critical EKG Rhythm: Sinus Rhythm FI02: 35 Vent Support Breath Rate: 6 Vent Support Mode: IMV/SIMV Vent Tidal Volume: 550 Sputum Amount: Moderate PIP: 14 Tube Feeding Amount: 30 I&O: Intake and Output 07/17/17 07/18/17 19:00 07:00 Intake Total 60 ml 985 ml Output Total 755 ml 565 ml Balance -695 ml 420 ml IV Total 635 ml Tube Feeding 60 ml 350 ml Output Urine Total 755 ml 565 ml # Bowel Movements 13 CXR: no change ET-Tube: 8.0 ET Position: 22 Labs: Laboratory Tests Test 07/18/17 03:50 07/18/17 08:15 White Blood Count 6.4 K/UL (4.8-10.8) Red Blood Count 4.74 M/UL (4.20-5.40) Hemoglobin 13.0 G/DL (12.0-16.0) Hematocrit 41.7 % (37.0-47.0) Mean Corpuscular Volume 88 FL (80-99) Mean Corpuscular Hemoglobin 27.4 PG (27.0-31.0) Mean Corpuscular Hemoglobin Concent 31.2 G/DL (32.0-36.0) L Red Cell Distribution Width 14.3 % (11.6-14.8) Platelet Count 227 K/UL (150-450) Mean Platelet Volume 6.1 FL (6.5-10.1) L Neutrophils (%) (Auto) 82.8 % (45.0-75.0) H Lymphocytes (%) (Auto) 12.5 % (20.0-45.0) L Monocytes (%) (Auto) 4.2 % (1.0-10.0) Eosinophils (%) (Auto) 0.0 % (0.0-3.0) Basophils (%) (Auto) 0.5 % (0.0-2.0) Sodium Level 144 MMOL/L (136-145) Potassium Level 3.6 MMOL/L (3.5-5.1) Chloride Level 103 MMOL/L (98-107) Carbon Dioxide Level 33 MMOL/L (21-32) H Anion Gap 8 mmol/L (5-15) Blood Urea Nitrogen 16 mg/dL (7-18) Creatinine 0.5 MG/DL (0.55-1.30) L Estimat Glomerular Filtration Rate > 60 mL/min (>60) Glucose Level 153 MG/DL (74-106) H Calcium Level 8.0 MG/DL (8.5-10.1) L Phosphorus Level 3.3 MG/DL (2.5-4.9) Magnesium Level 2.0 MG/DL (1.8-2.4) Total Bilirubin 0.4 MG/DL (0.2-1.0) Aspartate Amino Transf (AST/SGOT) 27 U/L (15-37) Alanine Aminotransferase (ALT/SGPT) 25 U/L (12-78) Alkaline Phosphatase 78 U/L (46-116) Total Protein 7.9 G/DL (6.4-8.2) Albumin 2.7 G/DL (3.4-5.0) L Globulin 5.2 g/dL Albumin/Globulin Ratio 0.5 (1.0-2.7) L Arterial Blood pH 7.338 (7.350-7.450) Arterial Blood Partial Pressure CO2 59.3 mmHg (35.0-45.0) *H Arterial Blood Partial Pressure O2 89.3 mmHg (75.0-100.0) Arterial Blood HCO3 31.1 mmol/L (22.0-26.0) H Arterial Blood Oxygen Saturation 96.7 % (92.0-98.0) Arterial Blood Base Excess 3.6 Fidencio Test Positive RUBIA HUYNH Jul 18, 2017 10:53
--- NOTE | 2017-07-18 11:53 | Diagnostic Imaging Report ---
Indication: NG-tube placement Technique: ABDOMEN 1 VIEW Comparison: 07/14/2017 Findings: NG tube courses below level of diaphragms, tip in the proximal stomach. The side-port is at the region of the GE junction. Advancement is recommended. Bowel gas pattern is nonspecific. ET tube of the tip of the adrian. No gross focal airspace consolidation is appreciated. Impression: NG tube tip in the proximal stomach, side-port at the region of the GE junction. Advancement is recommended. This was discussed with the patient's treating nurse in the ICU via telephone conversation approximately 2:50 PM 07/17/17.
--- NOTE | 2017-07-18 12:06 | Diagnostic Imaging Report ---
Indication: NG tube Technique: ABDOMEN 1 VIEW Comparison: Earlier the same day Findings: Advancement of NG tube, tip now in the distal stomach, side-port in the proximal stomach. Additional findings unchanged. Impression: Interval repositioning of NG tube. Tip in the distal stomach.
--- NOTE | 2017-07-18 12:44 | Diagnostic Imaging Report ---
. Indication: Dyspnea Technique: One view of the chest Comparison: 07/15/2017 Findings: Stable satisfactory position of endotracheal tube. Improved position of nasogastric tube. Borderline interstitial congestion persists, unchanged. Normal heart size Impression: Improved position of nasogastric tube. Otherwise, little change coordinator 3 days
--- NOTE | 2017-07-18 16:11 | Cardiology Report ---
APPROVED REPORT EKG Measurement Heart [id number] [place] [id number] Normal sinus rhythm Normal ECG
--- NOTE | 2017-07-18 19:32 | Cardiology Report ---
APPROVED REPORT EKG Measurement Heart [id number] [place] [id number] Sinus tachycardia with frequent premature ventricular complexes Possible Left atrial enlargement Low voltage QRS Cannot rule out Anterior infarct, age undetermined Abnormal ECG
[2017-07-18] MEDS: Dyna-Hex 2% Top Sol 2oz TOPIC SCH (19:48)
[2017-07-19] VITALS (21 sets, daily range): BP systolic 124–171; BP diastolic 61–102
[2017-07-19] MEDS: Sodium Chloride 500ML 550 ML IV SCH ×2 (02:22→10:08)
[2017-07-19] MEDS: LORazepam Inj 2mg/ml 1ml IV PRN ×3 (03:04→09:05)
[2017-07-19] MEDS: Morphine Sulfate 2mg/ml Inj IVP PRN ×4 (03:44→22:07)
[2017-07-19] MEDS: Solu-MEDROL 125mg Inj IV SCH ×3 (05:41→20:22)
[2017-07-19 06:23] LABS: BASOPHILS % (AUTO) 0.2 % (0.0-2.0); HEMOGLOBIN 12.8 G/DL (12.0-16.0); MEAN CORPUSCULAR VOLUME 86 FL (80-99); MONOCYTES % (AUTO) 4.3 % (1.0-10.0); NEUTROPHILS % (AUTO) 83.5 % (45.0-75.0); PLATELET COUNT 235 K/UL (150-450); RED BLOOD COUNT 4.51 M/UL (4.20-5.40); RED CELL DISTRIBUTION WIDTH 14.7 % (11.6-14.8); WHITE BLOOD COUNT 7.9 K/UL (4.8-10.8)
[2017-07-19 07:04] LABS: ALANINE AMINOTRANSFERASE 27 U/L (12-78); ALBUMIN 2.7 G/DL (3.4-5.0); ALBUMIN/GLOBULIN RATIO 0.6 (1.0-2.7); ALKALINE PHOSPHATASE 66 U/L (46-116); ANION GAP 6 mmol/L (5-15); ASPARTATE AMINO TRANSFERASE 27 U/L (15-37); BILIRUBIN,TOTAL 0.3 MG/DL (0.2-1.0); BLOOD UREA NITROGEN 22 mg/dL (7-18); CALCIUM 7.8 MG/DL (8.5-10.1); CARBON DIOXIDE 33 MMOL/L (21-32); CHLORIDE 104 MMOL/L (98-107); CREATININE 0.5 MG/DL (0.55-1.30); PHOSPHORUS 2.2 MG/DL (2.5-4.9); POTASSIUM 3.7 MMOL/L (3.5-5.1); SODIUM 142 MMOL/L (136-145)
--- NOTE | 2017-07-19 08:44 | General Progress Note ---
Assessment/Plan Assessment/Plan (1) Acute respiratory failure intubated (2) COPD Exacerbation (3) Polysubstance abuse on Methadone (4) Lumbar DDD (5) Lumbar Spondylosis (6) Lumbar Radiculopathy (7) Right hip pain (8) Right hip OA Pt to be continued on Methadone and Morphine D/w Dr. Mena and he concurred. Subjective Date patient seen: Jul 19, 2017 Time patient seen: 07:30 - am Allergies: Coded Allergies: ERYTHROMYCIN BASE (Verified Allergy, Severe, Hives, 01/29/17) SULFAMETHOXAZOLE (Verified Allergy, Severe, Shortness of Breath, 01/29/17) TRIMETHOPRIM (Verified Allergy, Severe, Shortness of Breath, 01/29/17) Subjective REVIEW OF SYSTEMS: Unable to obtain due to the patient's status. SUBJECTIVE: Pt is in bed and continues to be intubated on vent. She shows no signs of pain or distress at this time. continues to go through weening process and is receiving the Methadone daily. Objective Last 24 Hour Vital Signs Date Time Temp Pulse Resp B/P (MAP) Pulse Ox O2 Delivery O2 Flow Rate FiO2 07/19/17 08:00 97.5 68 14 153/91 93 Mechanical Ventilator 40 07/19/17 08:00 40 07/19/17 07:59 71 14 40 07/19/17 07:59 95 07/19/17 07:26 71 16 40 07/19/17 07:13 70 16 144/71 100 Mechanical Ventilator 40 07/19/17 07:00 80 16 171/102 93 Mechanical Ventilator 40 07/19/17 06:00 66 16 159/81 98 Mechanical Ventilator 40 07/19/17 05:29 87 20 40 07/19/17 05:00 77 16 124/77 98 Mechanical Ventilator 40 07/19/17 04:10 98.5 07/19/17 04:00 40 07/19/17 04:00 56 16 165/61 97 Mechanical Ventilator 40 07/19/17 03:31 57 07/19/17 03:23 60 16 40 07/19/17 03:00 77 16 156/82 97 Mechanical Ventilator 40 07/19/17 02:00 54 16 169/82 97 Mechanical Ventilator 40 07/19/17 01:09 72 16 40 07/19/17 01:00 72 14 159/92 98 Mechanical Ventilator 40 07/19/17 00:00 40 07/19/17 00:00 98.4 65 16 155/74 97 Mechanical Ventilator 40 07/18/17 23:42 64 07/18/17 23:18 70 19 40 07/18/17 23:00 65 16 129/81 97 Mechanical Ventilator 40 07/18/17 22:00 58 18 157/70 97 Mechanical Ventilator 40 07/18/17 21:06 61 16 40 07/18/17 21:00 80 15 147/76 97 Mechanical Ventilator 40 07/18/17 20:20 98.1 07/18/17 20:00 83 07/18/17 20:00 98.1 72 14 155/77 96 Mechanical Ventilator 40 07/18/17 20:00 35 07/18/17 19:00 56 16 165/78 97 Mechanical Ventilator 40 07/18/17 18:52 71 16 40 07/18/17 18:00 58 16 159/76 95 Mechanical Ventilator 40 07/18/17 17:00 71 16 157/76 94 Mechanical Ventilator 40 07/18/17 16:48 71 16 40 07/18/17 16:00 97.5 71 16 159/84 95 Mechanical Ventilator 40 07/18/17 16:00 80 07/18/17 16:00 35 07/18/17 15:18 59 16 40 07/18/17 15:00 60 16 159/81 93 Mechanical Ventilator 35 07/18/17 14:00 82 16 129/99 96 Mechanical Ventilator 35 07/18/17 13:00 66 16 127/66 95 Mechanical Ventilator 35 07/18/17 12:46 65 16 35 07/18/17 12:00 35 07/18/17 12:00 97.6 67 16 137/73 95 Mechanical Ventilator 35 07/18/17 12:00 77 07/18/17 11:00 75 15 140/77 99 Mechanical Ventilator 35 07/18/17 10:59 81 19 95 Mechanical Ventilator 35 07/18/17 10:57 75 12 35 07/18/17 10:50 76 14 96 Mechanical Ventilator 35 07/18/17 10:00 71 15 144/74 93 Mechanical Ventilator 35 07/18/17 09:33 66 12 35 07/18/17 09:32 95 07/18/17 09:00 62 15 145/106 96 Mechanical Ventilator 35 Intake and Output 07/18/17 07/19/17 19:00 07:00 Intake Total 1335 ml 1260 ml Output Total 550 ml 790 ml Balance 785 ml 470 ml Free Water 50 ml IV Total 925 ml 900 ml Tube Feeding 360 ml 360 ml Output Urine Total 550 ml 790 ml # Bowel Movements 2 Laboratory Tests 07/18/17 12:00: Arterial Blood pH 7.289L, Arterial Blood Partial Pressure CO2 70.5*H, Arterial Blood Partial Pressure O2 83.8, Arterial Blood HCO3 33.1H, Arterial Blood Oxygen Saturation 95.8, Arterial Blood Base Excess 4.2, Fidencio Test Positive 07/19/17 04:40: White Blood Count 7.9, Red Blood Count 4.51, Hemoglobin 12.8, Hematocrit 39.0, Mean Corpuscular Volume 86, Mean Corpuscular Hemoglobin 28.3, Mean Corpuscular Hemoglobin Concent 32.8, Red Cell Distribution Width 14.7, Platelet Count 235, Mean Platelet Volume 6.1L, Neutrophils (%) (Auto) 83.5H, Lymphocytes (%) (Auto) 12.0L, Monocytes (%) (Auto) 4.3, Eosinophils (%) (Auto) 0.0, Basophils (%) (Auto ) 0.2, Sodium Level 142, Potassium Level 3.7, Chloride Level 104, Carbon Dioxide Level 33H, Anion Gap 6, Blood Urea Nitrogen 22H, Creatinine 0.5L, Estimat Glomerular Filtration Rate > 60, Glucose Level 201H, Calcium Level 7.8L , Phosphorus Level 2.2L, Magnesium Level 2.2, Total Bilirubin 0.3, Aspartate Amino Transf (AST/SGOT) 27, Alanine Aminotransferase (ALT/SGPT) 27, Alkaline Phosphatase 66, Total Protein 7.5, Albumin 2.7L, Globulin 4.8, Albumin/Globulin Ratio 0.6L Height (Feet): 5 Height (Inches): 4.00 Weight (Pounds): 198 Objective GENERAL: Alert, awake. LUNGS: Decreased breath sounds bilaterally. The patient is intubated, on ventilator. HEART: S1, S2. Regular. ABDOMEN: Obese. EXTREMITIES: No cyanosis. No clubbing. With edema noted. NEUROLOGIC: No changes. ADRIANA JUNIOR Jul 19, 2017 08:44
[2017-07-19] MEDS: Pantoprazole Inj IVP SCH (09:03)
[2017-07-19] MEDS: Levofloxacin 500mg tab ORAL SCH (09:04)
[2017-07-19] MEDS: Heparin 5000 units/ml inj SUBQ SCH ×2 (09:05→20:23)
--- NOTE | 2017-07-19 11:28 | Pulmonolgy Critical Care Note ---
Critical Care - Asmt/Plan Problems: (1) Morbid obesity (2) Pneumonia (3) Acute and chronic respiratory failure (4) COPD exacerbation Respiratory: monitor respiratory rate, adjust FIO2, CXR Cardiac: continue to monitor HR/BP Renal: F/U I&O, keep IV fluid Infectious Disease: check cultures Gastrointestinal: continue feedings/current rate Endocrine: monitor blood sugar Hematologic: monitor H/H Neurologic: PRN Ativan, PRN Morphine Affect: PRN ativan Disposition: keep in ICU Notes Reviewed: line walker, cardio Discussed with: nurses, consultants, case management assistantsignal manager - Objective Last 24 Hour Vital Signs Date Time Temp Pulse Resp B/P (MAP) Pulse Ox O2 Delivery O2 Flow Rate FiO2 07/19/17 11:00 66 21 137/66 91 Mechanical Ventilator 40 07/19/17 10:58 65 13 35 07/19/17 10:00 67 17 139/75 97 Mechanical Ventilator 40 07/19/17 09:00 63 15 132/95 98 Mechanical Ventilator 40 07/19/17 09:00 71 15 35 07/19/17 08:00 78 07/19/17 08:00 97.5 68 14 153/91 93 Mechanical Ventilator 40 07/19/17 08:00 40 07/19/17 07:59 71 14 40 07/19/17 07:59 95 07/19/17 07:26 71 16 40 07/19/17 07:13 70 16 144/71 100 Mechanical Ventilator 40 07/19/17 07:00 80 16 171/102 93 Mechanical Ventilator 40 07/19/17 06:00 66 16 159/81 98 Mechanical Ventilator 40 07/19/17 05:29 87 20 40 07/19/17 05:00 77 16 124/77 98 Mechanical Ventilator 40 07/19/17 04:10 98.5 07/19/17 04:00 40 07/19/17 04:00 56 16 165/61 97 Mechanical Ventilator 40 07/19/17 03:31 57 07/19/17 03:23 60 16 40 07/19/17 03:00 77 16 156/82 97 Mechanical Ventilator 40 07/19/17 02:00 54 16 169/82 97 Mechanical Ventilator 40 07/19/17 01:09 72 16 40 07/19/17 01:00 72 14 159/92 98 Mechanical Ventilator 40 07/19/17 00:00 40 07/19/17 00:00 98.4 65 16 155/74 97 Mechanical Ventilator 40 07/18/17 23:42 64 07/18/17 23:18 70 19 40 07/18/17 23:00 65 16 129/81 97 Mechanical Ventilator 40 07/18/17 22:00 58 18 157/70 97 Mechanical Ventilator 40 07/18/17 21:06 61 16 40 07/18/17 21:00 80 15 147/76 97 Mechanical Ventilator 40 07/18/17 20:20 98.1 07/18/17 20:00 83 07/18/17 20:00 98.1 72 14 155/77 96 Mechanical Ventilator 40 07/18/17 20:00 35 07/18/17 19:00 56 16 165/78 97 Mechanical Ventilator 40 07/18/17 18:52 71 16 40 07/18/17 18:00 58 16 159/76 95 Mechanical Ventilator 40 07/18/17 17:00 71 16 157/76 94 Mechanical Ventilator 40 07/18/17 16:48 71 16 40 07/18/17 16:00 97.5 71 16 159/84 95 Mechanical Ventilator 40 07/18/17 16:00 80 07/18/17 16:00 35 07/18/17 15:18 59 16 40 07/18/17 15:00 60 16 159/81 93 Mechanical Ventilator 35 07/18/17 14:00 82 16 129/99 96 Mechanical Ventilator 35 07/18/17 13:00 66 16 127/66 95 Mechanical Ventilator 35 07/18/17 12:46 65 16 35 07/18/17 12:00 35 07/18/17 12:00 97.6 67 16 137/73 95 Mechanical Ventilator 35 07/18/17 12:00 77 Status: awake Condition: improving HEENT: atraumatic Lungs: clear Heart: HR/BP stable, HR/BP unstable Abdomen: soft, active bowel sounds Extremities: no C/C/E, edema Decubiti: location Micro: Microbiology Date/Time Source Procedure Growth Status 07/16/17 14:40 Sputum Gram Stain - Final Resulted 07/16/17 14:40 Sputum Culture - Preliminary Streptococcus Pneumoniae Resulted Critical Care - Subjective ROS Limited/Unobtainable: No ICU Day: 6 Condition: critical EKG Rhythm: Sinus Rhythm FI02: 40 Vent Support Breath Rate: 16 Vent Support Mode: CPAP Vent Tidal Volume: 550 Sputum Amount: Scant PIP: 11 Secretions: small Fluids: 1/2 NS Tube Feeding Amount: 30 I&O: Intake and Output 07/18/17 07/19/17 19:00 07:00 Intake Total 1335 ml 1260 ml Output Total 550 ml 790 ml Balance 785 ml 470 ml Free Water 50 ml IV Total 925 ml 900 ml Tube Feeding 360 ml 360 ml Output Urine Total 550 ml 790 ml # Bowel Movements 2 CXR: ET ok ET-Tube: 8.0 ET Position: 22 Labs: Laboratory Tests Test 07/18/17 12:00 07/19/17 04:40 07/19/17 08:40 Arterial Blood pH 7.289 (7.350-7.450) 7.364 (7.350-7.450) Arterial Blood Partial Pressure CO2 70.5 mmHg (35.0-45.0) *H 64.6 mmHg (35.0-45.0) *H Arterial Blood Partial Pressure O2 83.8 mmHg (75.0-100.0) 100.8 mmHg (75.0-100.0) H Arterial Blood HCO3 33.1 mmol/L (22.0-26.0) H 36.0 mmol/L (22.0-26.0) H Arterial Blood Oxygen Saturation 95.8 % (92.0-98.0) 97.5 % (92.0-98.0) Arterial Blood Base Excess 4.2 8.2 Fidencio Test Positive Positive White Blood Count 7.9 K/UL (4.8-10.8) Red Blood Count 4.51 M/UL (4.20-5.40) Hemoglobin 12.8 G/DL (12.0-16.0) Hematocrit 39.0 % (37.0-47.0) Mean Corpuscular Volume 86 FL (80-99) Mean Corpuscular Hemoglobin 28.3 PG (27.0-31.0) Mean Corpuscular Hemoglobin Concent 32.8 G/DL (32.0-36.0) Red Cell Distribution Width 14.7 % (11.6-14.8) Platelet Count 235 K/UL (150-450) Mean Platelet Volume 6.1 FL (6.5-10.1) L Neutrophils (%) (Auto) 83.5 % (45.0-75.0) H Lymphocytes (%) (Auto) 12.0 % (20.0-45.0) L Monocytes (%) (Auto) 4.3 % (1.0-10.0) Eosinophils (%) (Auto) 0.0 % (0.0-3.0) Basophils (%) (Auto) 0.2 % (0.0-2.0) Sodium Level 142 MMOL/L (136-145) Potassium Level 3.7 MMOL/L (3.5-5.1) Chloride Level 104 MMOL/L (98-107) Carbon Dioxide Level 33 MMOL/L (21-32) H Anion Gap 6 mmol/L (5-15) Blood Urea Nitrogen 22 mg/dL (7-18) H Creatinine 0.5 MG/DL (0.55-1.30) L Estimat Glomerular Filtration Rate > 60 mL/min (>60) Glucose Level 201 MG/DL (74-106) H Calcium Level 7.8 MG/DL (8.5-10.1) L Phosphorus Level 2.2 MG/DL (2.5-4.9) L Magnesium Level 2.2 MG/DL (1.8-2.4) Total Bilirubin 0.3 MG/DL (0.2-1.0) Aspartate Amino Transf (AST/SGOT) 27 U/L (15-37) Alanine Aminotransferase (ALT/SGPT) 27 U/L (12-78) Alkaline Phosphatase 66 U/L (46-116) Total Protein 7.5 G/DL (6.4-8.2) Albumin 2.7 G/DL (3.4-5.0) L Globulin 4.8 g/dL Albumin/Globulin Ratio 0.6 (1.0-2.7) L RUBIA HUYNH Jul 19, 2017 11:28
--- NOTE | 2017-07-19 11:52 | Diagnostic Imaging Report ---
Indication: Dyspnea Technique: One view of the chest Comparison: 07/18/2017 Findings: Stable satisfactory positions of endotracheal and nasogastric tubes. Equivocal minimal interstitial congestion persists. Pleural spaces are clear. Findings are overall unchanged Impression: Unchanged, over one day, findings as above.
[2017-07-19] MEDS ORDERED: Potassium Phosphate 30 MM in NS 275 ML IV ONE (13:30)
--- NOTE | 2017-07-19 16:07 | Infectious Diseases Prog Note ---
Assessment/Plan Assessment/Plan Abx: LEvaquin 07/16- Assessment: COPD exacerbation Possible CAP -CXR 07/15: Slight improvement in interstitial edema/opacification and improved aeration of the left base -CXR 07/13: Cardiomegaly with bilateral interstitial opacification and more focal haziness in the right lower lung. Findings may related to fluid overload/ pulmonary edema. Superimposed pneumonia is not excluded. -Influenza neg -sp cx 07/16 +4 S. pneumonia (prelim) Acute respiratory failure s/p intubation Fever/leukocytosis- improving -ucx neg -Bcx NTD HTN, asthma/COPD, lumbar DJD w/ radiculopathy, pain disorder, prior heroin abuse now on chronic methadone Plan: -Continue PO Levaquin #3/5 for possible CAP -f/u final sputum cx -f/u cx -Monitor CBC/BMP, temperatures -Aspiration precautions Thank you for this consultation. Will continue to follow along with you. Discussed with RN. Subjective Allergies: Coded Allergies: ERYTHROMYCIN BASE (Verified Allergy, Severe, Hives, 01/29/17) SULFAMETHOXAZOLE (Verified Allergy, Severe, Shortness of Breath, 01/29/17) TRIMETHOPRIM (Verified Allergy, Severe, Shortness of Breath, 01/29/17) Subjective aFebrile no leukocytosis extubated this am Objective Vital Signs Last 24 Hour Vital Signs Date Time Temp Pulse Resp B/P (MAP) Pulse Ox O2 Delivery O2 Flow Rate FiO2 07/19/17 15:00 57 13 153/81 97 Nasal Cannula 4.0 07/19/17 14:00 61 17 157/85 99 Nasal Cannula 4.0 07/19/17 13:00 63 21 154/83 93 Nasal Cannula 4.0 07/19/17 12:00 4.0 07/19/17 12:00 97.7 72 18 162/82 93 Nasal Cannula 4.0 07/19/17 11:59 75 16 07/19/17 11:00 66 21 137/66 91 Mechanical Ventilator 40 07/19/17 10:58 65 13 35 07/19/17 10:00 67 17 139/75 97 Mechanical Ventilator 40 07/19/17 09:00 63 15 132/95 98 Mechanical Ventilator 40 07/19/17 09:00 71 15 35 07/19/17 08:00 78 07/19/17 08:00 97.5 68 14 153/91 93 Mechanical Ventilator 40 07/19/17 08:00 40 07/19/17 07:59 71 14 40 07/19/17 07:59 95 07/19/17 07:26 71 16 40 07/19/17 07:13 70 16 144/71 100 Mechanical Ventilator 40 07/19/17 07:00 80 16 171/102 93 Mechanical Ventilator 40 07/19/17 06:00 66 16 159/81 98 Mechanical Ventilator 40 07/19/17 05:29 87 20 40 07/19/17 05:00 77 16 124/77 98 Mechanical Ventilator 40 07/19/17 04:10 98.5 07/19/17 04:00 40 07/19/17 04:00 56 16 165/61 97 Mechanical Ventilator 40 07/19/17 03:31 57 07/19/17 03:23 60 16 40 07/19/17 03:00 77 16 156/82 97 Mechanical Ventilator 40 07/19/17 02:00 54 16 169/82 97 Mechanical Ventilator 40 07/19/17 01:09 72 16 40 07/19/17 01:00 72 14 159/92 98 Mechanical Ventilator 40 07/19/17 00:00 40 07/19/17 00:00 98.4 65 16 155/74 97 Mechanical Ventilator 40 07/18/17 23:42 64 07/18/17 23:18 70 19 40 07/18/17 23:00 65 16 129/81 97 Mechanical Ventilator 40 07/18/17 22:00 58 18 157/70 97 Mechanical Ventilator 40 07/18/17 21:06 61 16 40 07/18/17 21:00 80 15 147/76 97 Mechanical Ventilator 40 07/18/17 20:20 98.1 07/18/17 20:00 83 07/18/17 20:00 98.1 72 14 155/77 96 Mechanical Ventilator 40 07/18/17 20:00 35 07/18/17 19:00 56 16 165/78 97 Mechanical Ventilator 40 07/18/17 18:52 71 16 40 07/18/17 18:00 58 16 159/76 95 Mechanical Ventilator 40 07/18/17 17:00 71 16 157/76 94 Mechanical Ventilator 40 07/18/17 16:48 71 16 40 Height (Feet): 5 Height (Inches): 4.00 Weight (Pounds): 198 Objective GENERAL: No acute distress. PULMONARY: Decreased breath sounds. She is on a vent. CARDIOVASCULAR: Regular rate. No S3 or S4. ABDOMEN: Soft, nontender, and nondistended. EXTREMITIES: No cyanosis, swelling, or edema. Laboratory Tests Test 07/19/17 04:40 07/19/17 08:40 White Blood Count 7.9 K/UL (4.8-10.8) Red Blood Count 4.51 M/UL (4.20-5.40) Hemoglobin 12.8 G/DL (12.0-16.0) Hematocrit 39.0 % (37.0-47.0) Mean Corpuscular Volume 86 FL (80-99) Mean Corpuscular Hemoglobin 28.3 PG (27.0-31.0) Mean Corpuscular Hemoglobin Concent 32.8 G/DL (32.0-36.0) Red Cell Distribution Width 14.7 % (11.6-14.8) Platelet Count 235 K/UL (150-450) Mean Platelet Volume 6.1 FL (6.5-10.1) L Neutrophils (%) (Auto) 83.5 % (45.0-75.0) H Lymphocytes (%) (Auto) 12.0 % (20.0-45.0) L Monocytes (%) (Auto) 4.3 % (1.0-10.0) Eosinophils (%) (Auto) 0.0 % (0.0-3.0) Basophils (%) (Auto) 0.2 % (0.0-2.0) Sodium Level 142 MMOL/L (136-145) Potassium Level 3.7 MMOL/L (3.5-5.1) Chloride Level 104 MMOL/L (98-107) Carbon Dioxide Level 33 MMOL/L (21-32) H Anion Gap 6 mmol/L (5-15) Blood Urea Nitrogen 22 mg/dL (7-18) H Creatinine 0.5 MG/DL (0.55-1.30) L Estimat Glomerular Filtration Rate > 60 mL/min (>60) Glucose Level 201 MG/DL (74-106) H Calcium Level 7.8 MG/DL (8.5-10.1) L Phosphorus Level 2.2 MG/DL (2.5-4.9) L Magnesium Level 2.2 MG/DL (1.8-2.4) Total Bilirubin 0.3 MG/DL (0.2-1.0) Aspartate Amino Transf (AST/SGOT) 27 U/L (15-37) Alanine Aminotransferase (ALT/SGPT) 27 U/L (12-78) Alkaline Phosphatase 66 U/L (46-116) Total Protein 7.5 G/DL (6.4-8.2) Albumin 2.7 G/DL (3.4-5.0) L Globulin 4.8 g/dL Albumin/Globulin Ratio 0.6 (1.0-2.7) L Arterial Blood pH 7.364 (7.350-7.450) Arterial Blood Partial Pressure CO2 64.6 mmHg (35.0-45.0) *H Arterial Blood Partial Pressure O2 100.8 mmHg (75.0-100.0) H Arterial Blood HCO3 36.0 mmol/L (22.0-26.0) H Arterial Blood Oxygen Saturation 97.5 % (92.0-98.0) Arterial Blood Base Excess 8.2 Fidencio Test Positive Current Medications Medications (Trade) Dose Ordered Sig/Sumeet Route PRN Reason Start Time Stop Time Status Last Admin Dose Admin Acetaminophen (Tylenol) 650 mg Q6H PRN ORAL Mild Pain/Temp > 100.5 07/14/17 16:15 08/13/17 16:14 07/14/17 16:44 Albuterol/ Ipratropium (Albuterol/ Ipratropium) 3 ml Q4H PRN HHN Shortness of Breath 07/17/17 08:00 07/22/17 07:59 07/18/17 10:55 Chlorhexidine Gluconate (Lynne-Hex 2%) 1999 TOPIC 07/14/17 20:00 08/13/17 19:59 07/18/17 19:48 Heparin Sodium (Porcine) (Heparin 5000 units/ml) 5,000 units EVERY 12 HOURS SUBQ 07/14/17 09:00 08/13/17 08:59 07/19/17 09:05 Levofloxacin (Levaquin) 500 mg DAILY ORAL 07/17/17 12:13 07/21/17 23:59 07/19/17 09:04 Lorazepam (Ativan 2mg/ml 1ml) 2 mg Q2H PRN IV AGITATION 07/14/17 05:30 07/21/17 05:29 07/19/17 09:05 Methadone HCl (Methadone HCl) 50 mg DAILY ORAL 07/16/17 09:00 07/23/17 08:59 07/19/17 09:04 Methylprednisolone Sodium Succinate (Solu-MEDROL) 60 mg EVERY 12 HOURS IV 07/19/17 21:00 08/16/17 10:59 Morphine Sulfate (Morphine Sulfate) 2 mg Q4H PRN IVP For Pain 07/14/17 05:30 07/21/17 05:29 07/19/17 09:06 Pantoprazole (Protonix) 40 mg DAILY IVP 07/14/17 09:00 08/13/17 08:59 07/19/17 09:03 Potassium Phosphate 30 mm/ Sodium Chloride 285 ml @ 47.5 mls/hr ONCE ONCE IV 07/19/17 13:30 07/19/17 19:29 07/19/17 13:49 Sennosides (Senokot) 1 tab DAILYPRN PRN ORAL Constipation 07/17/17 08:00 08/16/17 07:59 Irene Farley M.D. Jul 19, 2017 16:07
[2017-07-19] MEDS ORDERED: LORazepam Inj 2mg/ml 1ml IV PRN (19:30)
[2017-07-19] MEDS ORDERED: Sennosides 8.6mg ORAL PRN (19:30)
[2017-07-19] MEDS ORDERED: Dyna-Hex 2% Top Sol 2oz TOPIC SCH (20:00)
[2017-07-19] MEDS ORDERED: Solu-MEDROL 125mg Inj IV SCH (21:00)
[2017-07-20] VITALS: BP 150/85
[2017-07-20] MEDS: Morphine Sulfate 2mg/ml Inj IVP PRN ×6 (02:11→23:10)
[2017-07-20] MEDS: Albuterol/Ipratropium 3ml neb HHN PRN ×3 (03:42→16:25)
[2017-07-20 04:00] VITALS: BP 158/81
[2017-07-20 05:03] LABS: BASOPHILS % (AUTO) 0.3 % (0.0-2.0); EOSINOPHILS % (AUTO) 0.2 % (0.0-3.0); LYMPHOCYTES % (AUTO) 13.7 % (20.0-45.0); MEAN CORPUSCULAR VOLUME 87 FL (80-99); MONOCYTES % (AUTO) 4.3 % (1.0-10.0); NEUTROPHILS % (AUTO) 81.5 % (45.0-75.0); PLATELET COUNT 225 K/UL (150-450); RED BLOOD COUNT 4.94 M/UL (4.20-5.40); RED CELL DISTRIBUTION WIDTH 14.8 % (11.6-14.8); WHITE BLOOD COUNT 8.1 K/UL (4.8-10.8)
[2017-07-20 06:00] LABS: ALANINE AMINOTRANSFERASE 28 U/L (12-78); ALBUMIN/GLOBULIN RATIO 0.6 (1.0-2.7); ALKALINE PHOSPHATASE 69 U/L (46-116); ANION GAP 2 mmol/L (5-15); ASPARTATE AMINO TRANSFERASE 28 U/L (15-37); BILIRUBIN,TOTAL 0.3 MG/DL (0.2-1.0); BLOOD UREA NITROGEN 21 mg/dL (7-18); CALCIUM 8.4 MG/DL (8.5-10.1); CARBON DIOXIDE 37 MMOL/L (21-32); CHLORIDE 100 MMOL/L (98-107); CREATININE 0.5 MG/DL (0.55-1.30); PHOSPHORUS 3.7 MG/DL (2.5-4.9); POTASSIUM 4.2 MMOL/L (3.5-5.1); SODIUM 139 MMOL/L (136-145)
[2017-07-20 08:00] VITALS: BP 159/90
[2017-07-20] MEDS: Solu-MEDROL 125mg Inj IV SCH (08:57)
[2017-07-20] MEDS: Heparin 5000 units/ml inj SUBQ SCH ×2 (08:59→22:18)
[2017-07-20] MEDS ORDERED: Pantoprazole Inj IVP SCH (09:00)
[2017-07-20] MEDS ORDERED: Levofloxacin 500mg tab ORAL SCH (09:00)
--- NOTE | 2017-07-20 09:17 | General Progress Note ---
Assessment/Plan Assessment/Plan (1) Acute respiratory failure s/p extubation (2) COPD Exacerbation (3) Polysubstance abuse on Methadone (4) Lumbar DDD (5) Lumbar Spondylosis (6) Lumbar Radiculopathy (7) Right hip pain (8) Right hip OA Pt to be continued on Methadone and Morphine D/w Dr. Mena and he concurred. Subjective Date patient seen: Jul 20, 2017 Time patient seen: 07:15 - am Constitutional: Reports: weakness HEENT: Reports: throat pain, throat swelling Cardiovascular: Reports: no symptoms Respiratory: Reports: shortness of breath Gastrointestinal/Abdominal: Reports: no symptoms Genitourinary: Reports: no symptoms Neurologic/Psychiatric: Reports: numbness, weakness Endocrine: Reports: no symptoms Hematologic/Lymphatic: Reports: no symptoms Allergies: Coded Allergies: ERYTHROMYCIN BASE (Verified Allergy, Severe, Hives, 01/29/17) SULFAMETHOXAZOLE (Verified Allergy, Severe, Shortness of Breath, 01/29/17) TRIMETHOPRIM (Verified Allergy, Severe, Shortness of Breath, 01/29/17) Subjective SUBJECTIVE: Pt has been extubated and c/o throat pain and swelling with difficultly talking. The pain has been tolerated on the Methadone and Morphine. Objective Last 24 Hour Vital Signs Date Time Temp Pulse Resp B/P (MAP) Pulse Ox O2 Delivery O2 Flow Rate FiO2 07/20/17 08:01 4.0 07/20/17 06:41 97.7 07/20/17 04:00 98.0 77 20 158/81 97 Nasal Cannula 4.0 07/20/17 04:00 4.0 07/20/17 04:00 62 07/20/17 03:52 65 18 97 Nasal Cannula 4.0 36 07/20/17 03:42 61 18 95 Nasal Cannula 4.0 36 07/20/17 00:00 98.0 71 20 150/85 98 Nasal Cannula 4.0 07/20/17 00:00 60 07/20/17 00:00 4.0 07/19/17 20:12 Nasal Cannula 4.0 36 07/19/17 20:12 96 Nasal Cannula 4.0 36 07/19/17 20:11 65 18 Nasal Cannula 4.0 36 07/19/17 20:00 4.0 07/19/17 20:00 61 1/4/18 19:00 68 16 151/79 93 Nasal Cannula 4.0 07/19/17 18:00 69 16 133/77 94 Nasal Cannula 4.0 07/19/17 17:00 67 16 133/96 96 Nasal Cannula 4.0 07/19/17 17:00 95 Nasal Cannula 4.0 36 07/19/17 17:00 Nasal Cannula 4.0 36 07/19/17 16:00 4.0 07/19/17 16:00 97.7 61 15 155/79 96 Nasal Cannula 4.0 07/19/17 16:00 59 07/19/17 15:00 57 13 153/81 97 Nasal Cannula 4.0 07/19/17 14:00 61 17 157/85 99 Nasal Cannula 4.0 07/19/17 13:00 63 21 154/83 93 Nasal Cannula 4.0 07/19/17 12:00 4.0 07/19/17 12:00 70 07/19/17 12:00 97.7 72 18 162/82 93 Nasal Cannula 4.0 07/19/17 11:59 75 16 07/19/17 11:00 66 21 137/66 91 Mechanical Ventilator 40 07/19/17 10:58 65 13 35 07/19/17 10:00 67 17 139/75 97 Mechanical Ventilator 40 Intake and Output 07/19/17 07/20/17 19:00 07:00 Intake Total 792.5 ml Output Total 900 ml 1030 ml Balance -107.5 ml -1030 ml Free Water 50 ml IV Total 562.5 ml Tube Feeding 180 ml Output Urine Total 900 ml 1030 ml # Bowel Movements 2 Laboratory Tests 07/20/17 03:25: White Blood Count 8.1, Red Blood Count 4.94, Hemoglobin 14.0, Hematocrit 43.0, Mean Corpuscular Volume 87, Mean Corpuscular Hemoglobin 28.3, Mean Corpuscular Hemoglobin Concent 32.5, Red Cell Distribution Width 14.8, Platelet Count 225, Mean Platelet Volume 6.2L, Neutrophils (%) (Auto) 81.5H, Lymphocytes (%) (Auto) 13.7L, Monocytes (%) (Auto) 4.3, Eosinophils (%) (Auto) 0.2, Basophils (%) (Auto ) 0.3, Sodium Level 139, Potassium Level 4.2, Chloride Level 100, Carbon Dioxide Level 37H, Anion Gap 2L, Blood Urea Nitrogen 21H, Creatinine 0.5L, Estimat Glomerular Filtration Rate > 60, Glucose Level 158H, Calcium Level 8.4L , Phosphorus Level 3.7, Magnesium Level 2.3, Total Bilirubin 0.3, Aspartate Amino Transf (AST/SGOT) 28, Alanine Aminotransferase (ALT/SGPT) 28, Alkaline Phosphatase 69, Total Protein 8.1, Albumin 3.0L, Globulin 5.1, Albumin/Globulin Ratio 0.6L 07/20/17 04:00: Arterial Blood pH 7.480H, Arterial Blood Partial Pressure CO2 55.2*H, Arterial Blood Partial Pressure O2 68.1L, Arterial Blood HCO3 40.6H, Arterial Blood Oxygen Saturation 94.6, Arterial Blood Base Excess 14.5, Fidencio Test Positive Height (Feet): 5 Height (Inches): 4.00 Weight (Pounds): 196 Objective GENERAL: Alert, awake. LUNGS: Decreased breath sounds bilaterally. The patient is intubated, on ventilator. HEART: S1, S2. Regular. ABDOMEN: Obese. EXTREMITIES: No cyanosis. No clubbing. With edema noted. NEUROLOGIC: No changes. ADRIANA JUNIOR Jul 20, 2017 09:17
--- NOTE | 2017-07-20 11:40 | Infectious Diseases Prog Note ---
Assessment/Plan Assessment/Plan Abx: LEvaquin 07/16- Assessment: COPD exacerbation Possible CAP -CXR 07/15: Slight improvement in interstitial edema/opacification and improved aeration of the left base -CXR 07/13: Cardiomegaly with bilateral interstitial opacification and more focal haziness in the right lower lung. Findings may related to fluid overload/ pulmonary edema. Superimposed pneumonia is not excluded. -Influenza neg -sp cx 07/16 +4 S. pneumonia (R penicillin, S Ceftriaxone) Acute respiratory failure s/p intubation- extubated 07/19 Fever/leukocytosis- resolved -ucx neg -Bcx NTD HTN, asthma/COPD, lumbar DJD w/ radiculopathy, pain disorder, prior heroin abuse now on chronic methadone Plan: -Continue PO Levaquin #4/5 for possible CAP -f/u cx -Monitor CBC/BMP, temperatures -Aspiration precautions Thank you for this consultation. Will continue to follow along with you. Discussed with RN. Subjective Allergies: Coded Allergies: ERYTHROMYCIN BASE (Verified Allergy, Severe, Hives, 01/29/17) SULFAMETHOXAZOLE (Verified Allergy, Severe, Shortness of Breath, 01/29/17) TRIMETHOPRIM (Verified Allergy, Severe, Shortness of Breath, 01/29/17) Subjective aFebrile no leukocytosis extubated this am Objective Vital Signs Last 24 Hour Vital Signs Date Time Temp Pulse Resp B/P (MAP) Pulse Ox O2 Delivery O2 Flow Rate FiO2 07/20/17 11:13 55 20 98 Nasal Cannula 4.0 36 07/20/17 11:02 55 18 96 Nasal Cannula 4.0 36 07/20/17 10:44 97.7 07/20/17 08:01 4.0 07/20/17 08:00 97.7 67 20 159/90 95 Nasal Cannula 4.0 07/20/17 08:00 65 07/20/17 07:21 Nasal Cannula 4.0 36 07/20/17 07:21 96 Nasal Cannula 4.0 36 07/20/17 07:21 55 18 Nasal Cannula 4.0 36 07/20/17 04:00 98.0 77 20 158/81 97 Nasal Cannula 4.0 07/20/17 04:00 4.0 07/20/17 04:00 62 07/20/17 03:52 65 18 97 Nasal Cannula 4.0 36 07/20/17 03:42 61 18 95 Nasal Cannula 4.0 36 07/20/17 00:00 98.0 71 20 150/85 98 Nasal Cannula 4.0 07/20/17 00:00 60 07/20/17 00:00 4.0 07/19/17 20:12 Nasal Cannula 4.0 36 07/19/17 20:12 96 Nasal Cannula 4.0 36 07/19/17 20:11 65 18 Nasal Cannula 4.0 36 07/19/17 20:00 4.0 07/19/17 20:00 61 07/19/17 19:00 68 16 151/79 93 Nasal Cannula 4.0 07/19/17 18:00 69 16 133/77 94 Nasal Cannula 4.0 07/19/17 17:00 67 16 133/96 96 Nasal Cannula 4.0 07/19/17 17:00 95 Nasal Cannula 4.0 36 07/19/17 17:00 Nasal Cannula 4.0 36 07/19/17 16:00 4.0 07/19/17 16:00 97.7 61 15 155/79 96 Nasal Cannula 4.0 07/19/17 16:00 59 07/19/17 15:00 57 13 153/81 97 Nasal Cannula 4.0 07/19/17 14:00 61 17 157/85 99 Nasal Cannula 4.0 07/19/17 13:00 63 21 154/83 93 Nasal Cannula 4.0 07/19/17 12:00 4.0 07/19/17 12:00 70 07/19/17 12:00 97.7 72 18 162/82 93 Nasal Cannula 4.0 07/19/17 11:59 75 16 Height (Feet): 5 Height (Inches): 4.00 Weight (Pounds): 196 Objective GENERAL: No acute distress. PULMONARY: Decreased breath sounds. She is on a vent. CARDIOVASCULAR: Regular rate. No S3 or S4. ABDOMEN: Soft, nontender, and nondistended. EXTREMITIES: No cyanosis, swelling, or edema. Laboratory Tests Test 07/20/17 03:25 07/20/17 04:00 White Blood Count 8.1 K/UL (4.8-10.8) Red Blood Count 4.94 M/UL (4.20-5.40) Hemoglobin 14.0 G/DL (12.0-16.0) Hematocrit 43.0 % (37.0-47.0) Mean Corpuscular Volume 87 FL (80-99) Mean Corpuscular Hemoglobin 28.3 PG (27.0-31.0) Mean Corpuscular Hemoglobin Concent 32.5 G/DL (32.0-36.0) Red Cell Distribution Width 14.8 % (11.6-14.8) Platelet Count 225 K/UL (150-450) Mean Platelet Volume 6.2 FL (6.5-10.1) L Neutrophils (%) (Auto) 81.5 % (45.0-75.0) H Lymphocytes (%) (Auto) 13.7 % (20.0-45.0) L Monocytes (%) (Auto) 4.3 % (1.0-10.0) Eosinophils (%) (Auto) 0.2 % (0.0-3.0) Basophils (%) (Auto) 0.3 % (0.0-2.0) Sodium Level 139 MMOL/L (136-145) Potassium Level 4.2 MMOL/L (3.5-5.1) Chloride Level 100 MMOL/L (98-107) Carbon Dioxide Level 37 MMOL/L (21-32) H Anion Gap 2 mmol/L (5-15) L Blood Urea Nitrogen 21 mg/dL (7-18) H Creatinine 0.5 MG/DL (0.55-1.30) L Estimat Glomerular Filtration Rate > 60 mL/min (>60) Glucose Level 158 MG/DL (74-106) H Calcium Level 8.4 MG/DL (8.5-10.1) L Phosphorus Level 3.7 MG/DL (2.5-4.9) Magnesium Level 2.3 MG/DL (1.8-2.4) Total Bilirubin 0.3 MG/DL (0.2-1.0) Aspartate Amino Transf (AST/SGOT) 28 U/L (15-37) Alanine Aminotransferase (ALT/SGPT) 28 U/L (12-78) Alkaline Phosphatase 69 U/L (46-116) Total Protein 8.1 G/DL (6.4-8.2) Albumin 3.0 G/DL (3.4-5.0) L Globulin 5.1 g/dL Albumin/Globulin Ratio 0.6 (1.0-2.7) L Arterial Blood pH 7.480 (7.350-7.450) Arterial Blood Partial Pressure CO2 55.2 mmHg (35.0-45.0) *H Arterial Blood Partial Pressure O2 68.1 mmHg (75.0-100.0) L Arterial Blood HCO3 40.6 mmol/L (22.0-26.0) H Arterial Blood Oxygen Saturation 94.6 % (92.0-98.0) Arterial Blood Base Excess 14.5 Fidencio Test Positive Current Medications Medications (Trade) Dose Ordered Sig/Sumeet Route PRN Reason Start Time Stop Time Status Last Admin Dose Admin Acetaminophen (Tylenol) 650 mg Q6H PRN ORAL Mild Pain/Temp > 100.5 07/19/17 19:30 08/13/17 19:29 Albuterol/ Ipratropium (Albuterol/ Ipratropium) 3 ml Q4H PRN HHN Shortness of Breath 07/19/17 19:30 07/22/17 19:29 07/20/17 11:02 Chlorhexidine Gluconate (Lynne-Hex 2%) 1 applic DAILY@1999 TOPIC 07/19/17 20:00 08/18/17 19:59 07/19/17 20:22 Heparin Sodium (Porcine) (Heparin 5000 units/ml) 5,000 units EVERY 12 HOURS SUBQ 07/19/17 21:00 08/13/17 08:59 07/20/17 08:59 Levofloxacin (Levaquin) 500 mg DAILY ORAL 07/20/17 09:00 07/21/17 23:59 07/20/17 08:56 Lorazepam (Ativan 2mg/ml 1ml) 2 mg Q2H PRN IV AGITATION 07/19/17 19:30 07/21/17 05:29 Methadone HCl (Methadone HCl) 50 mg DAILY ORAL 07/20/17 09:00 07/23/17 08:59 07/20/17 08:56 Methylprednisolone Sodium Succinate (Solu-MEDROL) 60 mg EVERY 12 HOURS IV 07/19/17 21:00 08/16/17 10:59 07/20/17 08:57 Morphine Sulfate (Morphine Sulfate) 2 mg Q4H PRN IVP For Severe Pain (Scale 7-10) 07/19/17 19:30 07/21/17 19:29 1/5/18 10:14 Pantoprazole (Protonix) 40 mg DAILY IVP 07/20/17 09:00 08/13/17 08:59 07/20/17 08:57 Sennosides (Senokot) 1 tab DAILYPRN PRN ORAL Constipation 07/19/17 19:30 08/18/17 19:29 Irene Farley M.D. Jul 20, 2017 11:40
--- NOTE | 2017-07-20 11:51 | Diagnostic Imaging Report ---
Indication: Dyspnea Technique: One view of the chest Comparison: 07/19/2017 Findings: Lungs and pleural spaces are clear. Previously demonstrated interstitial congestion has improved. Heart size is upper limits normal . Interim removal of endotracheal and nasogastric tubes. Impression: No acute process Interim nasogastric and endotracheal tube removal
[2017-07-20 12:00] VITALS: BP 158/83
--- NOTE | 2017-07-20 13:29 | Pulmonolgy Critical Care Note ---
Critical Care - Asmt/Plan Problems: (1) Morbid obesity (2) Pneumonia (3) Acute and chronic respiratory failure (4) COPD exacerbation Respiratory: monitor respiratory rate Cardiac: continue to monitor HR/BP Renal: F/U I&O Infectious Disease: check cultures, continue antibiotics Endocrine: monitor blood sugar Hematologic: monitor H/H Neurologic: PRN Morphine Prophylaxis: Protonix Notes Reviewed: channel marketing specialist, renal Discussed with: consultants, machine adjuster leader case trimmanager city - Objective Last 24 Hour Vital Signs Date Time Temp Pulse Resp B/P (MAP) Pulse Ox O2 Delivery O2 Flow Rate FiO2 07/20/17 12:00 97.9 69 18 158/83 91 Nasal Cannula 4.0 07/20/17 12:00 4.0 07/20/17 11:13 55 20 98 Nasal Cannula 4.0 36 07/20/17 11:02 55 18 96 Nasal Cannula 4.0 36 07/20/17 10:44 97.7 07/20/17 08:01 4.0 07/20/17 08:00 97.7 67 20 159/90 95 Nasal Cannula 4.0 07/20/17 08:00 65 07/20/17 07:21 Nasal Cannula 4.0 36 07/20/17 07:21 96 Nasal Cannula 4.0 36 07/20/17 07:21 55 18 Nasal Cannula 4.0 36 07/20/17 04:00 98.0 77 20 158/81 97 Nasal Cannula 4.0 07/20/17 04:00 4.0 07/20/17 04:00 62 07/20/17 03:52 65 18 97 Nasal Cannula 4.0 36 07/20/17 03:42 61 18 95 Nasal Cannula 4.0 36 07/20/17 00:00 98.0 71 20 150/85 98 Nasal Cannula 4.0 07/20/17 00:00 60 07/20/17 00:00 4.0 07/19/17 20:12 Nasal Cannula 4.0 36 07/19/17 20:12 96 Nasal Cannula 4.0 36 07/19/17 20:11 65 18 Nasal Cannula 4.0 36 07/19/17 20:00 4.0 07/19/17 20:00 61 07/19/17 19:00 68 16 151/79 93 Nasal Cannula 4.0 07/19/17 18:00 69 16 133/77 94 Nasal Cannula 4.0 07/19/17 17:00 67 16 133/96 96 Nasal Cannula 4.0 07/19/17 17:00 95 Nasal Cannula 4.0 36 07/19/17 17:00 Nasal Cannula 4.0 36 07/19/17 16:00 4.0 07/19/17 16:00 97.7 61 15 155/79 96 Nasal Cannula 4.0 07/19/17 16:00 59 07/19/17 15:00 57 13 153/81 97 Nasal Cannula 4.0 07/19/17 14:00 61 17 157/85 99 Nasal Cannula 4.0 Status: awake Condition: grave Neck: full ROM Heart: HR/BP stable Abdomen: soft, non-tender, feeding tube Extremities: no C/C/E Critical Care - Subjective Intubation Day: tolerating extubation Condition: improving FI02: 36 Vent Support Breath Rate: 16 Vent Support Mode: CPAP Vent Tidal Volume: 550 Sputum Amount: None PIP: 11 Tube Feeding Amount: 30 I&O: Intake and Output 07/19/17 07/20/17 19:00 07:00 Intake Total 792.5 ml Output Total 900 ml 1030 ml Balance -107.5 ml -1030 ml Free Water 50 ml IV Total 562.5 ml Tube Feeding 180 ml Output Urine Total 900 ml 1030 ml # Bowel Movements 2 CXR: clear ET-Tube: 8.0 ET Position: 22 Labs: Laboratory Tests Test 07/20/17 03:25 07/20/17 04:00 White Blood Count 8.1 K/UL (4.8-10.8) Red Blood Count 4.94 M/UL (4.20-5.40) Hemoglobin 14.0 G/DL (12.0-16.0) Hematocrit 43.0 % (37.0-47.0) Mean Corpuscular Volume 87 FL (80-99) Mean Corpuscular Hemoglobin 28.3 PG (27.0-31.0) Mean Corpuscular Hemoglobin Concent 32.5 G/DL (32.0-36.0) Red Cell Distribution Width 14.8 % (11.6-14.8) Platelet Count 225 K/UL (150-450) Mean Platelet Volume 6.2 FL (6.5-10.1) L Neutrophils (%) (Auto) 81.5 % (45.0-75.0) H Lymphocytes (%) (Auto) 13.7 % (20.0-45.0) L Monocytes (%) (Auto) 4.3 % (1.0-10.0) Eosinophils (%) (Auto) 0.2 % (0.0-3.0) Basophils (%) (Auto) 0.3 % (0.0-2.0) Sodium Level 139 MMOL/L (136-145) Potassium Level 4.2 MMOL/L (3.5-5.1) Chloride Level 100 MMOL/L (98-107) Carbon Dioxide Level 37 MMOL/L (21-32) H Anion Gap 2 mmol/L (5-15) L Blood Urea Nitrogen 21 mg/dL (7-18) H Creatinine 0.5 MG/DL (0.55-1.30) L Estimat Glomerular Filtration Rate > 60 mL/min (>60) Glucose Level 158 MG/DL (74-106) H Calcium Level 8.4 MG/DL (8.5-10.1) L Phosphorus Level 3.7 MG/DL (2.5-4.9) Magnesium Level 2.3 MG/DL (1.8-2.4) Total Bilirubin 0.3 MG/DL (0.2-1.0) Aspartate Amino Transf (AST/SGOT) 28 U/L (15-37) Alanine Aminotransferase (ALT/SGPT) 28 U/L (12-78) Alkaline Phosphatase 69 U/L (46-116) Total Protein 8.1 G/DL (6.4-8.2) Albumin 3.0 G/DL (3.4-5.0) L Globulin 5.1 g/dL Albumin/Globulin Ratio 0.6 (1.0-2.7) L Arterial Blood pH 7.480 (7.350-7.450) Arterial Blood Partial Pressure CO2 55.2 mmHg (35.0-45.0) *H Arterial Blood Partial Pressure O2 68.1 mmHg (75.0-100.0) L Arterial Blood HCO3 40.6 mmol/L (22.0-26.0) H Arterial Blood Oxygen Saturation 94.6 % (92.0-98.0) Arterial Blood Base Excess 14.5 Fidencio Test Positive RUBIA HUYNH Jul 20, 2017 13:29
[2017-07-20] MEDS ORDERED: Potassium Phosphate 30 MM in NS 275 ML IV ONE (13:30)
[2017-07-20 16:00] VITALS: BP 140/93
[2017-07-20] MEDS ORDERED: Sennosides 8.6mg ORAL PRN (19:30)
[2017-07-20 20:13] VITALS: BP 143/82
[2017-07-20] MEDS: LORazepam Inj 2mg/ml 1ml IV PRN (20:18)
[2017-07-20] MEDS: Solu-MEDROL 40mg Inj IVP SCH (22:16)
[2017-07-20] MEDS: Dyna-Hex 2% Top Sol 2oz TOPIC SCH (22:17)
[2017-07-21] VITALS (7 sets, daily range): BP systolic 137–167; BP diastolic 74–93
[2017-07-21] MEDS: LORazepam Inj 2mg/ml 1ml IV PRN ×4 (01:25→20:14)
[2017-07-21] MEDS: Morphine Sulfate 2mg/ml Inj IVP PRN ×5 (03:34→21:07)
[2017-07-21] MEDS ORDERED: Levofloxacin 500mg tab ORAL SCH (09:00)
[2017-07-21] MEDS: Pantoprazole Inj IVP SCH (09:21)
[2017-07-21] MEDS: Solu-MEDROL 40mg Inj IVP SCH ×2 (09:23→20:13)
[2017-07-21] MEDS: Heparin 5000 units/ml inj SUBQ SCH ×2 (09:26→20:14)
--- NOTE | 2017-07-21 12:21 | Pulmonology Progress Note ---
Assessment/Plan Assessment/Plan ASSESSMENT Acute on chronic hypoxemic hypercapnic RF requiring intubation s/p extubation COPD exacerbation CAP with Strep PNA Methadone dependency Morbid obesity lumbar DDD lumbar spondylosis lumbar radiculopathy R hip OA PLAN OF CARE Extubated transferred from ICU to [facility], now on [facility] floor O2 titrate to keep sat above 90% pulmonary toilet taper steroid abx, sputum cx + Strep PNA ID follows urine, blood cx and influenza screen al negative Pain management pain specialist follows Encephalopathy likely 2 to meds vs ARF tox screen + BZD and opiates DVT GI prophylaxis Chloraseptic spray for comfort gentle IVF case discussed and evaluated by supervising physician Subjective Allergies: Coded Allergies: ERYTHROMYCIN BASE (Verified Allergy, Severe, Hives, 01/29/17) SULFAMETHOXAZOLE (Verified Allergy, Severe, Shortness of Breath, 01/29/17) TRIMETHOPRIM (Verified Allergy, Severe, Shortness of Breath, 01/29/17) Subjective afebrile, no leukocytosis on 3L O2 via NC pulse ox stable no signs of respiratory distress c/o throat discomfort after intubation/extubation not eating well due to discomfort Objective Last 24 Hour Vital Signs Date Time Temp Pulse Resp B/P (MAP) Pulse Ox O2 Delivery O2 Flow Rate FiO2 07/21/17 10:06 92 Nasal Cannula 3.0 32 07/21/17 10:06 Nasal Cannula 3.0 32 07/21/17 10:06 89 20 Nasal Cannula 3.0 32 07/21/17 08:00 98.6 80 18 139/84 93 Room Air 07/21/17 04:36 Nasal Cannula 4.0 07/21/17 04:29 97.6 69 16 158/91 98 Nasal Cannula 69 69 07/21/17 04:04 97.6 07/21/17 02:29 69 165/93 Nasal Cannula 4.0 07/21/17 00:00 97.7 56 16 167/92 94 Nasal Cannula 56 56 07/20/17 23:31 Nasal Cannula 4.0 36 07/20/17 23:31 95 Nasal Cannula 4.0 36 07/20/17 23:31 59 20 Nasal Cannula 4.0 36 07/20/17 20:13 97.6 78 16 143/82 93 Nasal Cannula 78 78 07/20/17 20:00 Nasal Cannula 4.0 07/20/17 18:43 97.7 07/20/17 16:31 72 20 94 Nasal Cannula 4.0 36 07/20/17 16:25 71 18 92 Nasal Cannula 4.0 36 07/20/17 16:00 97.7 66 20 140/93 93 Nasal Cannula 4.0 07/20/17 16:00 4.0 07/20/17 16:00 76 Intake and Output 07/20/17 07/21/17 19:00 07:00 Output Total 1150 ml 600 ml Balance -1150 ml -600 ml Output Urine Total 1150 ml 600 ml # Bowel Movements 1 General Appearance: no acute distress HEENT: normocephalic, atraumatic Respiratory/Chest: lungs clear, no respiratory distress, no accessory muscle use Cardiovascular: normal rate, no JVD, other - CL-femoral intact Abdomen: normal bowel sounds, soft, non tender Extremities: no edema Neurologic/Psychiatric: alert, responsive Musculoskeletal: normal muscle bulk Current Medications Medications (Trade) Dose Ordered Sig/Sumeet Route PRN Reason Start Time Stop Time Status Last Admin Dose Admin Acetaminophen (Tylenol) 650 mg Q6H PRN ORAL Mild Pain/Temp > 100.5 07/20/17 19:30 08/13/17 19:29 Albuterol/ Ipratropium (Albuterol/ Ipratropium) 3 ml Q4H PRN HHN Shortness of Breath 07/20/17 19:30 07/22/17 19:29 Cetylpyridinium Chloride (Cepacol) 1 lozenge Q2H PRN CHAZ SORE THROAT 07/20/17 19:00 08/19/17 18:59 Chlorhexidine Gluconate (Lynne-Hex 2%) 1 applic DAILY@1999 TOPIC 07/20/17 20:00 08/18/17 19:59 07/20/17 22:17 Chlorhexidine Gluconate (Lynne-Hex 2%) 1 applic DAILY@1999 TOPIC 07/21/17 20:00 08/20/17 19:59 Heparin Sodium (Porcine) (Heparin 5000 units/ml) 5,000 units EVERY 12 HOURS SUBQ 07/20/17 21:00 08/13/17 08:59 07/21/17 09:26 Heparin Sodium/ Sodium Chloride (Heparin 2000 units/Ns 1000ml premix) 2,000 unit ONCE ONCE INJ 07/21/17 12:30 07/21/17 12:31 Levofloxacin (Levaquin) 500 mg DAILY ORAL 07/21/17 09:00 07/21/17 23:59 07/21/17 09:24 Lidocaine HCl (Xylocaine 1% 30ml) 30 ml ONCE ONCE INJ 07/21/17 12:30 07/21/17 12:31 Lorazepam (Ativan 2mg/ml 1ml) 2 mg EVERY 2 HOURS PRN IV For Anxiety 07/21/17 08:00 07/28/17 07:59 07/21/17 09:27 Methadone HCl (Methadone HCl) 50 mg DAILY ORAL 07/21/17 09:00 07/23/17 08:59 07/21/17 09:24 Methylprednisolone Sodium Succinate (Solu-MEDROL) 60 mg EVERY 12 HOURS IVP 07/20/17 21:00 08/16/17 10:59 07/21/17 09:23 Morphine Sulfate (Morphine Sulfate) 2 mg Q4H PRN IVP For Severe Pain (Scale 7-10) 07/20/17 19:30 07/21/17 19:29 07/21/17 12:06 Ondansetron HCl (Zofran) 4 mg Q6H PRN IVP Nausea & Vomiting 07/20/17 19:00 08/19/17 18:59 Pantoprazole (Protonix) 40 mg DAILY IVP 07/21/17 09:00 08/13/17 08:59 07/21/17 09:21 Phenol/Menthol (Chloraseptic) 1 spray EVERY 2 HOURS PRN ORAL sore throat 07/21/17 11:45 08/20/17 11:44 Sennosides (Senokot) 1 tab DAILYPRN PRN ORAL Constipation 07/20/17 19:30 08/18/17 19:29 [facility] NP Jul 21, 2017 12:21
[2017-07-21] MEDS ORDERED: Lidocaine 1% Plain 30 ml INJ ONE (12:30)
[2017-07-21] MEDS ORDERED: Heparin 2000 units/Ns 1000ml INJ ONE (12:30)
[2017-07-21] MEDS: Chloraseptic Spray 20mL Bottle ORAL PRN (13:13)
--- NOTE | 2017-07-21 13:15 | Infectious Diseases Prog Note ---
Assessment/Plan Assessment/Plan Assessment: COPD exacerbation Possible CAP -CXR 07/15: Slight improvement in interstitial edema/opacification and improved aeration of the left base -CXR 07/13: Cardiomegaly with bilateral interstitial opacification and more focal haziness in the right lower lung. Findings may related to fluid overload/ pulmonary edema. Superimposed pneumonia is not excluded. -Influenza neg -sp cx 07/16 +4 S. pneumonia (R penicillin, S Ceftriaxone) Acute respiratory failure s/p intubation- extubated 07/19 Fever/leukocytosis- resolved -ucx neg -Bcx NTD HTN Asthma/COPD Lumbar DJD w/ radiculopathy Pain disorder Prior heroin abuse now on Chronic methadone Plan: -DC PO Levaquin # 5 /5 for possible CAP -Monitor CBC/BMP, temperatures -Aspiration precautions Subjective Allergies: Coded Allergies: ERYTHROMYCIN BASE (Verified Allergy, Severe, Hives, 01/29/17) SULFAMETHOXAZOLE (Verified Allergy, Severe, Shortness of Breath, 01/29/17) TRIMETHOPRIM (Verified Allergy, Severe, Shortness of Breath, 01/29/17) Objective Vital Signs Last 24 Hour Vital Signs Date Time Temp Pulse Resp B/P (MAP) Pulse Ox O2 Delivery O2 Flow Rate FiO2 07/21/17 10:06 92 Nasal Cannula 3.0 32 07/21/17 10:06 Nasal Cannula 3.0 32 07/21/17 10:06 89 20 Nasal Cannula 3.0 32 07/21/17 08:00 98.6 80 18 139/84 93 Room Air 07/21/17 04:36 Nasal Cannula 4.0 07/21/17 04:29 97.6 69 16 158/91 98 Nasal Cannula 69 69 07/21/17 04:04 97.6 07/21/17 02:29 69 165/93 Nasal Cannula 4.0 07/21/17 00:00 97.7 56 16 167/92 94 Nasal Cannula 56 56 07/20/17 23:31 Nasal Cannula 4.0 36 07/20/17 23:31 95 Nasal Cannula 4.0 36 07/20/17 23:31 59 20 Nasal Cannula 4.0 36 07/20/17 20:13 97.6 78 16 143/82 93 Nasal Cannula 78 78 07/20/17 20:00 Nasal Cannula 4.0 07/20/17 18:43 97.7 07/20/17 16:31 72 20 94 Nasal Cannula 4.0 36 07/20/17 16:25 71 18 92 Nasal Cannula 4.0 36 07/20/17 16:00 97.7 66 20 140/93 93 Nasal Cannula 4.0 07/20/17 16:00 4.0 07/20/17 16:00 76 Height (Feet): 5 Height (Inches): 4.00 Weight (Pounds): 176 Current Medications Medications (Trade) Dose Ordered Sig/Sumeet Route PRN Reason Start Time Stop Time Status Last Admin Dose Admin Acetaminophen (Tylenol) 650 mg Q6H PRN ORAL Mild Pain/Temp > 100.5 07/20/17 19:30 08/13/17 19:29 Albuterol/ Ipratropium (Albuterol/ Ipratropium) 3 ml Q4H PRN HHN Shortness of Breath 07/20/17 19:30 07/22/17 19:29 Cetylpyridinium Chloride (Cepacol) 1 lozenge Q2H PRN CHAZ SORE THROAT 07/20/17 19:00 08/19/17 18:59 Chlorhexidine Gluconate (Lynne-Hex 2%) 1 applic DAILY@1999 TOPIC 07/20/17 20:00 08/18/17 19:59 07/20/17 22:17 Chlorhexidine Gluconate (Lynne-Hex 2%) 1 applic DAILY@1999 TOPIC 07/21/17 20:00 08/20/17 19:59 Heparin Sodium (Porcine) (Heparin 5000 units/ml) 5,000 units EVERY 12 HOURS SUBQ 07/20/17 21:00 08/13/17 08:59 07/21/17 09:26 Heparin Sodium/ Sodium Chloride (Heparin 2000 units/Ns 1000ml premix) 2,000 unit PRN PRN INJ . 07/23/17 09:00 07/23/17 23:59 Levofloxacin (Levaquin) 500 mg DAILY ORAL 07/21/17 09:00 07/21/17 23:59 07/21/17 09:24 Lidocaine HCl (Xylocaine 1% 30ml) 30 ml PRN PRN INJ FRO PICC LINE PLACEMENT 07/23/17 12:45 07/23/17 23:59 Lorazepam (Ativan 2mg/ml 1ml) 2 mg EVERY 2 HOURS PRN IV For Anxiety 07/21/17 08:00 07/28/17 07:59 07/21/17 09:27 Methadone HCl (Methadone HCl) 50 mg DAILY ORAL 07/21/17 09:00 07/23/17 08:59 07/21/17 09:24 Methylprednisolone Sodium Succinate (Solu-MEDROL) 60 mg EVERY 12 HOURS IVP 07/20/17 21:00 08/16/17 10:59 07/21/17 09:23 Morphine Sulfate (Morphine Sulfate) 2 mg Q4H PRN IVP For Severe Pain (Scale 7-10) 07/20/17 19:30 07/21/17 19:29 07/21/17 12:06 Ondansetron HCl (Zofran) 4 mg Q6H PRN IVP Nausea & Vomiting 07/20/17 19:00 08/19/17 18:59 Pantoprazole (Protonix) 40 mg DAILY IVP 07/21/17 09:00 08/13/17 08:59 07/21/17 09:21 Phenol/Menthol (Chloraseptic) 1 spray EVERY 2 HOURS PRN ORAL sore throat 07/21/17 11:45 08/20/17 11:44 Sennosides (Senokot) 1 tab DAILYPRN PRN ORAL Constipation 07/20/17 19:30 08/18/17 19:29 Sodium Chloride 1,000 ml @ 50 mls/hr Q20H IV 07/21/17 13:15 08/20/17 13:14 EUNICE PADILLA M.D. Jul 21, 2017 13:15
[2017-07-21] MEDS ORDERED: Flu Vaccine Quadrivalent 0.5ml IM ONE (18:30)
[2017-07-21] MEDS: Dyna-Hex 2% Top Sol 2oz TOPIC SCH ×2 (20:00→20:13)
[2017-07-21] MEDS: Albuterol/Ipratropium 3ml neb HHN PRN (22:46)
[2017-07-21] MEDS ORDERED: NS 500ML ONE (22:53)
[2017-07-21] MEDS ORDERED: Tubing IV Secondary IV ONE (22:53)
[2017-07-21] MEDS ORDERED: D5W 275ml ONE (22:53)
[2017-07-22] MEDS: LORazepam Inj 2mg/ml 1ml IV PRN ×6 (00:18→19:07)
[2017-07-22 00:30] VITALS: BP 140/74
[2017-07-22] MEDS: Morphine Sulfate 2mg/ml Inj IVP PRN ×6 (01:59→22:38)
[2017-07-22] MEDS: Albuterol/Ipratropium 3ml neb HHN PRN ×2 (03:21→14:32)
[2017-07-22 04:00] VITALS: BP 132/77
[2017-07-22 08:00] VITALS: BP 130/78
[2017-07-22] MEDS: Pantoprazole Inj IVP SCH (08:33)
[2017-07-22] MEDS: Heparin 5000 units/ml inj SUBQ SCH ×2 (08:37→22:39)
[2017-07-22] MEDS: Solu-MEDROL 40mg Inj IVP SCH ×2 (08:50→22:37)
[2017-07-22 12:00] VITALS: BP 110/93
--- NOTE | 2017-07-22 14:26 | General Progress Note ---
Assessment/Plan Assessment/Plan (1) Acute respiratory failure s/p extubation (2) COPD Exacerbation (3) Polysubstance abuse on Methadone (4) Lumbar DDD (5) Lumbar Spondylosis (6) Lumbar Radiculopathy (7) Right hip pain (8) Right hip OA Pt to be continued on Methadone and Morphine D/w Dr. Mena and he concurred. Subjective Date patient seen: Jul 22, 2017 Time patient seen: 01:15 - pm Allergies: Coded Allergies: ERYTHROMYCIN BASE (Verified Allergy, Severe, Hives, 01/29/17) SULFAMETHOXAZOLE (Verified Allergy, Severe, Shortness of Breath, 01/29/17) TRIMETHOPRIM (Verified Allergy, Severe, Shortness of Breath, 01/29/17) Subjective REVIEW OF SYSTEMS Constitutional: Reports: weakness HEENT: Reports: throat pain, throat swelling Cardiovascular: Reports: no symptoms Respiratory: Reports: shortness of breath Gastrointestinal/Abdominal: Reports: no symptoms Genitourinary: Reports: no symptoms Neurologic/Psychiatric: Reports: numbness, weakness Endocrine: Reports: no symptoms Hematologic/Lymphatic: Reports: no symptoms SUBJECTIVE: Pt reports her throat is burning due to the intubation tube. She has no new complaints. Pain has been stable on the Methadone and Morphine. Objective Last 24 Hour Vital Signs Date Time Temp Pulse Resp B/P (MAP) Pulse Ox O2 Delivery O2 Flow Rate FiO2 07/22/17 12:00 97.3 57 18 110/93 97 Room Air 07/22/17 10:58 98.4 07/22/17 08:00 98.4 72 18 130/78 90 07/22/17 07:12 Nasal Cannula 3.0 32 07/22/17 07:10 94 Nasal Cannula 3.0 32 07/22/17 07:10 72 20 Nasal Cannula 3.0 32 07/22/17 04:00 98.5 78 22 132/77 94 Nasal Cannula 3.0 07/22/17 03:29 77 20 94 Nasal Cannula 4.0 36 07/22/17 03:21 77 18 93 Nasal Cannula 4.0 36 07/22/17 02:00 98.1 20 91 Nasal Cannula 2.0 07/22/17 00:30 98.6 66 18 140/74 91 07/21/17 22:46 63 18 94 Nasal Cannula 4.0 36 07/21/17 20:49 98.6 68 20 137/78 93 07/21/17 19:32 95 Nasal Cannula 3.0 32 07/21/17 19:32 Nasal Cannula 3.0 32 07/21/17 19:31 82 20 Nasal Cannula 3.0 32 07/21/17 16:00 98.1 70 20 137/75 90 Intake and Output 07/21/17 07/22/17 19:00 07:00 Intake Total 470 ml 650 ml Balance 470 ml 650 ml Intake Oral 420 ml 100 ml IV Total 50 ml 550 ml # Voids 1 3 Height (Feet): 5 Height (Inches): 4.00 Weight (Pounds): 181 Objective GENERAL: Alert, awake. LUNGS: Decreased breath sounds bilaterally. The patient is intubated, on ventilator. HEART: S1, S2. Regular. ABDOMEN: Obese. EXTREMITIES: No cyanosis. No clubbing. With edema noted. NEUROLOGIC: No changes. ADRIANA JUNIOR Jul 22, 2017 14:26
--- NOTE | 2017-07-22 15:00 | Pulmonology Progress Note ---
Assessment/Plan Assessment/Plan ASSESSMENT Acute on chronic hypoxemic hypercapnic RF requiring intubation s/p extubation COPD exacerbation CAP with Strep PNA Methadone dependency Morbid obesity lumbar DDD lumbar spondylosis lumbar radiculopathy R hip OA PLAN OF CARE Extubated transferred from ICU to [facility], now on [facility] floor O2 titrate to keep sat above 90% pulmonary toilet taper steroid abx, sputum cx + Strep PNA ID follows urine, blood cx and influenza screen al negative Pain management pain specialist follows Encephalopathy likely 2 to meds vs ARF tox screen + BZD and opiates DVT GI prophylaxis Chloraseptic spray for comfort gentle IVF PT/OT patient verbalized that she could not return home to care for herself will ask for dc associate financial planner consult case discussed and evaluated by supervising physician Subjective Allergies: Coded Allergies: ERYTHROMYCIN BASE (Verified Allergy, Severe, Hives, 01/29/17) SULFAMETHOXAZOLE (Verified Allergy, Severe, Shortness of Breath, 01/29/17) TRIMETHOPRIM (Verified Allergy, Severe, Shortness of Breath, 01/29/17) Subjective afebrile, no leukocytosis on 3L O2 via NC pulse ox stable no signs of respiratory distress c/o throat discomfort after intubation/extubation not eating well due to discomfort Objective Last 24 Hour Vital Signs Date Time Temp Pulse Resp B/P (MAP) Pulse Ox O2 Delivery O2 Flow Rate FiO2 07/22/17 14:47 72 20 93 Nasal Cannula 4.0 36 07/22/17 14:35 80 20 97 Nasal Cannula 4.0 36 07/22/17 12:00 97.3 57 18 110/93 97 Room Air 07/22/17 10:58 98.4 07/22/17 08:00 98.4 72 18 130/78 90 07/22/17 07:12 Nasal Cannula 3.0 32 07/22/17 07:10 94 Nasal Cannula 3.0 32 07/22/17 07:10 72 20 Nasal Cannula 3.0 32 07/22/17 04:00 98.5 78 22 132/77 94 Nasal Cannula 3.0 07/22/17 03:29 77 20 94 Nasal Cannula 4.0 36 07/22/17 03:21 77 18 93 Nasal Cannula 4.0 36 07/22/17 02:00 98.1 20 91 Nasal Cannula 2.0 07/22/17 00:30 98.6 66 18 140/74 91 07/21/17 22:46 63 18 94 Nasal Cannula 4.0 36 07/21/17 20:49 98.6 68 20 137/78 93 07/21/17 19:32 95 Nasal Cannula 3.0 32 07/21/17 19:32 Nasal Cannula 3.0 32 07/21/17 19:31 82 20 Nasal Cannula 3.0 32 07/21/17 16:00 98.1 70 20 137/75 90 Intake and Output 07/21/17 07/22/17 19:00 07:00 Intake Total 470 ml 650 ml Balance 470 ml 650 ml Intake Oral 420 ml 100 ml IV Total 50 ml 550 ml # Voids 1 3 Objective General Appearance: no acute distress HEENT: normocephalic, atraumatic Respiratory/Chest: lungs clear, no respiratory distress, no accessory muscle use Cardiovascular: normal rate, no JVD, CL-femoral intact Abdomen: normal bowel sounds, soft, non tender Extremities: no edema Neurologic/Psychiatric: alert, responsive Musculoskeletal: normal muscle bulk Current Medications Medications (Trade) Dose Ordered Sig/Sumeet Route PRN Reason Start Time Stop Time Status Last Admin Dose Admin Acetaminophen (Tylenol) 650 mg Q6H PRN ORAL Mild Pain/Temp > 100.5 07/20/17 19:30 08/13/17 19:29 Albuterol/ Ipratropium (Albuterol/ Ipratropium) 3 ml Q4H PRN HHN Shortness of Breath 07/20/17 19:30 07/22/17 19:29 07/22/17 14:32 Cetylpyridinium Chloride (Cepacol) 1 lozenge Q2H PRN CHAZ SORE THROAT 07/20/17 19:00 08/19/17 18:59 Chlorhexidine Gluconate (Lynne-Hex 2%) 1 applic DAILY@1999 TOPIC 07/20/17 20:00 08/18/17 19:59 07/21/17 20:13 Chlorhexidine Gluconate (Lynne-Hex 2%) 1 applic DAILY@1999 TOPIC 07/21/17 20:00 08/20/17 19:59 Heparin Sodium (Porcine) (Heparin 5000 units/ml) 5,000 units EVERY 12 HOURS SUBQ 07/20/17 21:00 08/13/17 08:59 07/22/17 08:37 Heparin Sodium/ Sodium Chloride (Heparin 2000 units/Ns 1000ml premix) 2,000 unit PRN PRN INJ . 07/23/17 09:00 07/23/17 23:59 Lidocaine HCl (Xylocaine 1% 30ml) 30 ml PRN PRN INJ FRO PICC LINE PLACEMENT 07/23/17 12:45 07/23/17 23:59 Lorazepam (Ativan 2mg/ml 1ml) 2 mg EVERY 2 HOURS PRN IV For Anxiety 07/21/17 08:00 07/28/17 07:59 07/22/17 11:33 Methadone HCl (Methadone HCl) 50 mg DAILY ORAL 07/21/17 09:00 07/23/17 08:59 07/22/17 08:33 Methylprednisolone Sodium Succinate (Solu-MEDROL) 60 mg EVERY 12 HOURS IVP 07/20/17 21:00 08/16/17 10:59 07/22/17 08:50 Morphine Sulfate (Morphine Sulfate) 2 mg Q4H PRN IVP Severe Pain (Pain Scale 7-10) 07/21/17 20:45 07/28/17 20:44 07/22/17 14:35 Ondansetron HCl (Zofran) 4 mg Q6H PRN IVP Nausea & Vomiting 07/20/17 19:00 08/19/17 18:59 07/22/17 10:14 Pantoprazole (Protonix) 40 mg DAILY IVP 07/21/17 09:00 08/13/17 08:59 07/22/17 08:33 Phenol/Menthol (Chloraseptic) 1 spray EVERY 2 HOURS PRN ORAL sore throat 07/21/17 11:45 08/20/17 11:44 07/21/17 13:13 Sennosides (Senokot) 1 tab DAILYPRN PRN ORAL Constipation 07/20/17 19:30 08/18/17 19:29 Sodium Chloride 1,000 ml @ 50 mls/hr Q20H IV 07/21/17 13:15 08/20/17 13:14 07/22/17 10:11 [facility] NP Jul 22, 2017 15:00
[2017-07-22 16:00] VITALS: BP 126/69
[2017-07-22 20:00] VITALS: BP 137/71
[2017-07-22] MEDS: Dyna-Hex 2% Top Sol 2oz TOPIC SCH ×2 (20:00→22:37)
[2017-07-23] VITALS: BP 156/85
[2017-07-23] MEDS: LORazepam Inj 2mg/ml 1ml IV PRN ×5 (00:55→22:01)
[2017-07-23] MEDS: Morphine Sulfate 2mg/ml Inj IVP PRN ×3 (02:47→10:50)
[2017-07-23 04:00] VITALS: BP 146/80
[2017-07-23 07:36] LABS: BASOPHILS % (AUTO) 0.6 % (0.0-2.0); EOSINOPHILS % (AUTO) 0.2 % (0.0-3.0); HEMATOCRIT 44.2 % (37.0-47.0); HEMOGLOBIN 14.1 G/DL (12.0-16.0); LYMPHOCYTES % (AUTO) 19.1 % (20.0-45.0); MEAN CORPUSCULAR VOLUME 87 FL (80-99); MONOCYTES % (AUTO) 3.5 % (1.0-10.0); NEUTROPHILS % (AUTO) 76.6 % (45.0-75.0); PLATELET COUNT 134 K/UL (150-450); RED BLOOD COUNT 5.09 M/UL (4.20-5.40); RED CELL DISTRIBUTION WIDTH 14.7 % (11.6-14.8); WHITE BLOOD COUNT 5.3 K/UL (4.8-10.8)
[2017-07-23 07:47] LABS: ANION GAP 6 mmol/L (5-15); BLOOD UREA NITROGEN 24 mg/dL (7-18); CALCIUM 7.7 MG/DL (8.5-10.1); CARBON DIOXIDE 32 MMOL/L (21-32); CHLORIDE 102 MMOL/L (98-107); CREATININE 0.7 MG/DL (0.55-1.30); POTASSIUM 4.2 MMOL/L (3.5-5.1); SODIUM 140 MMOL/L (136-145)
[2017-07-23 08:00] VITALS: BP 152/81
[2017-07-23] MEDS: Pantoprazole Inj IVP SCH (08:17)
[2017-07-23] MEDS: Solu-MEDROL 40mg Inj IVP SCH ×2 (08:17→21:00)
[2017-07-23] MEDS: Heparin 5000 units/ml inj SUBQ SCH ×2 (08:18→21:00)
--- NOTE | 2017-07-23 08:47 | General Progress Note ---
Assessment/Plan Assessment/Plan (1) Acute respiratory failure s/p extubation (2) COPD Exacerbation (3) Polysubstance abuse on Methadone (4) Lumbar DDD (5) Lumbar Spondylosis (6) Lumbar Radiculopathy (7) Right hip pain (8) Right hip OA Pt to be continued on Methadone and Morphine D/w Dr. Mena and he concurred. Subjective Date patient seen: Jul 23, 2017 Time patient seen: 07:15 - am Allergies: Coded Allergies: ERYTHROMYCIN BASE (Verified Allergy, Severe, Hives, 01/29/17) SULFAMETHOXAZOLE (Verified Allergy, Severe, Shortness of Breath, 01/29/17) TRIMETHOPRIM (Verified Allergy, Severe, Shortness of Breath, 01/29/17) Subjective REVIEW OF SYSTEMS Constitutional: Reports: weakness HEENT: Reports: throat pain, throat swelling Cardiovascular: Reports: no symptoms Respiratory: Reports: shortness of breath Gastrointestinal/Abdominal: Reports: no symptoms Genitourinary: Reports: no symptoms Neurologic/Psychiatric: Reports: numbness, weakness Endocrine: Reports: no symptoms Hematologic/Lymphatic: Reports: no symptoms SUBJECTIVE: Pt is in bed and continues to have pain. Her pain has been stable on the Methadone and Morphine. Objective Last 24 Hour Vital Signs Date Time Temp Pulse Resp B/P (MAP) Pulse Ox O2 Delivery O2 Flow Rate FiO2 07/23/17 07:14 97.6 07/23/17 04:00 97.6 66 22 146/80 90 Nasal Cannula 3.0 07/23/17 00:00 98.0 61 19 156/85 92 Nasal Cannula 3.0 07/22/17 20:00 97.9 64 19 137/71 95 Nasal Cannula 3.0 07/22/17 19:00 61 20 Nasal Cannula 3.0 32 07/22/17 19:00 Nasal Cannula 3.0 32 07/22/17 19:00 92 Nasal Cannula 3.0 32 07/22/17 16:00 98.0 81 20 126/69 95 07/22/17 16:00 95 Nasal Cannula 3.0 07/22/17 14:47 72 20 93 Nasal Cannula 4.0 36 07/22/17 14:35 80 20 97 Nasal Cannula 4.0 36 07/22/17 12:00 97 Room Air 07/22/17 12:00 97.3 57 18 110/93 97 Room Air Intake and Output 07/22/17 07/23/17 19:00 07:00 Intake Total 1440 ml 490 ml Balance 1440 ml 490 ml Intake Oral 840 ml 240 ml IV Total 600 ml 250 ml # Voids 4 4 Laboratory Tests 07/23/17 06:15: White Blood Count 5.3, Red Blood Count 5.09, Hemoglobin 14.1, Hematocrit 44.2, Mean Corpuscular Volume 87, Mean Corpuscular Hemoglobin 27.7, Mean Corpuscular Hemoglobin Concent 31.9L, Red Cell Distribution Width 14.7, Platelet Count 134L , Mean Platelet Volume 5.6L, Neutrophils (%) (Auto) 76.6H, Lymphocytes (%) (Auto ) 19.1L, Monocytes (%) (Auto) 3.5, Eosinophils (%) (Auto) 0.2, Basophils (%) ( Auto) 0.6, Sodium Level 140, Potassium Level 4.2, Chloride Level 102, Carbon Dioxide Level 32, Anion Gap 6, Blood Urea Nitrogen 24H, Creatinine 0.7, Estimat Glomerular Filtration Rate > 60, Glucose Level 149H, Calcium Level 7.7L Height (Feet): 5 Height (Inches): 4.00 Weight (Pounds): 185 Objective GENERAL: Alert, awake. LUNGS: Decreased breath sounds bilaterally. The patient is intubated, on ventilator. HEART: S1, S2. Regular. ABDOMEN: Obese. EXTREMITIES: No cyanosis. No clubbing. With edema noted. NEUROLOGIC: No changes. ADRIANA JUNIOR Jul 23, 2017 08:47
[2017-07-23] MEDS ORDERED: Heparin 2000 units/Ns 1000ml INJ PRN (09:00)
--- NOTE | 2017-07-23 10:40 | Infectious Diseases Prog Note ---
Assessment/Plan Assessment/Plan COPD exacerbation Possible CAP, s/p Rx -CXR 07/20: no acute process -CXR 07/15: Slight improvement in interstitial edema/opacification and improved aeration of the left base -CXR 07/13: Cardiomegaly with bilateral interstitial opacification and more focal haziness in the right lower lung. Findings may related to fluid overload/ pulmonary edema. Superimposed pneumonia is not excluded. -Influenza neg -sp cx 07/16 +4 S. pneumonia (R penicillin, S Ceftriaxone) Acute respiratory failure s/p intubation- extubated 07/19 Fever/leukocytosis- resolved -ucx neg -Bcx Neg HTN Asthma/COPD Lumbar DJD w/ radiculopathy Pain disorder Prior heroin abuse now on Chronic methadone Plan: -Continue to monitor off abx -07/21 SP PO Levaquin # 5 /5 for possible CAP -Monitor CBC/BMP, temperatures -Aspiration precautions Subjective Allergies: Coded Allergies: ERYTHROMYCIN BASE (Verified Allergy, Severe, Hives, 01/29/17) SULFAMETHOXAZOLE (Verified Allergy, Severe, Shortness of Breath, 01/29/17) TRIMETHOPRIM (Verified Allergy, Severe, Shortness of Breath, 01/29/17) Subjective aFebrile no leukocytosis 3l NC Objective Vital Signs Last 24 Hour Vital Signs Date Time Temp Pulse Resp B/P (MAP) Pulse Ox O2 Delivery O2 Flow Rate FiO2 07/23/17 08:29 93 Nasal Cannula 3.0 32 07/23/17 08:29 Nasal Cannula 3.0 32 07/23/17 08:29 78 22 Nasal Cannula 3.0 32 07/23/17 08:00 98.2 58 20 152/81 97 07/23/17 07:14 97.6 07/23/17 04:00 97.6 66 22 146/80 90 Nasal Cannula 3.0 07/23/17 00:00 98.0 61 19 156/85 92 Nasal Cannula 3.0 07/22/17 20:00 97.9 64 19 137/71 95 Nasal Cannula 3.0 07/22/17 19:00 61 20 Nasal Cannula 3.0 32 07/22/17 19:00 Nasal Cannula 3.0 32 07/22/17 19:00 92 Nasal Cannula 3.0 32 07/22/17 16:00 98.0 81 20 126/69 95 07/22/17 16:00 95 Nasal Cannula 3.0 07/22/17 14:47 72 20 93 Nasal Cannula 4.0 36 07/22/17 14:35 80 20 97 Nasal Cannula 4.0 36 07/22/17 12:00 97 Room Air 07/22/17 12:00 97.3 57 18 110/93 97 Room Air Height (Feet): 5 Height (Inches): 4.00 Weight (Pounds): 185 Objective GENERAL: No acute distress. PULMONARY: Decreased breath sounds. CARDIOVASCULAR: Regular rate. No S3 or S4. ABDOMEN: Soft, nontender, and nondistended. EXTREMITIES: No cyanosis, swelling, or edema. Laboratory Tests Test 07/23/17 06:15 White Blood Count 5.3 K/UL (4.8-10.8) Red Blood Count 5.09 M/UL (4.20-5.40) Hemoglobin 14.1 G/DL (12.0-16.0) Hematocrit 44.2 % (37.0-47.0) Mean Corpuscular Volume 87 FL (80-99) Mean Corpuscular Hemoglobin 27.7 PG (27.0-31.0) Mean Corpuscular Hemoglobin Concent 31.9 G/DL (32.0-36.0) L Red Cell Distribution Width 14.7 % (11.6-14.8) Platelet Count 134 K/UL (150-450) L Mean Platelet Volume 5.6 FL (6.5-10.1) L Neutrophils (%) (Auto) 76.6 % (45.0-75.0) H Lymphocytes (%) (Auto) 19.1 % (20.0-45.0) L Monocytes (%) (Auto) 3.5 % (1.0-10.0) Eosinophils (%) (Auto) 0.2 % (0.0-3.0) Basophils (%) (Auto) 0.6 % (0.0-2.0) Sodium Level 140 MMOL/L (136-145) Potassium Level 4.2 MMOL/L (3.5-5.1) Chloride Level 102 MMOL/L (98-107) Carbon Dioxide Level 32 MMOL/L (21-32) Anion Gap 6 mmol/L (5-15) Blood Urea Nitrogen 24 mg/dL (7-18) H Creatinine 0.7 MG/DL (0.55-1.30) Estimat Glomerular Filtration Rate > 60 mL/min (>60) Glucose Level 149 MG/DL (74-106) H Calcium Level 7.7 MG/DL (8.5-10.1) L Current Medications Medications (Trade) Dose Ordered Sig/Sumeet Route PRN Reason Start Time Stop Time Status Last Admin Dose Admin Acetaminophen (Tylenol) 650 mg Q6H PRN ORAL Mild Pain/Temp > 100.5 07/20/17 19:30 08/13/17 19:29 Albuterol/ Ipratropium (Albuterol/ Ipratropium) 3 ml Q4HRT HHN 07/23/17 11:00 07/28/17 10:59 Cetylpyridinium Chloride (Cepacol) 1 lozenge Q2H PRN CHAZ SORE THROAT 07/20/17 19:00 08/19/17 18:59 Chlorhexidine Gluconate (Lynne-Hex 2%) 1 applic DAILY@2000 TOPIC 07/20/17 20:00 08/18/17 19:59 07/22/17 22:37 Heparin Sodium (Porcine) (Heparin 5000 units/ml) 5,000 units EVERY 12 HOURS SUBQ 07/20/17 21:00 08/13/17 08:59 07/22/17 22:39 Heparin Sodium/ Sodium Chloride (Heparin 2000 units/Ns 1000ml premix) 2,000 unit PRN PRN INJ . 07/23/17 09:00 07/23/17 23:59 Lidocaine HCl (Xylocaine 1% 30ml) 30 ml PRN PRN INJ FRO PICC LINE PLACEMENT 07/23/17 12:45 07/23/17 23:59 Lorazepam (Ativan 2mg/ml 1ml) 2 mg EVERY 2 HOURS PRN IV For Anxiety 07/21/17 08:00 07/28/17 07:59 07/23/17 08:28 Methadone HCl (Methadone HCl) 50 mg DAILY ORAL 07/24/17 09:00 07/31/17 08:59 Methylprednisolone Sodium Succinate (Solu-MEDROL) 60 mg EVERY 12 HOURS IVP 07/20/17 21:00 08/16/17 10:59 07/23/17 08:17 Morphine Sulfate (Morphine Sulfate) 2 mg Q4H PRN IVP Severe Pain (Pain Scale 7-10) 07/21/17 20:45 07/28/17 20:44 07/23/17 06:43 Ondansetron HCl (Zofran) 4 mg Q6H PRN IVP Nausea & Vomiting 07/20/17 19:00 08/19/17 18:59 07/22/17 10:14 Pantoprazole (Protonix) 40 mg ACBREAKFAST ORAL 07/24/17 06:30 08/23/17 06:29 Phenol/Menthol (Chloraseptic) 1 spray EVERY 2 HOURS PRN ORAL sore throat 07/21/17 11:45 08/20/17 11:44 07/21/17 13:13 Sennosides (Senokot) 1 tab DAILYPRN PRN ORAL Constipation 07/20/17 19:30 08/18/17 19:29 Sodium Chloride 1,000 ml @ 50 mls/hr Q20H IV 07/21/17 13:15 08/20/17 13:14 07/23/17 05:45 Irene Farley M.D. Jul 23, 2017 10:40
[2017-07-23] MEDS: Chloraseptic Spray 20mL Bottle ORAL PRN (10:51)
[2017-07-23] MEDS: Albuterol/Ipratropium 3ml neb HHN SCH ×4 (11:16→23:00)
[2017-07-23 12:00] VITALS: BP 127/72
[2017-07-23] MEDS ORDERED: Lidocaine 1% Plain 30 ml INJ PRN (12:45)
[2017-07-23] MEDS: Morphine Sulfate 4mg/ml Inj IVP PRN ×3 (14:43→20:59)
[2017-07-23 16:00] VITALS: BP 104/69
[2017-07-23 20:00] VITALS: BP 138/70
[2017-07-23] MEDS: Dyna-Hex 2% Top Sol 2oz TOPIC SCH (20:59)
--- NOTE | 2017-07-23 22:39 | Pulmonology Progress Note ---
Assessment/Plan Problems: (1) COPD exacerbation (2) Pneumonia (3) Respiratory distress (4) Morbid obesity Assessment/Plan improving respiratory treatment check cultures dc planning Subjective ROS Limited/Unobtainable: No Allergies: Coded Allergies: ERYTHROMYCIN BASE (Verified Allergy, Severe, Hives, 01/29/17) SULFAMETHOXAZOLE (Verified Allergy, Severe, Shortness of Breath, 01/29/17) TRIMETHOPRIM (Verified Allergy, Severe, Shortness of Breath, 01/29/17) Objective Last 24 Hour Vital Signs Date Time Temp Pulse Resp B/P (MAP) Pulse Ox O2 Delivery O2 Flow Rate FiO2 07/23/17 21:30 98.0 07/23/17 20:39 85 22 94 Nasal Cannula 2.0 28 07/23/17 20:39 75 20 100 Nasal Cannula 2.0 28 07/23/17 20:00 94 Nasal Cannula 3.0 32 07/23/17 20:00 98.7 63 18 138/70 93 07/23/17 20:00 Nasal Cannula 3.0 32 07/23/17 20:00 72 22 Nasal Cannula 3.0 32 07/23/17 16:00 97 Nasal Cannula 3.0 07/23/17 16:00 97.2 92 18 104/69 07/23/17 15:41 73 20 96 Nasal Cannula 2.0 28 07/23/17 15:35 81 22 93 Nasal Cannula 2.0 28 07/23/17 12:00 97 Nasal Cannula 3.0 07/23/17 12:00 98.0 84 18 127/72 97 07/23/17 11:24 60 20 95 Nasal Cannula 2.0 28 07/23/17 11:20 98.2 07/23/17 11:16 61 22 92 Nasal Cannula 2.0 28 07/23/17 08:29 93 Nasal Cannula 3.0 32 07/23/17 08:29 Nasal Cannula 3.0 32 07/23/17 08:29 78 22 Nasal Cannula 3.0 32 07/23/17 08:00 97 Nasal Cannula 3.0 07/23/17 08:00 98.2 58 20 152/81 97 07/23/17 04:00 97.6 66 22 146/80 90 Nasal Cannula 3.0 07/23/17 00:00 98.0 61 19 156/85 92 Nasal Cannula 3.0 Intake and Output 07/22/17 07/23/17 19:00 07:00 Intake Total 1440 ml 490 ml Balance 1440 ml 490 ml Intake Oral 840 ml 240 ml IV Total 600 ml 250 ml # Voids 4 4 Objective Objective General Appearance: no acute distress HEENT: normocephalic, atraumatic Respiratory/Chest: lungs clear, no respiratory distress, no accessory muscle use Cardiovascular: normal rate, no JVD, CL-femoral intact Abdomen: normal bowel sounds, soft, non tender Extremities: no edema Neurologic/Psychiatric: alert, responsive Musculoskeletal: normal muscle bulk Laboratory Tests 07/23/17 06:15: White Blood Count 5.3, Red Blood Count 5.09, Hemoglobin 14.1, Hematocrit 44.2, Mean Corpuscular Volume 87, Mean Corpuscular Hemoglobin 27.7, Mean Corpuscular Hemoglobin Concent 31.9L, Red Cell Distribution Width 14.7, Platelet Count 134L , Mean Platelet Volume 5.6L, Neutrophils (%) (Auto) 76.6H, Lymphocytes (%) (Auto ) 19.1L, Monocytes (%) (Auto) 3.5, Eosinophils (%) (Auto) 0.2, Basophils (%) ( Auto) 0.6, Sodium Level 140, Potassium Level 4.2, Chloride Level 102, Carbon Dioxide Level 32, Anion Gap 6, Blood Urea Nitrogen 24H, Creatinine 0.7, Estimat Glomerular Filtration Rate > 60, Glucose Level 149H, Calcium Level 7.7L Current Medications Medications (Trade) Dose Ordered Sig/Sumeet Route PRN Reason Start Time Stop Time Status Last Admin Dose Admin Acetaminophen (Tylenol) 650 mg Q6H PRN ORAL Mild Pain/Temp > 100.5 07/20/17 19:30 08/13/17 19:29 Albuterol/ Ipratropium (Albuterol/ Ipratropium) 3 ml Q4HRT HHN 07/23/17 11:00 07/28/17 10:59 07/23/17 20:38 Cetylpyridinium Chloride (Cepacol) 1 lozenge Q2H PRN CHAZ SORE THROAT 07/20/17 19:00 08/19/17 18:59 Chlorhexidine Gluconate (Lynne-Hex 2%) 1 applic DAILY@2000 TOPIC 07/20/17 20:00 08/18/17 19:59 07/23/17 20:59 Heparin Sodium (Porcine) (Heparin 5000 units/ml) 5,000 units EVERY 12 HOURS SUBQ 07/20/17 21:00 08/13/17 08:59 07/22/17 22:39 Heparin Sodium/ Sodium Chloride (Heparin 2000 units/Ns 1000ml premix) 2,000 unit PRN PRN INJ . 07/23/17 09:00 07/23/17 23:59 Lidocaine HCl (Xylocaine 1% 30ml) 30 ml PRN PRN INJ FRO PICC LINE PLACEMENT 07/23/17 12:45 07/23/17 23:59 Lorazepam (Ativan 2mg/ml 1ml) 2 mg EVERY 2 HOURS PRN IV For Anxiety 07/21/17 08:00 07/28/17 07:59 07/23/17 22:01 Methadone HCl (Methadone HCl) 50 mg DAILY ORAL 07/24/17 09:00 07/31/17 08:59 Methylprednisolone Sodium Succinate (Solu-MEDROL) 60 mg EVERY 12 HOURS IVP 07/20/17 21:00 08/16/17 10:59 07/23/17 21:00 Morphine Sulfate (Morphine Sulfate) 4 mg Q3H PRN IVP Severe Breakthru Pain (>7) 07/23/17 14:30 07/30/17 14:29 07/23/17 20:59 Ondansetron HCl (Zofran) 4 mg Q6H PRN IVP Nausea & Vomiting 07/20/17 19:00 08/19/17 18:59 07/22/17 10:14 Pantoprazole (Protonix) 40 mg ACBREAKFAST ORAL 07/24/17 06:30 08/23/17 06:29 Phenol/Menthol (Chloraseptic) 1 spray EVERY 2 HOURS PRN ORAL sore throat 07/21/17 11:45 08/20/17 11:44 07/23/17 10:51 Sennosides (Senokot) 1 tab DAILYPRN PRN ORAL Constipation 07/20/17 19:30 08/18/17 19:29 Sodium Chloride 1,000 ml @ 50 mls/hr Q20H IV 07/21/17 13:15 08/20/17 13:14 07/23/17 05:45 RUBIA HUYNH Jul 23, 2017 22:39
[2017-07-24] VITALS: BP 160/85
[2017-07-24] MEDS: Morphine Sulfate 4mg/ml Inj IVP PRN ×7 (00:52→22:17)
[2017-07-24] MEDS: LORazepam Inj 2mg/ml 1ml IV PRN ×3 (02:10→20:18)
[2017-07-24] MEDS: Albuterol/Ipratropium 3ml neb HHN SCH ×7 (03:00→23:00)
[2017-07-24 04:00] VITALS: BP 138/70
[2017-07-24] MEDS: Chloraseptic Spray 20mL Bottle ORAL PRN (04:39)
[2017-07-24 07:04] LABS: BASOPHILS % (AUTO) 0.3 % (0.0-2.0); EOSINOPHILS % (AUTO) 0.1 % (0.0-3.0); HEMATOCRIT 41.6 % (37.0-47.0); HEMOGLOBIN 13.4 G/DL (12.0-16.0); LYMPHOCYTES % (AUTO) 26.1 % (20.0-45.0); MEAN CORPUSCULAR VOLUME 87 FL (80-99); MONOCYTES % (AUTO) 4.2 % (1.0-10.0); NEUTROPHILS % (AUTO) 69.3 % (45.0-75.0); PLATELET COUNT 150 K/UL (150-450); RED BLOOD COUNT 4.78 M/UL (4.20-5.40); RED CELL DISTRIBUTION WIDTH 14.7 % (11.6-14.8); WHITE BLOOD COUNT 6.2 K/UL (4.8-10.8)
[2017-07-24 07:23] LABS: ALANINE AMINOTRANSFERASE 34 U/L (12-78); ALBUMIN/GLOBULIN RATIO 0.8 (1.0-2.7); ALKALINE PHOSPHATASE 53 U/L (46-116); ANION GAP 6 mmol/L (5-15); ASPARTATE AMINO TRANSFERASE 19 U/L (15-37); BILIRUBIN,TOTAL 0.3 MG/DL (0.2-1.0); BLOOD UREA NITROGEN 20 mg/dL (7-18); CALCIUM 7.6 MG/DL (8.5-10.1); CARBON DIOXIDE 31 MMOL/L (21-32); CHLORIDE 104 MMOL/L (98-107); CREATININE 0.8 MG/DL (0.55-1.30); PHOSPHORUS 4.3 MG/DL (2.5-4.9); POTASSIUM 3.7 MMOL/L (3.5-5.1); SODIUM 141 MMOL/L (136-145)
[2017-07-24 08:00] VITALS: BP 150/82
[2017-07-24] MEDS: Solu-MEDROL 40mg Inj IVP SCH (08:29)
[2017-07-24] MEDS: Heparin 5000 units/ml inj SUBQ SCH ×2 (08:36→20:28)
--- NOTE | 2017-07-24 09:00 | General Progress Note ---
Assessment/Plan Assessment/Plan (1) Acute respiratory failure s/p extubation (2) COPD Exacerbation (3) Polysubstance abuse on Methadone (4) Lumbar DDD (5) Lumbar Spondylosis (6) Lumbar Radiculopathy (7) Right hip pain (8) Right hip OA Pt to be continued on Methadone and Morphine D/w Dr. Mena and he concurred. Subjective Date patient seen: Jul 24, 2017 Time patient seen: 07:15 - am Allergies: Coded Allergies: ERYTHROMYCIN BASE (Verified Allergy, Severe, Hives, 01/29/17) SULFAMETHOXAZOLE (Verified Allergy, Severe, Shortness of Breath, 01/29/17) TRIMETHOPRIM (Verified Allergy, Severe, Shortness of Breath, 01/29/17) Subjective REVIEW OF SYSTEMS Constitutional: Reports: weakness HEENT: Reports: throat pain, throat swelling Cardiovascular: Reports: no symptoms Respiratory: Reports: shortness of breath Gastrointestinal/Abdominal: Reports: no symptoms Genitourinary: Reports: no symptoms Neurologic/Psychiatric: Reports: numbness, weakness Endocrine: Reports: no symptoms Hematologic/Lymphatic: Reports: no symptoms SUBJECTIVE: Pt has continued pain which has been stable on the Methadone and Morphine. She continues to also have trouble swallowing. Objective Last 24 Hour Vital Signs Date Time Temp Pulse Resp B/P (MAP) Pulse Ox O2 Delivery O2 Flow Rate FiO2 07/24/17 08:49 71 20 100 Nasal Cannula 2.0 28 07/24/17 08:40 78 22 95 Nasal Cannula 3.0 32 07/24/17 08:40 95 Nasal Cannula 3.0 32 07/24/17 08:40 78 22 Nasal Cannula 3.0 32 07/24/17 08:40 Nasal Cannula 3.0 32 07/24/17 05:10 98.2 07/24/17 04:00 98.2 87 20 138/70 91 Nasal Cannula 2.0 07/24/17 03:49 Nasal Cannula 07/24/17 03:49 Nasal Cannula 07/24/17 00:00 98.8 61 20 160/85 90 07/23/17 20:39 85 22 94 Nasal Cannula 2.0 28 07/23/17 20:39 75 20 100 Nasal Cannula 2.0 28 07/23/17 20:00 94 Nasal Cannula 3.0 32 07/23/17 20:00 98.7 63 18 138/70 93 07/23/17 20:00 Nasal Cannula 3.0 32 07/23/17 20:00 72 22 Nasal Cannula 3.0 32 07/23/17 16:00 97 Nasal Cannula 3.0 07/23/17 16:00 97.2 92 18 104/69 07/23/17 15:41 73 20 96 Nasal Cannula 2.0 28 07/23/17 15:35 81 22 93 Nasal Cannula 2.0 28 07/23/17 12:00 97 Nasal Cannula 3.0 07/23/17 12:00 98.0 84 18 127/72 97 07/23/17 11:24 60 20 95 Nasal Cannula 2.0 28 07/23/17 11:20 98.2 07/23/17 11:16 61 22 92 Nasal Cannula 2.0 28 Intake and Output 07/23/17 07/24/17 19:00 07:00 Intake Total 1200 ml 1100 ml Balance 1200 ml 1100 ml Intake Oral 650 ml 500 ml IV Total 550 ml 600 ml # Voids 3 3 Laboratory Tests 07/24/17 06:00: White Blood Count 6.2, Red Blood Count 4.78, Hemoglobin 13.4, Hematocrit 41.6, Mean Corpuscular Volume 87, Mean Corpuscular Hemoglobin 28.0, Mean Corpuscular Hemoglobin Concent 32.1, Red Cell Distribution Width 14.7, Platelet Count 150, Mean Platelet Volume 7.3, Neutrophils (%) (Auto) 69.3, Lymphocytes (%) (Auto) 26.1, Monocytes (%) (Auto) 4.2, Eosinophils (%) (Auto) 0.1, Basophils (%) (Auto ) 0.3, Sodium Level 141, Potassium Level 3.7, Chloride Level 104, Carbon Dioxide Level 31, Anion Gap 6, Blood Urea Nitrogen 20H, Creatinine 0.8, Estimat Glomerular Filtration Rate > 60, Glucose Level 127H, Calcium Level 7.6L, Phosphorus Level 4.3, Magnesium Level 1.9, Total Bilirubin 0.3, Aspartate Amino Transf (AST/SGOT) 19, Alanine Aminotransferase (ALT/SGPT) 34, Alkaline Phosphatase 53, Total Protein 6.9, Albumin 3.0L, Globulin 3.9, Albumin/Globulin Ratio 0.8L Height (Feet): 5 Height (Inches): 4.00 Weight (Pounds): 181 Objective GENERAL: Alert, awake. LUNGS: Decreased breath sounds bilaterally. The patient is intubated, on ventilator. HEART: S1, S2. Regular. ABDOMEN: Obese. EXTREMITIES: No cyanosis. No clubbing. With edema noted. NEUROLOGIC: No changes. ADRIANA JUNIOR Jul 24, 2017 09:00
--- NOTE | 2017-07-24 11:55 | Infectious Diseases Prog Note ---
Assessment/Plan Assessment/Plan COPD exacerbation Possible CAP, s/p Rx -CXR 07/20: no acute process -CXR 07/15: Slight improvement in interstitial edema/opacification and improved aeration of the left base -CXR 07/13: Cardiomegaly with bilateral interstitial opacification and more focal haziness in the right lower lung. Findings may related to fluid overload/ pulmonary edema. Superimposed pneumonia is not excluded. -Influenza neg -sp cx 07/16 +4 S. pneumonia (R penicillin, S Ceftriaxone) Acute respiratory failure s/p intubation- extubated 07/19 Fever/leukocytosis- resolved -ucx neg -Bcx Neg HTN Asthma/COPD Lumbar DJD w/ radiculopathy Pain disorder Prior heroin abuse now on Chronic methadone Plan: -Continue to monitor off abx -07/21 SP PO Levaquin # 5 /5 for possible CAP -Monitor CBC/BMP, temperatures -Aspiration precautions Subjective Allergies: Coded Allergies: ERYTHROMYCIN BASE (Verified Allergy, Severe, Hives, 01/29/17) SULFAMETHOXAZOLE (Verified Allergy, Severe, Shortness of Breath, 01/29/17) TRIMETHOPRIM (Verified Allergy, Severe, Shortness of Breath, 01/29/17) Subjective aFebrile no leukocytosis 3l NC Objective Vital Signs Last 24 Hour Vital Signs Date Time Temp Pulse Resp B/P (MAP) Pulse Ox O2 Delivery O2 Flow Rate FiO2 07/24/17 11:34 83 20 93 Nasal Cannula 3.0 32 07/24/17 09:00 98.2 07/24/17 08:49 71 20 100 Nasal Cannula 2.0 28 07/24/17 08:40 78 22 95 Nasal Cannula 3.0 32 07/24/17 08:40 95 Nasal Cannula 3.0 32 07/24/17 08:40 78 22 Nasal Cannula 3.0 32 07/24/17 08:40 Nasal Cannula 3.0 32 07/24/17 08:00 97.9 60 18 150/82 98 07/24/17 04:00 98.2 87 20 138/70 91 Nasal Cannula 2.0 07/24/17 03:49 Nasal Cannula 07/24/17 03:49 Nasal Cannula 07/24/17 00:00 98.8 61 20 160/85 90 07/23/17 20:39 85 22 94 Nasal Cannula 2.0 28 07/23/17 20:39 75 20 100 Nasal Cannula 2.0 28 07/23/17 20:00 94 Nasal Cannula 3.0 32 07/23/17 20:00 98.7 63 18 138/70 93 07/23/17 20:00 Nasal Cannula 3.0 32 07/23/17 20:00 72 22 Nasal Cannula 3.0 32 07/23/17 16:00 97 Nasal Cannula 3.0 07/23/17 16:00 97.2 92 18 104/69 07/23/17 15:41 73 20 96 Nasal Cannula 2.0 28 07/23/17 15:35 81 22 93 Nasal Cannula 2.0 28 07/23/17 12:00 97 Nasal Cannula 3.0 07/23/17 12:00 98.0 84 18 127/72 97 Height (Feet): 5 Height (Inches): 4.00 Weight (Pounds): 181 Objective GENERAL: No acute distress. PULMONARY: Decreased breath sounds. CARDIOVASCULAR: Regular rate. No S3 or S4. ABDOMEN: Soft, nontender, and nondistended. EXTREMITIES: No cyanosis, swelling, or edema. Laboratory Tests Test 07/24/17 06:00 White Blood Count 6.2 K/UL (4.8-10.8) Red Blood Count 4.78 M/UL (4.20-5.40) Hemoglobin 13.4 G/DL (12.0-16.0) Hematocrit 41.6 % (37.0-47.0) Mean Corpuscular Volume 87 FL (80-99) Mean Corpuscular Hemoglobin 28.0 PG (27.0-31.0) Mean Corpuscular Hemoglobin Concent 32.1 G/DL (32.0-36.0) Red Cell Distribution Width 14.7 % (11.6-14.8) Platelet Count 150 K/UL (150-450) Mean Platelet Volume 7.3 FL (6.5-10.1) Neutrophils (%) (Auto) 69.3 % (45.0-75.0) Lymphocytes (%) (Auto) 26.1 % (20.0-45.0) Monocytes (%) (Auto) 4.2 % (1.0-10.0) Eosinophils (%) (Auto) 0.1 % (0.0-3.0) Basophils (%) (Auto) 0.3 % (0.0-2.0) Sodium Level 141 MMOL/L (136-145) Potassium Level 3.7 MMOL/L (3.5-5.1) Chloride Level 104 MMOL/L (98-107) Carbon Dioxide Level 31 MMOL/L (21-32) Anion Gap 6 mmol/L (5-15) Blood Urea Nitrogen 20 mg/dL (7-18) H Creatinine 0.8 MG/DL (0.55-1.30) Estimat Glomerular Filtration Rate > 60 mL/min (>60) Glucose Level 127 MG/DL (74-106) H Calcium Level 7.6 MG/DL (8.5-10.1) L Phosphorus Level 4.3 MG/DL (2.5-4.9) Magnesium Level 1.9 MG/DL (1.8-2.4) Total Bilirubin 0.3 MG/DL (0.2-1.0) Aspartate Amino Transf (AST/SGOT) 19 U/L (15-37) Alanine Aminotransferase (ALT/SGPT) 34 U/L (12-78) Alkaline Phosphatase 53 U/L (46-116) Total Protein 6.9 G/DL (6.4-8.2) Albumin 3.0 G/DL (3.4-5.0) L Globulin 3.9 g/dL Albumin/Globulin Ratio 0.8 (1.0-2.7) L Current Medications Medications (Trade) Dose Ordered Sig/Sumeet Route PRN Reason Start Time Stop Time Status Last Admin Dose Admin Acetaminophen (Tylenol) 650 mg Q6H PRN ORAL Mild Pain/Temp > 100.5 07/20/17 19:30 08/13/17 19:29 Albuterol/ Ipratropium (Albuterol/ Ipratropium) 3 ml Q4HRT HHN 07/23/17 11:00 07/28/17 10:59 07/24/17 11:34 Cetylpyridinium Chloride (Cepacol) 1 lozenge Q2H PRN CHAZ SORE THROAT 07/20/17 19:00 08/19/17 18:59 07/24/17 04:39 Chlorhexidine Gluconate (Lynne-Hex 2%) 1 applic DAILY@2000 TOPIC 07/20/17 20:00 08/18/17 19:59 07/23/17 20:59 Heparin Sodium (Porcine) (Heparin 5000 units/ml) 5,000 units EVERY 12 HOURS SUBQ 07/20/17 21:00 08/13/17 08:59 07/24/17 08:36 Lorazepam (Ativan 2mg/ml 1ml) 2 mg EVERY 2 HOURS PRN IV For Anxiety 07/21/17 08:00 07/28/17 07:59 07/24/17 06:13 Methadone HCl (Methadone HCl) 50 mg DAILY ORAL 07/24/17 09:00 07/31/17 08:59 07/24/17 08:30 Methylprednisolone Sodium Succinate (Solu-MEDROL) 60 mg EVERY 12 HOURS IVP 07/20/17 21:00 08/16/17 10:59 07/24/17 08:29 Morphine Sulfate (Morphine Sulfate) 4 mg Q3H PRN IVP Severe Breakthru Pain (>7) 07/23/17 14:30 07/30/17 14:29 07/24/17 11:46 Ondansetron HCl (Zofran) 4 mg Q6H PRN IVP Nausea & Vomiting 07/20/17 19:00 08/19/17 18:59 07/22/17 10:14 Pantoprazole (Protonix) 40 mg ACBREAKFAST ORAL 07/24/17 06:30 08/23/17 06:29 07/24/17 06:13 Phenol/Menthol (Chloraseptic) 1 spray EVERY 2 HOURS PRN ORAL sore throat 07/21/17 11:45 08/20/17 11:44 07/24/17 04:39 Sennosides (Senokot) 1 tab DAILYPRN PRN ORAL Constipation 07/20/17 19:30 08/18/17 19:29 07/24/17 08:41 Sodium Chloride 1,000 ml @ 50 mls/hr Q20H IV 07/21/17 13:15 08/20/17 13:14 07/24/17 01:15 Irene Farley M.D. Jul 24, 2017 11:55
[2017-07-24 12:00] VITALS: BP 143/73
[2017-07-24] MEDS ORDERED: Heparin 2000 units/Ns 1000ml INJ PRN (14:30)
[2017-07-24] MEDS ORDERED: Lidocaine 1% Plain 30 ml INJ PRN (14:45)
[2017-07-24 16:00] VITALS: BP 149/80
--- NOTE | 2017-07-24 16:03 | Diagnostic Imaging Report ---
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 The left upper extremity was prepped with alcohol. All elements of maximal sterile barrier technique were followed including usage of a cap, mask, sterile gown, sterile gloves, hand hygiene and a large sterile sheet. Sonographic evaluation of the upper extremity was performed demonstrating a patent and compressible basilic vein. Access was obtained under real-time ultrasound guidance (with utilization of sterile gel and sterile probe cover) and digital image was saved and archived. An .018 wire was introduced. Needle exchanged for a 5 Hungarian peel-away sheath. Measurements were obtained. A 5 Hungarian dual-lumen Power PICC line catheter was cut to 47 cm and introduced over the wire. Peel-away sheath and wire were removed.Catheter was secured to the skin using 2-0 Prolene suture. Both ports aspirate and flush easily. Fluoroscopic images show distal tip in the superior vena cava. Total fluoroscopic time 0.7 minutes Impression: Successful placement of an upper extremity PICC line catheter
--- NOTE | 2017-07-24 16:46 | Pulmonology Progress Note ---
Assessment/Plan Problems: (1) COPD exacerbation (2) Pneumonia (3) Respiratory distress (4) Morbid obesity Assessment/Plan dc steroids off abx improving respiratory treatment check cultures dc planning Subjective ROS Limited/Unobtainable: No Constitutional: Reports: no symptoms HEENT: Repors: no symptoms Allergies: Coded Allergies: ERYTHROMYCIN BASE (Verified Allergy, Severe, Hives, 01/29/17) SULFAMETHOXAZOLE (Verified Allergy, Severe, Shortness of Breath, 01/29/17) TRIMETHOPRIM (Verified Allergy, Severe, Shortness of Breath, 01/29/17) Objective Last 24 Hour Vital Signs Date Time Temp Pulse Resp B/P (MAP) Pulse Ox O2 Delivery O2 Flow Rate FiO2 07/24/17 15:23 Nasal Cannula 07/24/17 15:23 Nasal Cannula 07/24/17 12:16 98.2 07/24/17 12:00 97.7 79 18 143/73 95 07/24/17 11:44 75 20 100 Nasal Cannula 2.0 28 07/24/17 11:34 83 20 93 Nasal Cannula 3.0 32 07/24/17 08:49 71 20 100 Nasal Cannula 2.0 28 07/24/17 08:40 78 22 95 Nasal Cannula 3.0 32 07/24/17 08:40 95 Nasal Cannula 3.0 32 07/24/17 08:40 78 22 Nasal Cannula 3.0 32 07/24/17 08:40 Nasal Cannula 3.0 32 07/24/17 08:00 97.9 60 18 150/82 98 07/24/17 04:00 98.2 87 20 138/70 91 Nasal Cannula 2.0 07/24/17 03:49 Nasal Cannula 07/24/17 03:49 Nasal Cannula 07/24/17 00:00 98.8 61 20 160/85 90 07/23/17 20:39 85 22 94 Nasal Cannula 2.0 28 07/23/17 20:39 75 20 100 Nasal Cannula 2.0 28 07/23/17 20:00 94 Nasal Cannula 3.0 32 07/23/17 20:00 98.7 63 18 138/70 93 07/23/17 20:00 Nasal Cannula 3.0 32 07/23/17 20:00 72 22 Nasal Cannula 3.0 32 Intake and Output 07/23/17 07/24/17 19:00 07:00 Intake Total 1200 ml 1150 ml Balance 1200 ml 1150 ml Intake Oral 650 ml 500 ml IV Total 550 ml 650 ml # Voids 3 3 Objective Objective General Appearance: no acute distress HEENT: normocephalic, atraumatic Respiratory/Chest: lungs clear, no respiratory distress, no accessory muscle use Cardiovascular: normal rate, no JVD, CL-femoral intact Abdomen: normal bowel sounds, soft, non tender Extremities: no edema Neurologic/Psychiatric: alert, responsive Musculoskeletal: normal muscle bulk Laboratory Tests 07/24/17 06:00: White Blood Count 6.2, Red Blood Count 4.78, Hemoglobin 13.4, Hematocrit 41.6, Mean Corpuscular Volume 87, Mean Corpuscular Hemoglobin 28.0, Mean Corpuscular Hemoglobin Concent 32.1, Red Cell Distribution Width 14.7, Platelet Count 150, Mean Platelet Volume 7.3, Neutrophils (%) (Auto) 69.3, Lymphocytes (%) (Auto) 26.1, Monocytes (%) (Auto) 4.2, Eosinophils (%) (Auto) 0.1, Basophils (%) (Auto ) 0.3, Sodium Level 141, Potassium Level 3.7, Chloride Level 104, Carbon Dioxide Level 31, Anion Gap 6, Blood Urea Nitrogen 20H, Creatinine 0.8, Estimat Glomerular Filtration Rate > 60, Glucose Level 127H, Calcium Level 7.6L, Phosphorus Level 4.3, Magnesium Level 1.9, Total Bilirubin 0.3, Aspartate Amino Transf (AST/SGOT) 19, Alanine Aminotransferase (ALT/SGPT) 34, Alkaline Phosphatase 53, Total Protein 6.9, Albumin 3.0L, Globulin 3.9, Albumin/Globulin Ratio 0.8L Current Medications Medications (Trade) Dose Ordered Sig/Sumeet Route PRN Reason Start Time Stop Time Status Last Admin Dose Admin Acetaminophen (Tylenol) 650 mg Q6H PRN ORAL Mild Pain/Temp > 100.5 07/20/17 19:30 08/13/17 19:29 Albuterol/ Ipratropium (Albuterol/ Ipratropium) 3 ml Q4HRT HHN 07/23/17 11:00 07/28/17 10:59 07/24/17 11:34 Cetylpyridinium Chloride (Cepacol) 1 lozenge Q2H PRN CHAZ SORE THROAT 07/20/17 19:00 2/4/18 18:59 07/24/17 04:39 Chlorhexidine Gluconate (Lynne-Hex 2%) 1 applic DAILY@2000 TOPIC 07/24/17 20:00 08/23/17 19:59 Heparin Sodium (Porcine) (Heparin 5000 units/ml) 5,000 units EVERY 12 HOURS SUBQ 07/20/17 21:00 08/13/17 08:59 07/24/17 08:36 Heparin Sodium/ Sodium Chloride (Heparin 2000 units/Ns 1000ml premix) 2,000 unit ONCE PRN INJ PICC PLACEMENT 07/24/17 14:30 07/25/17 23:59 Lidocaine HCl (Xylocaine 1% 30ml) 30 ml ONCE PRN INJ PICC PLACEMENT 07/24/17 14:45 07/25/17 23:59 Lorazepam (Ativan 2mg/ml 1ml) 2 mg EVERY 2 HOURS PRN IV For Anxiety 07/21/17 08:00 07/28/17 07:59 07/24/17 06:13 Methadone HCl (Methadone HCl) 50 mg DAILY ORAL 07/24/17 09:00 07/31/17 08:59 07/24/17 08:30 Morphine Sulfate (Morphine Sulfate) 4 mg Q3H PRN IVP Severe Breakthru Pain (>7) 07/23/17 14:30 07/30/17 14:29 07/24/17 14:51 Ondansetron HCl (Zofran) 4 mg Q6H PRN IVP Nausea & Vomiting 07/20/17 19:00 08/19/17 18:59 07/22/17 10:14 Pantoprazole (Protonix) 40 mg ACBREAKFAST ORAL 07/24/17 06:30 08/23/17 06:29 07/24/17 06:13 Phenol/Menthol (Chloraseptic) 1 spray EVERY 2 HOURS PRN ORAL sore throat 07/21/17 11:45 08/20/17 11:44 07/24/17 04:39 Sennosides (Senokot) 1 tab DAILYPRN PRN ORAL Constipation 07/20/17 19:30 08/18/17 19:29 07/24/17 08:41 Sodium Chloride 1,000 ml @ 50 mls/hr Q20H IV 07/21/17 13:15 08/20/17 13:14 07/24/17 01:15 RUBIA HUYNH Jul 24, 2017 16:46
[2017-07-24] MEDS ORDERED: NS 275ml ONE (17:45)
[2017-07-24] MEDS ORDERED: Dyna-Hex 2% Top Sol 2oz TOPIC SCH (20:00)
[2017-07-24 20:22] VITALS: BP 147/86
[2017-07-25] VITALS: BP 167/98
[2017-07-25] MEDS: LORazepam Inj 2mg/ml 1ml IV PRN ×4 (01:09→12:52)
[2017-07-25] MEDS: Morphine Sulfate 4mg/ml Inj IVP PRN ×3 (02:53→12:09)
[2017-07-25 04:00] VITALS: BP 137/81
[2017-07-25] MEDS: Albuterol/Ipratropium 3ml neb HHN SCH ×3 (06:47→10:43)
[2017-07-25 08:00] VITALS: BP 127/88
[2017-07-25] MEDS: Heparin 5000 units/ml inj SUBQ SCH (08:27)
--- NOTE | 2017-07-25 08:54 | General Progress Note ---
Assessment/Plan Assessment/Plan (1) Acute respiratory failure s/p extubation (2) COPD Exacerbation (3) Polysubstance abuse on Methadone (4) Lumbar DDD (5) Lumbar Spondylosis (6) Lumbar Radiculopathy (7) Right hip pain (8) Right hip OA Pt to be continued on Methadone and Morphine D/w Dr. Mena and he concurred. Subjective Date patient seen: Jul 25, 2017 Time patient seen: 07:00 - am Allergies: Coded Allergies: ERYTHROMYCIN BASE (Verified Allergy, Severe, Hives, 01/29/17) SULFAMETHOXAZOLE (Verified Allergy, Severe, Shortness of Breath, 01/29/17) TRIMETHOPRIM (Verified Allergy, Severe, Shortness of Breath, 01/29/17) Subjective REVIEW OF SYSTEMS Constitutional: Reports: weakness HEENT: Reports: throat pain, throat swelling Cardiovascular: Reports: no symptoms Respiratory: Reports: shortness of breath Gastrointestinal/Abdominal: Reports: no symptoms Genitourinary: Reports: no symptoms Neurologic/Psychiatric: Reports: numbness, weakness Endocrine: Reports: no symptoms Hematologic/Lymphatic: Reports: no symptoms SUBJECTIVE: Pt is in no acute distress. She reports cough and throat pain with difficultly talking and swallowing. Pt continues to receive the Methadone and Morphine. Objective Last 24 Hour Vital Signs Date Time Temp Pulse Resp B/P (MAP) Pulse Ox O2 Delivery O2 Flow Rate FiO2 07/25/17 08:16 97.9 07/25/17 06:56 82 18 98 Nasal Cannula 3.0 32 07/25/17 06:47 96 Nasal Cannula 3.0 32 07/25/17 06:47 80 20 96 Nasal Cannula 3.0 32 07/25/17 06:47 97 22 Nasal Cannula 3.0 32 07/25/17 06:47 Nasal Cannula 3.0 32 07/25/17 04:00 97.9 66 20 137/81 94 07/25/17 03:43 Nasal Cannula 07/25/17 03:43 Nasal Cannula 07/25/17 03:42 72 18 94 Nasal Cannula 3.0 32 07/25/17 00:04 Nasal Cannula 07/25/17 00:03 Nasal Cannula 07/25/17 00:03 72 18 Nasal Cannula 3.0 32 07/25/17 00:00 98.0 71 19 167/98 94 07/24/17 20:31 Nasal Cannula 07/24/17 20:30 Nasal Cannula 07/24/17 20:22 98.7 72 18 147/86 93 07/24/17 19:11 74 20 Nasal Cannula 3.0 32 07/24/17 19:11 96 Nasal Cannula 3.0 32 07/24/17 19:11 Nasal Cannula 3.0 32 07/24/17 17:10 78 20 95 Nasal Cannula 3.0 32 07/24/17 16:00 97.9 59 19 149/80 98 07/24/17 15:23 Nasal Cannula 07/24/17 15:23 Nasal Cannula 07/24/17 12:00 97.7 79 18 143/73 95 07/24/17 11:44 75 20 100 Nasal Cannula 2.0 28 07/24/17 11:34 83 20 93 Nasal Cannula 3.0 32 Intake and Output 07/24/17 07/25/17 19:00 07:00 Intake Total 750 ml 790 ml Balance 750 ml 790 ml Intake Oral 200 ml 240 ml IV Total 550 ml 550 ml # Voids 2 4 Height (Feet): 5 Height (Inches): 4.00 Weight (Pounds): 183 Objective GENERAL: Alert, awake. LUNGS: Decreased breath sounds bilaterally. The patient is intubated, on ventilator. HEART: S1, S2. Regular. ABDOMEN: Obese. EXTREMITIES: No cyanosis. No clubbing. With edema noted. NEUROLOGIC: No changes. ADRIANA JUNIOR Jul 25, 2017 08:53
--- NOTE | 2017-07-25 11:39 | Infectious Diseases Prog Note ---
Assessment/Plan Assessment/Plan COPD exacerbation Possible CAP, s/p Rx -CXR 07/20: no acute process -CXR 07/15: Slight improvement in interstitial edema/opacification and improved aeration of the left base -CXR 07/13: Cardiomegaly with bilateral interstitial opacification and more focal haziness in the right lower lung. Findings may related to fluid overload/ pulmonary edema. Superimposed pneumonia is not excluded. -Influenza neg -sp cx 07/16 +4 S. pneumonia (R penicillin, S Ceftriaxone) Acute respiratory failure s/p intubation- extubated 07/19 Fever/leukocytosis- resolved -ucx neg -Bcx Neg HTN Asthma/COPD Lumbar DJD w/ radiculopathy Pain disorder Prior heroin abuse now on Chronic methadone Plan: -Continue to monitor off abx -07/21 SP PO Levaquin # 5 /5 for possible CAP -Monitor CBC/BMP, temperatures -Aspiration precautions Subjective Allergies: Coded Allergies: ERYTHROMYCIN BASE (Verified Allergy, Severe, Hives, 01/29/17) SULFAMETHOXAZOLE (Verified Allergy, Severe, Shortness of Breath, 01/29/17) TRIMETHOPRIM (Verified Allergy, Severe, Shortness of Breath, 01/29/17) Subjective aFebrile no leukocytosis 3l NC Objective Vital Signs Last 24 Hour Vital Signs Date Time Temp Pulse Resp B/P (MAP) Pulse Ox O2 Delivery O2 Flow Rate FiO2 07/25/17 10:53 84 20 97 Nasal Cannula 3.0 32 07/25/17 10:44 82 18 92 Nasal Cannula 3.0 32 07/25/17 08:16 97.9 07/25/17 08:00 98.3 60 19 127/88 98 07/25/17 06:56 82 18 98 Nasal Cannula 3.0 32 07/25/17 06:47 96 Nasal Cannula 3.0 32 07/25/17 06:47 80 20 96 Nasal Cannula 3.0 32 07/25/17 06:47 97 22 Nasal Cannula 3.0 32 07/25/17 06:47 Nasal Cannula 3.0 32 07/25/17 04:00 97.9 66 20 137/81 94 07/25/17 03:43 Nasal Cannula 07/25/17 03:43 Nasal Cannula 07/25/17 03:42 72 18 94 Nasal Cannula 3.0 32 07/25/17 00:04 Nasal Cannula 07/25/17 00:03 Nasal Cannula 07/25/17 00:03 72 18 Nasal Cannula 3.0 32 07/25/17 00:00 98.0 71 19 167/98 94 07/24/17 20:31 Nasal Cannula 07/24/17 20:30 Nasal Cannula 07/24/17 20:22 98.7 72 18 147/86 93 07/24/17 19:11 74 20 Nasal Cannula 3.0 32 07/24/17 19:11 96 Nasal Cannula 3.0 32 07/24/17 19:11 Nasal Cannula 3.0 32 07/24/17 17:10 78 20 95 Nasal Cannula 3.0 32 07/24/17 16:00 97.9 59 19 149/80 98 07/24/17 15:23 Nasal Cannula 07/24/17 15:23 Nasal Cannula 07/24/17 12:00 97.7 79 18 143/73 95 07/24/17 11:44 75 20 100 Nasal Cannula 2.0 28 Height (Feet): 5 Height (Inches): 4.00 Weight (Pounds): 183 Objective GENERAL: No acute distress. PULMONARY: Decreased breath sounds. CARDIOVASCULAR: Regular rate. No S3 or S4. ABDOMEN: Soft, nontender, and nondistended. EXTREMITIES: No cyanosis, swelling, or edema. Microbiology Date/Time Source Procedure Growth Status 07/24/17 18:30 Sputum Expectorated Gram Stain - Final Resulted 07/24/17 18:30 Sputum Expectorated Sputum Culture Pending Resulted Current Medications Medications (Trade) Dose Ordered Sig/Sumeet Route PRN Reason Start Time Stop Time Status Last Admin Dose Admin Acetaminophen (Tylenol) 650 mg Q6H PRN ORAL Mild Pain/Temp > 100.5 07/20/17 19:30 08/13/17 19:29 Albuterol/ Ipratropium (Albuterol/ Ipratropium) 3 ml Q4HRT HHN 07/23/17 11:00 07/28/17 10:59 07/25/17 10:43 Cetylpyridinium Chloride (Cepacol) 1 lozenge Q2H PRN CHAZ SORE THROAT 07/20/17 19:00 08/19/17 18:59 07/24/17 04:39 Chlorhexidine Gluconate (Lynne-Hex 2%) 1 applic DAILY@2000 TOPIC 07/24/17 20:00 08/23/17 19:59 07/24/17 20:18 Heparin Sodium (Porcine) (Heparin 5000 units/ml) 5,000 units EVERY 12 HOURS SUBQ 07/20/17 21:00 08/13/17 08:59 07/24/17 20:28 Heparin Sodium/ Sodium Chloride (Heparin 2000 units/Ns 1000ml premix) 2,000 unit ONCE PRN INJ PICC PLACEMENT 07/24/17 14:30 07/25/17 23:59 Lidocaine HCl (Xylocaine 1% 30ml) 30 ml ONCE PRN INJ PICC PLACEMENT 07/24/17 14:45 07/25/17 23:59 Lorazepam (Ativan 2mg/ml 1ml) 2 mg EVERY 2 HOURS PRN IV For Anxiety 07/21/17 08:00 07/28/17 07:59 07/25/17 10:19 Methadone HCl (Methadone HCl) 50 mg DAILY ORAL 07/24/17 09:00 07/31/17 08:59 07/25/17 08:26 Morphine Sulfate (Morphine Sulfate) 4 mg Q3H PRN IVP Severe Breakthru Pain (>7) 07/23/17 14:30 07/30/17 14:29 07/25/17 07:46 Ondansetron HCl (Zofran) 4 mg Q6H PRN IVP Nausea & Vomiting 07/20/17 19:00 08/19/17 18:59 07/25/17 10:19 Pantoprazole (Protonix) 40 mg ACBREAKFAST ORAL 07/24/17 06:30 08/23/17 06:29 07/25/17 06:00 Phenol/Menthol (Chloraseptic) 1 spray EVERY 2 HOURS PRN ORAL sore throat 07/21/17 11:45 08/20/17 11:44 07/24/17 04:39 Sennosides (Senokot) 1 tab DAILYPRN PRN ORAL Constipation 07/20/17 19:30 08/18/17 19:29 07/24/17 08:41 Sodium Chloride 1,000 ml @ 50 mls/hr Q20H IV 07/21/17 13:15 08/20/17 13:14 07/24/17 20:19 Irene Farley M.D. Jul 25, 2017 11:39
[2017-07-25 12:00] VITALS: BP 119/68
[2017-07-25] MEDS ORDERED: Sterile Water Irrig 1000ml IRRIG ONE (13:12)
[2017-07-25] MEDS ORDERED: NS 275ml ONE (13:12)
[2017-07-25] MEDS ORDERED: NS 500ML ONE ×3 (13:12)
[2017-07-25] MEDS ORDERED: Tubing IV Secondary IV ONE (13:12)
--- NOTE | 2017-07-25 16:16 | Pulmonology Progress Note ---
Assessment/Plan Problems: (1) COPD exacerbation (2) Pneumonia (3) Respiratory distress (4) Morbid obesity Assessment/Plan dc steroids off abx improving respiratory treatment check cultures dc planning to home today Subjective ROS Limited/Unobtainable: No Constitutional: Reports: no symptoms Respiratory: Reports: no symptoms Allergies: Coded Allergies: ERYTHROMYCIN BASE (Verified Allergy, Severe, Hives, 01/29/17) SULFAMETHOXAZOLE (Verified Allergy, Severe, Shortness of Breath, 01/29/17) TRIMETHOPRIM (Verified Allergy, Severe, Shortness of Breath, 01/29/17) Objective Last 24 Hour Vital Signs Date Time Temp Pulse Resp B/P (MAP) Pulse Ox O2 Delivery O2 Flow Rate FiO2 07/25/17 12:39 97.9 07/25/17 12:00 98.0 89 19 119/68 98 07/25/17 10:53 84 20 97 Nasal Cannula 3.0 32 07/25/17 10:44 82 18 92 Nasal Cannula 3.0 32 07/25/17 08:00 98.3 60 19 127/88 98 07/25/17 06:56 82 18 98 Nasal Cannula 3.0 32 07/25/17 06:47 96 Nasal Cannula 3.0 32 07/25/17 06:47 80 20 96 Nasal Cannula 3.0 32 07/25/17 06:47 97 22 Nasal Cannula 3.0 32 07/25/17 06:47 Nasal Cannula 3.0 32 07/25/17 04:00 97.9 66 20 137/81 94 07/25/17 03:43 Nasal Cannula 07/25/17 03:43 Nasal Cannula 07/25/17 03:42 72 18 94 Nasal Cannula 3.0 32 07/25/17 00:04 Nasal Cannula 07/25/17 00:03 Nasal Cannula 07/25/17 00:03 72 18 Nasal Cannula 3.0 32 07/25/17 00:00 98.0 71 19 167/98 94 07/24/17 20:31 Nasal Cannula 07/24/17 20:30 Nasal Cannula 07/24/17 20:22 98.7 72 18 147/86 93 07/24/17 19:11 74 20 Nasal Cannula 3.0 32 07/24/17 19:11 96 Nasal Cannula 3.0 32 07/24/17 19:11 Nasal Cannula 3.0 32 07/24/17 17:10 78 20 95 Nasal Cannula 3.0 32 Intake and Output 07/24/17 07/25/17 19:00 07:00 Intake Total 750 ml 790 ml Balance 750 ml 790 ml Intake Oral 200 ml 240 ml IV Total 550 ml 550 ml # Voids 2 4 Objective Objective General Appearance: no acute distress HEENT: normocephalic, atraumatic Respiratory/Chest: lungs clear, no respiratory distress, no accessory muscle use Cardiovascular: normal rate, no JVD, CL-femoral intact Abdomen: normal bowel sounds, soft, non tender Extremities: no edema Neurologic/Psychiatric: alert, responsive Musculoskeletal: normal muscle bulk Microbiology Date/Time Source Procedure Growth Status 07/24/17 18:30 Sputum Expectorated Gram Stain - Final Resulted 07/24/17 18:30 Sputum Expectorated Sputum Culture Pending Resulted RUBIA HUYNH Jul 25, 2017 16:16
--- NOTE | 2017-07-27 23:24 | Discharge Summary ---
Discharge Summary Hospital Course Date of Admission Jul 13, 2017 at 18:00 Date of Discharge Jul 25, 2017 at 13:13 Admitting Diagnosis respiratory distress, hypoxia HPI April Carlos is a 61 year old female who was admitted on Jul 13, 2017 at 18:00 for Respiratory Distress, Hypoxia Hospital Course [id number] Discharge Discharge Disposition Patient was discharged to Home with Discharge Diagnoses: Adriane Mallory NP Jul 27, 2017 23:24
--- NOTE | 2017-07-29 03:00 | Discharge Summary 2 SIG ---
DATE OF ADMISSION: 07/13/2017 DATE OF DISCHARGE: 07/25/2017 NOTE: POOR AUD[employer] QUALITY CONSULTANTS: 1. Jj Mena M.D. 2. Irene Farley M.D. 3. Nando Mccracken M.D. BRIEF HOSPITAL COURSE: The patient is a 61-year-old female, who had been admitted to [facility] in 03/2017, presented back to the hospital with confusion. She has extensive past medical history and has been on methadone chronically. She has history of hypertension, asthma, COPD, and pain disorder. She presented to ED due to respiratory distress. Respirations have been worsening over the past several days and was confused. On evaluation at ED, O2 saturation was 78% on room air. She was initially placed on BiPAP. Central line was inserted to the right femoral. She could not tolerate BiPAP very well and appeared to have worsening ABG. She required oral intubation and was admitted to ICU. Chest x-ray done showed bilateral interstitial disease. She was placed on ventilatory support and was started by infectious diseases specialist on Levaquin for possible CAP. Pain management was consulted. The patient has been receiving 88 mg methadone daily as verified with [facility] due to heroin abuse. Methadone was tapered down for weaning process. She was continued on morphine 2 mg IV p.r.n. Repeat chest x-ray showed slight improvement in interstitial edema. Influenza screens were negative and blood culture did not isolate any growth. She was finally extubated on 07/19/2017. She was tapered off steroid treatment. She received five days of Levaquin. She was tolerating on nasal cannula. She was continued on methadone and morphine. She passed swallow evaluation and was placed on aspiration precautions. Sputum culture showed growth of Streptococcus. Steroids were eventually discontinued and the patient was taken off antibiotic treatment. Right femoral central line was discontinued and a PICC line was inserted to the left upper extremity. The patient was eventually discharged home with home health. FINAL DIAGNOSES: 1. Acute respiratory failure, requiring intubation, status post extubation. 2. Ataxia with exacerbation. 3. Possible community-acquired pneumonia. 4. Hypertension. 5. Degenerative joint disease with radiculopathy. 6. Prior heroin abuse, currently on methadone. 7. Pain disorder. 8. Lumbar radiculopathy. 9. Right hip osteoarthritis. 10. Lumbar degenerative joint disease. 11. Morbid obesity. DISPOSITION: The patient was discharged home with home health. DISCHARGE MEDICATIONS: Refer to medication list. DISCHARGE INSTRUCTIONS: Follow up with PMD in a week. Derik Stewart M.D. I have been assigned to dictate discharge summary on this account and I was not involved in the patient's management. Adriane Mallory N.P. DR: Vinod JOB#: [id number] CC: EMRE
--- NOTE | 2017-08-09 12:56 | Diagnostic Imaging Report ---
Indications: Dysphagia Technique: Patient ingested multiple substances under the supervision of speech pathology. Video fluoroscopic recording performed. Total fluoroscopy time 200 seconds. Total dose area product [id number] mGycm2 Comparison: none Findings: There is delay in initiation of deglutition. Cecilio aspiration of thin liquid barium was demonstrated, as well as multiple episodes of laryngeal penetration. Aspiration of nectar thick liquid barium was also observed, as well as multiple episodes of laryngeal penetration. No aspiration or penetration with swallowing of honey thick liquid barium or barium puree Impression: Positive for aspiration of thin and nectar thick liquid barium Please refer to speech pathology report for more detailed analysis
== END 2017-07-25 13:13 | disposition home or self-care (01) | DRG 130 ==
LOC: EMR 17:33 → ICU 18:00 → EDBEDREQSVC 22:10 → EDBEDREQ 07-14 02:52 → 2W 07-19 19:22 → 4E 07-20 18:38 → 3E 07-21 06:50
PROC: 5A1955Z Respiratory Ventilation, Greater than 96 Consecutive Hours (ICD-10-PCS; principal; 2017-07-13)
PROC: 0BH17EZ Insertion of Endotracheal Airway into Trachea, Via Natural or Artificial Opening (ICD-10-PCS; 2017-07-13)
PROC: 06HM33Z Insertion of Infusion Device into Right Femoral Vein, Percutaneous Approach (ICD-10-PCS; 2017-07-13)
PROC: 02HV33Z Insertion of Infusion Device into Superior Vena Cava, Percutaneous Approach (ICD-10-PCS; 2017-07-24)
DX: J96.01 Acute respiratory failure with hypoxia (principal); G93.40 Encephalopathy, unspecified; J15.4 Pneumonia due to other streptococci; E66.01 Morbid (severe) obesity due to excess calories; F11.20 Opioid dependence, uncomplicated; J44.1 Chronic obstructive pulmonary disease with (acute) exacerbation; R27.0 Ataxia, unspecified; I10 Essential (primary) hypertension; M16.11 Unilateral primary osteoarthritis, right hip; M47.26 Other spondylosis with radiculopathy, lumbar region; Z88.1 Allergy status to other antibiotic agents; Z88.3 Allergy status to other anti-infective agents; Z88.2 Allergy status to sulfonamides
CPT/HCPCS: 36415; 36569; 36600; 71010; 71045; 74000; 74018; 74230; 76937; 80048; 80053; 80307; 81003; 82150; 82550; 82553; 82803; 82962; 83690; 83735; 83880; 84100; 84478; 84484; 85025; 86710; 87040; 87070; 87081; 87086; 87181; 87205; 90630; 93005; 94002; 94003; 94640; 94664; 94760; 99285; J2405; J7620; J8499

== ENCOUNTER 2017-07-29 12:49 | Emergency (ER) | payer OTHER ==
[~2017-07-29] VITALS: Ht 162.6 cm; Wt 77.1 kg
[~2017-07-29 12:49] MED LIST changes: +ALBUTEROL SULF8.5 GM INH; +METHADONE10 MG/1 M1 PO; +ZITHROMAX250 MG ORAL
[2017-07-29 13:40] VITALS: BP 101/81
[2017-07-29] MEDS ORDERED: Albuterol/Ipratropium 3ml neb HHN ONE (13:45)
[2017-07-29] MEDS ORDERED: D5 1/2NS 1,000 ML IV SCH (14:00)
[2017-07-29] MEDS ORDERED: Lidocaine 2% Visc 15ml soln ORAL ONE (14:30)
[2017-07-29 14:31] LABS: BASOPHILS % (AUTO) 1.4 % (0.0-2.0); EOSINOPHILS % (AUTO) 4.3 % (0.0-3.0); HEMATOCRIT 39.2 % (37.0-47.0); HEMOGLOBIN 12.4 G/DL (12.0-16.0); LYMPHOCYTES % (AUTO) 42.3 % (20.0-45.0); MEAN CORPUSCULAR VOLUME 87 FL (80-99); MONOCYTES % (AUTO) 9.4 % (1.0-10.0); NEUTROPHILS % (AUTO) 42.5 % (45.0-75.0); PLATELET COUNT 153 K/UL (150-450); RED BLOOD COUNT 4.49 M/UL (4.20-5.40); RED CELL DISTRIBUTION WIDTH 14.4 % (11.6-14.8); WHITE BLOOD COUNT 6.4 K/UL (4.8-10.8)
[2017-07-29 14:45] LABS: ANION GAP 6 mmol/L (5-15); BLOOD UREA NITROGEN 9 mg/dL (7-18); CALCIUM 8.7 MG/DL (8.5-10.1); CARBON DIOXIDE 34 MMOL/L (21-32); CHLORIDE 101 MMOL/L (98-107); CREATININE 0.8 MG/DL (0.55-1.30); SODIUM 141 MMOL/L (136-145)
[2017-07-29 14:51] LABS: ALANINE AMINOTRANSFERASE 22 U/L (12-78); ALBUMIN 3.1 G/DL (3.4-5.0); ALBUMIN/GLOBULIN RATIO 0.8 (1.0-2.7); ALKALINE PHOSPHATASE 71 U/L (46-116); ASPARTATE AMINO TRANSFERASE 22 U/L (15-37); BILIRUBIN,TOTAL 0.4 MG/DL (0.2-1.0)
[2017-07-29] MEDS ORDERED: LIDOCAINE VISC100 ML ORAL (15:00)
[2017-07-29 15:43] VITALS: BP 121/65
--- NOTE | 2017-07-29 16:30 | Emergency Room Report ---
History of Present Illness General Chief Complaint: Fever Source: Patient, Medical Record Present Illness HPI Patient is a 61-year-old female who presented after increase fever. The patient had recently been discharged from the hospital. She had been followed by home health. She had a PICC line. The patient had recently been discharged from the hospital with history of COPD. Patient's currently on methadone. She denies any vomiting or diarrhea. She reports having a nonproductive cough associated with some difficulty breathing. Patient states that she had a very hard time swallowing and was recently extubated after CO2 retention Allergies: Coded Allergies: ERYTHROMYCIN BASE (Verified Allergy, Severe, Hives, 01/29/17) SULFAMETHOXAZOLE (Verified Allergy, Severe, Shortness of Breath, 01/29/17) TRIMETHOPRIM (Verified Allergy, Severe, Shortness of Breath, 01/29/17) Patient History Past Medical History: see triage record Reviewed Nursing Documentation: PMH: Agreed, PSxH: Agreed Nursing Documentation-PMH Past Medical History: No History, Except For Hx Cardiac Problems: Yes Hx Hypertension: Yes Hx Asthma: Yes Hx COPD: Yes Hx Diabetes: Yes Hx Cancer: No Hx Gastrointestinal Problems: No Hx Neurological Problems: No Review of Systems All Other Systems: negative except mentioned in HPI Physical Exam Vital Signs Date Time Temp Pulse Resp B/P (MAP) Pulse Ox O2 Delivery O2 Flow Rate FiO2 07/29/17 12:50 98.2 87 16 135/79 92 Nasal Cannula 2.5 07/29/17 15:05 28 Sp02 EP Interpretation: reviewed, normal General Appearance: normal inspection, well appearing, no apparent distress, alert, GCS 15, Chronically Ill Head: atraumatic ENT: normal ENT inspection, hearing grossly normal, normal voice Neck: normal inspection, full range of motion, supple, no bony tend Respiratory: normal inspection, no respiratory distress, no retraction, wheezing Cardiovascular #1: regular rate, rhythm, no edema Gastrointestinal: normal inspection, normal bowel sounds, non tender, soft, no guarding, no hernia Genitourinary: no CVA tenderness Musculoskeletal: normal inspection, back normal, normal range of motion Neurologic: normal inspection, alert, oriented x3, responsive, incident response analyst III-XII nml as tested, speech normal Psychiatric: normal inspection, judgement/insight normal, mood/affect normal Skin: normal inspection, normal color, no rash Medical Decision Making Diagnostic Impression: Primary Impression: COPD (chronic obstructive pulmonary disease) Additional Impressions: Oxygen dependent PICC (peripherally inserted central catheter) removal ER Course Patient presented for fever. Differential included but was not limited to anemia, pneumonia, pneumothorax, myocardial infarction, pericardial effusion, congestive heart failure, acidosis. The patient given breathing treatment. The left her testing was unremarkable. The patient was given some IV fluids. The patient's PICC line was removed after discussion with Dr. gracia. The patient was discharged home to resume previous medications.Patient given prescription for viscous lidocaine for her sore throat Last Vital Signs Date Time Temp Pulse Resp B/P (MAP) Pulse Ox O2 Delivery O2 Flow Rate FiO2 07/29/17 15:43 98.2 83 13 121/65 94 Nasal Cannula 2.0 07/29/17 15:35 28 Status: improved Disposition: HOME, SELF-CARE Condition: Stable Scripts Lidocaine HCl 2% Viscous (Lidocaine HCl 2% Viscous) 100 Ml Solution 15 ML ORAL QID for For Pain, #150 ML Prov: Rigo Chan 07/29/17 Referrals: LETITIA FERANNDEZ M.D. (PCP) Patient Instructions: Chronic Obstructive Pulmonary Disease Rigo Chan Jul 29, 2017 16:30
--- NOTE | 2017-07-30 08:03 | Diagnostic Imaging Report ---
Indication: Dyspnea Technique: XRAY Chest 1v Comparison: 07/20/2017 Findings: Heart size and mediastinal contours are stable. There is unchanged evidence of prior surgery in the right lung. There is no focal consolidation, pleural effusion or pneumothorax. No evidence of pulmonary edema. There is unchanged prominence of the right hilum. Left arm PICC line has its catheter tip in the region of the lower SVC. No acute osseous abnormality is seen. Impression: No radiographic evidence of acute cardiopulmonary disease.
== END 2017-07-29 15:46 | disposition home or self-care (01) ==
LOC: EMR 13:15
DX: J44.9 Chronic obstructive pulmonary disease, unspecified (principal); Z99.81 Dependence on supplemental oxygen; Z45.2 Encounter for adjustment and management of vascular access device; R50.9 Fever, unspecified; I10 Essential (primary) hypertension; E11.9 Type 2 diabetes mellitus without complications; Z88.2 Allergy status to sulfonamides; Z88.1 Allergy status to other antibiotic agents
CPT/HCPCS: 36415; 71045; 80053; 85025; 94640; 94664; 96360; 99284; J7620

== ENCOUNTER 2017-09-21 16:36 | Emergency (ER) | payer OTHER ==
[~2017-09-21] VITALS: Ht 162.6 cm; Wt 113.4 kg
[~2017-09-21 16:36] MED LIST changes: +LIDOCAINE VISC100 ML ORAL
[2017-09-21 18:17] VITALS: BP 111/62
[2017-09-21] MEDS ORDERED: Norco 5mg/325mg tab ORAL ONE (18:30)
--- NOTE | 2017-09-21 18:32 | Emergency Room Report ---
History of Present Illness General Chief Complaint: Upper Extremity Injury Source: Patient, Medical Record Present Illness HPI 62-year-old female presents to the emergency department complaining of 10 out of 10 in severity localized pain to the right wrist 2 weeks. Patient reports that 2 weeks ago she was reaching into the freezer and one of the shelves fell onto her hand. Patient states that she continued to have worsening of her symptoms with no improvement since she went to urgent care today had x-rays performed and was told that she has wrist fracture as well as dislocated thumb. Patient was sent to the emergency department. Patient reports from out of 10 in severity pain to the thumb however states the majority of her pain is in the wrist with associated bruising and swelling. Patient states she takes Dilaudid orally chronic pain. Denies numbness tingling or loss of sensation or gross motor movements of the extremities, incontinence of bowel or bladder. Denies CP , Palpitations, LOC, AMS, dizziness, Changes in Vision, Sensation, paresthesias , or a sudden severe headache. Allergies: Coded Allergies: ERYTHROMYCIN BASE (Verified Allergy, Severe, Hives, 01/29/17) SULFAMETHOXAZOLE (Verified Allergy, Severe, Shortness of Breath, 01/29/17) TRIMETHOPRIM (Verified Allergy, Severe, Shortness of Breath, 01/29/17) Uncoded Allergies: TRMADOL (Allergy, Unknown, 09/21/17) Patient History Past Medical History: see triage record Past Surgical History: none Pertinent Family History: none Reviewed Nursing Documentation: PMH: Agreed, PSxH: Agreed Nursing Documentation-PMH Past Medical History: No History, Except For Hx Cardiac Problems: Yes Hx Hypertension: Yes Hx Asthma: Yes Hx COPD: Yes Hx Diabetes: Yes Hx Cancer: No Hx Gastrointestinal Problems: No Hx Neurological Problems: No Review of Systems All Other Systems: negative except mentioned in HPI Physical Exam Vital Signs Date Time Temp Pulse Resp B/P (MAP) Pulse Ox O2 Delivery O2 Flow Rate FiO2 09/21/17 16:44 98.7 61 18 111/62 100 Room Air 98.8 Sp02 EP Interpretation: reviewed, normal General Appearance: alert, GCS 15, non-toxic, mild distress Head: normocephalic, atraumatic ENT: hearing grossly normal, normal voice Neck: full range of motion Respiratory: lungs clear, normal breath sounds, speaking full sentences Cardiovascular #1: regular rate, rhythm, normal capillary refill Musculoskeletal: back normal, gait/station normal, normal range of motion - with pain, other - no increased laxity of the thumb, tender - TTP to the right wrist, bruising noted, and swelling, TTp to the right thumb. NVI. Neurologic: alert, oriented x3, responsive, motor strength/tone normal, sensory intact, normal gait, speech normal, grossly normal Psychiatric: judgement/insight normal Skin: no rash, warm/dry, well hydrated, other - bruise to the right wrist. Medical Decision Making PA Attestation Dr. Chan is my supervising Physician whom patient management has been discussed with. Diagnostic Impression: Primary Impression: Right wrist fracture Qualified Codes: S62.101A - Fracture of unspecified carpal bone, right wrist, initial encounter for closed fracture Additional Impressions: Radial head fracture, closed Qualified Codes: S52.124A - Nondisplaced fracture of head of right radius, initial encounter for closed fracture Ulna distal fracture Qualified Codes: S52.601A - Unspecified fracture of lower end of right ulna, initial encounter for closed fracture ER Course 62-year-old female presents to the emergency department complaining of 10 out of 10 in severity localized pain to the right wrist 2 weeks. Patient reports that 2 weeks ago she was reaching into the freezer and one of the shelves fell onto her hand. Patient states that she continued to have worsening of her symptoms with no improvement since she went to urgent care today had x-rays performed and was told that she has wrist fracture as well as dislocated thumb. Patient was sent to the emergency department. Patient reports from out of 10 in severity pain to the thumb however states the majority of her pain is in the wrist with associated bruising and swelling. Patient states she takes Dilaudid orally chronic pain. Denies numbness tingling or loss of sensation or gross motor movements of the extremities, incontinence of bowel or bladder. Denies CP , Palpitations, LOC, AMS, dizziness, Changes in Vision, Sensation, paresthesias , or a sudden severe headache. Ddx considered but are not limited to Fracture, dislocation, contusion, Sprain/ Strain/Spasm. Vital signs: are WNL, pt. is afebrile H&PE are most consistent with musculoskeletal injury will perform imaging to r/ o fractures/dislocations. ORDERS: - X-ray Right Wrist and Right hand: fracture of distal radius and ulna no displacement, no dislocations.; ED INTERVENTIONS: - [place] PO -Thumb Spika Splint applied by ultrasound technol. Pt. remains neurovascularly intact. -- Right arm Sling applied by ultrasound technol. Pt. remains neurovascularly intact. DISCHARGE: At this time pt. is stable for d/c to home. Will provide printed patient care instructions, and any necessary prescriptions. Care plan and follow up instructions have been discussed with the patient prior to discharge. Other X-Ray Diagnostic Results Other X-Ray Diagnostic Results #1: X-Ray ordered: Right Wrist # of Views/Limited Vs Complete: 3 View Indication: Pain EP Interpretation: Yes PA Xray: Interpretation reviewed, by supervising MD, and agrees with findings. Interpretation: no dislocation, other - Positive for fracture of distal radius and ulna no displacement Impression: Other - abnormal Electronically Signed by: Esme Medellin PA-C Other X-Ray Diagnostic Results #2: X-Ray ordered: Right hand # of Views/Limited Vs Complete: 3 View Indication: Pain EP Interpretation: Yes PA Xray: Interpretation reviewed, by supervising MD, and agrees with findings. Interpretation: no dislocation, no soft tissue swelling, other - fracture of distal radius and ulna no displacement Impression: Other - abnormal Electronically Signed by: Esme Medellin PA-C Last Vital Signs Date Time Temp Pulse Resp B/P (MAP) Pulse Ox O2 Delivery O2 Flow Rate FiO2 09/21/17 18:17 98.8 86 18 111/62 100 Room Air 98.8 Disposition: HOME, SELF-CARE Condition: Stable Referrals: [facility],REFERRING (PCP) Patient Instructions: Wrist Fracture Additional Instructions: Take continue previously prescribed medications as directed. Follow up with a Retail Service Specialist in 3-5 days, --Please review list of primary care clinics, if you do not already have a primary care provider who can provide you an orthopedic referral. Return sooner to ED if new symptoms occur, or current symptoms become worse. - Please note that this Emergency Department Report was dictated using Flixlabfilling operator technology software, occasionally this can lead to erroneous entry secondary to interpretation by the dictation equipment. Esme Medellin Sep 21, 2017 18:32
[2017-09-21 19:30] VITALS: BP 111/62
--- NOTE | 2017-09-22 10:09 | Diagnostic Imaging Report ---
Indication: Right hand pain Technique: Right hand 3 views Comparison: None Findings: There is no acute fracture or dislocation. Soft tissue swelling is noted. There is osteopenia. Impression: No acute osseous abnormality. Soft tissue swelling.
--- NOTE | 2017-09-22 10:11 | Diagnostic Imaging Report ---
Indication: Right wrist pain Technique: XRAY Wrist Complete R Comparison: None Findings: There is no radiographically evident displaced fracture or dislocation. There is degenerative narrowing of the triscaphe articulation. Soft tissue swelling is noted. There is osteopenia. Impression: No radiographically evident displaced fracture or dislocation. Soft tissue swelling. If there is clinical concern for a radiographically occult scaphoid injury, short-term follow-up/further evaluation recommended.
== END 2017-09-21 19:32 | disposition home or self-care (01) ==
LOC: EMR 17:40
DX: S62.101A Fracture of unspecified carpal bone, right wrist, initial encounter for closed fracture (principal); S52.122A Displaced fracture of head of left radius, initial encounter for closed fracture; S52.601A Unspecified fracture of lower end of right ulna, initial encounter for closed fracture; W20.8XXA Other cause of strike by thrown, projected or falling object, initial encounter; Y92.89 Other specified places as the place of occurrence of the external cause; Z88.2 Allergy status to sulfonamides; Z88.1 Allergy status to other antibiotic agents; Z88.6 Allergy status to analgesic agent; I10 Essential (primary) hypertension; J44.9 Chronic obstructive pulmonary disease, unspecified; E11.9 Type 2 diabetes mellitus without complications
CPT/HCPCS: 99284

== ENCOUNTER 2017-11-25 21:22 | Emergency (ER) | payer OTHER ==
[~2017-11-25] VITALS: Ht 157.5 cm; Wt 99.8 kg
[2017-11-25 21:45] VITALS: BP 140/87
--- NOTE | 2017-11-25 21:56 | Emergency Room Report ---
History of Present Illness General Chief Complaint: Lower Back Pain or Injury Source: Patient, Medical Record Present Illness HPI This is a 62-year-old female with multiple medical problem. She has chronic pain secondary to her back problem and surgery in the past. She presents with chief complaint of left-sided flank pain and back pain his been ongoing for a month. She thinks his kidney infection. She seen her Dr. before and so the urine was negative. Pain now radiates to her groin. No fever chills but no nausea no vomiting. Denies any other complaint. She did break out in a rash to her mid lip and back of her right neck area. Itching in nature. Denies any other complaint. Allergies: Coded Allergies: ERYTHROMYCIN BASE (Verified Allergy, Severe, Hives, 01/29/17) SULFAMETHOXAZOLE (Verified Allergy, Severe, Shortness of Breath, 01/29/17) TRIMETHOPRIM (Verified Allergy, Severe, Shortness of Breath, 01/29/17) TRAMADOL (Verified Allergy, Unknown, 11/25/17) Patient History Past Medical History: see triage record, old chart reviewed Past Surgical History: other Pertinent Family History: none Social History: Denies: smoking Last Menstrual Period: NA Now: No Immunizations: other Reviewed Nursing Documentation: PMH: Agreed; PSxH: Agreed Nursing Documentation-PMH Hx Cardiac Problems: Yes Hx Hypertension: Yes Hx Asthma: Yes Hx COPD: Yes Hx Diabetes: Yes Hx Cancer: No Hx Gastrointestinal Problems: No Hx Neurological Problems: No Review of Systems Eye: Denies: eye pain, blurred vision ENT: Denies: ear pain, nose congestion, throat swelling Respiratory: Denies: cough, shortness of breath Cardiovascular: Denies: chest pain, palpitations Gastrointestinal: Denies: abdominal pain, diarrhea, nausea, vomiting Musculoskeletal: Reports: back pain; Denies: joint pain Skin: Reports: rash Neurological: Denies: headache, numbness Endocrine: Denies: increased thirst, increased urine Hematologic/Lymphatic: Denies: easy bruising All Other Systems: negative except mentioned in HPI Physical Exam Vital Signs Date Time Temp Pulse Resp B/P (MAP) Pulse Ox O2 Delivery O2 Flow Rate FiO2 11/25/17 21:31 98.6 90 18 146/88 90 Nasal Cannula 2.0 98.6 vitals unremarkable Sp02 EP Interpretation: reviewed, normal General Appearance: well appearing, no apparent distress, alert Head: normocephalic, atraumatic, other - she has shingle to the occipital area on the right at midline. Eyes: bilateral eye PERRL, bilateral eye EOMI ENT: hearing grossly normal, normal pharynx Neck: full range of motion, supple, no meningismus Respiratory: chest non-tender, lungs clear, normal breath sounds Cardiovascular #1: regular rate, rhythm, no murmur Gastrointestinal: normal bowel sounds, non tender, no mass, no organomegaly, no bruit, non-distended Musculoskeletal: gait/station normal, normal range of motion, tender - tenderness to the left back area. Psychiatric: mood/affect normal Skin: warm/dry Medical Decision Making Diagnostic Impression: Primary Impression: Low back pain Qualified Codes: M54.5 - Low back pain Additional Impressions: UTI (urinary tract infection) Qualified Codes: N30.00 - Acute cystitis without hematuria Morbid obesity ER Course Patient with back pain. No evidence of dissection. No evidence of cauda equina syndrome, spinal epidural abscess, or neoplastic process. She may have an early UTI. We'll go and put on antibiotics. We'll discharge home. Pain is well-controlled now. CT/MRI/US Diagnostic Results CT/MRI/US Diagnostic Results : Imaging Test Ordered: CT abdomen and pelvis Impression read by radiologist. Negative. Last Vital Signs Date Time Temp Pulse Resp B/P (MAP) Pulse Ox O2 Delivery O2 Flow Rate FiO2 11/25/17 21:31 98.6 90 18 146/88 90 Nasal Cannula 2.0 98.6 Status: improved Disposition: HOME, SELF-CARE Condition: Stable Scripts Nitrofurantoin Monohyd/M-Cryst (Nitrofurantoin Asotin-Mcr 100 mg) 100 Mg Capsule 100 MG ORAL Q12H, #14 CAP Prov: BERTA MANCILLA M.D. 11/25/17 Referrals: NON PHYSICIAN (PCP) Patient Instructions: Lumbosacral Strain Additional Instructions: Follow-up with your doctor in 7 days. Return if worse. BERTA MANCILLA M.D. November 25, 2017 21:56
[2017-11-25] MEDS ORDERED: Morphine Sulfate 10mg/ml Inj IM ONE (22:00)
[2017-11-25 22:08] LABS: APPEARANCE,URINE CLEAR; BILIRUBIN, URINE NEGATIVE (NEGATIVE); COLOR,URINE AMBER; GLUCOSE, URINE (UA) NEGATIVE (NEGATIVE); KETONES,URINE NEGATIVE (NEGATIVE); LEUKOCYTE ESTERASE ,URINE 1+ (NEGATIVE); NITRITE,URINE NEGATIVE (NEGATIVE); PH,URINE 6 (4.5-8.0); PROTEIN,URINE NEGATIVE (NEGATIVE); UROBILINOGEN,URINE NORMAL MG/DL (0.0-1.0)
[2017-11-25] MEDS ORDERED: MACROBID100 MG ORAL (23:40)
[2017-11-25 23:45] VITALS: BP 112/80
[2017-11-25 23:50] VITALS: BP 112/80
--- NOTE | 2017-11-26 09:35 | Diagnostic Imaging Report ---
Indication: Abdominal pain Technique: Noncontrast CT of the abdomen and pelvis utilizing automated exposure control. Axial, sagittal and coronal reformats presented. CT dose: Total DLP 711.68 mGycm; CTDI vol 14.79 mGy Comparison: None Findings: Please note that evaluation of the abdominal and pelvic viscera and vascular structures is limited without the use of intravenous and oral contrast. Within these limitations the following observations are made: Minimal dependent atelectasis noted in the posterior lower lobes. Heart size within normal limits. Liver is enlarged. Noncontrast evaluation of the gallbladder, spleen, adrenal glands and pancreas is grossly unremarkable. There is a 3 mm nonobstructing stone in the lower pole the left kidney. No evidence of hydronephrosis bilaterally. No urinary tract stone is seen on the right. Bladder is grossly unremarkable. Uterus grossly unremarkable for CT. There is no free intraperitoneal air. No ascites. There is no evidence of bowel obstruction. Appendix is normal. No definite inflammatory changes are seen in the mesentery. Abdominal aorta is normal in caliber. There is no appreciable pathologically enlarged lymphadenopathy. There are degenerative changes, with vacuum disc phenomena and Modic like endplate sclerosis. No acute osseous abnormality is seen. There is some calcifications in the gluteal soft tissues which may be sequela of prior medication injection or prior injury. IMPRESSION: Limited exam without intravenous and oral contrast. Within these limitations: * Subcentimeter nonobstructing left renal stone. No evidence of hydronephrosis. * No evidence of bowel obstruction or definite evidence of bowel inflammation. * Normal appendix. * Hepatomegaly This corresponds with the statrad preliminary report. The CT scanner at [facility] is accredited by the [employer] and the scans are performed using protocols designed to limit radiation exposure to as low as reasonably achievable to attain images of sufficient resolution adequate for diagnostic evaluation.
== END 2017-11-25 23:50 | disposition home or self-care (01) ==
LOC: EMR 21:46
DX: G89.29 Other chronic pain (principal); M54.5 Low back pain; N39.0 Urinary tract infection, site not specified; E66.01 Morbid (severe) obesity due to excess calories; Z68.41 Body mass index [BMI] 40.0-44.9, adult; I10 Essential (primary) hypertension; E11.9 Type 2 diabetes mellitus without complications; J44.9 Chronic obstructive pulmonary disease, unspecified; N20.0 Calculus of kidney; R16.0 Hepatomegaly, not elsewhere classified; Z88.2 Allergy status to sulfonamides; Z88.1 Allergy status to other antibiotic agents; Z88.6 Allergy status to analgesic agent
CPT/HCPCS: 74176; 81003; 96372; 99284; J2270

== ENCOUNTER 2018-02-05 21:10 | Emergency (ER) | payer OTHER ==
[~2018-02-05] VITALS: Ht 160 cm; Wt 90.7 kg
[~2018-02-05 21:10] MED LIST changes: +MACROBID100 MG ORAL
[2018-02-05] MEDS ORDERED: GABAPENTIN300 MG ORAL (21:20)
[2018-02-05 21:25] VITALS: BP 137/87
[2018-02-05] MEDS ORDERED: Tylenol #3 tab (300mg/30mg) PO ONE (22:00)
[2018-02-05 22:47] VITALS: BP 0/0
--- NOTE | 2018-02-06 00:53 | Emergency Room Report ---
History of Present Illness General Chief Complaint: Upper Extremity Injury Source: Patient Present Illness HPI 62-year-old female presents ED complaining of wrist pain. Patient states that she accidentally states close the door on her left wrist yesterday. Complaining of left wrist and thumb pain. Pain is throbbing, 10 out of 10, nonradiating. Denies any other injuries. No other aggravating relieving factors. Denies any other associated symptoms Allergies: Coded Allergies: ERYTHROMYCIN BASE (Verified Allergy, Severe, Hives, 01/29/17) SULFAMETHOXAZOLE (Verified Allergy, Severe, Shortness of Breath, 01/29/17) TRIMETHOPRIM (Verified Allergy, Severe, Shortness of Breath, 01/29/17) TRAMADOL (Verified Allergy, Unknown, 11/25/17) Patient History Past Medical History: DM, HTN, asthma, COPD Past Surgical History: none Pertinent Family History: none Social History: Denies: smoking, alcohol use, drug use Last Menstrual Period: n/a Now: No Immunizations: UTD Reviewed Nursing Documentation: PMH: Agreed; PSxH: Agreed Nursing Documentation-PMH Hx Cardiac Problems: Yes Hx Hypertension: Yes Hx Asthma: Yes Hx COPD: Yes Hx Diabetes: Yes Hx Cancer: No Hx Gastrointestinal Problems: No Hx Neurological Problems: No Review of Systems All Other Systems: negative except mentioned in HPI Physical Exam Vital Signs Date Time Temp Pulse Resp B/P (MAP) Pulse Ox O2 Delivery O2 Flow Rate FiO2 02/05/18 21:14 98.2 76 18 137/87 93 Nasal Cannula 2.0 98.2 Sp02 EP Interpretation: reviewed, normal General Appearance: alert, GCS 15, non-toxic, mild distress Head: normocephalic Eyes: bilateral eye normal inspection, bilateral eye PERRL ENT: normal ENT inspection Neck: normal inspection Respiratory: normal inspection Cardiovascular #1: normal inspection Gastrointestinal: normal inspection Rectal: deferred Genitourinary: no CVA tenderness Musculoskeletal: tender - L wrist, L thumb Neurologic: alert, oriented x3, responsive, motor strength/tone normal, sensory intact, speech normal Psychiatric: normal inspection Skin: normal inspection Lymphatic: normal inspection Procedures Splinting Splinting : Consent: Verbal Pre-Made Type: velcro Splint: thumb spica Pre-Proc Neuro Vasc Exam: normal Post-Proc Neuro Vasc Exam: normal Patient Tolerated: Well Complications: None Medical Decision Making Diagnostic Impression: Primary Impression: Wrist injury Qualified Codes: S69.92XA - Unspecified injury of left wrist, hand and finger( s), initial encounter Additional Impression: Opioid dependence Qualified Codes: F11.29 - Opioid dependence with unspecified opioid-induced disorder ER Course Hospital Course 62-year-old F presents to ED complaining of L wrist/hand pain Differential diagnoses include: Fracture, dislocation, sprain, contusion Clinical course Patient placed on stretcher. After initial history and physical, I ordered pain medications and Xrays of L hand/wrist Xrays prelim read shows no acute fracture/dislocation. placed in thumb spica Patient states that she takes Dilaudid every 4 hours and was requesting something stronger than Tylenol No. 3. Given that x-rays show no gross deformity I do not believe patient will require stronger medication. Diagnosis - wrist injury, opioid dependence Stable and discharged to home. apply ice, keep elevated. weight bear as tolerated. Followup with PMD. Return to ED if symptoms recur or worsen Other X-Ray Diagnostic Results Other X-Ray Diagnostic Results #1: X-Ray ordered: L hand # of Views/Limited Vs Complete: 3 View Indication: Pain EP Interpretation: Yes Interpretation: no dislocation, no soft tissue swelling, no fractures Impression: No acute disease Electronically Signed by: Electronically signed by Teddy Leung MD Other X-Ray Diagnostic Results #2: X-Ray ordered: L wrist # of Views/Limited Vs Complete: 3 View Indication: Pain EP Interpretation: Yes Interpretation: no dislocation, no soft tissue swelling, no fractures Impression: No acute disease Electronically Signed by: Electronically signed by Teddy Leung MD Last Vital Signs Date Time Temp Pulse Resp B/P (MAP) Pulse Ox O2 Delivery O2 Flow Rate FiO2 02/05/18 22:47 0/0 02/05/18 21:25 98.2 84 18 93 Nasal Cannula 2.0 98.2 Status: improved Disposition: HOME, SELF-CARE Condition: Stable Patient Instructions: Wrist Pain, [id number] Teddy Leung MD Feb 06, 2018 00:53
--- NOTE | 2018-02-06 11:37 | Diagnostic Imaging Report ---
Clinical Indication:Pain in left wrist Technique: 3 views of the left wrist Comparison: None Findings: No acute fractures. No dislocations. The joint spaces are preserved. Bony alignment is normal Impression: Negative This agrees with the preliminary interpretation provided by the emergency room physician
--- NOTE | 2018-02-06 11:39 | Diagnostic Imaging Report ---
Indication: Reason For Exam: PAIN Technique: 3 views left hand Comparison: none Findings: No acute fractures. No dislocations. The joint spaces are preserved. Impression: Negative This agrees with the preliminary interpretation provided by the emergency room physician
== END 2018-02-05 22:47 | disposition home or self-care (01) ==
LOC: EMR 21:33
DX: S69.92XA Unspecified injury of left wrist, hand and finger(s), initial encounter (principal); W23.0XXA Caught, crushed, jammed, or pinched between moving objects, initial encounter; Y92.9 Unspecified place or not applicable; F11.20 Opioid dependence, uncomplicated; E11.9 Type 2 diabetes mellitus without complications; I10 Essential (primary) hypertension; J44.9 Chronic obstructive pulmonary disease, unspecified; Z88.5 Allergy status to narcotic agent; Z88.2 Allergy status to sulfonamides
CPT/HCPCS: 99284

== ENCOUNTER 2018-07-21 03:18 | Inpatient (IN) | payer OTHER ==
[2018-07-21] VITALS (7 sets, daily range): BP systolic 119–154; BP diastolic 72–95
[~2018-07-21] VITALS: Ht 160 cm; Wt 91.2 kg
[~2018-07-21 03:18] MED LIST changes: +GABAPENTIN300 MG ORAL
[2018-07-21] MEDS ORDERED: BANOPHEN50 MG PO (03:39)
[2018-07-21] MEDS ORDERED: OMEPRAZOLE20 M2 ORAL (03:39)
--- NOTE | 2018-07-21 03:41 | NUR ---
ER Nurse Note: Patient came from home with daughter c/o upper abdominal pain and rectal bleeding for four hours. Per pt, pt stated was bleeding heavily; light red blood. Pt is not actively bleeding. Pt complains of pain /. Pt a&ox4, VSS. ERMD at pt side; will continue to montior.
[2018-07-21] MEDS ORDERED: DiphenhydrAMINE 50mg/ml Inj IVP ONE (03:45)
[2018-07-21] MEDS ORDERED: HYDROmorphone 1mg/ml Carpuject IVP ONE (03:45)
--- NOTE | 2018-07-21 04:19 | Emergency Room Report ---
History of Present Illness General Chief Complaint: Gastrointestinal Bleed Source: Patient Present Illness HPI Patient presents emergency department today complaining of abdominal pain and rectal bleeding. Patient states that she had a history of colonoscopy that resulted in a perforation and the cauterization. She denies prior abdominal surgery. Patient has chronic back pain is use pain medications. Patient presents emergency department today complaining of acute onset of severe abdominal pain for one day associate a large amount of rectal bleeding. Patient states that she does not have a history of hemorrhoids. While patient was here patient did have some bloody stool. Patient denies any fever chest pain shortness breath. Denies any nausea vomiting. Symptoms noted to be severe.No other modifying factors. No other associated signs and symptoms. No other complaints were noted. Allergies: Coded Allergies: ERYTHROMYCIN BASE (Verified Allergy, Severe, Hives, 01/29/17) SULFAMETHOXAZOLE (Verified Allergy, Severe, Shortness of Breath, 01/29/17) TRIMETHOPRIM (Verified Allergy, Severe, Shortness of Breath, 01/29/17) TRAMADOL (Verified Allergy, Unknown, 11/25/17) Patient History Past Medical History: HTN, asthma, COPD, other - Chronic back pain Past Surgical History: none Pertinent Family History: none Social History: Denies: smoking, alcohol use, drug use Last Menstrual Period: ESTEFANIA Now: No : 8 Para: 4 Reviewed Nursing Documentation: PMH: Agreed; PSxH: Agreed Nursing Documentation-PMH Past Medical History: No History, Except For Hx Cardiac Problems: Yes - chronic back pain Hx Hypertension: Yes Hx Asthma: Yes Hx COPD: Yes Hx Diabetes: Yes Hx Cancer: No Hx Gastrointestinal Problems: No Hx Neurological Problems: No Review of Systems All Other Systems: negative except mentioned in HPI Physical Exam Vital Signs Date Time Temp Pulse Resp B/P (MAP) Pulse Ox O2 Delivery O2 Flow Rate FiO2 07/21/18 03:41 97.8 80 15 154/86 97 Nasal Cannula 2.0 Sp02 EP Interpretation: reviewed, normal General Appearance: alert, moderate distress Head: atraumatic Eyes: bilateral eye normal inspection ENT: normal ENT inspection, hearing grossly normal, normal voice Neck: normal inspection, full range of motion, supple, no bony tend Respiratory: normal inspection, lungs clear, normal breath sounds, no respiratory distress, no retraction, no wheezing Cardiovascular #1: regular rate, rhythm, no edema Gastrointestinal: normal inspection, normal bowel sounds, soft, no guarding, no hernia, tenderness - diffusely tender Rectal: other - blood streaked fluid Genitourinary: no CVA tenderness Musculoskeletal: normal inspection, back normal, normal range of motion Neurologic: normal inspection, alert, responsive, speech normal Psychiatric: judgement/insight normal, depressed affect, anxious Skin: normal inspection, normal color, no rash Procedures Additional Procedure Procedure Narrative Patient required peripheral IV access. It was very difficult to place. Left external jugular peripheral IV was placed. This was done sterilely. Patient tolerated procedure without difficulty. There is no complications associated with the procedure. Medical Decision Making Diagnostic Impression: Primary Impression: Gastrointestinal hemorrhage Additional Impression: Colitis ER Course Patient presents to the emergency department today complaining of abdominal pain. Differential considerations include acute pancreatitis, cholecystitis, colitis, diverticulitis gastritis, hepatitis, appendicitis just to name a few. Given the severity of the patient's presentation I felt this is a highly complex patient. This patient required extensive workup. Patient's laboratory workup was not impressive. However given patient's pain and rectal bleeding a CT scan was performed. CT scan shows evidence of wall thickening at the splenic flexure and proximal descending colon with surrounding inflammation and stranding consistent with colitis. We'll also obtain lactic acid level. Patient will be started on IV antibiotics. Patient will be admitted to Dr. Luther service. Dr. Luther was notified. Labs Test 07/21/18 04:28 07/21/18 05:00 White Blood Count 8.1 K/UL (4.8-10.8) Red Blood Count 4.56 M/UL (4.20-5.40) Hemoglobin 13.5 G/DL (12.0-16.0) Hematocrit 40.1 % (37.0-47.0) Mean Corpuscular Volume 88 FL (80-99) Mean Corpuscular Hemoglobin 29.5 PG (27.0-31.0) Mean Corpuscular Hemoglobin Concent 33.6 G/DL (32.0-36.0) Red Cell Distribution Width 11.3 % (11.6-14.8) Platelet Count 104 K/UL (150-450) Mean Platelet Volume 7.3 FL (6.5-10.1) Neutrophils (%) (Auto) 54.9 % (45.0-75.0) Lymphocytes (%) (Auto) 32.1 % (20.0-45.0) Monocytes (%) (Auto) 7.2 % (1.0-10.0) Eosinophils (%) (Auto) 4.9 % (0.0-3.0) Basophils (%) (Auto) 0.9 % (0.0-2.0) Prothrombin Time 11.0 SEC (9.30-11.50) Prothromb Time International Ratio 1.0 (0.9-1.1) Activated Partial Thromboplast Time 28 SEC (23-33) Sodium Level 139 MMOL/L (136-145) Potassium Level 4.3 MMOL/L (3.5-5.1) Chloride Level 100 MMOL/L (98-107) Carbon Dioxide Level 35 MMOL/L (21-32) Anion Gap 4 mmol/L (5-15) Blood Urea Nitrogen 15 mg/dL (7-18) Creatinine 0.7 MG/DL (0.55-1.30) Estimat Glomerular Filtration Rate > 60 mL/min (>60) Glucose Level 92 MG/DL (74-106) Calcium Level 8.6 MG/DL (8.5-10.1) Total Bilirubin 0.4 MG/DL (0.2-1.0) Aspartate Amino Transf (AST/SGOT) 24 U/L (15-37) Alanine Aminotransferase (ALT/SGPT) 17 U/L (12-78) Alkaline Phosphatase 76 U/L (46-116) Troponin I 0.000 ng/mL (0.000-0.056) Total Protein 7.4 G/DL (6.4-8.2) Albumin 3.8 G/DL (3.4-5.0) Globulin 3.6 g/dL Albumin/Globulin Ratio 1.1 (1.0-2.7) Lipase 49 U/L (73-393) Urine Color Pale yellow Urine Appearance Slightly cloudy Urine pH 8 (4.5-8.0) Urine Specific [place] 1.010 (1.005-1.035) Urine Protein 1+ (NEGATIVE) Urine Glucose (UA) Negative (NEGATIVE) Urine Ketones Negative (NEGATIVE) Urine Blood 5+ (NEGATIVE) Urine Nitrite Negative (NEGATIVE) Urine Bilirubin Negative (NEGATIVE) Urine Urobilinogen Normal MG/DL (0.0-1.0) Urine Leukocyte Esterase 1+ (NEGATIVE) Urine RBC 20-30 /HPF (0 - 2) Urine WBC 2-4 /HPF (0 - 2) Urine Squamous Epithelial Cells Occasional /LPF Urine Bacteria Occasional /HPF (NONE) EKG Diagnostic Results Rate: normal Rhythm: NSR ST Segments: no acute changes Rhythm Strip Diag. Results EP Interpretation: yes Rate: 77 Rhythm: NSR, no PVC's, no ectopy Last Vital Signs Date Time Temp Pulse Resp B/P (MAP) Pulse Ox O2 Delivery O2 Flow Rate FiO2 07/21/18 03:41 81 15 Nasal Cannula 2.0 07/21/18 03:41 97.8 154/86 97 Status: improved Disposition: ADMITTED INPATIENT Condition: Serious Referrals: NON PHYSICIAN (PCP) Jack Murphy MD Jul 21, 2018 04:19
--- NOTE | 2018-07-21 04:23 | NUR ---
ER Nurse Note: Rectal exam performed by ERMD. No IV access; called CN. Will continue to monitor.
[2018-07-21] MEDS ORDERED: LORazepam Inj 2mg/ml 1ml IV ONE (05:00)
[2018-07-21] MEDS ORDERED: Morphine Sulfate 4mg/ml Inj (IV USE ONLY) IVP ONE ×2 (05:00→09:30)
[2018-07-21 05:14] LABS: APPEARANCE,URINE SLIGHTLY CLOUDY; BILIRUBIN, URINE NEGATIVE (NEGATIVE); COLOR,URINE PALE YELLOW; GLUCOSE, URINE (UA) NEGATIVE (NEGATIVE); KETONES,URINE NEGATIVE (NEGATIVE); LEUKOCYTE ESTERASE ,URINE 1+ (NEGATIVE); NITRITE,URINE NEGATIVE (NEGATIVE); PH,URINE 8 (4.5-8.0); PROTEIN,URINE 1+ (NEGATIVE); UROBILINOGEN,URINE NORMAL MG/DL (0.0-1.0)
[2018-07-21 05:14] LABS: BASOPHILS % (AUTO) 0.9 % (0.0-2.0); EOSINOPHILS % (AUTO) 4.9 % (0.0-3.0); HEMATOCRIT 40.1 % (37.0-47.0); HEMOGLOBIN 13.5 G/DL (12.0-16.0); LYMPHOCYTES % (AUTO) 32.1 % (20.0-45.0); MEAN CORPUSCULAR VOLUME 88 FL (80-99); MONOCYTES % (AUTO) 7.2 % (1.0-10.0); NEUTROPHILS % (AUTO) 54.9 % (45.0-75.0); PLATELET COUNT 104 K/UL (150-450); RED BLOOD COUNT 4.56 M/UL (4.20-5.40); RED CELL DISTRIBUTION WIDTH 11.3 % (11.6-14.8); WHITE BLOOD COUNT 8.1 K/UL (4.8-10.8)
[2018-07-21 05:18] LABS: ANION GAP 4 mmol/L (5-15); BLOOD UREA NITROGEN 15 mg/dL (7-18); CALCIUM 8.6 MG/DL (8.5-10.1); CARBON DIOXIDE 35 MMOL/L (21-32); CHLORIDE 100 MMOL/L (98-107); CREATININE 0.7 MG/DL (0.55-1.30); POTASSIUM 4.3 MMOL/L (3.5-5.1); SODIUM 139 MMOL/L (136-145)
[2018-07-21 05:23] LABS: ALANINE AMINOTRANSFERASE 17 U/L (12-78); ALBUMIN 3.8 G/DL (3.4-5.0); ALBUMIN/GLOBULIN RATIO 1.1 (1.0-2.7); ALKALINE PHOSPHATASE 76 U/L (46-116); ASPARTATE AMINO TRANSFERASE 24 U/L (15-37); BILIRUBIN,TOTAL 0.4 MG/DL (0.2-1.0)
--- NOTE | 2018-07-21 06:08 | Diagnostic Imaging Report ---
EXAM: CT Abdomen and Pelvis Without Intravenous Contrast CLINICAL HISTORY: Abdominal pain TECHNIQUE: Axial computed tomography images of the abdomen and pelvis without intravenous contrast. CTDI is 17.64 mGy and DLP is 804 mGy-cm. One or more of the following dose reduction techniques were used: automated exposure control, adjustment of the mA and/or kV according to patient size, use of iterative reconstruction technique. Coronal and sagittal reformatted images were created and reviewed. COMPARISON: CT abdomen/pelvis 11/25/17 FINDINGS: Lung bases: Unremarkable. No mass. No consolidation. ABDOMEN: Liver: Enlarged right hepatic lobe (18.7 cm) may reflect Meliton's lobe or hepatomegaly. Slightly nodular hepatic surface contour is again seen. Gallbladder and bile ducts: No calcified gallstones. Stable caliber of the common bile duct. Pancreas: Unremarkable. No ductal dilation or peripancreatic inflammatory stranding. Spleen: Unremarkable. No splenomegaly. Adrenals: Unremarkable. No mass. Kidneys and ureters: Punctate nonobstructive left intrarenal calculus without hydroureteronephrosis or radiopaque obstructing ureteral calculus. Tiny low-density left renal lesion is unchanged (5 mm). Stomach and bowel: Wall thickening of the splenic flexure and proximal descending colon with surrounding inflammatory stranding may reflect infectious/inflammatory colitis, however, ischemic colitis must be excluded with involvement of this segment (no pneumatosis). Correlate with serum lactate. Additionally, diverticula are present in this region, however, the length of the involved segment is not typical of acute diverticulitis. PELVIS: Appendix: Normal appendix. Bladder: Unremarkable. No stones. Reproductive: Unremarkable as visualized. ABDOMEN and PELVIS: Intraperitoneal space: Unremarkable. No free air. No significant fluid collection. Bones/joints: Stable multilevel vertebral body height loss, degenerative disc disease, and focal kyphosis at the thoracolumbar junction. No acute fracture. No dislocation. Soft tissues: Tiny fat-containing umbilical hernia. Stable postsurgical change in the gluteal regions bilaterally. Vasculature: Atherosclerosis without abdominal aortic aneurysm. Lymph nodes: Unremarkable. No enlarged lymph nodes. IMPRESSION: 1. Wall thickening of the splenic flexure and proximal descending colon with surrounding inflammatory stranding may reflect infectious/inflammatory colitis, however, ischemic colitis must be excluded with involvement of this segment (no pneumatosis present). Correlate with serum lactate. Additionally, diverticula are present in this region, however, the length of the involved segment is not typical of acute diverticulitis. Endoscopy recommended following resolution for exclusion of underlying neoplasm. 2. No free fluid, free air, small bowel obstruction, hydroureteronephrosis, or biliary ductal dilatation. 3. Stable hepatomegaly versus Meliton's lobe with mild the nodular hepatic surface contour. Correlate for history of cirrhosis. 4. Additional incidental/chronic findings as above. [employer] 07/21/18 06:30 Verify Receipt Verified receipt with Clerk Rigo Murphy on 07/21 06:30 (-08:00)
--- NOTE | 2018-07-21 06:20 | NUR ---
ER Nurse Note: Pt a&ox4, VSS, no signs of distress. Pt is on 2L O2 NC; O2 100%. Pt is ambulatory and voids without difficulty. Pt is calm, asleep. Awaiting results and admission. All safety measures met; will continue to montior.
[2018-07-21] MEDS ORDERED: Piperacillin/Tazobactam 4.5 GM in NS 110 ML IVPB ONE (06:30)
--- NOTE | 2018-07-21 07:14 | NUR ---
ER Nurse Note: Report given to . Pt is a&ox4, VSS, no signs of distress.
--- NOTE | 2018-07-21 07:31 | NUR ---
ED Nurse Note: pt. and daughter aware of the admission
--- NOTE | 2018-07-21 08:04 | NUR ---
ED Nurse Note: Informed Dr. Chan regarding pt.'s request of breathing tx. Called RT for the breathing tx
[2018-07-21] MEDS ORDERED: Albuterol/Ipratropium 3ml neb HHN ONE (08:15)
--- NOTE | 2018-07-21 09:29 | NUR ---
ED Nurse Note: Called Dmitry RN for report
--- NOTE | 2018-07-21 09:50 | NUR ---
ED Nurse Note: Pt. transported via gurney with no s/s of acute distress noted.All belongings with the pt. and the daughter. Report given to JOSE Andres
--- NOTE | 2018-07-21 09:51 | NUR ---
NURSE NOTES: Pt received from Charmaine Mckeon RN alert and oriented x4 with no s/s of SOB, or n/v. Pt complaining of 3/10 pain in the lower abdomen which worsens when she voids or changes position. Per transferring ER nurse, they gave the patient morphine for pain prior to transfer. IV site asymptomatic and patent, on saline lock. Belongings checked and with patient upon transfer but daughter at bedside (Alisha) stated that she will be taking the patient's belongings home with her for safe-keeping, including the phone and patient's clothes. No wounds upon admission. Dr. Luther contacted for admission orders, currently awaiting call back. 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 Pt provided RN with phone number for [facility] in [facility] ([phone]),
--- NOTE | 2018-07-21 10:12 | NUR ---
NURSE NOTES: Per Dr. Luther - continue methadone 50 mg PO daily along with other admission orders. 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 Pt provided RN with phone number for [facility] in [facility] ([phone]). RN called and informed Matilda An from Pharmacy who stated that the patient must sign Release of PHI form and fax to pharmacy so that they can confirm with [facility] about the patient's dosage for methadone. RN faxed signed Release of PHI form to pharmacy and Matilda stated that they will get in touch with treatment center when they open. Methadone order will be pending for now until confirmation is obtained. Patient is aware, verbalized understanding.
--- NOTE | 2018-07-21 10:56 | History & Physical ---
History and Physical History & Physicial Patient presents with abdominal pain and rectal bleeding. Patient states that she had a history of colonoscopy that resulted in a perforation in the past. Patient has chronic back pain is use pain medications. Patient presents also with large amount of rectal bleeding. Denies any nausea vomiting. No other associated signs and symptoms. No other complaints were noted. Allergies: Coded Allergies: ERYTHROMYCIN BASE (Verified Allergy, Severe, Hives, 01/29/17) SULFAMETHOXAZOLE (Verified Allergy, Severe, Shortness of Breath, 01/29/17) TRIMETHOPRIM (Verified Allergy, Severe, Shortness of Breath, 01/29/17) TRAMADOL (Verified Allergy, Unknown, 11/25/17) Past Medical History: HTN, asthma, COPD,Chronic back pain Past Surgical History: none Pertinent Family History: none Social History: Denies: smoking, alcohol use, drug use physical WDWN NAD clear breath sounds bilaterally without rhonchi or wheeze [id number] without MRG NABS diffuse tenderness no CCE nonfocal Laboratory Tests Test 07/21/18 04:28 07/21/18 05:00 07/21/18 06:38 White Blood Count 8.1 K/UL (4.8-10.8) Red Blood Count 4.56 M/UL (4.20-5.40) Hemoglobin 13.5 G/DL (12.0-16.0) Hematocrit 40.1 % (37.0-47.0) Mean Corpuscular Volume 88 FL (80-99) Mean Corpuscular Hemoglobin 29.5 PG (27.0-31.0) Mean Corpuscular Hemoglobin Concent 33.6 G/DL (32.0-36.0) Red Cell Distribution Width 11.3 % (11.6-14.8) L Platelet Count 104 K/UL (150-450) L Mean Platelet Volume 7.3 FL (6.5-10.1) Neutrophils (%) (Auto) 54.9 % (45.0-75.0) Lymphocytes (%) (Auto) 32.1 % (20.0-45.0) Monocytes (%) (Auto) 7.2 % (1.0-10.0) Eosinophils (%) (Auto) 4.9 % (0.0-3.0) H Basophils (%) (Auto) 0.9 % (0.0-2.0) Prothrombin Time 11.0 SEC (9.30-11.50) Prothromb Time International Ratio 1.0 (0.9-1.1) Activated Partial Thromboplast Time 28 SEC (23-33) Sodium Level 139 MMOL/L (136-145) Potassium Level 4.3 MMOL/L (3.5-5.1) Chloride Level 100 MMOL/L (98-107) Carbon Dioxide Level 35 MMOL/L (21-32) H Anion Gap 4 mmol/L (5-15) L Blood Urea Nitrogen 15 mg/dL (7-18) Creatinine 0.7 MG/DL (0.55-1.30) Estimat Glomerular Filtration Rate > 60 mL/min (>60) Glucose Level 92 MG/DL (74-106) Calcium Level 8.6 MG/DL (8.5-10.1) Total Bilirubin 0.4 MG/DL (0.2-1.0) Aspartate Amino Transf (AST/SGOT) 24 U/L (15-37) Alanine Aminotransferase (ALT/SGPT) 17 U/L (12-78) Alkaline Phosphatase 76 U/L (46-116) Troponin I 0.000 ng/mL (0.000-0.056) Total Protein 7.4 G/DL (6.4-8.2) Albumin 3.8 G/DL (3.4-5.0) Globulin 3.6 g/dL Albumin/Globulin Ratio 1.1 (1.0-2.7) Lipase 49 U/L (73-393) L Urine Color Pale yellow Urine Appearance Slightly cloudy Urine pH 8 (4.5-8.0) Urine Specific [place] 1.010 (1.005-1.035) Urine Protein 1+ (NEGATIVE) H Urine Glucose (UA) Negative (NEGATIVE) Urine Ketones Negative (NEGATIVE) Urine Blood 5+ (NEGATIVE) H Urine Nitrite Negative (NEGATIVE) Urine Bilirubin Negative (NEGATIVE) Urine Urobilinogen Normal MG/DL (0.0-1.0) Urine Leukocyte Esterase 1+ (NEGATIVE) H Urine RBC 20-30 /HPF (0 - 2) H Urine WBC 2-4 /HPF (0 - 2) Urine Squamous Epithelial Cells Occasional /LPF Urine Bacteria Occasional /HPF (NONE) Lactic Acid Level 0.70 mmol/L (0.4-2.0) IMPRESSION colitis abdominal pain gib chronic pain methadone dependence PLAN gi evaluation flagyl monitor clinically pain control dc once stable impression, plan, and exam edited and reviewed in detail care discussed with Edgar Santiago MD Jul 21, 2018 10:56
[2018-07-21] MEDS: Morphine Sulfate 4mg/ml Inj (IV USE ONLY) IVP PRN ×3 (12:05→21:40)
[2018-07-21] MEDS: Albuterol/Ipratropium 3ml neb HHN PRN (16:58)
[2018-07-21] MEDS: HYDROmorphone 4mg tab ORAL SCH ×2 (17:59→22:00)
--- NOTE | 2018-07-21 19:29 | NUR ---
HAND-OFF: Report given to Hilaria Morgan RN.
--- NOTE | 2018-07-21 19:30 | NUR ---
NURSE NOTES: Report received from Dmitry GARCIA. Pt is sleeping in bed but is easily arousable to name and light touch. Pt is oriented x4. Pt is on room air and breathing is even and unlabored. No acute distress noted. IV site is L EJ #18g and is asymptomatic, patent, and intact and running IV fluids at rx rate. Pt is c/o 10/10 abdominal pain and is requesting pain medication. Will administer PRN per orders. Bed is placed in lowest position with brake engaged, side rails up x2. SCDs noted to be in place and running. Call light and side table placed within reach. Will continue to monitor.
--- NOTE | 2018-07-21 19:42 | General Progress Note ---
Assessment/Plan Problem List: (1) Opioid dependence ICD Codes: F11.20 - Opioid dependence, uncomplicated SNOMED: 13908760 (2) EX IVDA (3) COPD (chronic obstructive pulmonary disease) ICD Codes: J44.9 - Chronic obstructive pulmonary disease, unspecified SNOMED: 63932538 (4) Oxygen dependent ICD Codes: Z99.81 - Dependence on supplemental oxygen SNOMED: 949408333655 (5) Gastrointestinal hemorrhage ICD Codes: K92.2 - Gastrointestinal hemorrhage, unspecified SNOMED: 67764643 Assessment/Plan per patient last colonoscopy 2 years ago refusing repeat colonoscopy anusol HC bowel regimen fu labs colonoscopy if patient agree and if bleeding persist Subjective ROS Limited/Unobtainable: Yes Allergies: Coded Allergies: ERYTHROMYCIN BASE (Verified Allergy, Severe, Hives, 01/29/17) SULFAMETHOXAZOLE (Verified Allergy, Severe, Shortness of Breath, 01/29/17) TRIMETHOPRIM (Verified Allergy, Severe, Shortness of Breath, 01/29/17) TRAMADOL (Verified Allergy, Unknown, 11/25/17) Objective Last 24 Hour Vital Signs Date Time Temp Pulse Resp B/P (MAP) Pulse Ox O2 Delivery O2 Flow Rate FiO2 07/21/18 17:06 28 07/21/18 17:06 72 20 93 Nasal Cannula 2.0 28 07/21/18 16:59 70 18 91 Nasal Cannula 2.0 28 07/21/18 16:00 97.3 72 18 119/77 (91) 93 07/21/18 16:00 76 07/21/18 12:00 69 07/21/18 12:00 97.3 71 18 124/72 (89) 94 07/21/18 09:51 Nasal Cannula 2.0 07/21/18 09:51 96.3 76 18 141/77 (98) 92 07/21/18 09:50 97.9 79 18 136/95 94 Nasal Cannula 2.0 28 07/21/18 09:50 105 07/21/18 08:12 28 07/21/18 08:12 88 18 94 Nasal Cannula 2.0 28 07/21/18 07:38 97.9 79 18 136/95 100 Nasal Cannula 2.0 07/21/18 05:29 97.9 79 18 142/87 100 Nasal Cannula 4.0 07/21/18 05:27 97.8 07/21/18 05:16 97.8 07/21/18 03:41 81 15 Nasal Cannula 2.0 07/21/18 03:41 97.8 80 15 154/86 97 Nasal Cannula 2.0 Intake and Output 07/20/18 07/21/18 19:00 07:00 Intake Total 1000 ml Balance 1000 ml Intake IV Total 1000 ml Laboratory Tests 07/21/18 04:28: White Blood Count 8.1, Red Blood Count 4.56, Hemoglobin 13.5, Hematocrit 40.1, Mean Corpuscular Volume 88, Mean Corpuscular Hemoglobin 29.5, Mean Corpuscular Hemoglobin Concent 33.6, Red Cell Distribution Width 11.3L, Platelet Count 104L , Mean Platelet Volume 7.3, Neutrophils (%) (Auto) 54.9, Lymphocytes (%) (Auto) 32.1, Monocytes (%) (Auto) 7.2, Eosinophils (%) (Auto) 4.9H, Basophils (%) (Auto ) 0.9, Prothrombin Time 11.0, Prothromb Time International Ratio 1.0, Activated Partial Thromboplast Time 28, Sodium Level 139, Potassium Level 4.3, Chloride Level 100, Carbon Dioxide Level 35H, Anion Gap 4L, Blood Urea Nitrogen 15, Creatinine 0.7, Estimat Glomerular Filtration Rate > 60, Glucose Level 92, Calcium Level 8.6, Total Bilirubin 0.4, Aspartate Amino Transf (AST/SGOT) 24, Alanine Aminotransferase (ALT/SGPT) 17, Alkaline Phosphatase 76, Troponin I 0.000, Total Protein 7.4, Albumin 3.8, Globulin 3.6, Albumin/Globulin Ratio 1.1 , Lipase 49L 07/21/18 05:00: Urine Color Pale yellow, Urine Appearance Slightly cloudy, Urine pH 8, Urine Specific [place] 1.010, Urine Protein 1+H, Urine Glucose (UA) Negative, Urine Ketones Negative, Urine Blood 5+H, Urine Nitrite Negative, Urine Bilirubin Negative, Urine Urobilinogen Normal, Urine Leukocyte Esterase 1+H, Urine RBC 20- 30H, Urine WBC 2-4, Urine Squamous Epithelial Cells Occasional, Urine Bacteria Occasional 07/21/18 06:38: Lactic Acid Level 0.70 Height (Feet): 5 Height (Inches): 3.00 Weight (Pounds): 190 General Appearance: alert EENT: normal ENT inspection Neck: supple Cardiovascular: normal rate Respiratory/Chest: decreased breath sounds Abdomen: normal bowel sounds, non tender, soft Extremities: non-tender Isreal Workman MD Jul 21, 2018 19:42
[2018-07-21] MEDS: Miralax 17gm pkt ORAL SCH ×2 (20:29→21:39)
[2018-07-22] VITALS: BP 132/90
[2018-07-22] MEDS: HYDROmorphone 4mg tab ORAL SCH ×6 (01:24→22:01)
[2018-07-22] MEDS: Morphine Sulfate 4mg/ml Inj (IV USE ONLY) IVP PRN ×7 (01:43→23:53)
[2018-07-22 04:00] VITALS: BP 142/74
--- NOTE | 2018-07-22 07:24 | NUR ---
HAND-OFF: Report given to Lali GARCIA. Pt is resting in bed in stable condition. Endorsed plan of care.
--- NOTE | 2018-07-22 07:38 | NUR ---
NURSE NOTES: Received report from JOSE Manrique. Pt is sleeping comfortably in bed. No distress noted. Bed is in lowest position, side rails up X2, and call light is within reach. Will continue to monitor.
[2018-07-22 07:59] LABS: HEMATOCRIT 39.5 % (37.0-47.0); HEMOGLOBIN 13.2 G/DL (12.0-16.0); MEAN CORPUSCULAR VOLUME 89 FL (80-99); PLATELET COUNT 97 K/UL (150-450); RED BLOOD COUNT 4.46 M/UL (4.20-5.40); RED CELL DISTRIBUTION WIDTH 11.6 % (11.6-14.8); WHITE BLOOD COUNT 6.2 K/UL (4.8-10.8)
[2018-07-22 08:00] VITALS: BP 136/79
--- NOTE | 2018-07-22 08:20 | NUR ---
NURSE NOTES: received call from pharmacy. Methadone treatment center will need a list of all the medication patient was on during inpatient stay.
[2018-07-22] MEDS: Docusate 100mg cap ORAL SCH ×2 (08:31→17:21)
[2018-07-22] MEDS: Lisinopril 20mg tab ORAL SCH (08:33)
[2018-07-22 09:18] LABS: BASOPHILS % (AUTO) 1.6 % (0.0-2.0); EOSINOPHILS % (AUTO) 5.4 % (0.0-3.0); HEMATOCRIT 40.8 % (37.0-47.0); HEMOGLOBIN 13.5 G/DL (12.0-16.0); LYMPHOCYTES % (AUTO) 37.6 % (20.0-45.0); MEAN CORPUSCULAR VOLUME 89 FL (80-99); MONOCYTES % (AUTO) 6.3 % (1.0-10.0); NEUTROPHILS % (AUTO) 49.1 % (45.0-75.0); PLATELET COUNT 106 K/UL (150-450); RED BLOOD COUNT 4.59 M/UL (4.20-5.40); RED CELL DISTRIBUTION WIDTH 11.6 % (11.6-14.8); WHITE BLOOD COUNT 6.6 K/UL (4.8-10.8)
[2018-07-22 09:31] LABS: ANION GAP 3 mmol/L (5-15); BLOOD UREA NITROGEN 11 mg/dL (7-18); CALCIUM 8.5 MG/DL (8.5-10.1); CARBON DIOXIDE 33 MMOL/L (21-32); CHLORIDE 102 MMOL/L (98-107); CREATININE 0.6 MG/DL (0.55-1.30); POTASSIUM 4.1 MMOL/L (3.5-5.1); SODIUM 138 MMOL/L (136-145)
[2018-07-22] MEDS: Albuterol/Ipratropium 3ml neb HHN PRN ×2 (11:01→13:44)
--- NOTE | 2018-07-22 11:21 | NUR ---
INSURANCE NO INSURANCE CONTACT INFORMATION IN THE B/AR
--- NOTE | 2018-07-22 11:22 | NUR ---
NURSE NOTES: Patient is sitting up in bed watching television. Patient is in pain but is easily distracted. Conversing seems to diminish pain. Will continue to monitor.
[2018-07-22 12:00] VITALS: BP 143/118
--- NOTE | 2018-07-22 15:30 | NUR ---
CASE MANAGEMENT:REVIEW FROM HOME TO ER CC; ABDOMINAL PAIN AND RECTAL BLEEDING SI:GIB. COLITIS 97.8 81 15 154/86 97% ON 2L/NC IS: IV DILAUDID 1L NS BOLUS IV BENADRYL IV MORPHINE IV ATIVAN IV ZOSYN IV FLAGYL CT ABD/PELVIS : TELEMETRY STATUS INTERQUAL CRITERIA MET
--- NOTE | 2018-07-22 15:40 | NUR ---
INSURANCE NO INSURANCE CONTACT INFORMATION IN THE B/AR
[2018-07-22 16:00] VITALS: BP 124/64
--- NOTE | 2018-07-22 19:30 | NUR ---
NURSE NOTES: Report received from Lali GARCIA. Pt is resting in bed in stable condition. Pt is awake, alert, and oriented x4. Pt is on 2L O2 via nasal cannula and breathing is even and unlabored. No acute distress noted. Pt is c/o 9/10 abdominal "cramping" that is worse when straining to go to the restroom. Will administer medication PRN per orders. IV site noted to be asymptomatic, patent, and intact and running IV fluids at rx rate. Bed is in lowest position with brake engaged and side rails up x2. Call light and side table are within reach. Will continue to monitor.
--- NOTE | 2018-07-22 19:55 | NUR ---
HAND-OFF: Report given to JOSE Manrique. Plan of care endorsed
[2018-07-22 20:00] VITALS: BP 140/66
[2018-07-22] MEDS: Miralax 17gm pkt ORAL SCH (20:31)
--- NOTE | 2018-07-22 22:06 | General Progress Note ---
Assessment/Plan Assessment/Plan IMPRESSION colitis abdominal pain gib chronic pain methadone dependence PLAN gi evaluation noted refusing colonscopy flagyl monitor clinically pain control dc in am if stable impression, plan, and exam edited and reviewed in detail care discussed with RN Subjective Allergies: Coded Allergies: ERYTHROMYCIN BASE (Verified Allergy, Severe, Hives, 01/29/17) SULFAMETHOXAZOLE (Verified Allergy, Severe, Shortness of Breath, 01/29/17) TRIMETHOPRIM (Verified Allergy, Severe, Shortness of Breath, 01/29/17) TRAMADOL (Verified Allergy, Unknown, 11/25/17) Objective Last 24 Hour Vital Signs Date Time Temp Pulse Resp B/P (MAP) Pulse Ox O2 Delivery O2 Flow Rate FiO2 07/22/18 21:34 97 Nasal Cannula 2.0 28 07/22/18 21:34 Nasal Cannula 2.0 28 07/22/18 20:00 98.8 76 19 140/66 (90) 97 07/22/18 20:00 89 07/22/18 18:55 98.0 07/22/18 18:55 98.0 07/22/18 16:00 78 07/22/18 16:00 98.0 79 16 124/64 (84) 93 07/22/18 13:47 28 07/22/18 13:45 67 18 96 Nasal Cannula 2.0 28 07/22/18 12:00 76 07/22/18 12:00 98.1 79 20 143/118 (126) 96 07/22/18 11:04 28 07/22/18 11:01 74 18 93 Nasal Cannula 2.0 28 07/22/18 09:00 Room Air 07/22/18 08:33 136/79 07/22/18 08:32 71 136/79 07/22/18 08:00 98.0 71 16 136/79 (98) 97 07/22/18 08:00 71 07/22/18 04:00 69 07/22/18 04:00 98.1 75 16 142/74 (96) 97 07/22/18 00:00 72 07/22/18 00:00 98.3 76 18 132/90 (104) 96 Intake and Output 07/21/18 07/22/18 19:00 07:00 Intake Total 600 ml Output Total 200 ml Balance 400 ml IV Total 600 ml Output Urine Total 200 ml # Voids 2 2 # Bowel Movements 1 2 Laboratory Tests 07/22/18 06:48: White Blood Count 6.2, Red Blood Count 4.46, Hemoglobin 13.2, Hematocrit 39.5, Mean Corpuscular Volume 89, Mean Corpuscular Hemoglobin 29.6, Mean Corpuscular Hemoglobin Concent 33.4, Red Cell Distribution Width 11.6, Platelet Count 97L, Mean Platelet Volume 7.4, Neutrophils (%) (Auto) , Lymphocytes (%) (Auto) , Monocytes (%) (Auto) , Eosinophils (%) (Auto) , Basophils (%) (Auto) , Differential Total Cells Counted 100, Neutrophils % (Manual) 51, Lymphocytes % ( Manual) 40, Monocytes % (Manual) 4, Eosinophils % (Manual) 4H, Basophils % ( Manual) 1, Band Neutrophils 0, Platelet Estimate DecreasedL, Platelet Morphology Normal, Red Blood Cell Morphology Normal 07/22/18 09:00: White Blood Count 6.6, Red Blood Count 4.59, Hemoglobin 13.5, Hematocrit 40.8, Mean Corpuscular Volume 89, Mean Corpuscular Hemoglobin 29.5, Mean Corpuscular Hemoglobin Concent 33.2, Red Cell Distribution Width 11.6, Platelet Count 106L, Mean Platelet Volume 8.2, Neutrophils (%) (Auto) 49.1, Lymphocytes (%) (Auto) 37.6, Monocytes (%) (Auto) 6.3, Eosinophils (%) (Auto) 5.4H, Basophils (%) (Auto ) 1.6, Sodium Level 138, Potassium Level 4.1, Chloride Level 102, Carbon Dioxide Level 33H, Anion Gap 3L, Blood Urea Nitrogen 11, Creatinine 0.6, Estimat Glomerular Filtration Rate > 60, Glucose Level 134H, Calcium Level 8.5 Height (Feet): 5 Height (Inches): 3.00 Weight (Pounds): 190 Objective WDWN NAD clear breath sounds bilaterally without rhonchi or wheeze [id number] without MRG NABS nontender no HSM no CCE nonfocal Edgar Luther MD Jul 22, 2018 22:06
--- NOTE | 2018-07-22 22:11 | General Progress Note ---
Assessment/Plan Assessment/Plan Assessment/Plan Problem List: (1) Opioid dependence ICD Codes: F11.20 - Opioid dependence, uncomplicated SNOMED: 60388154 (2) EX IVDA (3) COPD (chronic obstructive pulmonary disease) ICD Codes: J44.9 - Chronic obstructive pulmonary disease, unspecified SNOMED: 66178934 (4) Oxygen dependent ICD Codes: Z99.81 - Dependence on supplemental oxygen SNOMED: 898765642578 (5) Gastrointestinal hemorrhage ICD Codes: K92.2 - Gastrointestinal hemorrhage, unspecified SNOMED: 13865777 Assessment/Plan per patient last colonoscopy 2 years ago refusing repeat colonoscopy anusol HC bowel regimen fu labs colonoscopy if patient agree and if bleeding persist Subjective Allergies: Coded Allergies: ERYTHROMYCIN BASE (Verified Allergy, Severe, Hives, 01/29/17) SULFAMETHOXAZOLE (Verified Allergy, Severe, Shortness of Breath, 01/29/17) TRIMETHOPRIM (Verified Allergy, Severe, Shortness of Breath, 01/29/17) TRAMADOL (Verified Allergy, Unknown, 11/25/17) Subjective c/o chronic pain had colonoscopy at [facility] 2 years ago no interested in another exam Objective Last 24 Hour Vital Signs Date Time Temp Pulse Resp B/P (MAP) Pulse Ox O2 Delivery O2 Flow Rate FiO2 07/22/18 21:34 97 Nasal Cannula 2.0 28 07/22/18 21:34 Nasal Cannula 2.0 28 07/22/18 20:00 98.8 76 19 140/66 (90) 97 07/22/18 20:00 89 07/22/18 18:55 98.0 07/22/18 18:55 98.0 07/22/18 16:00 78 07/22/18 16:00 98.0 79 16 124/64 (84) 93 07/22/18 13:47 28 07/22/18 13:45 67 18 96 Nasal Cannula 2.0 28 07/22/18 12:00 76 07/22/18 12:00 98.1 79 20 143/118 (126) 96 07/22/18 11:04 28 07/22/18 11:01 74 18 93 Nasal Cannula 2.0 28 07/22/18 09:00 Room Air 07/22/18 08:33 136/79 07/22/18 08:32 71 136/79 07/22/18 08:00 98.0 71 16 136/79 (98) 97 07/22/18 08:00 71 07/22/18 04:00 69 07/22/18 04:00 98.1 75 16 142/74 (96) 97 07/22/18 00:00 72 07/22/18 00:00 98.3 76 18 132/90 (104) 96 Intake and Output 07/21/18 07/22/18 19:00 07:00 Intake Total 600 ml Output Total 200 ml Balance 400 ml IV Total 600 ml Output Urine Total 200 ml # Voids 2 2 # Bowel Movements 1 2 Laboratory Tests 07/22/18 06:48: White Blood Count 6.2, Red Blood Count 4.46, Hemoglobin 13.2, Hematocrit 39.5, Mean Corpuscular Volume 89, Mean Corpuscular Hemoglobin 29.6, Mean Corpuscular Hemoglobin Concent 33.4, Red Cell Distribution Width 11.6, Platelet Count 97L, Mean Platelet Volume 7.4, Neutrophils (%) (Auto) , Lymphocytes (%) (Auto) , Monocytes (%) (Auto) , Eosinophils (%) (Auto) , Basophils (%) (Auto) , Differential Total Cells Counted 100, Neutrophils % (Manual) 51, Lymphocytes % ( Manual) 40, Monocytes % (Manual) 4, Eosinophils % (Manual) 4H, Basophils % ( Manual) 1, Band Neutrophils 0, Platelet Estimate DecreasedL, Platelet Morphology Normal, Red Blood Cell Morphology Normal 07/22/18 09:00: White Blood Count 6.6, Red Blood Count 4.59, Hemoglobin 13.5, Hematocrit 40.8, Mean Corpuscular Volume 89, Mean Corpuscular Hemoglobin 29.5, Mean Corpuscular Hemoglobin Concent 33.2, Red Cell Distribution Width 11.6, Platelet Count 106L, Mean Platelet Volume 8.2, Neutrophils (%) (Auto) 49.1, Lymphocytes (%) (Auto) 37.6, Monocytes (%) (Auto) 6.3, Eosinophils (%) (Auto) 5.4H, Basophils (%) (Auto ) 1.6, Sodium Level 138, Potassium Level 4.1, Chloride Level 102, Carbon Dioxide Level 33H, Anion Gap 3L, Blood Urea Nitrogen 11, Creatinine 0.6, Estimat Glomerular Filtration Rate > 60, Glucose Level 134H, Calcium Level 8.5 Height (Feet): 5 Height (Inches): 3.00 Weight (Pounds): 190 Objective WDWN obese WW NCAT supple CTA RR abd soft obese no edema Haider Garcia MD Jul 22, 2018 22:11
[2018-07-23] VITALS: BP 138/78
[2018-07-23] MEDS: HYDROmorphone 4mg tab ORAL SCH ×6 (01:08→21:27)
[2018-07-23] MEDS: Morphine Sulfate 4mg/ml Inj (IV USE ONLY) IVP PRN ×5 (03:26→23:01)
[2018-07-23 04:00] VITALS: BP 149/75
--- NOTE | 2018-07-23 07:09 | NUR ---
NURSE NOTES: Received report from JOSE Manrique. Pt is laying in bed, resting comfortably. Bed is in lowest position, side rails up X2, and call light is within reach. Will continue to monitor.
--- NOTE | 2018-07-23 07:16 | NUR ---
HAND-OFF: Report given to Lali GARCIA. Pt is resting in bed in stable condition. No acute distress noted. Endorsed plan of care.
[2018-07-23 08:00] VITALS: BP 124/74
--- NOTE | 2018-07-23 08:40 | NUR ---
NURSE NOTES: I have an undocumented waste from patients pain medication yesterday (07/22/18) evening. Waste was witnessed by Tera Mcfarlane RN. documentation of waste on pyxis was not done. Called pharmacy, spoke with Hayden. She stated to ask the charge nurse to document waste with me and make a note of who witnessed waste yesterday.
--- NOTE | 2018-07-23 08:53 | NUR ---
NURSE NOTES: waste for 07/22/18 was documented on pyxis by charge nurse
[2018-07-23] MEDS: Lisinopril 20mg tab ORAL SCH (09:03)
[2018-07-23] MEDS: Docusate 100mg cap ORAL SCH ×2 (09:04→17:27)
[2018-07-23 12:00] VITALS: BP 132/76
--- NOTE | 2018-07-23 15:01 | NUR ---
INSURANCE ALL CLINICALS AND REVIEWS FAXED TO: [employer] NCM: KOREY P- [id number] [phone] F- [phone]
--- NOTE | 2018-07-23 15:22 | NUR ---
NURSE NOTES: Pt agreed to colonoscopy. Md Garcia orders given, noted, and carried out.
[2018-07-23] MEDS ORDERED: Sorbitol Solution UD 30ml ORAL SCH (15:25)
[2018-07-23 16:06] VITALS: BP 119/50
--- NOTE | 2018-07-23 17:40 | NUR ---
NURSE NOTES: Pt is very upset over bowel cleansing prep. She states" you guys forced me to do it". I explained to her tat we contacted the GI after she agreed to get the procedure. She states she never agreed. I also explained to her that she does not have to have the procedure she yelled and stated "i am already blowing up the toilet, might as well finish this". after further explanation, pt verbalized understanding regarding having a choice to decline colonoscopy or to go through with it.
--- NOTE | 2018-07-23 19:21 | NUR ---
HAND-OFF: Report given to JOSE Manrique. Plan of care endorsed.
--- NOTE | 2018-07-23 19:29 | General Progress Note ---
Assessment/Plan Assessment/Plan IMPRESSION colitis abdominal pain gib chronic pain methadone dependence PLAN gi evaluation discussed ?colonscopy flagyl monitor clinically pain control dc once cleared impression, plan, and exam edited and reviewed in detail care discussed with RN Subjective Allergies: Coded Allergies: ERYTHROMYCIN BASE (Verified Allergy, Severe, Hives, 01/29/17) SULFAMETHOXAZOLE (Verified Allergy, Severe, Shortness of Breath, 01/29/17) TRIMETHOPRIM (Verified Allergy, Severe, Shortness of Breath, 01/29/17) TRAMADOL (Verified Allergy, Unknown, 11/25/17) Subjective still having pain Objective Last 24 Hour Vital Signs Date Time Temp Pulse Resp B/P (MAP) Pulse Ox O2 Delivery O2 Flow Rate FiO2 07/23/18 16:06 97.3 62 18 119/50 (73) 100 07/23/18 16:00 93 07/23/18 12:00 76 07/23/18 12:00 98.4 69 15 132/76 (94) 98 07/23/18 09:03 124/74 07/23/18 09:02 71 124/74 07/23/18 09:00 Room Air 07/23/18 08:00 67 07/23/18 08:00 98.0 71 20 124/74 (91) 97 07/23/18 07:42 94 Nasal Cannula 2.0 28 07/23/18 07:42 Nasal Cannula 2.0 28 07/23/18 04:00 98.1 70 19 149/75 (99) 97 07/23/18 04:00 64 07/23/18 00:00 69 07/23/18 00:00 97.9 70 18 138/78 (98) 97 07/22/18 21:34 97 Nasal Cannula 2.0 28 07/22/18 21:34 Nasal Cannula 2.0 28 07/22/18 21:00 Room Air 07/22/18 20:00 98.8 76 19 140/66 (90) 97 07/22/18 20:00 89 Intake and Output 07/22/18 07/23/18 19:00 07:00 Intake Total 1100 ml Balance 1100 ml Intake Oral 600 ml IV Total 500 ml # Voids 2 # Bowel Movements 1 1 Height (Feet): 5 Height (Inches): 3.00 Weight (Pounds): 190 Objective WDWN NAD clear breath sounds bilaterally without rhonchi or wheeze [id number] without MRG NABS nontender no HSM no CCE nonfocal Edgar Luther MD Jul 23, 2018 19:29
--- NOTE | 2018-07-23 19:30 | NUR ---
NURSE NOTES: Report received from Lali GARCIA. Pt is sitting up at bedside in stable condition. Pt is awake, alert, and oriented x4. Pt is on 2L O2 via nasal cannula and breathing is even and unlabored. No acute distress noted. Pt is c/o diarrhea d/t sorbitol which was administered today in anticipation for colonoscopy on 07/25/2018. Liquid brown stool noted, no blood noted in stool at this time. Will continue to monitor. IV site is asymptomatic, patent, and intact and running IV fluids at rx rate. Bed is placed in lowest position with brake engaged and side rails up x2. Daughter is at bedside. Call light and side table are placed within reach.
[2018-07-23 20:00] VITALS: BP 127/85
[2018-07-23] MEDS: Miralax 17gm pkt ORAL SCH (20:48)
--- NOTE | 2018-07-23 23:13 | General Progress Note ---
Assessment/Plan Assessment/Plan Assessment/Plan Problem List: (1) Opioid dependence ICD Codes: F11.20 - Opioid dependence, uncomplicated SNOMED: 61157970 (2) EX IVDA (3) COPD (chronic obstructive pulmonary disease) ICD Codes: J44.9 - Chronic obstructive pulmonary disease, unspecified SNOMED: 74570414 (4) Oxygen dependent ICD Codes: Z99.81 - Dependence on supplemental oxygen SNOMED: 492981428387 (5) Gastrointestinal hemorrhage ICD Codes: K92.2 - Gastrointestinal hemorrhage, unspecified SNOMED: 51658094 Assessment/Plan clear liquid begin GI tract preparation follow H&HEGD/Colon Th am Subjective Allergies: Coded Allergies: ERYTHROMYCIN BASE (Verified Allergy, Severe, Hives, 01/29/17) SULFAMETHOXAZOLE (Verified Allergy, Severe, Shortness of Breath, 01/29/17) TRIMETHOPRIM (Verified Allergy, Severe, Shortness of Breath, 01/29/17) TRAMADOL (Verified Allergy, Unknown, 11/25/17) Subjective c/o chronic pain now wants to proceed with GI endoscopy prior to d/c Objective Last 24 Hour Vital Signs Date Time Temp Pulse Resp B/P (MAP) Pulse Ox O2 Delivery O2 Flow Rate FiO2 07/23/18 20:00 98.4 95 19 127/85 (99) 96 07/23/18 16:06 97.3 62 18 119/50 (73) 100 07/23/18 16:00 93 07/23/18 12:00 76 07/23/18 12:00 98.4 69 15 132/76 (94) 98 07/23/18 09:03 124/74 07/23/18 09:02 71 124/74 07/23/18 09:00 Room Air 07/23/18 08:00 67 07/23/18 08:00 98.0 71 20 124/74 (91) 97 07/23/18 07:42 94 Nasal Cannula 2.0 28 07/23/18 07:42 Nasal Cannula 2.0 28 07/23/18 04:00 98.1 70 19 149/75 (99) 97 07/23/18 04:00 64 07/23/18 00:00 69 07/23/18 00:00 97.9 70 18 138/78 (98) 97 Intake and Output 07/22/18 07/23/18 19:00 07:00 Intake Total 1100 ml Balance 1100 ml Intake Oral 600 ml IV Total 500 ml # Voids 2 # Bowel Movements 1 1 Height (Feet): 5 Height (Inches): 3.00 Weight (Pounds): 190 Objective WDWN obese WW NCAT supple CTA RR abd soft obese no edema Haider Garcia MD Jul 23, 2018 23:13
[2018-07-23] MEDS: Albuterol/Ipratropium 3ml neb HHN PRN (23:35)
[2018-07-24] VITALS: BP 136/89
[2018-07-24] MEDS: HYDROmorphone 4mg tab ORAL SCH ×6 (01:18→22:02)
[2018-07-24] MEDS: Morphine Sulfate 4mg/ml Inj (IV USE ONLY) IVP PRN ×2 (02:27→05:34)
[2018-07-24 04:00] VITALS: BP 136/83
--- NOTE | 2018-07-24 05:47 | NUR ---
NURSE NOTES: IV site is red, puffy, tender. 3 different RNs have attempted to replace IV access but unable to place IV. Message left for MD Luther to notify. Awaiting call back for further instructions.
--- NOTE | 2018-07-24 06:13 | NUR ---
NURSE NOTES: MD Luther aware of no IV access at this time. Per MD, change metronidazole from IV route to PO and d/c morphine IVP. Order norco 5/325mg 1 tablet PO for moderate pain and norco 5/325 2 tablets PO for severe pain. Orders noted and carried out.
[2018-07-24] MEDS ORDERED: HYDROcodone/Acetamin 5/325 tab ORAL PRN (06:30)
--- NOTE | 2018-07-24 06:44 | NUR ---
NURSE NOTES: Pt is upset and stating that she "doesn't understand why they won't just put a PICC line in me. And norco won't do anything for my pain. Don't you understand I take Dilaudid at home? Castine or vicodin is like aspirin to me." Pt states that she feels "forced" into the colonoscopy. Explained to pt that she has the right to decline the procedure at any time. Pt verbalizes understanding. MD Luther aware that pt wants PICC line and IM morphine. Per , no PICC placement or IM morphine at this time.
--- NOTE | 2018-07-24 07:35 | NUR ---
NURSE NOTES: Received report from JOSE Manrique. Pt is upset over no lionger getting morphine. She states she is "seriously considering if she wants to leave". I explained to her that she has a right to leave at any time. Pt verbalized understanding. Bed is in lowest position, side rails up X2, and call light is within reach. Will continue to monitor.
--- NOTE | 2018-07-24 07:39 | NUR ---
HAND-OFF: Report given to Lali GARCIA. Pt is resting in bed in stable condition. No acute distress noted. Endorsed plan of care.
[2018-07-24 08:00] VITALS: BP 144/65
[2018-07-24] MEDS: Docusate 100mg cap ORAL SCH ×2 (08:17→17:18)
[2018-07-24] MEDS: Lisinopril 20mg tab ORAL SCH (08:17)
[2018-07-24] MEDS: metroNIDAZOLE 500mg tab ORAL SCH ×3 (08:18→22:03)
--- NOTE | 2018-07-24 09:06 | NUR ---
CASE MANAGEMENT:REVIEW 07/24/18 SI: COLITIS. CHRONIC PAIN 98.6 83 19 136/83 96% ON 2L/NC IS; FLAGYL PO Q8HRS NORVASC PO QD LISINOPRIL PO QD METHADONE 50MG PO QD KLONOPIN PO QID NEURONTIN PO TID IVF@100/HR : TELEMETRY DCP: FROM HOME PLAN: DC ONCE CLEARED CLEAR LIQUID DIET
--- NOTE | 2018-07-24 09:20 | General Progress Note ---
Assessment/Plan Assessment/Plan Assessment/Plan Problem List: (1) Opioid dependence ICD Codes: F11.20 - Opioid dependence, uncomplicated SNOMED: 40614306 (2) EX IVDA (3) COPD (chronic obstructive pulmonary disease) ICD Codes: J44.9 - Chronic obstructive pulmonary disease, unspecified SNOMED: 08062351 (4) Oxygen dependent ICD Codes: Z99.81 - Dependence on supplemental oxygen SNOMED: 888045558847 (5) Gastrointestinal hemorrhage ICD Codes: K92.2 - Gastrointestinal hemorrhage, unspecified SNOMED: 32599507 Assessment/Plan clear liquid GI tract preparation follow H&H EGD/Colon Th am Subjective Allergies: Coded Allergies: ERYTHROMYCIN BASE (Verified Allergy, Severe, Hives, 01/29/17) SULFAMETHOXAZOLE (Verified Allergy, Severe, Shortness of Breath, 01/29/17) TRIMETHOPRIM (Verified Allergy, Severe, Shortness of Breath, 01/29/17) TRAMADOL (Verified Allergy, Unknown, 11/25/17) Subjective (+) BM with prep no hematochezia Objective Last 24 Hour Vital Signs Date Time Temp Pulse Resp B/P (MAP) Pulse Ox O2 Delivery O2 Flow Rate FiO2 07/24/18 08:17 124/67 07/24/18 08:16 74 124/67 07/24/18 04:00 98.6 83 19 136/83 (100) 96 07/24/18 04:00 74 07/24/18 00:00 98.6 93 18 136/89 (105) 95 07/24/18 00:00 87 07/23/18 23:49 75 20 100 Nasal Cannula 2.0 28 07/23/18 23:35 94 Nasal Cannula 2.0 28 07/23/18 23:35 Nasal Cannula 2.0 28 07/23/18 23:35 28 07/23/18 23:35 93 18 95 Nasal Cannula 2.0 28 07/23/18 21:00 Room Air 07/23/18 20:00 98.4 95 19 127/85 (99) 96 07/23/18 16:06 97.3 62 18 119/50 (73) 100 07/23/18 16:00 93 07/23/18 12:00 76 07/23/18 12:00 98.4 69 15 132/76 (94) 98 Intake and Output 07/23/18 07/24/18 18:59 06:59 Intake Total 600 ml 360 ml Balance 600 ml 360 ml Intake Oral 240 ml Other 360 ml 360 ml # Voids 5 3 # Bowel Movements 3 4 Height (Feet): 5 Height (Inches): 3.00 Weight (Pounds): 195 Objective WDWN obese WW NCAT supple CTA RR abd soft obese no edema Haider Garcia MD Jul 24, 2018 09:20
--- NOTE | 2018-07-24 10:07 | NUR ---
INSURANCE ALL CLINICALS AND REVIEWS FAXED TO: [employer] NCM: KOREY P- [phone] F- [phone]
[2018-07-24 10:32] LABS: BASOPHILS % (AUTO) 1.2 % (0.0-2.0); EOSINOPHILS % (AUTO) 8.1 % (0.0-3.0); HEMATOCRIT 39.1 % (37.0-47.0); HEMOGLOBIN 12.9 G/DL (12.0-16.0); MEAN CORPUSCULAR VOLUME 88 FL (80-99); MONOCYTES % (AUTO) 7.4 % (1.0-10.0); NEUTROPHILS % (AUTO) 40.3 % (45.0-75.0); PLATELET COUNT 124 K/UL (150-450); RED BLOOD COUNT 4.45 M/UL (4.20-5.40); RED CELL DISTRIBUTION WIDTH 11.5 % (11.6-14.8); WHITE BLOOD COUNT 4.8 K/UL (4.8-10.8)
[2018-07-24 10:47] LABS: ALBUMIN 3.5 G/DL (3.4-5.0); ALBUMIN/GLOBULIN RATIO 0.9 (1.0-2.7); ALKALINE PHOSPHATASE 65 U/L (46-116); ANION GAP 5 mmol/L (5-15); ASPARTATE AMINO TRANSFERASE 40 U/L (15-37); BILIRUBIN,TOTAL 0.3 MG/DL (0.2-1.0); BLOOD UREA NITROGEN 5 mg/dL (7-18); CALCIUM 8.7 MG/DL (8.5-10.1); CARBON DIOXIDE 33 MMOL/L (21-32); CHLORIDE 102 MMOL/L (98-107); CREATININE 0.7 MG/DL (0.55-1.30); POTASSIUM 3.6 MMOL/L (3.5-5.1); SODIUM 140 MMOL/L (136-145)
[2018-07-24] MEDS ORDERED: Nulytely 4L ORAL SCH (11:00)
[2018-07-24] MEDS ORDERED: Bisacodyl EC 5mg tab ORAL SCH ×2 (11:00→18:00)
[2018-07-24 11:03] LABS: ALANINE AMINOTRANSFERASE 25 U/L (12-78)
[2018-07-24 12:00] VITALS: BP 115/73
--- NOTE | 2018-07-24 15:25 | Pulmonology Progress Note ---
Assessment/Plan Assessment/Plan Pulmonary Progress Note Assessment/Plan Assessment/Plan IMPRESSION colitis abdominal pain gib chronic pain methadone dependence PLAN gi evaluation noted refusing colonscopy flagyl monitor clinically pain control dc in am if stable impression, plan, and exam edited and reviewed in detail care discussed with RN Subjective Allergies: Coded Allergies: ERYTHROMYCIN BASE (Verified Allergy, Severe, Hives, 01/29/17) SULFAMETHOXAZOLE (Verified Allergy, Severe, Shortness of Breath, 01/29/17) TRIMETHOPRIM (Verified Allergy, Severe, Shortness of Breath, 01/29/17) TRAMADOL (Verified Allergy, Unknown, 11/25/17) Objective Vital Signs Noted Laboratory Tests 07/22/18 06:48: White Blood Count 6.2, Red Blood Count 4.46, Hemoglobin 13.2, Hematocrit 39.5, Mean Corpuscular Volume 89, Mean Corpuscular Hemoglobin 29.6, Mean Corpuscular Hemoglobin Concent 33.4, Red Cell Distribution Width 11.6, Platelet Count 97L, Mean Platelet Volume 7.4, Neutrophils (%) (Auto) , Lymphocytes (%) (Auto) , Monocytes (%) (Auto) , Eosinophils (%) (Auto) , Basophils (%) (Auto) , Differential Total Cells Counted 100, Neutrophils % (Manual) 51, Lymphocytes % ( Manual) 40, Monocytes % (Manual) 4, Eosinophils % (Manual) 4H, Basophils % ( Manual) 1, Band Neutrophils 0, Platelet Estimate DecreasedL, Platelet Morphology Normal, Red Blood Cell Morphology Normal 07/22/18 09:00: White Blood Count 6.6, Red Blood Count 4.59, Hemoglobin 13.5, Hematocrit 40.8, Mean Corpuscular Volume 89, Mean Corpuscular Hemoglobin 29.5, Mean Corpuscular Hemoglobin Concent 33.2, Red Cell Distribution Width 11.6, Platelet Count 106L, Mean Platelet Volume 8.2, Neutrophils (%) (Auto) 49.1, Lymphocytes (%) (Auto) 37.6, Monocytes (%) (Auto) 6.3, Eosinophils (%) (Auto) 5.4H, Basophils (%) (Auto ) 1.6, Sodium Level 138, Potassium Level 4.1, Chloride Level 102, Carbon Dioxide Level 33H, Anion Gap 3L, Blood Urea Nitrogen 11, Creatinine 0.6, Estimat Glomerular Filtration Rate > 60, Glucose Level 134H, Calcium Level 8.5 Height (Feet): 5 Height (Inches): 3.00 Weight (Pounds): 190 Objective WDWN NAD clear breath sounds bilaterally without rhonchi or wheeze [id number] without MRG NABS nontender no HSM no CCE nonfocal Subjective ROS Limited/Unobtainable: No Allergies: Coded Allergies: ERYTHROMYCIN BASE (Verified Allergy, Severe, Hives, 01/29/17) SULFAMETHOXAZOLE (Verified Allergy, Severe, Shortness of Breath, 01/29/17) TRIMETHOPRIM (Verified Allergy, Severe, Shortness of Breath, 01/29/17) TRAMADOL (Verified Allergy, Unknown, 11/25/17) Objective Last 24 Hour Vital Signs Date Time Temp Pulse Resp B/P (MAP) Pulse Ox O2 Delivery O2 Flow Rate FiO2 07/24/18 12:00 83 07/24/18 12:00 97.5 85 18 115/73 (87) 94 07/24/18 09:00 Room Air 07/24/18 08:17 124/67 07/24/18 08:16 74 124/67 07/24/18 08:00 73 07/24/18 08:00 97.8 82 20 144/65 (91) 96 07/24/18 07:02 Nasal Cannula 2.0 28 07/24/18 07:02 96 Nasal Cannula 2.0 28 07/24/18 04:00 98.6 83 19 136/83 (100) 96 07/24/18 04:00 74 07/24/18 00:00 98.6 93 18 136/89 (105) 95 07/24/18 00:00 87 07/23/18 23:49 75 20 100 Nasal Cannula 2.0 28 07/23/18 23:35 94 Nasal Cannula 2.0 28 07/23/18 23:35 Nasal Cannula 2.0 28 07/23/18 23:35 28 07/23/18 23:35 93 18 95 Nasal Cannula 2.0 28 07/23/18 21:00 Room Air 07/23/18 20:00 98.4 95 19 127/85 (99) 96 07/23/18 16:06 97.3 62 18 119/50 (73) 100 07/23/18 16:00 93 Intake and Output 07/23/18 07/24/18 19:00 07:00 Intake Total 600 ml 360 ml Balance 600 ml 360 ml Intake Oral 240 ml Other 360 ml 360 ml # Voids 5 3 # Bowel Movements 3 4 Laboratory Tests 07/24/18 09:25: White Blood Count 4.8, Red Blood Count 4.45, Hemoglobin 12.9, Hematocrit 39.1, Mean Corpuscular Volume 88, Mean Corpuscular Hemoglobin 29.0, Mean Corpuscular Hemoglobin Concent 33.0, Red Cell Distribution Width 11.5L, Platelet Count 124L , Mean Platelet Volume 8.3, Neutrophils (%) (Auto) 40.3L, Lymphocytes (%) (Auto ) 43.0, Monocytes (%) (Auto) 7.4, Eosinophils (%) (Auto) 8.1H, Basophils (%) ( Auto) 1.2, Sodium Level 140, Potassium Level 3.6, Chloride Level 102, Carbon Dioxide Level 33H, Anion Gap 5, Blood Urea Nitrogen 5L, Creatinine 0.7, Estimat Glomerular Filtration Rate > 60, Glucose Level 92, Calcium Level 8.7, Total Bilirubin 0.3, Aspartate Amino Transf (AST/SGOT) 40H, Alanine Aminotransferase ( ALT/SGPT) 25, Alkaline Phosphatase 65, Total Protein 7.2, Albumin 3.5, Globulin 3.7, Albumin/Globulin Ratio 0.9L Current Medications Medications (Trade) Dose Ordered Sig/Sumeet Route PRN Reason Start Time Stop Time Status Last Admin Dose Admin Acetaminophen/ Hydrocodone Bitart ([place] 5/325) 1 tab Q4H PRN ORAL Moderate Pain (Pain Scale 4-6) 07/24/18 06:30 07/31/18 06:29 Acetaminophen/ Hydrocodone Bitart ([place] 5/325) 2 tab Q4H PRN ORAL Severe Pain (Pain Scale 7-10) 07/24/18 06:30 07/31/18 06:29 Albuterol/ Ipratropium (Albuterol/ Ipratropium) 3 ml Q4HRT PRN HHN Shortness of Breath 07/21/18 10:15 07/26/18 10:14 07/23/18 23:35 Amlodipine Besylate (Norvasc) 10 mg DAILY ORAL 07/22/18 09:00 08/21/18 08:59 07/24/18 08:16 Bisacodyl (Dulcolax) 10 mg ONCE ORAL 07/24/18 18:00 07/24/18 19:00 Clonazepam (KlonoPIN) 1 mg QID ORAL 07/21/18 13:00 07/28/18 12:59 07/24/18 13:12 Diphenhydramine HCl (Benadryl) 50 mg FOUR TIMES A DAY ORAL 07/21/18 13:00 08/20/18 12:59 07/24/18 13:11 Docusate Sodium (Colace) 100 mg TWICE A DAY ORAL 07/22/18 09:00 08/21/18 08:59 07/24/18 08:17 Gabapentin (Neurontin) 300 mg THREE TIMES A DAY ORAL 07/21/18 13:00 08/20/18 12:59 07/24/18 13:11 Hydrocortisone (Anusol HC) 1 applic TWICE A DAY RECTAL 07/22/18 09:00 08/21/18 08:59 07/24/18 08:17 Hydromorphone HCl (Dilaudid) 4 mg Q4H ORAL 07/21/18 18:00 07/28/18 17:59 07/24/18 13:12 Lisinopril (Prinivil) 40 mg DAILY ORAL 07/22/18 09:00 08/21/18 08:59 07/24/18 08:17 Methadone HCl (Methadone HCl) 50 mg DAILY ORAL 07/22/18 09:00 07/29/18 08:59 07/24/18 08:16 Metronidazole (Flagyl) 500 mg Q8HR ORAL 07/24/18 07:00 07/31/18 06:59 07/24/18 13:11 Ondansetron HCl (Zofran) 4 mg Q6H PRN IVP Nausea & Vomiting 07/21/18 10:15 08/20/18 10:14 Polyethylene Glycol (Miralax) 17 gm BEDTIME ORAL 07/21/18 21:00 08/20/18 20:59 07/22/18 20:31 Polyethylene Glycol/ Electrolytes (Nulytely) 4,000 ml ONCE ORAL 07/24/18 11:00 07/24/18 18:00 07/24/18 13:12 Sodium Chloride 1,000 ml @ 100 mls/hr Q10H IV 1/6/19 10:15 08/20/18 10:14 07/23/18 23:01 Maximino Bedoya MD Jul 24, 2018 15:25
[2018-07-24 16:00] VITALS: BP 113/69
--- NOTE | 2018-07-24 19:15 | NUR ---
NURSE NOTES: Received report from am, nurse patient is alert and oriented x4 entered pt room sitting on bed side commode alert and oriented x4 pt c/o pain pt daughter came c/o mother hasn't seen nurse in 45 minutes mother hasn't seen nurse for 45 minutes explained to family member I was in pt room 1-0 minutes ago. Pt bed linen changed a floor mop due to spill juice on floor.Pt is scheduled for colonoscopy and endoscopy in am pt dranked all her prep continue to use the toilet with assistance from staff Pt given dilaudid for pain as ordered. Pt is sinus rhythm on monitor pt stated that librado leaving but my stomach hyr.Pt is on 02 2L nc no signs of distressed noted will continue to monitor hourly falls and safety other needs patient may have.
--- NOTE | 2018-07-24 19:52 | NUR ---
HAND-OFF: Report given to Michael Lewis RN. Plan of care endorsed. Signed consents for procedures in chart
[2018-07-24 20:00] VITALS: BP 132/72
[2018-07-24] MEDS: Miralax 17gm pkt ORAL SCH (21:00)
[2018-07-25] VITALS: BP 105/85
[2018-07-25] MEDS: HYDROmorphone 4mg tab ORAL SCH ×6 (03:29→22:00)
[2018-07-25 04:00] VITALS: BP 110/89
[2018-07-25] MEDS: Albuterol/Ipratropium 3ml neb HHN PRN (04:35)
[2018-07-25] MEDS: metroNIDAZOLE 500mg tab ORAL SCH ×3 (06:00→21:21)
--- NOTE | 2018-07-25 07:23 | Pre-Procedure Note/Attestation ---
Pre-Procedure Note/Attestation Complete Prior to Procedure Planned Procedure: not applicable Procedure Narrative: EGD Indications for Procedure Pre-Operative Diagnosis: GIB Attestation I attest that I discussed the nature of the procedure; its benefits; risks and complications; and alternatives (and the risks and benefits of such alternatives ), prior to the procedure, with the patient (or the patient's legal sales representative malt liquors). I attest that, if there was a reasonable possibility of needing a blood transfusion, the patient (or the patient's legal sales representative malt liquors) was given the [facility] standardized written summary, pursuant to the Kayode Guerda Blood Safety Act ([place] Health and Safety Code # 1645, as amended). I attest that I re-evaluated the patient just prior to the surgery and that there has been no change in the patient's H&P, except as documented below: Haider Garcia MD Jul 25, 2018 07:23
--- NOTE | 2018-07-25 07:45 | NUR ---
NURSE NOTES: Report received from JOSE Fam. Pt is resting in bed, sleeping. No signs and symptoms of acute distress noted at this time. Respirations are even and unlabored on 2 L NC. Patient has No IV site and per cook night nurse, doctor is aware. Bed is at lowest position, brakes engaged, side rails x2, bed alarm on. Bed side table and call light within reach. Will continue to monitor patient and follow plan of care.
[2018-07-25 08:00] VITALS: BP 106/70
--- NOTE | 2018-07-25 08:15 | Endoscopy Procedure Note ---
Endoscopy Procedure Note General Indication for Procedure: Procedure postponed due to lack of IV access Procedures Performed: other Operative Findings/Diagnosis: N/A Specimen: none Pt Tolerated Procedure Well: No Estimated Blood Loss: none Anesthesia Anesthesiologist: N/A Anesthesia: MAC, other Medications Medication Given: see anesthesia record, other Inserted Devices Implant(s) used?: No GI Core Measures 50 yrs or older w/o bx or poly: Not Applicable 10yrs. F/U not recommended: Not Applicable If not recommended, why?: 10 yrs. F/U needed: No 18 years or older w/prev. colo: Yes <3yrs. since last colonoscopy: Yes Med reason:<3 yrs.: System Reason:<3 yrs.: Last colonoscopy >= to 3yrs: No Haider Garcia MD Jul 25, 2018 08:15
[2018-07-25] MEDS: Lisinopril 20mg tab ORAL SCH (08:50)
[2018-07-25] MEDS: Docusate 100mg cap ORAL SCH ×2 (08:50→17:25)
--- NOTE | 2018-07-25 10:14 | NUR ---
CASE MANAGEMENT:REVIEW 07/25/18 SI: COLITIS EGD/COLONOSCOPY(+) EROSIVE DUODENITIS AND GASTRITIS 98.0 80 21 106/70 98% ON 2L/NC IS: IVF@100/HR FLAGYL PO Q8 NORVASC PO QD LISINOPRIL PO QD METHADONE PO QD ANUSOL CA BID : TELEMETRY DCP: FROM HOME
[2018-07-25 12:00] VITALS: BP 138/65
--- NOTE | 2018-07-25 15:20 | Consultation ---
History of Present Illness General Date patient seen: Jul 25, 2018 Chief Complaint: Gastrointestinal Bleed Reason for Consultation: venous access Present Illness HPI 62 year old female with multiple medical comorbidities currently admitted for medical care and management. Having GI bleeding and was scheduled for colonoscopy / EGD today. unfortunately procedure cancelled as patient with poor peripheral access and could not establish an IV line for meds. Surgery called to evaluate and assist with care and management. patient seen, chart reviewed, patient examined. states she is well but hemorrhaging from below. Allergies: Coded Allergies: ERYTHROMYCIN BASE (Verified Allergy, Severe, Hives, 01/29/17) SULFAMETHOXAZOLE (Verified Allergy, Severe, Shortness of Breath, 01/29/17) TRIMETHOPRIM (Verified Allergy, Severe, Shortness of Breath, 01/29/17) TRAMADOL (Verified Allergy, Unknown, 11/25/17) Medication History Scheduled Albuterol Sulfate* (Albuterol Sulfate Mdi*), 2 PUFF INH Q6H, (Reported) Amlodipine Besylate (Norvasc), 10 MG ORAL DAILY, (Reported) Clonazepam* (Klonopin*), 1 MG ORAL QID, (Reported) Diphenhydramine HCl (Benadryl), 50 MG PO FOUR TIMES A DAY, (Reported) Gabapentin* (Gabapentin*), 300 MG ORAL THREE TIMES A DAY, (Reported) Hydromorphone HCl (Dilaudid), 4 MG ORAL Q4H, (Reported) Lisinopril (Lisinopril*), 40 MG ORAL DAILY, (Reported) Methadone Hcl (Methadone Hcl), 50 MG PO DAILY, (Reported) Nitrofurantoin Monohyd/M-Cryst (Nitrofurantoin [place]-Mcr 100 mg), 100 MG ORAL Q12H Omeprazole (Omeprazole), 20 MG ORAL DAILY, (Reported) Miscellaneous Medications Diphenhydramine Hcl (Banophen), 50 MG PO, (Reported) Patient History History Provided By: Patient, Medical Record, PMD Healthcare decision maker N Resuscitation status Advanced Directive on File Past Medical/Surgical History Past Medical/Surgical History: (1) Edema (2) Ingrowing toenail with infection (3) Pneumonia (4) Acute and chronic respiratory failure (5) PICC (peripherally inserted central catheter) removal (6) Morbid obesity (7) Wrist injury (8) Colitis (9) COPD (chronic obstructive pulmonary disease) (10) Opioid dependence (11) Gastrointestinal hemorrhage (12) Oxygen dependent (13) EX IVDA Review of Systems Constitutional: Denies: no symptoms, see HPI, chills, sweats, fever, malaise, weakness, other Eye: Denies: no symptoms, see HPI, eye pain, blurred vision, tearing, double vision, nose pain, nose congestion, acuity changes, discharge, other ENT: Denies: no symptoms, see HPI, ear pain, ear discharge, nose pain, nose congestion, throat pain, throat swelling, mouth pain, hearing loss, nasal discharge, other Respiratory: Denies: no symptoms, see HPI, cough, orthopnea, shortness of breath, stridor, wheezing, IRVING, sputum, other Cardiovascular: Denies: no symptoms, see HPI, chest pain, edema, palpitations, syncope, PND, other Gastrointestinal: Reports: melena Genitourinary: Denies: no symptoms, see HPI, discharge, dysuria, frequency, hematuria, pain, retention, incontinence, urgency, vag bleed/dc, other Musculoskeletal: Denies: no symptoms, see HPI, back pain, gout, joint pain, joint swelling, muscle pain, muscle stiffness, other Skin: Denies: no symptoms, see HPI, rash, change in color, change in hair/nails , dryness, lesions, other Psychiatric: Denies: no symptoms, see HPI, prior hx, anxiety, depressed feelings, emotional problems, SI, HI, hallucinations, other Neurological: Denies: no symptoms, see HPI, headache, numbness, paresthesia, seizure, tingling, tremors, focal weakness, syncope, dizziness, other Endocrine: Denies: no symptoms, see HPI, excessive sweating, flushing, intolerance to temperature, increased thirst, increased urine, unexplained weight loss, other Hematologic/Lymphatic: Denies: no symptoms, see HPI, anemia, blood clots, easy bleeding, easy bruising, swollen glands, diathesis, other All Other Systems: negative except mentioned in HPI Physical Exam General Appearance: no apparent distress, alert Lines, tubes and drains: other - none HEENT: mucous membranes moist Neck: normal inspection Respiratory/Chest: no respiratory distress, no accessory muscle use Cardiovascular/Chest: regular rhythm Abdomen: soft, no organomegaly, no mass Extremities: normal inspection, no calf tenderness Skin Exam: warm/dry Neurologic: alert, oriented x 3 Last 24 Hour Vital Signs Date Time Temp Pulse Resp B/P (MAP) Pulse Ox O2 Delivery O2 Flow Rate FiO2 07/25/18 12:00 81 07/25/18 12:00 98.0 82 19 138/65 (89) 94 07/25/18 09:00 Room Air 07/25/18 09:00 96 106/70 07/25/18 08:50 106/70 07/25/18 08:15 98 Nasal Cannula 2.0 28 07/25/18 08:15 78 17 Nasal Cannula 2.0 28 07/25/18 08:15 Nasal Cannula 2.0 28 07/25/18 08:00 98 07/25/18 08:00 98.0 80 21 106/70 (82) 96 07/25/18 04:35 80 20 100 Nasal Cannula 2.0 28 07/25/18 04:25 28 07/25/18 04:25 75 22 97 Nasal Cannula 2.0 28 07/25/18 04:00 79 07/25/18 04:00 85 07/25/18 04:00 98.4 79 18 110/89 (96) 94 07/25/18 01:00 86 07/25/18 00:00 98.0 76 20 105/85 (92) 94 07/24/18 21:00 Room Air 07/24/18 20:00 97.0 83 20 132/72 (92) 96 07/24/18 18:56 Nasal Cannula 2.0 28 07/24/18 18:53 98 Nasal Cannula 2.0 28 07/24/18 16:00 97.0 84 20 113/69 (84) 98 07/24/18 16:00 90 Intake and Output 07/24/18 07/25/18 18:59 06:59 Intake Total 360 ml Balance 360 ml Intake Oral 360 ml # Voids 2 # Bowel Movements 3 5 Height (Feet): 5 Height (Inches): 3.00 Weight (Pounds): 195 Medications Current Medications Medications (Trade) Dose Ordered Sig/Sumeet Route PRN Reason Start Time Stop Time Status Last Admin Dose Admin Acetaminophen/ Hydrocodone Bitart (Spur 5/325) 1 tab Q4H PRN ORAL Moderate Pain (Pain Scale 4-6) 07/24/18 06:30 07/31/18 06:29 Acetaminophen/ Hydrocodone Bitart (Spur 5/325) 2 tab Q4H PRN ORAL Severe Pain (Pain Scale 7-10) 07/24/18 06:30 07/31/18 06:29 Albuterol/ Ipratropium (Albuterol/ Ipratropium) 3 ml Q4HRT PRN HHN Shortness of Breath 07/21/18 10:15 07/26/18 10:14 07/25/18 04:35 Amlodipine Besylate (Norvasc) 10 mg DAILY ORAL 07/22/18 09:00 08/21/18 08:59 07/24/18 08:16 Clonazepam (KlonoPIN) 1 mg QID ORAL 07/21/18 13:00 07/28/18 12:59 07/25/18 13:25 Diphenhydramine HCl (Benadryl) 50 mg FOUR TIMES A DAY ORAL 07/21/18 13:00 08/20/18 12:59 07/25/18 13:25 Docusate Sodium (Colace) 100 mg TWICE A DAY ORAL 07/22/18 09:00 08/21/18 08:59 07/25/18 08:50 Gabapentin (Neurontin) 300 mg THREE TIMES A DAY ORAL 07/21/18 13:00 08/20/18 12:59 07/25/18 13:25 Hydrocortisone (Anusol HC) 1 applic TWICE A DAY RECTAL 07/22/18 09:00 08/21/18 08:59 07/25/18 08:58 Hydromorphone HCl (Dilaudid) 4 mg Q4H ORAL 07/21/18 18:00 07/28/18 17:59 07/25/18 13:26 Lisinopril (Prinivil) 40 mg DAILY ORAL 07/22/18 09:00 08/21/18 08:59 07/25/18 08:50 Methadone HCl (Methadone HCl) 50 mg DAILY ORAL 07/22/18 09:00 07/29/18 08:59 07/25/18 08:51 Metronidazole (Flagyl) 500 mg Q8HR ORAL 07/24/18 07:00 07/31/18 06:59 07/25/18 13:25 Ondansetron HCl (Zofran) 4 mg Q6H PRN IVP Nausea & Vomiting 07/21/18 10:15 08/20/18 10:14 Polyethylene Glycol (Miralax) 17 gm BEDTIME ORAL 07/21/18 21:00 08/20/18 20:59 07/22/18 20:31 Sodium Chloride 1,000 ml @ 100 mls/hr Q10H IV 07/21/18 10:15 08/20/18 10:14 07/23/18 23:01 Assessment/Plan Problem List: (1) Gastrointestinal hemorrhage Assessment & Plan: 62 year old female with GI bleed requiring GI scope. unable to perform procedure because of lack of good proper venous access for procedure. needs venous access that is stable for procedure no peripheral access and poor peripheral veins. 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 okay to use for procedure. once done can d/c safely. call me and I will d/c thank you will follow with recs ICD Codes: K92.2 - Gastrointestinal hemorrhage, unspecified SNOMED: 62417256 Fran Biswas Jul 25, 2018 15:20
[2018-07-25 16:00] VITALS: BP 130/70
--- NOTE | 2018-07-25 16:02 | General Progress Note ---
Assessment/Plan Assessment/Plan IMPRESSION colitis abdominal pain gib chronic pain methadone dependence PLAN gi evaluation discussed ?colonscopy in am line placed flagyl po monitor clinically pain control dc once cleared impression, plan, and exam edited and reviewed in detail care discussed with RN Subjective Allergies: Coded Allergies: ERYTHROMYCIN BASE (Verified Allergy, Severe, Hives, 01/29/17) SULFAMETHOXAZOLE (Verified Allergy, Severe, Shortness of Breath, 01/29/17) TRIMETHOPRIM (Verified Allergy, Severe, Shortness of Breath, 01/29/17) TRAMADOL (Verified Allergy, Unknown, 11/25/17) Subjective still having pain Objective Last 24 Hour Vital Signs Date Time Temp Pulse Resp B/P (MAP) Pulse Ox O2 Delivery O2 Flow Rate FiO2 07/25/18 12:00 81 07/25/18 12:00 98.0 82 19 138/65 (89) 94 07/25/18 09:00 Room Air 07/25/18 09:00 96 106/70 07/25/18 08:50 106/70 07/25/18 08:15 98 Nasal Cannula 2.0 28 07/25/18 08:15 78 17 Nasal Cannula 2.0 28 07/25/18 08:15 Nasal Cannula 2.0 28 07/25/18 08:00 98 07/25/18 08:00 98.0 80 21 106/70 (82) 96 07/25/18 04:35 80 20 100 Nasal Cannula 2.0 28 07/25/18 04:25 28 07/25/18 04:25 75 22 97 Nasal Cannula 2.0 28 07/25/18 04:00 79 07/25/18 04:00 85 07/25/18 04:00 98.4 79 18 110/89 (96) 94 07/25/18 01:00 86 07/25/18 00:00 98.0 76 20 105/85 (92) 94 07/24/18 21:00 Room Air 07/24/18 20:00 97.0 83 20 132/72 (92) 96 07/24/18 18:56 Nasal Cannula 2.0 28 07/24/18 18:53 98 Nasal Cannula 2.0 28 Intake and Output 07/24/18 07/25/18 18:59 06:59 Intake Total 360 ml Balance 360 ml Intake Oral 360 ml # Voids 2 # Bowel Movements 3 5 Height (Feet): 5 Height (Inches): 3.00 Weight (Pounds): 195 Objective WDWN NAD clear breath sounds bilaterally without rhonchi or wheeze [id number] without MRG NABS nontender no HSM no CCE nonfocal Edgar Luther MD Jul 25, 2018 16:02
[2018-07-25] MEDS ORDERED: Nulytely 4L ORAL SCH (19:00)
--- NOTE | 2018-07-25 19:15 | NUR ---
HAND-OFF: Report given to JOSE Alvarez.
--- NOTE | 2018-07-25 19:20 | NUR ---
NURSE NOTES: Received report from JOSE Nolen. Patient awake, laert and verbally responsive. No SOB, no acute distress, denies any pain nor any discomfort at this time. IV site on R EJ # 20, patent and intact. Patient scheduled for endoscopy and colonoscopy tomorrow, NPO starting midnight, prep started, consent obtained per JOSE Nolen, pt aware and verbalized understanding. Will continue plan of care.
[2018-07-25 20:00] VITALS: BP 115/89
[2018-07-25] MEDS: Miralax 17gm pkt ORAL SCH (21:00)
[2018-07-25] MEDS: HYDROcodone/Acetamin 5/325 tab ORAL PRN (21:20)
--- NOTE | 2018-07-25 21:34 | General Progress Note ---
Assessment/Plan Assessment/Plan Assessment/Plan Problem List: (1) Opioid dependence ICD Codes: F11.20 - Opioid dependence, uncomplicated SNOMED: 55745097 (2) EX IVDA (3) COPD (chronic obstructive pulmonary disease) ICD Codes: J44.9 - Chronic obstructive pulmonary disease, unspecified SNOMED: 31251652 (4) Oxygen dependent ICD Codes: Z99.81 - Dependence on supplemental oxygen SNOMED: 243510767457 (5) Gastrointestinal hemorrhage ICD Codes: K92.2 - Gastrointestinal hemorrhage, unspecified SNOMED: 34402112 Assessment/Plan clear liquid GI tract preparation follow H&H EGD/Colon Fri am Subjective Allergies: Coded Allergies: ERYTHROMYCIN BASE (Verified Allergy, Severe, Hives, 01/29/17) SULFAMETHOXAZOLE (Verified Allergy, Severe, Shortness of Breath, 01/29/17) TRIMETHOPRIM (Verified Allergy, Severe, Shortness of Breath, 01/29/17) TRAMADOL (Verified Allergy, Unknown, 11/25/17) Subjective (+) BM with prep unable to do colonoscopy due to lack of IV access Objective Last 24 Hour Vital Signs Date Time Temp Pulse Resp B/P (MAP) Pulse Ox O2 Delivery O2 Flow Rate FiO2 07/25/18 21:20 99 Nasal Cannula 2.0 28 07/25/18 21:20 77 20 Nasal Cannula 2.0 28 07/25/18 21:20 Nasal Cannula 2.0 28 07/25/18 20:00 80 07/25/18 20:00 97.7 81 19 115/89 (98) 94 07/25/18 16:00 79 07/25/18 16:00 98.1 75 20 130/70 (90) 95 07/25/18 12:00 81 07/25/18 12:00 98.0 82 19 138/65 (89) 94 07/25/18 09:00 Room Air 07/25/18 09:00 96 106/70 07/25/18 08:50 106/70 07/25/18 08:15 98 Nasal Cannula 2.0 28 07/25/18 08:15 78 17 Nasal Cannula 2.0 28 07/25/18 08:15 Nasal Cannula 2.0 28 07/25/18 08:00 98 07/25/18 08:00 98.0 80 21 106/70 (82) 96 07/25/18 04:35 80 20 100 Nasal Cannula 2.0 28 07/25/18 04:25 28 07/25/18 04:25 75 22 97 Nasal Cannula 2.0 28 07/25/18 04:00 79 07/25/18 04:00 85 07/25/18 04:00 98.4 79 18 110/89 (96) 94 07/25/18 01:00 86 07/25/18 00:00 98.0 76 20 105/85 (92) 94 Intake and Output 07/24/18 07/25/18 19:00 07:00 Intake Total 360 ml Balance 360 ml Intake Oral 360 ml # Voids 2 # Bowel Movements 3 5 Height (Feet): 5 Height (Inches): 3.00 Weight (Pounds): 195 Objective WDWN obese WW NCAT supple CTA RR abd soft obese no edema Haider Garcia MD Jul 25, 2018 21:34
[2018-07-26] VITALS (8 sets, daily range): BP systolic 109–140; BP diastolic 71–86
[2018-07-26] MEDS: HYDROmorphone 4mg tab ORAL SCH ×6 (02:12→23:01)
--- NOTE | 2018-07-26 03:33 | NUR ---
NURSE NOTES: Patient asleep, breathing even and unlabored, no s/sx of pain nor any discomfort at this time. NPO starting midnight for endoscopy/colonoscopy scheduled later today. Nulytely was able to consumed as much as tolerated. 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 Bed at lowest position, call light within reach. Will continue to monitor.
[2018-07-26] MEDS: HYDROcodone/Acetamin 5/325 tab ORAL PRN ×3 (04:52→21:11)
[2018-07-26] MEDS: metroNIDAZOLE 500mg tab ORAL SCH ×3 (05:54→22:00)
[2018-07-26] MEDS ORDERED: Lidocaine 1% MPF 10mg/ml 5ml ONE (06:30)
[2018-07-26] MEDS ORDERED: Propofol 200mg/20ml IV ONE (06:30)
--- NOTE | 2018-07-26 06:38 | Anethesia Preoperative Eval ---
Anesthesia Pre-op PMH/ROS General Date of Evaluation: Jul 26, 2018 Time of Evaluation: 06:36 Anesthesiologist: shanta ASA Score: ASA 3 Mallampati Score Class I : Soft palate, uvula, fauces, pillars visible Class II: Soft palate, uvula, fauces visible Class III: Soft palate, base of uvula visible Class IV: Only hard plate visible Mallampati Classification: Class II Surgeon: rommel Diagnosis: gi bleed Surgical Procedure: egd/colonoscopy Anesthesia History: none Social History: drug use Family History: no anesthesia problems Allergies: Coded Allergies: ERYTHROMYCIN BASE (Verified Allergy, Severe, Hives, 01/29/17) SULFAMETHOXAZOLE (Verified Allergy, Severe, Shortness of Breath, 01/29/17) TRIMETHOPRIM (Verified Allergy, Severe, Shortness of Breath, 01/29/17) TRAMADOL (Verified Allergy, Unknown, 11/25/17) Medications: see eMAR Patient NPO?: Yes Past Medical History Cardiovascular: Reports: HTN Pulmonary: Reports: asthma, COPD Endocrine: Reports: DM Other: obesity Anesthesia Pre-op Phys. Exam Physician Exam Last Vital Signs Date Time Temp Pulse Resp B/P (MAP) Pulse Ox O2 Delivery O2 Flow Rate FiO2 07/26/18 05:22 97.9 07/26/18 04:00 84 19 110/81 (91) 96 07/25/18 21:20 Nasal Cannula 2.0 28 Constitutional: NAD Neurologic: CN 2-12 intact Cardiovascular: RRR Respiratory: CTA Gastrointestinal: S/NT/ND Airway Exam Mallampati Score: Class II MO: full Neck: right ij iv access TMD: 2fb ROM: limited Anesthesia Pre-op A/P Labs Labs Test 07/24/18 09:25 White Blood Count 4.8 K/UL (4.8-10.8) Red Blood Count 4.45 M/UL (4.20-5.40) Hemoglobin 12.9 G/DL (12.0-16.0) Hematocrit 39.1 % (37.0-47.0) Mean Corpuscular Volume 88 FL (80-99) Mean Corpuscular Hemoglobin 29.0 PG (27.0-31.0) Mean Corpuscular Hemoglobin Concent 33.0 G/DL (32.0-36.0) Red Cell Distribution Width 11.5 % (11.6-14.8) Platelet Count 124 K/UL (150-450) Mean Platelet Volume 8.3 FL (6.5-10.1) Neutrophils (%) (Auto) 40.3 % (45.0-75.0) Lymphocytes (%) (Auto) 43.0 % (20.0-45.0) Monocytes (%) (Auto) 7.4 % (1.0-10.0) Eosinophils (%) (Auto) 8.1 % (0.0-3.0) Basophils (%) (Auto) 1.2 % (0.0-2.0) Sodium Level 140 MMOL/L (136-145) Potassium Level 3.6 MMOL/L (3.5-5.1) Chloride Level 102 MMOL/L (98-107) Carbon Dioxide Level 33 MMOL/L (21-32) Anion Gap 5 mmol/L (5-15) Blood Urea Nitrogen 5 mg/dL (7-18) Creatinine 0.7 MG/DL (0.55-1.30) Estimat Glomerular Filtration Rate > 60 mL/min (>60) Glucose Level 92 MG/DL (74-106) Calcium Level 8.7 MG/DL (8.5-10.1) Total Bilirubin 0.3 MG/DL (0.2-1.0) Aspartate Amino Transf (AST/SGOT) 40 U/L (15-37) Alanine Aminotransferase (ALT/SGPT) 25 U/L (12-78) Alkaline Phosphatase 65 U/L (46-116) Total Protein 7.2 G/DL (6.4-8.2) Albumin 3.5 G/DL (3.4-5.0) Globulin 3.7 g/dL Albumin/Globulin Ratio 0.9 (1.0-2.7) Risk Assessment & Plan Assessment: asa3 Plan: mac Status Change Before Surgery: No Pre-Antibiotics Drug: Lupis Lopez MD Jul 26, 2018 06:38
[2018-07-26] MEDS ORDERED: Atropine Inj 1mg/10ml Syr IV PRN (06:45)
[2018-07-26] MEDS ORDERED: fentaNYL 100 mcg/2 mL IV PRN (06:45)
[2018-07-26] MEDS ORDERED: DiphenhydrAMINE 50mg/ml Inj IVP PRN (06:45)
[2018-07-26] MEDS ORDERED: Midazolam 2mg/2ml Inj IVP PRN (06:45)
--- NOTE | 2018-07-26 06:45 | NUR ---
NURSE NOTES: Patient pick-up to go GI lab for scheduled colonoscopy and endoscopy. Patient awake, alert and verbally responsive. No SOB, no acute distress, left in stable condition.
[2018-07-26] MEDS ORDERED: NS 500ML IVPB ONE (06:56)
--- NOTE | 2018-07-26 07:00 | NUR ---
NURSE NOTES: receive dpatient report from andressa dennis. patient is not in hte room. patient is on procedure for endoscopy. per report from the roller machine operator nurse, get clarance from GI doctor and dc patient today. will continue to monitor.
--- NOTE | 2018-07-26 07:03 | Pre-Procedure Note/Attestation ---
Pre-Procedure Note/Attestation Complete Prior to Procedure Planned Procedure: not applicable Procedure Narrative: EGD, Colon Indications for Procedure Pre-Operative Diagnosis: GIB, abd pain Attestation I attest that I discussed the nature of the procedure; its benefits; risks and complications; and alternatives (and the risks and benefits of such alternatives ), prior to the procedure, with the patient (or the patient's legal patient portal representative). I attest that, if there was a reasonable possibility of needing a blood transfusion, the patient (or the patient's legal patient portal representative) was given the [facility] standardized written summary, pursuant to the Kayode Guerda Blood Safety Act ([place] Health and Safety Code # 1645, as amended). I attest that I re-evaluated the patient just prior to the surgery and that there has been no change in the patient's H&P, except as documented below: Haider Garcia MD Jul 26, 2018 07:03
--- NOTE | 2018-07-26 07:16 | NUR ---
HAND-OFF: Report given to JOSE Gomez. Endorsed plan of care.
--- NOTE | 2018-07-26 07:47 | Endoscopy Procedure Note ---
Endoscopy Procedure Note General Indication for Procedure: abd pain, BRB Procedures Performed: EGD, colonoscopy Operative Findings/Diagnosis: EGD - normal, biopsied duod and Ant, Colon- eryth /ulcer tanya at 40, proctis Specimen: yes Pt Tolerated Procedure Well: Yes Estimated Blood Loss: none Anesthesia Anesthesiologist: Remi Kingsley Anesthesia: MAC Medications Medication Given: see anesthesia record Inserted Devices Implant(s) used?: No GI Core Measures 50 yrs or older w/o bx or poly: Not Applicable 10yrs. F/U not recommended: Not Applicable If not recommended, why?: Haider Garcia MD Jul 26, 2018 07:47
--- NOTE | 2018-07-26 07:48 | Brief Operative Note ---
Immediate Post Operative Note Operative Note Chief Complaint: GIB, Abd pain Pre-op Diagnosis: GIB, abd pain Procedure: EGD, COlon Bx/Bx Post-op Diagnosis: EGD - normal Colon - L sided segemntal colitis with ulcer, likely ischemic, proctitis Surgeon: rommel Anesthesiologist: Remi Kingsley Anesthesia: moderate sedation Specimen: yes Complications: none Condition: stable Fluids: recorded Estimated Blood Loss: none Drains: none Implant(s) used?: No Haider Garcia MD Jul 26, 2018 07:48
--- NOTE | 2018-07-26 07:51 | General Progress Note ---
Assessment/Plan Assessment/Plan Assessment/Plan Problem List: (1) Opioid dependence ICD Codes: F11.20 - Opioid dependence, uncomplicated SNOMED: 02697782 (2) EX IVDA (3) COPD (chronic obstructive pulmonary disease) ICD Codes: J44.9 - Chronic obstructive pulmonary disease, unspecified SNOMED: 28591924 (4) Oxygen dependent ICD Codes: Z99.81 - Dependence on supplemental oxygen SNOMED: 126601246415 (5) Gastrointestinal hemorrhage ICD Codes: K92.2 - Gastrointestinal hemorrhage, unspecified SNOMED: 98330549 New diagnosis (6) (L) sided colitis with ulceration, likely ischemic Assessment/Plan Resume PO IVF f/u path Subjective Allergies: Coded Allergies: ERYTHROMYCIN BASE (Verified Allergy, Severe, Hives, 01/29/17) SULFAMETHOXAZOLE (Verified Allergy, Severe, Shortness of Breath, 01/29/17) TRIMETHOPRIM (Verified Allergy, Severe, Shortness of Breath, 01/29/17) TRAMADOL (Verified Allergy, Unknown, 11/25/17) Subjective (+) BM with prep NPO for EGD/colon Objective Last 24 Hour Vital Signs Date Time Temp Pulse Resp B/P (MAP) Pulse Ox O2 Delivery O2 Flow Rate FiO2 07/26/18 05:22 97.9 07/26/18 04:00 97.9 84 19 110/81 (91) 96 07/26/18 04:00 72 07/26/18 00:00 98.0 81 19 109/71 (84) 95 07/26/18 00:00 71 07/25/18 21:20 99 Nasal Cannula 2.0 28 07/25/18 21:20 77 20 Nasal Cannula 2.0 28 07/25/18 21:20 Nasal Cannula 2.0 28 07/25/18 21:00 Room Air 07/25/18 20:00 80 07/25/18 20:00 97.7 81 19 115/89 (98) 94 07/25/18 16:00 79 07/25/18 16:00 98.1 75 20 130/70 (90) 95 07/25/18 12:00 81 07/25/18 12:00 98.0 82 19 138/65 (89) 94 07/25/18 09:00 Room Air 07/25/18 09:00 96 106/70 07/25/18 08:50 106/70 07/25/18 08:15 98 Nasal Cannula 2.0 28 07/25/18 08:15 78 17 Nasal Cannula 2.0 28 07/25/18 08:15 Nasal Cannula 2.0 28 07/25/18 08:00 98 07/25/18 08:00 98.0 80 21 106/70 (82) 96 Intake and Output 07/25/18 07/26/18 19:00 07:00 Intake Total 260 ml 1800 ml Balance 260 ml 1800 ml Intake Oral 260 ml 1800 ml # Voids 1 # Bowel Movements 4 10 Height (Feet): 5 Height (Inches): 3.00 Weight (Pounds): 195 Objective WDWN obese WW NCAT supple CTA RR abd soft obese no edema Haider Garcia MD Jul 26, 2018 07:51
[2018-07-26] MEDS: Docusate 100mg cap ORAL SCH ×5 (09:00→18:00)
[2018-07-26] MEDS: Lisinopril 20mg tab ORAL SCH (09:20)
--- NOTE | 2018-07-26 09:41 | NUR ---
CASE MANAGEMENT:REVIEW 07/26/18 SI: LT SIDED COLITIS W/ULCERATION LIKELY ISCHEMIC 97.0 67 18 140/86 97% ON 2L/NC IS: IVF@75/HR FLAGYL PO Q8HR NORCO 2 TABS PO Q4HRS PRN NORVASC PO QD LISINOPRIL PO QD METHADONE PO QD DILAUDID PO Q4HRS COLACE PO BID NEURONTIN PO TID : TELEMETRY STATUS DCP: FROM HOME PLAN: BEGIN REGULAR DIET
--- NOTE | 2018-07-26 09:56 | NUR ---
INSURANCE ALL CLINICALS AND REVIEWS FAXED TO: [employer] NCM: KOREY P- [phone] F- [phone]
--- NOTE | 2018-07-26 10:51 | NUR ---
RD ASSESSMENT & RECOMMENDATIONS SEE CARE ACTIVITY FOR COMPLETE ASSESSMENT DAILY ESTIMATED NEEDS: Needs based on Colitis, obese/ 61kg abw 23-27 kcals/kg 5397-2866 total kcals 1-1.3 g protein/kg 61-79 g total protein 25-30 mL/kg 8464-6994 total fluid mLs NUTRITION DIAGNOSIS: * Altered GI function R/T unknown etiology as evidenced by c/o EGD/colonoscopy which showed left sided colitis with ulceration CURRENT DIET:REGULAR PO DIET RECOMMENDATIONS: CCHO MED, LOW NA/ SOFT ADDITIONAL RECOMMENDATIONS: * Standing wt as able * A1C for eval of glycemic control- h/o DM * Monitor PO tolerance- colitis dx . .
--- NOTE | 2018-07-26 12:01 | General Surgery Progress Note ---
General Surgery-Progress Note Subjective Additional Comments no acute events. line in place and functional Objective Last 24 Hour Vital Signs Date Time Temp Pulse Resp B/P (MAP) Pulse Ox O2 Delivery O2 Flow Rate FiO2 07/26/18 11:06 98 Nasal Cannula 2.0 28 07/26/18 11:06 74 20 Nasal Cannula 2.0 28 07/26/18 11:06 Nasal Cannula 2.0 28 07/26/18 09:20 121/55 07/26/18 09:20 73 121/55 07/26/18 09:00 Room Air 07/26/18 08:05 71 18 131/81 97 Nasal Cannula 2 07/26/18 08:00 87 07/26/18 08:00 70 18 135/82 97 Nasal Cannula 2 07/26/18 07:55 97.0 67 18 140/86 97 Nasal Cannula 2 07/26/18 05:22 97.9 07/26/18 04:00 97.9 84 19 110/81 (91) 96 07/26/18 04:00 72 07/26/18 00:00 98.0 81 19 109/71 (84) 95 07/26/18 00:00 71 07/25/18 21:20 99 Nasal Cannula 2.0 28 07/25/18 21:20 77 20 Nasal Cannula 2.0 28 07/25/18 21:20 Nasal Cannula 2.0 28 07/25/18 21:00 Room Air 07/25/18 20:00 80 07/25/18 20:00 97.7 81 19 115/89 (98) 94 07/25/18 16:00 79 07/25/18 16:00 98.1 75 20 130/70 (90) 95 I&O Intake and Output 07/25/18 07/26/18 19:00 07:00 Intake Total 260 ml 1800 ml Balance 260 ml 1800 ml Intake Oral 260 ml 1800 ml # Voids 1 # Bowel Movements 4 10 Dressing: dry Wound: clean Drains: other Cardiovascular: RSR Respiratory: clear Abdomen: soft, flat, non-tender, present bowel sounds Extremities: other Plan Problems: (1) Gastrointestinal hemorrhage Assessment & Plan: 62 year old female with GI bleed requiring GI scope. unable to perform procedure because of lack of good proper venous access for procedure. needs venous access that is stable for procedure no peripheral access and poor peripheral veins. 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 okay to use for procedure. once done can d/c safely. call me and I will d/c thank you will follow with Fran Brothers Jul 26, 2018 12:01
--- NOTE | 2018-07-26 12:47 | Immediate Post-Op Evaluation ---
Immediate Post-Op Evalulation Immediate Post-Op Evalulation Procedure: egd/colonoscopy/bx Date of Evaluation: Jul 26, 2018 Time of Evaluation: 08:07 IV Fluids: 400ml 0.9ns Blood Products: none Estimated Blood Loss: negligible Blood Pressure Systolic: 148 Blood Pressure Diastolic: 86 Pulse Rate: 67 Respiratory Rate: 18 O2 Sat by Pulse Oximetry: 97 Temperature (Fahrenheit): 97.0 Pain Score (1-10): 0 Nausea: No Vomiting: No Complications none Patient Status: awake, reacts, patent Hydration Status: adequate Drug: Lupis Lopez MD Jul 26, 2018 12:47
--- NOTE | 2018-07-26 12:49 | 48 Hour Post Anesthesia Eval ---
Post Anesthesia Evaluation Procedure: egd/colonoscopy/bx Date of Evaluation: Jul 26, 2018 Time of Evaluation: 08:09 Blood Pressure Systolic: 131 0: 81 Pulse Rate: 71 Respiratory Rate: 18 Temperature (Fahrenheit): 97.0 O2 Sat by Pulse Oximetry: 99 Airway: patent Nausea: No Vomiting: No Pain Intensity: 0 Hydration Status: adequate Cardiopulmonary Status: stable Mental Status/LOC: patient returned to baseline Post-Anesthesia Complications: none Follow-up care needed: N/A Lupis Wade MD Jul 26, 2018 12:49
--- NOTE | 2018-07-26 14:24 | Pulmonology Progress Note ---
Assessment/Plan Assessment/Plan Pulmonary Progress Note Assessment/Plan Assessment/Plan IMPRESSION colitis abdominal pain gib awaiting GI scope chronic pain methadone dependence PLAN gi evaluation noted refusing colonscopy flagyl monitor clinically pain control dc in am if stable impression, plan, and exam edited and reviewed in detail care discussed with RN Subjective Allergies: Coded Allergies: ERYTHROMYCIN BASE (Verified Allergy, Severe, Hives, 01/29/17) SULFAMETHOXAZOLE (Verified Allergy, Severe, Shortness of Breath, 01/29/17) TRIMETHOPRIM (Verified Allergy, Severe, Shortness of Breath, 01/29/17) TRAMADOL (Verified Allergy, Unknown, 11/25/17) Objective Vital Signs Noted Laboratory Tests 07/22/18 06:48: White Blood Count 6.2, Red Blood Count 4.46, Hemoglobin 13.2, Hematocrit 39.5, Mean Corpuscular Volume 89, Mean Corpuscular Hemoglobin 29.6, Mean Corpuscular Hemoglobin Concent 33.4, Red Cell Distribution Width 11.6, Platelet Count 97L, Mean Platelet Volume 7.4, Neutrophils (%) (Auto) , Lymphocytes (%) (Auto) , Monocytes (%) (Auto) , Eosinophils (%) (Auto) , Basophils (%) (Auto) , Differential Total Cells Counted 100, Neutrophils % (Manual) 51, Lymphocytes % ( Manual) 40, Monocytes % (Manual) 4, Eosinophils % (Manual) 4H, Basophils % ( Manual) 1, Band Neutrophils 0, Platelet Estimate DecreasedL, Platelet Morphology Normal, Red Blood Cell Morphology Normal 07/22/18 09:00: White Blood Count 6.6, Red Blood Count 4.59, Hemoglobin 13.5, Hematocrit 40.8, Mean Corpuscular Volume 89, Mean Corpuscular Hemoglobin 29.5, Mean Corpuscular Hemoglobin Concent 33.2, Red Cell Distribution Width 11.6, Platelet Count 106L, Mean Platelet Volume 8.2, Neutrophils (%) (Auto) 49.1, Lymphocytes (%) (Auto) 37.6, Monocytes (%) (Auto) 6.3, Eosinophils (%) (Auto) 5.4H, Basophils (%) (Auto ) 1.6, Sodium Level 138, Potassium Level 4.1, Chloride Level 102, Carbon Dioxide Level 33H, Anion Gap 3L, Blood Urea Nitrogen 11, Creatinine 0.6, Estimat Glomerular Filtration Rate > 60, Glucose Level 134H, Calcium Level 8.5 Height (Feet): 5 Height (Inches): 3.00 Weight (Pounds): 190 Objective WDWN NAD clear breath sounds bilaterally without rhonchi or wheeze [id number] without MRG NABS nontender no HSM no CCE nonfocal Subjective ROS Limited/Unobtainable: No Allergies: Coded Allergies: ERYTHROMYCIN BASE (Verified Allergy, Severe, Hives, 01/29/17) SULFAMETHOXAZOLE (Verified Allergy, Severe, Shortness of Breath, 01/29/17) TRIMETHOPRIM (Verified Allergy, Severe, Shortness of Breath, 01/29/17) TRAMADOL (Verified Allergy, Unknown, 11/25/17) Objective Last 24 Hour Vital Signs Date Time Temp Pulse Resp B/P (MAP) Pulse Ox O2 Delivery O2 Flow Rate FiO2 07/26/18 12:49 71 18 99 07/26/18 12:47 67 18 97 07/26/18 11:06 98 Nasal Cannula 2.0 28 07/26/18 11:06 74 20 Nasal Cannula 2.0 28 07/26/18 11:06 Nasal Cannula 2.0 28 07/26/18 09:20 121/55 07/26/18 09:20 73 121/55 07/26/18 09:00 Room Air 07/26/18 08:05 71 18 131/81 97 Nasal Cannula 2 07/26/18 08:00 87 07/26/18 08:00 70 18 135/82 97 Nasal Cannula 2 07/26/18 07:55 97.0 67 18 140/86 97 Nasal Cannula 2 07/26/18 05:22 97.9 07/26/18 04:00 97.9 84 19 110/81 (91) 96 07/26/18 04:00 72 07/26/18 00:00 98.0 81 19 109/71 (84) 95 07/26/18 00:00 71 07/25/18 21:20 99 Nasal Cannula 2.0 28 07/25/18 21:20 77 20 Nasal Cannula 2.0 28 07/25/18 21:20 Nasal Cannula 2.0 28 07/25/18 21:00 Room Air 07/25/18 20:00 80 07/25/18 20:00 97.7 81 19 115/89 (98) 94 07/25/18 16:00 79 07/25/18 16:00 98.1 75 20 130/70 (90) 95 Intake and Output 07/25/18 07/26/18 18:59 06:59 Intake Total 260 ml 1800 ml Balance 260 ml 1800 ml Intake Oral 260 ml 1800 ml # Voids 1 # Bowel Movements 4 10 Current Medications Medications (Trade) Dose Ordered Sig/Sumeet Route PRN Reason Start Time Stop Time Status Last Admin Dose Admin Acetaminophen/ Hydrocodone Bitart (Cicero 5/325) 1 tab Q4H PRN ORAL Moderate Pain (Pain Scale 4-6) 07/24/18 06:30 07/31/18 06:29 Acetaminophen/ Hydrocodone Bitart (Cicero 5/325) 2 tab Q4H PRN ORAL Severe Pain (Pain Scale 7-10) 07/24/18 06:30 07/31/18 06:29 07/26/18 13:36 Al Hydroxide/Mg Hydroxide (Mylanta) 15 ml Q1H PRN ORAL gi upset 07/26/18 06:45 Amlodipine Besylate (Norvasc) 10 mg DAILY ORAL 07/22/18 09:00 08/21/18 08:59 07/26/18 09:20 Atropine Sulfate (Atropine) 0.5 mg Q5M PRN IV bpm less than 45 07/26/18 06:45 Clonazepam (KlonoPIN) 1 mg QID ORAL 07/21/18 13:00 07/28/18 12:59 07/26/18 13:36 Diphenhydramine HCl (Benadryl) 25 mg Q15M PRN IVP Itching 07/26/18 06:45 Diphenhydramine HCl (Benadryl) 50 mg FOUR TIMES A DAY ORAL 07/21/18 13:00 08/20/18 12:59 07/26/18 13:36 Docusate Sodium (Colace) 100 mg TWICE A DAY ORAL 07/22/18 09:00 08/21/18 08:59 07/25/18 17:25 Fentanyl Citrate (Sublimaze 100 mcg/2 mL) 25 mcg Q10M PRN IV Moderate Pain (Pain Scale 4-6) 07/26/18 06:45 Gabapentin (Neurontin) 300 mg THREE TIMES A DAY ORAL 07/21/18 13:00 08/20/18 12:59 07/26/18 13:37 Hydralazine HCl (Apresoline) 5 mg Q30M PRN IV SBP>160 OR___/DBP>90 OR___ 07/26/18 06:45 Hydrocortisone (Anusol HC) 1 applic TWICE A DAY RECTAL 07/22/18 09:00 08/21/18 08:59 07/26/18 09:30 Hydromorphone HCl (Dilaudid) 4 mg Q4H ORAL 07/21/18 18:00 07/28/18 17:59 07/26/18 10:48 Lisinopril (Prinivil) 40 mg DAILY ORAL 07/22/18 09:00 08/21/18 08:59 07/26/18 09:20 Methadone HCl (Methadone HCl) 50 mg DAILY ORAL 07/22/18 09:00 07/29/18 08:59 07/26/18 09:15 Metronidazole (Flagyl) 500 mg Q8HR ORAL 07/24/18 07:00 07/31/18 06:59 07/26/18 05:54 Midazolam HCl (Versed 2mg/2ml vial) 1 mg Q15M PRN IVP For Anxiety 07/26/18 06:45 Ondansetron HCl (Zofran) 4 mg Q1H PRN IVP Nausea & Vomiting 07/26/18 06:45 Ondansetron HCl (Zofran) 4 mg Q6H PRN IVP Nausea & Vomiting 07/21/18 10:15 08/20/18 10:14 Polyethylene Glycol (Miralax) 17 gm BEDTIME ORAL 07/21/18 21:00 08/20/18 20:59 07/22/18 20:31 Sodium Chloride 1,000 ml @ 75 mls/hr [id number] IV 07/26/18 07:45 08/25/18 07:44 07/26/18 09:30 Maximino Bedoya MD Jul 26, 2018 14:24
[2018-07-26] MEDS ORDERED: Albuterol/Ipratropium 3ml neb HHN PRN (17:15)
--- NOTE | 2018-07-26 18:45 | Procedure Note ---
DATE OF PROCEDURE: 07/26/2018 GASTROENTEROLOGY PROCEDURE REPORT PROCEDURE: Upper gastrointestinal endoscopy with biopsy as well as colonoscopy with biopsy. SURGEON: Haider Garcia M.D. ANESTHESIA: Please see the separate anesthesiologist notes for details. PRE-ENDOSCOPIC DIAGNOSES: Abdominal pain and hematochezia. POST-ENDOSCOPIC DIAGNOSES: 1. Normal upper endoscopy, status post random biopsies of the duodenum and antrum. 2. Unable to intubate terminal ileum due to angulation. 3. Patchy colitis around 40 cm marked with shallow ulcerations in that area typically seen as ischemic colitis. 4. Erythematous proctitis. 5. Status post random biopsies of the right colon and also biopsies at 60, 50, 40, 30, 20 cm and also at rectum. 6. Poor anal sphincter tone making it hard to insufflate for retroflex view of the rectum. DESCRIPTION OF PROCEDURE: The procedure, its risks, indications, alternatives, and possible complications were explained and an informed consent was obtained. The diagnostic upper endoscope was introduced through the oropharynx and advanced to the duodenum. The endoscope was then gradually withdrawn and the mucosa examined carefully. The rectal exam was done and the colonoscope was introduced into the rectum and advanced to the cecum. The colonoscope was then gradually withdrawn and the mucosa examined carefully. Findings were as listed above. Biopsies were sent to pathology. The colonoscope was removed. The patient was sent to recovery in good condition. COMPLICATIONS: None. ASSESSMENT: Findings at this examination are consistent with likely ischemic colitis. The inflammatory bowel disease would be another consideration, but the patient does not give the typical diarrheal pattern that will be seen with ulcerative colitis or Crohn's colitis. Biopsies evaluated to differentiate the pathologies. In the meantime, the patient should receive IV fluids and aggressive oral hydration. Should the pathology remain, then vascular surgery consultation should be obtained. Thank you for asking me to participate in care this patient. Haider Garcia M.D. DR: ELVIRA JOB#: [id number] CC:
--- NOTE | 2018-07-26 19:01 | NUR ---
NURSE NOTES: Called respiratory therapist to add humidifier and give breathing treatment, stated on way.
--- NOTE | 2018-07-26 19:30 | NUR ---
NURSE NOTES: Received report from Matthias Edward RN. Patient in bed AAO x4 post colonoscopy earlier today, Diet advanced to regular per MD Homa. tolerating well with little to no appetite stated. Able to verbally communicate with no difficulty, No acute pain at this time but is on scheduled pain management regimen and breakthrough pain in between. Safety precaution in place; siderails x2 up, call light within reach, bed in lowest position, brakes and alarm on at all times. kept clean, dry and comfortable in bed. Needs and wants anticipated and attended, will continue plan of care and monitor for any changes in condition
[2018-07-26] MEDS: Miralax 17gm pkt ORAL SCH (20:59)
--- NOTE | 2018-07-26 21:35 | NUR ---
NURSE NOTES: Called MD Homa regarding patients complain of pain in abd area, suspected UTI, burning when urinating per patients complain. Refuses to take Flagyl scheduled at 2200 stating that " yobani never taken that before and i dont think that would work." Patient already receives pain mgt medication round the clock and in between for breakthrough pain. Called and left message for MD. Awaiting call back, and will continue to monitor
[2018-07-27] VITALS: BP 134/84
--- NOTE | 2018-07-27 00:13 | NUR ---
NURSE NOTES: Called and left message for MD Homa regarding patients complain of pain when voiding. Will continue to monitor and F/U
[2018-07-27 01:17] LABS: APPEARANCE,URINE SLIGHTLY CLOUDY; BILIRUBIN, URINE NEGATIVE (NEGATIVE); COLOR,URINE PALE YELLOW; GLUCOSE, URINE (UA) NEGATIVE (NEGATIVE); KETONES,URINE NEGATIVE (NEGATIVE); LEUKOCYTE ESTERASE ,URINE 3+ (NEGATIVE); NITRITE,URINE NEGATIVE (NEGATIVE); PH,URINE 6.5 (4.5-8.0); PROTEIN,URINE 3+ (NEGATIVE); UROBILINOGEN,URINE NORMAL MG/DL (0.0-1.0)
[2018-07-27] MEDS: HYDROcodone/Acetamin 5/325 tab ORAL PRN ×4 (01:23→22:34)
--- NOTE | 2018-07-27 02:46 | NUR ---
NURSE NOTES: Patient in bed asleep with no S/S of acute pain or distress noted at this time. Will continue to monitor
[2018-07-27] MEDS: HYDROmorphone 4mg tab ORAL SCH ×6 (03:00→23:38)
[2018-07-27 04:00] VITALS: BP 135/78
[2018-07-27] MEDS: metroNIDAZOLE 500mg tab ORAL SCH ×3 (06:45→22:29)
--- NOTE | 2018-07-27 07:01 | General Progress Note ---
Assessment/Plan Assessment/Plan Assessment/Plan Problem List: (1) Opioid dependence ICD Codes: F11.20 - Opioid dependence, uncomplicated SNOMED: 98358524 (2) EX IVDA (3) COPD (chronic obstructive pulmonary disease) ICD Codes: J44.9 - Chronic obstructive pulmonary disease, unspecified SNOMED: 19601572 (4) Oxygen dependent ICD Codes: Z99.81 - Dependence on supplemental oxygen SNOMED: 300935459618 (5) Gastrointestinal hemorrhage ICD Codes: K92.2 - Gastrointestinal hemorrhage, unspecified SNOMED: 20827519 (6) (L) sided colitis with ulceration, likely ischemic Assessment/Plan Push PO diet IVF f/u path Subjective Allergies: Coded Allergies: ERYTHROMYCIN BASE (Verified Allergy, Severe, Hives, 01/29/17) SULFAMETHOXAZOLE (Verified Allergy, Severe, Shortness of Breath, 01/29/17) TRIMETHOPRIM (Verified Allergy, Severe, Shortness of Breath, 01/29/17) TRAMADOL (Verified Allergy, Unknown, 11/25/17) Subjective c/o severe pain but was seen resting comfortably just 20 min ago c/o burning with urination d/w patient re all results Objective Last 24 Hour Vital Signs Date Time Temp Pulse Resp B/P (MAP) Pulse Ox O2 Delivery O2 Flow Rate FiO2 07/27/18 04:00 98.1 72 20 135/78 (97) 97 07/27/18 04:00 71 07/27/18 00:00 98.7 90 20 134/84 (101) 97 07/27/18 00:00 85 07/26/18 21:00 Room Air 07/26/18 20:00 98.0 95 20 139/81 (100) 98 07/26/18 20:00 87 07/26/18 19:44 76 20 98 Nasal Cannula 2.0 28 07/26/18 19:44 76 20 Nasal Cannula 2.0 28 07/26/18 19:34 Nasal Cannula 2.0 28 07/26/18 19:34 92 Nasal Cannula 2.0 28 07/26/18 19:32 74 22 92 Non-Rebreather 2.0 28 07/26/18 19:32 28 07/26/18 16:00 97.8 88 16 133/77 (95) 93 07/26/18 15:43 84 07/26/18 12:49 71 18 99 07/26/18 12:47 67 18 97 07/26/18 12:00 98.2 74 16 133/77 (95) 94 07/26/18 11:43 73 07/26/18 11:06 98 Nasal Cannula 2.0 28 07/26/18 11:06 74 20 Nasal Cannula 2.0 28 07/26/18 11:06 Nasal Cannula 2.0 28 07/26/18 09:20 121/55 07/26/18 09:20 73 121/55 07/26/18 09:00 Room Air 07/26/18 08:05 71 18 131/81 97 Nasal Cannula 2 07/26/18 08:00 87 07/26/18 08:00 70 18 135/82 97 Nasal Cannula 2 07/26/18 07:55 97.0 67 18 140/86 97 Nasal Cannula 2 Intake and Output 07/26/18 07/27/18 18:59 06:59 Intake Total 1185 ml Balance 1185 ml Intake Oral 360 ml IV Total 825 ml # Voids 1 # Bowel Movements 1 Laboratory Tests 07/26/18 23:30: Urine Color Pale yellow, Urine Appearance Slightly cloudy, Urine pH 6.5, Urine Specific Purcell 1.005, Urine Protein 3+H, Urine Glucose (UA) Negative, Urine Ketones Negative, Urine Blood 5+H, Urine Nitrite Negative, Urine Bilirubin Negative, Urine Urobilinogen Normal, Urine Leukocyte Esterase 3+H, Urine RBC TntcH, Urine WBC TntcH, Urine Squamous Epithelial Cells Few, Urine Bacteria Few Height (Feet): 5 Height (Inches): 3.00 Weight (Pounds): 195 Objective WDWN obese WW NCAT supple CTA RR abd soft obese, (+) diffuse abd TTP but not with distracted exam no edema Haider Garcia MD Jul 27, 2018 07:00
--- NOTE | 2018-07-27 07:06 | NUR ---
HAND-OFF: Report given to Matthias Edward RN. Patient in stable condition, endorsed plan of care.
--- NOTE | 2018-07-27 07:09 | NUR ---
NURSE NOTES: received patient report from julia dennis. patient is on bed awake with the cardiac/vascular sonographer for blood draw. no aarythmias reported during the night. bed is low an dlocked. call light within reach. will continue to monitor and carry out plans.
[2018-07-27 07:49] LABS: BASOPHILS % (AUTO) 1.7 % (0.0-2.0); EOSINOPHILS % (AUTO) 5.3 % (0.0-3.0); HEMATOCRIT 37.3 % (37.0-47.0); HEMOGLOBIN 12.7 G/DL (12.0-16.0); LYMPHOCYTES % (AUTO) 34.5 % (20.0-45.0); MEAN CORPUSCULAR VOLUME 87 FL (80-99); MONOCYTES % (AUTO) 6.4 % (1.0-10.0); NEUTROPHILS % (AUTO) 52.1 % (45.0-75.0); PLATELET COUNT 145 K/UL (150-450); RED BLOOD COUNT 4.26 M/UL (4.20-5.40); RED CELL DISTRIBUTION WIDTH 11.5 % (11.6-14.8); WHITE BLOOD COUNT 7.5 K/UL (4.8-10.8)
[2018-07-27 08:00] VITALS: BP 144/96
[2018-07-27 08:16] LABS: ALANINE AMINOTRANSFERASE 28 U/L (12-78); ALBUMIN 3.7 G/DL (3.4-5.0); ALKALINE PHOSPHATASE 63 U/L (46-116); ANION GAP 8 mmol/L (5-15); ASPARTATE AMINO TRANSFERASE 42 U/L (15-37); BILIRUBIN,TOTAL 0.3 MG/DL (0.2-1.0); BLOOD UREA NITROGEN 4 mg/dL (7-18); CALCIUM 9.1 MG/DL (8.5-10.1); CARBON DIOXIDE 30 MMOL/L (21-32); CHLORIDE 102 MMOL/L (98-107); CREATININE 0.7 MG/DL (0.55-1.30); POTASSIUM 3.7 MMOL/L (3.5-5.1); SODIUM 140 MMOL/L (136-145)
[2018-07-27] MEDS: Docusate 100mg cap ORAL SCH ×2 (09:00→17:25)
[2018-07-27] MEDS: Lisinopril 20mg tab ORAL SCH (09:25)
--- NOTE | 2018-07-27 10:58 | Diagnostic Imaging Report ---
EXAM: XR Chest, 1 View CLINICAL HISTORY: Shortness of breath TECHNIQUE: Frontal view of the chest. COMPARISON: Chest x-rays dated 07/29/17 FINDINGS: Lungs: Mildly increased interstitial markings. The lungs are otherwise clear without focal consolidation. Pleural space: Unremarkable. The costophrenic angles are sharp. No visible pneumothorax. Heart: Unremarkable. No cardiomegaly. Mediastinum: Unremarkable. Bones/joints: Unremarkable. Lymph nodes: Post surgical changes with chain sutures seen at the periphery of the right midlung, Tubes, lines and devices: EKG leads overlie the thorax. IMPRESSION: Mildly increased interstitial markings. This is nonspecific but may suggest mild pulmonary vascular congestion or a mild interstitial pneumonitis. No focal consolidation.
[2018-07-27 12:00] VITALS: BP 121/74
--- NOTE | 2018-07-27 14:40 | General Surgery Progress Note ---
General Surgery-Progress Note Subjective Additional Comments no acute events. line in place. appreciate GI input Objective Last 24 Hour Vital Signs Date Time Temp Pulse Resp B/P (MAP) Pulse Ox O2 Delivery O2 Flow Rate FiO2 07/27/18 13:28 Nasal Cannula 2.0 28 07/27/18 13:00 Nasal Cannula 2.0 28 07/27/18 12:00 98.3 82 20 121/74 (90) 95 07/27/18 11:49 95 07/27/18 10:31 82 20 Nasal Cannula 2.0 28 07/27/18 10:31 Nasal Cannula 2.0 28 07/27/18 10:31 92 Nasal Cannula 2.0 28 07/27/18 09:25 144/96 07/27/18 09:25 83 144/96 07/27/18 09:00 Room Air 07/27/18 08:00 85 07/27/18 08:00 98.7 83 20 144/96 (112) 95 07/27/18 04:00 98.1 72 20 135/78 (97) 97 07/27/18 04:00 71 07/27/18 00:00 98.7 90 20 134/84 (101) 97 07/27/18 00:00 85 07/26/18 21:00 Room Air 07/26/18 20:00 98.0 95 20 139/81 (100) 98 07/26/18 20:00 87 07/26/18 19:44 76 20 98 Nasal Cannula 2.0 28 07/26/18 19:44 76 20 Nasal Cannula 2.0 28 07/26/18 19:34 Nasal Cannula 2.0 28 07/26/18 19:34 92 Nasal Cannula 2.0 28 07/26/18 19:32 74 22 92 Non-Rebreather 2.0 28 07/26/18 19:32 28 07/26/18 16:00 97.8 88 16 133/77 (95) 93 07/26/18 15:43 84 I&O Intake and Output 07/26/18 07/27/18 19:00 07:00 Intake Total 1185 ml 800 ml Balance 1185 ml 800 ml Intake Oral 360 ml 800 ml IV Total 825 ml # Voids 1 # Bowel Movements 1 Cardiovascular: RSR Respiratory: clear Abdomen: soft, flat, non-tender, present bowel sounds Extremities: no cyanosis, other Laboratory Tests Test 07/26/18 23:30 07/27/18 07:20 07/27/18 10:15 Urine Color Pale yellow Urine Appearance Slightly cloudy Urine pH 6.5 (4.5-8.0) Urine Specific [place] 1.005 (1.005-1.035) Urine Protein 3+ (NEGATIVE) H Urine Glucose (UA) Negative (NEGATIVE) Urine Ketones Negative (NEGATIVE) Urine Blood 5+ (NEGATIVE) H Urine Nitrite Negative (NEGATIVE) Urine Bilirubin Negative (NEGATIVE) Urine Urobilinogen Normal MG/DL (0.0-1.0) Urine Leukocyte Esterase 3+ (NEGATIVE) H Urine RBC Tntc /HPF (0 - 2) H Urine WBC Tntc /HPF (0 - 2) H Urine Squamous Epithelial Cells Few /LPF (NONE/OCC) Urine Bacteria Few /HPF (NONE) White Blood Count 7.5 K/UL (4.8-10.8) Red Blood Count 4.26 M/UL (4.20-5.40) Hemoglobin 12.7 G/DL (12.0-16.0) Hematocrit 37.3 % (37.0-47.0) Mean Corpuscular Volume 87 FL (80-99) Mean Corpuscular Hemoglobin 29.8 PG (27.0-31.0) Mean Corpuscular Hemoglobin Concent 34.0 G/DL (32.0-36.0) Red Cell Distribution Width 11.5 % (11.6-14.8) L Platelet Count 145 K/UL (150-450) L Mean Platelet Volume 6.6 FL (6.5-10.1) Neutrophils (%) (Auto) 52.1 % (45.0-75.0) Lymphocytes (%) (Auto) 34.5 % (20.0-45.0) Monocytes (%) (Auto) 6.4 % (1.0-10.0) Eosinophils (%) (Auto) 5.3 % (0.0-3.0) H Basophils (%) (Auto) 1.7 % (0.0-2.0) Sodium Level 140 MMOL/L (136-145) Potassium Level 3.7 MMOL/L (3.5-5.1) Chloride Level 102 MMOL/L (98-107) Carbon Dioxide Level 30 MMOL/L (21-32) Anion Gap 8 mmol/L (5-15) Blood Urea Nitrogen 4 mg/dL (7-18) L Creatinine 0.7 MG/DL (0.55-1.30) Estimat Glomerular Filtration Rate > 60 mL/min (>60) Glucose Level 98 MG/DL (74-106) Calcium Level 9.1 MG/DL (8.5-10.1) Total Bilirubin 0.3 MG/DL (0.2-1.0) Aspartate Amino Transf (AST/SGOT) 42 U/L (15-37) H Alanine Aminotransferase (ALT/SGPT) 28 U/L (12-78) Alkaline Phosphatase 63 U/L (46-116) Total Protein 7.4 G/DL (6.4-8.2) Albumin 3.7 G/DL (3.4-5.0) Globulin 3.7 g/dL Albumin/Globulin Ratio 1.0 (1.0-2.7) Arterial Blood pH 7.355 (7.350-7.450) Arterial Blood Partial Pressure CO2 64.5 mmHg (35.0-45.0) *H Arterial Blood Partial Pressure O2 53.4 mmHg (75.0-100.0) L Arterial Blood HCO3 35.2 mmol/L (22.0-26.0) H Arterial Blood Oxygen Saturation 86.6 % (95-100) *L Arterial Blood Base Excess 7.6 (-2-2) H Fidencio Test Positive Plan Problems: (1) Gastrointestinal hemorrhage Assessment & Plan: 62 year old female with GI bleed requiring GI scope. unable to perform procedure because of lack of good proper venous access for procedure. needs venous access that is stable for procedure no peripheral access and poor peripheral veins. 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 okay to use for procedure. once done can d/c safely. call me and I will d/c thank you will follow with Fran Brothers Jul 27, 2018 14:40
--- NOTE | 2018-07-27 15:33 | Pulmonology Progress Note ---
Assessment/Plan Assessment/Plan Pulmonary Progress Note Assessment/Plan Assessment/Plan IMPRESSION colitis abdominal pain gib awaiting GI scope chronic pain methadone dependence PLAN gi evaluation noted refusing colonscopy flagyl monitor clinically pain control dc in am if stable impression, plan, and exam edited and reviewed in detail care discussed with RN Subjective Allergies: Coded Allergies: ERYTHROMYCIN BASE (Verified Allergy, Severe, Hives, 01/29/17) SULFAMETHOXAZOLE (Verified Allergy, Severe, Shortness of Breath, 01/29/17) TRIMETHOPRIM (Verified Allergy, Severe, Shortness of Breath, 01/29/17) TRAMADOL (Verified Allergy, Unknown, 11/25/17) Objective Vital Signs Noted CXR: 07/27/2018 R Chest, 1 View CLINICAL HISTORY: Shortness of breath TECHNIQUE: Frontal view of the chest. COMPARISON: Chest x-rays dated 07/29/17 FINDINGS: Lungs: Mildly increased interstitial markings. The lungs are otherwise clear without focal consolidation. Pleural space: Unremarkable. The costophrenic angles are sharp. No visible pneumothorax. Heart: Unremarkable. No cardiomegaly. Mediastinum: Unremarkable. Bones/joints: Unremarkable. Lymph nodes: Post surgical changes with chain sutures seen at the periphery of the right midlung, Tubes, lines and devices: EKG leads overlie the thorax. IMPRESSION: Mildly increased interstitial markings. This is nonspecific but may suggest mild pulmonary vascular congestion or a mild interstitial pneumonitis. No focal consolidation. Laboratory Tests 07/22/18 06:48: White Blood Count 6.2, Red Blood Count 4.46, Hemoglobin 13.2, Hematocrit 39.5, Mean Corpuscular Volume 89, Mean Corpuscular Hemoglobin 29.6, Mean Corpuscular Hemoglobin Concent 33.4, Red Cell Distribution Width 11.6, Platelet Count 97L, Mean Platelet Volume 7.4, Neutrophils (%) (Auto) , Lymphocytes (%) (Auto) , Monocytes (%) (Auto) , Eosinophils (%) (Auto) , Basophils (%) (Auto) , Differential Total Cells Counted 100, Neutrophils % (Manual) 51, Lymphocytes % ( Manual) 40, Monocytes % (Manual) 4, Eosinophils % (Manual) 4H, Basophils % ( Manual) 1, Band Neutrophils 0, Platelet Estimate DecreasedL, Platelet Morphology Normal, Red Blood Cell Morphology Normal 07/22/18 09:00: White Blood Count 6.6, Red Blood Count 4.59, Hemoglobin 13.5, Hematocrit 40.8, Mean Corpuscular Volume 89, Mean Corpuscular Hemoglobin 29.5, Mean Corpuscular Hemoglobin Concent 33.2, Red Cell Distribution Width 11.6, Platelet Count 106L, Mean Platelet Volume 8.2, Neutrophils (%) (Auto) 49.1, Lymphocytes (%) (Auto) 37.6, Monocytes (%) (Auto) 6.3, Eosinophils (%) (Auto) 5.4H, Basophils (%) (Auto ) 1.6, Sodium Level 138, Potassium Level 4.1, Chloride Level 102, Carbon Dioxide Level 33H, Anion Gap 3L, Blood Urea Nitrogen 11, Creatinine 0.6, Estimat Glomerular Filtration Rate > 60, Glucose Level 134H, Calcium Level 8.5 Height (Feet): 5 Height (Inches): 3.00 Weight (Pounds): 190 Objective WDWN NAD clear breath sounds bilaterally without rhonchi or wheeze [id number] without MRG NABS nontender no HSM no CCE nonfocal Subjective ROS Limited/Unobtainable: No Allergies: Coded Allergies: ERYTHROMYCIN BASE (Verified Allergy, Severe, Hives, 01/29/17) SULFAMETHOXAZOLE (Verified Allergy, Severe, Shortness of Breath, 01/29/17) TRIMETHOPRIM (Verified Allergy, Severe, Shortness of Breath, 01/29/17) TRAMADOL (Verified Allergy, Unknown, 11/25/17) Objective Last 24 Hour Vital Signs Date Time Temp Pulse Resp B/P (MAP) Pulse Ox O2 Delivery O2 Flow Rate FiO2 07/27/18 13:28 Nasal Cannula 2.0 28 07/27/18 13:00 Nasal Cannula 2.0 28 07/27/18 12:00 98.3 82 20 121/74 (90) 95 07/27/18 11:49 95 07/27/18 10:31 82 20 Nasal Cannula 2.0 28 07/27/18 10:31 Nasal Cannula 2.0 28 07/27/18 10:31 92 Nasal Cannula 2.0 28 07/27/18 09:25 144/96 07/27/18 09:25 83 144/96 07/27/18 09:00 Room Air 07/27/18 08:00 85 07/27/18 08:00 98.7 83 20 144/96 (112) 95 07/27/18 04:00 98.1 72 20 135/78 (97) 97 07/27/18 04:00 71 07/27/18 00:00 98.7 90 20 134/84 (101) 97 07/27/18 00:00 85 07/26/18 21:00 Room Air 07/26/18 20:00 98.0 95 20 139/81 (100) 98 07/26/18 20:00 87 07/26/18 19:44 76 20 98 Nasal Cannula 2.0 28 07/26/18 19:44 76 20 Nasal Cannula 2.0 28 07/26/18 19:34 Nasal Cannula 2.0 28 07/26/18 19:34 92 Nasal Cannula 2.0 28 07/26/18 19:32 74 22 92 Non-Rebreather 2.0 28 07/26/18 19:32 28 07/26/18 16:00 97.8 88 16 133/77 (95) 93 07/26/18 15:43 84 Intake and Output 07/26/18 07/27/18 19:00 07:00 Intake Total 1185 ml 800 ml Balance 1185 ml 800 ml Intake Oral 360 ml 800 ml IV Total 825 ml # Voids 1 # Bowel Movements 1 Laboratory Tests 07/26/18 23:30: Urine Color Pale yellow, Urine Appearance Slightly cloudy, Urine pH 6.5, Urine Specific [place] 1.005, Urine Protein 3+H, Urine Glucose (UA) Negative, Urine Ketones Negative, Urine Blood 5+H, Urine Nitrite Negative, Urine Bilirubin Negative, Urine Urobilinogen Normal, Urine Leukocyte Esterase 3+H, Urine RBC TntcH, Urine WBC TntcH, Urine Squamous Epithelial Cells Few, Urine Bacteria Few 07/27/18 07:20: White Blood Count 7.5, Red Blood Count 4.26, Hemoglobin 12.7, Hematocrit 37.3, Mean Corpuscular Volume 87, Mean Corpuscular Hemoglobin 29.8, Mean Corpuscular Hemoglobin Concent 34.0, Red Cell Distribution Width 11.5L, Platelet Count 145L , Mean Platelet Volume 6.6, Neutrophils (%) (Auto) 52.1, Lymphocytes (%) (Auto) 34.5, Monocytes (%) (Auto) 6.4, Eosinophils (%) (Auto) 5.3H, Basophils (%) (Auto ) 1.7, Sodium Level 140, Potassium Level 3.7, Chloride Level 102, Carbon Dioxide Level 30, Anion Gap 8, Blood Urea Nitrogen 4L, Creatinine 0.7, Estimat Glomerular Filtration Rate > 60, Glucose Level 98, Calcium Level 9.1, Total Bilirubin 0.3, Aspartate Amino Transf (AST/SGOT) 42H, Alanine Aminotransferase ( ALT/SGPT) 28, Alkaline Phosphatase 63, Total Protein 7.4, Albumin 3.7, Globulin 3.7, Albumin/Globulin Ratio 1.0 07/27/18 10:15: Arterial Blood pH 7.355, Arterial Blood Partial Pressure CO2 64.5*H, Arterial Blood Partial Pressure O2 53.4L, Arterial Blood HCO3 35.2H, Arterial Blood Oxygen Saturation 86.6*L, Arterial Blood Base Excess 7.6H, Fidencio Test Positive Current Medications Medications (Trade) Dose Ordered Sig/Sumeet Route PRN Reason Start Time Stop Time Status Last Admin Dose Admin Acetaminophen/ Hydrocodone Bitart ([place] 5/325) 1 tab Q4H PRN ORAL Moderate Pain (Pain Scale 4-6) 07/24/18 06:30 07/31/18 06:29 Acetaminophen/ Hydrocodone Bitart ([place] 5/325) 2 tab Q4H PRN ORAL Severe Pain (Pain Scale 7-10) 07/24/18 06:30 07/31/18 06:29 07/27/18 09:38 Albuterol/ Ipratropium (Albuterol/ Ipratropium) 3 ml Q4H PRN HHN Shortness of Breath 07/26/18 17:15 07/31/18 17:14 07/26/18 19:32 Amlodipine Besylate (Norvasc) 10 mg DAILY ORAL 07/22/18 09:00 08/21/18 08:59 07/27/18 09:25 Clonazepam (KlonoPIN) 1 mg QID ORAL 07/21/18 13:00 07/28/18 12:59 07/27/18 12:21 Diphenhydramine HCl (Benadryl) 50 mg FOUR TIMES A DAY ORAL 07/21/18 13:00 08/20/18 12:59 07/27/18 12:21 Docusate Sodium (Colace) 100 mg TWICE A DAY ORAL 07/22/18 09:00 08/21/18 08:59 07/25/18 17:25 Gabapentin (Neurontin) 300 mg THREE TIMES A DAY ORAL 07/21/18 13:00 08/20/18 12:59 07/27/18 12:21 Hydrocortisone (Anusol HC) 1 applic TWICE A DAY RECTAL 07/22/18 09:00 08/21/18 08:59 07/27/18 09:38 Hydromorphone HCl (Dilaudid) 4 mg Q4H ORAL 07/21/18 18:00 07/28/18 17:59 07/27/18 11:27 Lisinopril (Prinivil) 40 mg DAILY ORAL 07/22/18 09:00 08/21/18 08:59 07/27/18 09:25 Methadone HCl (Methadone HCl) 50 mg DAILY ORAL 07/22/18 09:00 07/29/18 08:59 07/27/18 09:25 Metronidazole (Flagyl) 500 mg Q8HR ORAL 07/24/18 07:00 07/31/18 06:59 07/27/18 06:45 Ondansetron HCl (Zofran) 4 mg Q6H PRN IVP Nausea & Vomiting 07/21/18 10:15 08/20/18 10:14 07/27/18 09:23 Polyethylene Glycol (Miralax) 17 gm BEDTIME ORAL 07/21/18 21:00 08/20/18 20:59 07/22/18 20:31 Sodium Chloride 1,000 ml @ 75 mls/hr [id number] IV 07/26/18 07:45 08/25/18 07:44 07/27/18 03:10 Maximino Bedoya MD Jul 27, 2018 15:33
[2018-07-27 16:00] VITALS: BP 126/76
--- NOTE | 2018-07-27 19:32 | NUR ---
HAND-OFF: Report given to julia rn.
--- NOTE | 2018-07-27 19:32 | NUR ---
NURSE NOTES: Received report from Matthias Edward RN. Patient in bed AAO x4 with no complaints of distress ta this time. safety precaution in place and kept clean, dry and comfortable in bed. Needs and wants anticipated and attended. Will continue plan of care
[2018-07-27 20:00] VITALS: BP 128/84
[2018-07-27] MEDS: Miralax 17gm pkt ORAL SCH (20:49)
[2018-07-28] VITALS: BP 120/79
[2018-07-28] MEDS: HYDROmorphone 4mg tab ORAL SCH ×4 (03:38→14:26)
[2018-07-28 04:00] VITALS: BP 116/47
[2018-07-28] MEDS: metroNIDAZOLE 500mg tab ORAL SCH ×3 (06:43→21:24)
[2018-07-28] MEDS: HYDROcodone/Acetamin 5/325 tab ORAL PRN ×4 (06:44→23:15)
--- NOTE | 2018-07-28 07:20 | General Progress Note ---
Assessment/Plan Assessment/Plan Assessment/Plan Problem List: (1) Opioid dependence ICD Codes: F11.20 - Opioid dependence, uncomplicated SNOMED: 99546967 (2) EX IVDA (3) COPD (chronic obstructive pulmonary disease) ICD Codes: J44.9 - Chronic obstructive pulmonary disease, unspecified SNOMED: 60010415 (4) Oxygen dependent ICD Codes: Z99.81 - Dependence on supplemental oxygen SNOMED: 394571469148 (5) Gastrointestinal hemorrhage ICD Codes: K92.2 - Gastrointestinal hemorrhage, unspecified SNOMED: 00483577 (6) (L) sided colitis with ulceration, likely ischemic Assessment/Plan Push PO diet IVF f/u path Subjective Allergies: Coded Allergies: ERYTHROMYCIN BASE (Verified Allergy, Severe, Hives, 01/29/17) SULFAMETHOXAZOLE (Verified Allergy, Severe, Shortness of Breath, 01/29/17) TRIMETHOPRIM (Verified Allergy, Severe, Shortness of Breath, 01/29/17) TRAMADOL (Verified Allergy, Unknown, 11/25/17) Subjective c/o pain but was seen resting comfortably and watching TV just prior to walking in Objective Last 24 Hour Vital Signs Date Time Temp Pulse Resp B/P (MAP) Pulse Ox O2 Delivery O2 Flow Rate FiO2 07/28/18 04:00 97.7 69 19 116/47 (70) 98 07/28/18 04:00 71 07/28/18 01:20 75 18 Nasal Cannula 2.0 28 07/28/18 01:20 98 Nasal Cannula 2.0 28 07/28/18 01:20 Nasal Cannula 2.0 28 07/28/18 00:00 92 07/28/18 00:00 97.3 78 18 120/79 (93) 99 07/27/18 21:00 Room Air 07/27/18 20:00 97.5 84 19 128/84 (99) 98 07/27/18 20:00 88 07/27/18 16:00 98 07/27/18 16:00 98.5 82 20 126/76 (93) 97 07/27/18 13:28 Nasal Cannula 2.0 28 07/27/18 13:00 Nasal Cannula 2.0 28 07/27/18 12:00 98.3 82 20 121/74 (90) 95 07/27/18 11:49 95 07/27/18 10:31 82 20 Nasal Cannula 2.0 28 07/27/18 10:31 Nasal Cannula 2.0 28 07/27/18 10:31 92 Nasal Cannula 2.0 28 07/27/18 09:25 144/96 07/27/18 09:25 83 144/96 07/27/18 09:00 Room Air 07/27/18 08:00 85 07/27/18 08:00 98.7 83 20 144/96 (112) 95 Intake and Output 07/27/18 07/28/18 19:00 07:00 Intake Total 1665 ml Balance 1665 ml Intake Oral 840 ml IV Total 825 ml # Voids 2 Laboratory Tests 07/27/18 07:20: White Blood Count 7.5, Red Blood Count 4.26, Hemoglobin 12.7, Hematocrit 37.3, Mean Corpuscular Volume 87, Mean Corpuscular Hemoglobin 29.8, Mean Corpuscular Hemoglobin Concent 34.0, Red Cell Distribution Width 11.5L, Platelet Count 145L , Mean Platelet Volume 6.6, Neutrophils (%) (Auto) 52.1, Lymphocytes (%) (Auto) 34.5, Monocytes (%) (Auto) 6.4, Eosinophils (%) (Auto) 5.3H, Basophils (%) (Auto ) 1.7, Sodium Level 140, Potassium Level 3.7, Chloride Level 102, Carbon Dioxide Level 30, Anion Gap 8, Blood Urea Nitrogen 4L, Creatinine 0.7, Estimat Glomerular Filtration Rate > 60, Glucose Level 98, Calcium Level 9.1, Total Bilirubin 0.3, Aspartate Amino Transf (AST/SGOT) 42H, Alanine Aminotransferase ( ALT/SGPT) 28, Alkaline Phosphatase 63, Total Protein 7.4, Albumin 3.7, Globulin 3.7, Albumin/Globulin Ratio 1.0 07/27/18 10:15: Arterial Blood pH 7.355, Arterial Blood Partial Pressure CO2 64.5*H, Arterial Blood Partial Pressure O2 53.4L, Arterial Blood HCO3 35.2H, Arterial Blood Oxygen Saturation 86.6*L, Arterial Blood Base Excess 7.6H, Fidencio Test Positive Height (Feet): 5 Height (Inches): 3.00 Weight (Pounds): 195 Objective WDWN obese WW NCAT supple CTA RR abd soft obese, (+) diffuse abd TTP but not with distracted exam no edema Khorrami,Payman MD Jul 28, 2018 07:20
--- NOTE | 2018-07-28 07:40 | NUR ---
HAND-OFF: Report given to Jayjay Iniguez RN. Endorsed plan of care.
--- NOTE | 2018-07-28 07:45 | NUR ---
NURSE NOTES: Report received from JOSE De Leon. Patient awake and having breakfast at side of bed. IV had been disconnected at 0500am per Patient. Patient "I don't want it hooked to me yet I need to use the restroom, you can do it after...". IV flushed and covered. Bed on lowest position, brakes engaged, side rails upx2. Call light within easy reach.
[2018-07-28 08:00] VITALS: BP 142/78
--- NOTE | 2018-07-28 08:48 | General Surgery Progress Note ---
General Surgery-Progress Note Subjective Symptoms: improved, tolerating diet, passing flatus Additional Comments no acute events. line in place Objective Last 24 Hour Vital Signs Date Time Temp Pulse Resp B/P (MAP) Pulse Ox O2 Delivery O2 Flow Rate FiO2 07/28/18 04:00 97.7 69 19 116/47 (70) 98 07/28/18 04:00 71 07/28/18 01:20 75 18 Nasal Cannula 2.0 28 07/28/18 01:20 98 Nasal Cannula 2.0 28 07/28/18 01:20 Nasal Cannula 2.0 28 07/28/18 00:00 92 07/28/18 00:00 97.3 78 18 120/79 (93) 99 07/27/18 21:00 Room Air 07/27/18 20:00 97.5 84 19 128/84 (99) 98 07/27/18 20:00 88 07/27/18 16:00 98 07/27/18 16:00 98.5 82 20 126/76 (93) 97 07/27/18 13:28 Nasal Cannula 2.0 28 07/27/18 13:00 Nasal Cannula 2.0 28 07/27/18 12:00 98.3 82 20 121/74 (90) 95 07/27/18 11:49 95 07/27/18 10:31 82 20 Nasal Cannula 2.0 28 07/27/18 10:31 Nasal Cannula 2.0 28 07/27/18 10:31 92 Nasal Cannula 2.0 28 07/27/18 09:25 144/96 07/27/18 09:25 83 144/96 07/27/18 09:00 Room Air I&O Intake and Output 07/27/18 07/28/18 19:00 07:00 Intake Total 1665 ml 500 ml Balance 1665 ml 500 ml Intake Oral 840 ml 500 ml IV Total 825 ml # Voids 2 4 Dressing: other Wound: other Drains: other Cardiovascular: RSR Respiratory: clear Abdomen: soft, flat, non-tender, present bowel sounds Extremities: no cyanosis Laboratory Tests Test 07/27/18 10:15 Arterial Blood pH 7.355 (7.350-7.450) Arterial Blood Partial Pressure CO2 64.5 mmHg (35.0-45.0) *H Arterial Blood Partial Pressure O2 53.4 mmHg (75.0-100.0) L Arterial Blood HCO3 35.2 mmol/L (22.0-26.0) H Arterial Blood Oxygen Saturation 86.6 % (95-100) *L Arterial Blood Base Excess 7.6 (-2-2) H Fidencio Test Positive Plan Problems: (1) Gastrointestinal hemorrhage Assessment & Plan: 62 year old female with GI bleed requiring GI scope. unable to perform procedure because of lack of good proper venous access for procedure. needs venous access that is stable for procedure no peripheral access and poor peripheral veins. states she has had this issue for assisted and usually obtains picc line when needed right IJ 20g IV line placed under ultrasound guidance without complication. okay to use for procedure. once done can d/c safely. call me and I will d/c thank you will follow with Fran Brothers Jul 28, 2018 08:48
[2018-07-28] MEDS: Lisinopril 20mg tab ORAL SCH (09:46)
[2018-07-28] MEDS: Docusate 100mg cap ORAL SCH ×2 (09:48→17:45)
[2018-07-28 12:00] VITALS: BP 124/79
--- NOTE | 2018-07-28 13:40 | NUR ---
CASE MANAGEMENT:REVIEW 07/27/2018 SI: LT SIDED COLITIS W/ULCERATION LIKELY ISCHEMIC T 97.5 HR 88 RR 19 B/P 128/84 SATS 98% ON RA BUN 4 AST 42 IS: IVF@75/HR FLAGYL PO Q8HR NORCO 2 TABS PO Q4HRS PRN NORVASC PO QD LISINOPRIL PO QD METHADONE PO QD DILAUDID PO Q4HRS COLACE PO BID NEURONTIN PO TID : TELEMETRY STATUS DCP: FROM HOME PLAN: REGULAR DIET 07/28/2018 SI: LT SIDED COLITIS W/ULCERATION LIKELY ISCHEMIC T 98 HR 84 RR 18 B/P 124/79 SATS 100% ON RA NO LABS TODAY IS: IVF@75/HR FLAGYL PO Q8HR NORCO 2 TABS PO Q4HRS PRN NORVASC PO QD LISINOPRIL PO QD METHADONE PO QD DILAUDID PO Q4HRS COLACE PO BID NEURONTIN PO TID : TELEMETRY STATUS DCP: FROM HOME PLAN: PUSH PO REGULAR DIET
[2018-07-28 16:00] VITALS: BP 135/71
--- NOTE | 2018-07-28 18:36 | Pulmonology Progress Note ---
Assessment/Plan Assessment/Plan Pulmonary Progress Note Assessment/Plan Assessment/Plan IMPRESSION colitis abdominal pain gib awaiting GI scope chronic pain methadone dependence On Cipro for UTI PLAN gi evaluation noted refusing colonscopy flagyl monitor clinically pain control dc in am if stable impression, plan, and exam edited and reviewed in detail care discussed with RN Subjective Allergies: Coded Allergies: ERYTHROMYCIN BASE (Verified Allergy, Severe, Hives, 01/29/17) SULFAMETHOXAZOLE (Verified Allergy, Severe, Shortness of Breath, 01/29/17) TRIMETHOPRIM (Verified Allergy, Severe, Shortness of Breath, 01/29/17) TRAMADOL (Verified Allergy, Unknown, 11/25/17) Objective Vital Signs Noted CXR: 07/27/2018 R Chest, 1 View CLINICAL HISTORY: Shortness of breath TECHNIQUE: Frontal view of the chest. COMPARISON: Chest x-rays dated 07/29/17 FINDINGS: Lungs: Mildly increased interstitial markings. The lungs are otherwise clear without focal consolidation. Pleural space: Unremarkable. The costophrenic angles are sharp. No visible pneumothorax. Heart: Unremarkable. No cardiomegaly. Mediastinum: Unremarkable. Bones/joints: Unremarkable. Lymph nodes: Post surgical changes with chain sutures seen at the periphery of the right midlung, Tubes, lines and devices: EKG leads overlie the thorax. IMPRESSION: Mildly increased interstitial markings. This is nonspecific but may suggest mild pulmonary vascular congestion or a mild interstitial pneumonitis. No focal consolidation. Laboratory Tests 07/22/18 06:48: White Blood Count 6.2, Red Blood Count 4.46, Hemoglobin 13.2, Hematocrit 39.5, Mean Corpuscular Volume 89, Mean Corpuscular Hemoglobin 29.6, Mean Corpuscular Hemoglobin Concent 33.4, Red Cell Distribution Width 11.6, Platelet Count 97L, Mean Platelet Volume 7.4, Neutrophils (%) (Auto) , Lymphocytes (%) (Auto) , Monocytes (%) (Auto) , Eosinophils (%) (Auto) , Basophils (%) (Auto) , Differential Total Cells Counted 100, Neutrophils % (Manual) 51, Lymphocytes % ( Manual) 40, Monocytes % (Manual) 4, Eosinophils % (Manual) 4H, Basophils % ( Manual) 1, Band Neutrophils 0, Platelet Estimate DecreasedL, Platelet Morphology Normal, Red Blood Cell Morphology Normal 07/22/18 09:00: White Blood Count 6.6, Red Blood Count 4.59, Hemoglobin 13.5, Hematocrit 40.8, Mean Corpuscular Volume 89, Mean Corpuscular Hemoglobin 29.5, Mean Corpuscular Hemoglobin Concent 33.2, Red Cell Distribution Width 11.6, Platelet Count 106L, Mean Platelet Volume 8.2, Neutrophils (%) (Auto) 49.1, Lymphocytes (%) (Auto) 37.6, Monocytes (%) (Auto) 6.3, Eosinophils (%) (Auto) 5.4H, Basophils (%) (Auto ) 1.6, Sodium Level 138, Potassium Level 4.1, Chloride Level 102, Carbon Dioxide Level 33H, Anion Gap 3L, Blood Urea Nitrogen 11, Creatinine 0.6, Estimat Glomerular Filtration Rate > 60, Glucose Level 134H, Calcium Level 8.5 Height (Feet): 5 Height (Inches): 3.00 Weight (Pounds): 190 Objective WDWN NAD clear breath sounds bilaterally without rhonchi or wheeze [id number] without MRG NABS nontender no HSM no CCE nonfocal Subjective ROS Limited/Unobtainable: No Allergies: Coded Allergies: ERYTHROMYCIN BASE (Verified Allergy, Severe, Hives, 01/29/17) SULFAMETHOXAZOLE (Verified Allergy, Severe, Shortness of Breath, 01/29/17) TRIMETHOPRIM (Verified Allergy, Severe, Shortness of Breath, 01/29/17) TRAMADOL (Verified Allergy, Unknown, 11/25/17) Objective Last 24 Hour Vital Signs Date Time Temp Pulse Resp B/P (MAP) Pulse Ox O2 Delivery O2 Flow Rate FiO2 07/28/18 16:00 76 07/28/18 16:00 97.3 84 20 135/71 (92) 100 07/28/18 12:00 98.0 84 18 124/79 (94) 100 07/28/18 12:00 86 07/28/18 09:46 142/78 07/28/18 09:44 78 142/78 07/28/18 09:00 Room Air 07/28/18 08:00 97.6 78 18 142/78 (99) 94 07/28/18 08:00 76 07/28/18 07:05 98.0 07/28/18 04:00 97.7 69 19 116/47 (70) 98 07/28/18 04:00 71 07/28/18 01:20 75 18 Nasal Cannula 2.0 28 07/28/18 01:20 98 Nasal Cannula 2.0 28 07/28/18 01:20 Nasal Cannula 2.0 28 07/28/18 00:00 92 07/28/18 00:00 97.3 78 18 120/79 (93) 99 07/27/18 21:00 Room Air 07/27/18 20:00 97.5 84 19 128/84 (99) 98 07/27/18 20:00 88 Intake and Output 07/27/18 07/28/18 19:00 07:00 Intake Total 1665 ml 500 ml Balance 1665 ml 500 ml Intake Oral 840 ml 500 ml IV Total 825 ml # Voids 2 4 Microbiology Date/Time Source Procedure Growth Status 07/26/18 23:30 Urine,Clean Catch Urine Culture - Preliminary Gram Negative Bacillus 1 Resulted Current Medications Medications (Trade) Dose Ordered Sig/Sumeet Route PRN Reason Start Time Stop Time Status Last Admin Dose Admin Acetaminophen/ Hydrocodone Bitart ([place] 5/325) 1 tab Q4H PRN ORAL Moderate Pain (Pain Scale 4-6) 07/24/18 06:30 07/31/18 06:29 Acetaminophen/ Hydrocodone Bitart ([place] 5/325) 2 tab Q4H PRN ORAL Severe Pain (Pain Scale 7-10) 07/24/18 06:30 07/31/18 06:29 07/28/18 17:51 Albuterol/ Ipratropium (Albuterol/ Ipratropium) 3 ml Q4H PRN HHN Shortness of Breath 07/26/18 17:15 07/31/18 17:14 07/26/18 19:32 Amlodipine Besylate (Norvasc) 10 mg DAILY ORAL 07/22/18 09:00 08/21/18 08:59 07/28/18 09:44 Ciprofloxacin (Cipro 250mg tab) 250 mg Q24H ORAL 07/28/18 17:00 07/30/18 17:01 07/28/18 17:45 Diphenhydramine HCl (Benadryl) 50 mg FOUR TIMES A DAY ORAL 07/21/18 13:00 08/20/18 12:59 07/28/18 18:14 Docusate Sodium (Colace) 100 mg TWICE A DAY ORAL 07/22/18 09:00 08/21/18 08:59 07/28/18 17:45 Gabapentin (Neurontin) 300 mg THREE TIMES A DAY ORAL 07/21/18 13:00 08/20/18 12:59 07/28/18 18:14 Hydrocortisone (Anusol HC) 1 applic TWICE A DAY RECTAL 07/22/18 09:00 08/21/18 08:59 07/28/18 17:46 Lisinopril (Prinivil) 40 mg DAILY ORAL 07/22/18 09:00 08/21/18 08:59 07/28/18 09:46 Methadone HCl (Methadone HCl) 50 mg DAILY ORAL 07/22/18 09:00 07/29/18 08:59 07/28/18 09:45 Metronidazole (Flagyl) 500 mg Q8HR ORAL 07/24/18 07:00 07/31/18 06:59 07/28/18 14:25 Ondansetron HCl (Zofran) 4 mg Q6H PRN IVP Nausea & Vomiting 07/21/18 10:15 08/20/18 10:14 07/27/18 20:32 Polyethylene Glycol (Miralax) 17 gm BEDTIME ORAL 07/21/18 21:00 08/20/18 20:59 07/27/18 20:49 Sodium Chloride 1,000 ml @ 75 mls/hr [id number] IV 07/26/18 07:45 08/25/18 07:44 07/28/18 17:57 Maximino Bedoya MD Jul 28, 2018 18:36
--- NOTE | 2018-07-28 19:40 | NUR ---
TRANSFER TO FLOOR: Patient transferred to , 403-1, per Dr. Bedoya. Report given to JOSE Mae. Belongings and medications given to JOSE Mae. Patient called and informed daughter.
--- NOTE | 2018-07-28 19:45 | NUR ---
NURSE NOTES: Patient came from Tele via W/C. A/O x 4, on 2L O2 via N/C. No SOB, no acute distress noted. R EJ IV intact, patent. Reports received from telecom network manager Huong, belongings checked. Oriented patient to surroundings. All ordered transferred. Bed in lowest position, locked, alarms on. Call light in reach.
[2018-07-28 20:00] VITALS: BP 136/76
[2018-07-28] MEDS ORDERED: HYDROmorphone 4mg tab ORAL SCH (20:45)
[2018-07-28] MEDS: Miralax 17gm pkt ORAL SCH (21:01)
[2018-07-28] MEDS ORDERED: HYDROcodone/Acetamin 5/325 tab ORAL PRN (22:30)
[2018-07-29] VITALS: BP 131/75
[2018-07-29] MEDS: HYDROmorphone 4mg tab ORAL SCH ×5 (01:32→17:12)
[2018-07-29] MEDS: HYDROcodone/Acetamin 5/325 tab ORAL PRN ×2 (03:29→08:31)
[2018-07-29 04:00] VITALS: BP 123/70
[2018-07-29] MEDS: metroNIDAZOLE 500mg tab ORAL SCH ×3 (05:32→22:16)
--- NOTE | 2018-07-29 07:35 | NUR ---
NURSE NOTES: Received patient on bed, awake. IV site intact and patent. Bed in low and locked position, call light within reach. No signs of respiratory distress. Room board updated, will continue to monitor.
--- NOTE | 2018-07-29 07:54 | General Progress Note ---
Assessment/Plan Assessment/Plan IMPRESSION colitis abdominal pain gib chronic pain methadone dependence UTI PLAN gi evaluation and clearance ID evaluation ertapenem line placed flagyl po ?dc monitor clinically pain control dc once cleared and improved UTI MDR- no po antibiotics sensitive at present impression, plan, and exam edited and reviewed in detail care discussed with RN Subjective Allergies: Coded Allergies: ERYTHROMYCIN BASE (Verified Allergy, Severe, Hives, 01/29/17) SULFAMETHOXAZOLE (Verified Allergy, Severe, Shortness of Breath, 01/29/17) TRIMETHOPRIM (Verified Allergy, Severe, Shortness of Breath, 01/29/17) TRAMADOL (Verified Allergy, Unknown, 11/25/17) Subjective reported dysuria ucx resistant to cipro Objective Last 24 Hour Vital Signs Date Time Temp Pulse Resp B/P (MAP) Pulse Ox O2 Delivery O2 Flow Rate FiO2 07/29/18 06:49 Nasal Cannula 2.0 28 07/29/18 06:49 95 Nasal Cannula 2.0 28 07/29/18 06:49 73 22 Nasal Cannula 2.0 28 07/29/18 04:00 97.6 81 16 123/70 (87) 93 07/29/18 00:00 97.9 85 16 131/75 (93) 94 07/28/18 21:00 Nasal Cannula 2.0 07/28/18 20:14 73 18 Nasal Cannula 2.0 28 07/28/18 20:00 98.1 96 18 136/76 (96) 100 07/28/18 19:00 Nasal Cannula 2.0 28 07/28/18 19:00 96 Nasal Cannula 2.0 28 07/28/18 16:00 76 07/28/18 16:00 97.3 84 20 135/71 (92) 100 07/28/18 12:00 98.0 84 18 124/79 (94) 100 07/28/18 12:00 86 07/28/18 09:46 142/78 07/28/18 09:44 78 142/78 07/28/18 09:00 Room Air 07/28/18 08:00 97.6 78 18 142/78 (99) 94 07/28/18 08:00 76 Intake and Output 07/28/18 07/29/18 19:00 07:00 Intake Total 124 ml 675 ml Balance 124 ml 675 ml Intake Oral 124 ml IV Total 675 ml # Voids 4 3 # Bowel Movements 1 Height (Feet): 5 Height (Inches): 3.00 Weight (Pounds): 195 Objective WDWN NAD clear breath sounds bilaterally without rhonchi or wheeze [id number] without MRG NABS mildly tender no CCE nonfocal Edgar Luther MD Jul 29, 2018 07:54
--- NOTE | 2018-07-29 07:59 | NUR ---
HAND-OFF: Report given to JOSE Stanton.
[2018-07-29 08:00] VITALS: BP 128/84
--- NOTE | 2018-07-29 08:15 | NUR ---
NURSE NOTES: MD Luther stated to give patient the norco and over ride the 24 hour acetaminophen level. Chargenurse made aware. Medication given.
--- NOTE | 2018-07-29 08:18 | NUR ---
NURSE NOTES: Left message for MD Luther in regards to patient requesting norco PRN and was going to surpass the acetaminophen level for 24 hours. Awaiting any orders.
[2018-07-29] MEDS: Lisinopril 20mg tab ORAL SCH (09:46)
[2018-07-29] MEDS: Docusate 100mg cap ORAL SCH ×2 (09:48→17:12)
[2018-07-29] MEDS: Ertapenem 1 GM in NS 55 ML IVPB SCH (10:57)
--- NOTE | 2018-07-29 11:01 | General Surgery Progress Note ---
General Surgery-Progress Note Subjective Additional Comments no acute events. stable Objective Last 24 Hour Vital Signs Date Time Temp Pulse Resp B/P (MAP) Pulse Ox O2 Delivery O2 Flow Rate FiO2 07/29/18 09:46 128/84 07/29/18 09:45 75 128/84 07/29/18 09:00 Room Air 07/29/18 08:00 97.9 75 20 128/84 (99) 94 07/29/18 06:49 Nasal Cannula 2.0 28 07/29/18 06:49 95 Nasal Cannula 2.0 28 07/29/18 06:49 73 22 Nasal Cannula 2.0 28 07/29/18 04:00 97.6 81 16 123/70 (87) 93 07/29/18 00:00 97.9 85 16 131/75 (93) 94 07/28/18 21:00 Nasal Cannula 2.0 07/28/18 20:14 73 18 Nasal Cannula 2.0 28 07/28/18 20:00 98.1 96 18 136/76 (96) 100 07/28/18 19:00 Nasal Cannula 2.0 28 07/28/18 19:00 96 Nasal Cannula 2.0 28 07/28/18 16:00 76 07/28/18 16:00 97.3 84 20 135/71 (92) 100 07/28/18 12:00 98.0 84 18 124/79 (94) 100 07/28/18 12:00 86 I&O Intake and Output 07/28/18 07/29/18 19:00 07:00 Intake Total 124 ml 675 ml Balance 124 ml 675 ml Intake Oral 124 ml IV Total 675 ml # Voids 4 3 # Bowel Movements 1 Dressing: other Wound: other Drains: none Cardiovascular: RSR Respiratory: clear Abdomen: soft, non-tender, present bowel sounds Extremities: no cyanosis Plan Problems: (1) Gastrointestinal hemorrhage Assessment & Plan: 62 year old female with GI bleed requiring GI scope. unable to perform procedure because of lack of good proper venous access for procedure. needs venous access that is stable for procedure no peripheral access and poor peripheral veins. states she has had this issue for residential and usually obtains picc line when needed right IJ 20g IV line placed under ultrasound guidance without complication. okay to use for procedure. once done can d/c safely. call me and I will d/c thank you will follow with Fran Brothers Jul 29, 2018 11:01
--- NOTE | 2018-07-29 11:58 | NUR ---
NURSING ASSISTANTASSOCIATE PROFESSOR COMPUTER SCIENCE SI: COLITIS T. 97.9 HR 75 RR 20 B/P 128/84 IS: ERTAPENEM IV IVF NS 2 75ML/HR FLAGYL PO ALB HHN MED/SURG STATUS
[2018-07-29 12:00] VITALS: BP 147/79
[2018-07-29] MEDS ORDERED: Gastrograffin 30ml RECTAL PRN (14:45)
[2018-07-29] MEDS ORDERED: Gastrograffin 30ml ORAL PRN (14:45)
[2018-07-29] MEDS ORDERED: Isovue-370 150ml vial INJ PRN ×2 (14:45)
--- NOTE | 2018-07-29 15:07 | NUR ---
NURSE NOTES: Patient off floor for procedure.
[2018-07-29 16:00] VITALS: BP 107/66
[2018-07-29] MEDS ORDERED: Naloxone 0.4mg/ml Inj IVP PRN (17:45)
--- NOTE | 2018-07-29 17:48 | Consultation ---
History of Present Illness General Date patient seen: Jul 29, 2018 Time patient seen: 05:45 - pm Chief Complaint: Low back pain Referring physician: Homa Reason for Consultation: Pain management Present Illness HPI Patient is a known patient admitted under the care of Dr. Luther due to GI bleed. Has chronic lower back pain seeing Dr. Shon Costello as out pt getting Dilaudid 4mg 120 tabs monthly and goes daily to methadone clinic for Methadone 50mg daily. She was started on the Dilaudid and Methadone as well as norco with minimal relief due to this we were consulted for patient to have adequate pain control while here in the hospital. Allergies: Coded Allergies: ERYTHROMYCIN BASE (Verified Allergy, Severe, Hives, 01/29/17) SULFAMETHOXAZOLE (Verified Allergy, Severe, Shortness of Breath, 01/29/17) TRIMETHOPRIM (Verified Allergy, Severe, Shortness of Breath, 01/29/17) TRAMADOL (Verified Allergy, Unknown, 11/25/17) Medication History Scheduled Albuterol Sulfate* (Albuterol Sulfate Mdi*), 2 PUFF INH Q6H, (Reported) Amlodipine Besylate (Norvasc), 10 MG ORAL DAILY, (Reported) Clonazepam* (Klonopin*), 1 MG ORAL QID, (Reported) Diphenhydramine HCl (Benadryl), 50 MG PO FOUR TIMES A DAY, (Reported) Gabapentin* (Gabapentin*), 300 MG ORAL THREE TIMES A DAY, (Reported) Hydromorphone HCl (Dilaudid), 4 MG ORAL Q4H, (Reported) Lisinopril (Lisinopril*), 40 MG ORAL DAILY, (Reported) Methadone Hcl (Methadone Hcl), 50 MG PO DAILY, (Reported) Nitrofurantoin Monohyd/M-Cryst (Nitrofurantoin [place]-Mcr 100 mg), 100 MG ORAL Q12H Omeprazole (Omeprazole), 20 MG ORAL DAILY, (Reported) Miscellaneous Medications Diphenhydramine Hcl (Banophen), 50 MG PO, (Reported) Patient History Healthcare decision maker N Resuscitation status Advanced Directive on File Past Medical/Surgical History Past Medical/Surgical History: (1) COPD (chronic obstructive pulmonary disease) (2) Colitis (3) Oxygen dependent (4) Morbid obesity Review of Systems Constitutional: Reports: weakness Eye: Reports: no symptoms ENT: Reports: no symptoms Respiratory: Reports: shortness of breath Cardiovascular: Reports: no symptoms Gastrointestinal: Reports: no symptoms Genitourinary: Reports: no symptoms Musculoskeletal: Reports: back pain Skin: Reports: no symptoms Psychiatric: Reports: no symptoms Neurological: Reports: no symptoms Endocrine: Reports: no symptoms Hematologic/Lymphatic: Reports: no symptoms Physical Exam General Appearance: no apparent distress, alert HEENT: PERRL, EOMI Neck: non-tender, supple Respiratory/Chest: decreased breath sounds Cardiovascular/Chest: normal rate, regular rhythm Abdomen: other - obese Extremities: non-tender Skin Exam: warm/dry Neurologic: alert, oriented x 3 Last 24 Hour Vital Signs Date Time Temp Pulse Resp B/P (MAP) Pulse Ox O2 Delivery O2 Flow Rate FiO2 07/29/18 16:45 102 22 92 Nasal Cannula 2.0 28 07/29/18 16:45 28 07/29/18 16:45 100 20 92 Nasal Cannula 3.0 32 07/29/18 16:00 98.1 97 20 107/66 (80) 92 07/29/18 12:00 98.1 60 20 147/79 (101) 92 07/29/18 09:46 128/84 07/29/18 09:45 75 128/84 07/29/18 09:00 Room Air 07/29/18 08:00 97.9 75 20 128/84 (99) 94 07/29/18 06:49 Nasal Cannula 2.0 28 07/29/18 06:49 95 Nasal Cannula 2.0 28 07/29/18 06:49 73 22 Nasal Cannula 2.0 28 07/29/18 04:00 97.6 81 16 123/70 (87) 93 07/29/18 00:00 97.9 85 16 131/75 (93) 94 07/28/18 21:00 Nasal Cannula 2.0 07/28/18 20:14 73 18 Nasal Cannula 2.0 28 07/28/18 20:00 98.1 96 18 136/76 (96) 100 07/28/18 19:00 Nasal Cannula 2.0 28 07/28/18 19:00 96 Nasal Cannula 2.0 28 Intake and Output 07/28/18 07/29/18 19:00 07:00 Intake Total 124 ml 675 ml Balance 124 ml 675 ml Intake Oral 124 ml IV Total 675 ml # Voids 4 3 # Bowel Movements 1 Laboratory Tests Test 07/29/18 17:19 Lactate Dehydrogenase Pending Height (Feet): 5 Height (Inches): 3.00 Weight (Pounds): 195 Medications Current Medications Medications (Trade) Dose Ordered Sig/Sumeet Route PRN Reason Start Time Stop Time Status Last Admin Dose Admin Acetaminophen/ Hydrocodone Bitart ([place] 5/325) 1 tab Q4H PRN ORAL Moderate Pain (Pain Scale 4-6) 07/28/18 22:30 07/31/18 06:29 Acetaminophen/ Hydrocodone Bitart ([place] 5/325) 2 tab Q4H PRN ORAL Severe Pain (Pain Scale 7-10) 07/28/18 22:30 07/31/18 06:29 07/29/18 08:31 Albuterol/ Ipratropium (Albuterol/ Ipratropium) 3 ml Q4H PRN HHN Shortness of Breath 07/28/18 21:15 07/31/18 17:14 Amlodipine Besylate (Norvasc) 10 mg DAILY ORAL 07/29/18 09:00 08/21/18 08:59 07/29/18 09:45 Barium Sulfate (Readi-Cat 2) 450 ml NOW PRN ORAL Radiology Procedure 07/29/18 14:45 07/31/18 14:31 Barium Sulfate (Readi-Cat 2) 450 ml NOW PRN ORAL Radiology Procedure 07/29/18 14:45 07/31/18 14:33 Diatrizoate Meglum/ Diatrizoate Sod (Gastrografin) 30 ml NOW PRN ORAL Radiology Procedure 07/29/18 14:45 07/31/18 14:31 Diatrizoate Meglum/ Diatrizoate Sod (Gastrografin) 60 ml NOW PRN RECTAL Radiology Procedure 07/29/18 14:45 07/31/18 14:31 Diphenhydramine HCl (Benadryl) 50 mg FOUR TIMES A DAY ORAL 07/28/18 21:00 08/20/18 12:59 07/29/18 17:12 Docusate Sodium (Colace) 100 mg TWICE A DAY ORAL 07/29/18 09:00 08/21/18 08:59 07/29/18 17:12 Ertapenem 1 gm/ Sodium Chloride 55 ml @ 110 mls/hr DAILY IVPB 07/29/18 09:30 08/03/18 09:29 07/29/18 10:57 Gabapentin (Neurontin) 300 mg THREE TIMES A DAY ORAL 07/29/18 09:00 08/20/18 12:59 07/29/18 17:12 Hydrocortisone (Anusol HC) 1 applic TWICE A DAY RECTAL 07/29/18 09:00 08/21/18 08:59 07/29/18 09:52 Hydromorphone HCl (Dilaudid) 4 mg Q4HR ORAL 07/29/18 01:00 08/05/18 00:59 07/29/18 17:12 Iopamidol (Isovue-370 150ml) 150 ml NOW PRN INJ Radiology Procedure 07/29/18 14:45 07/30/18 23:59 Iopamidol (Isovue-370 150ml) 150 ml NOW PRN INJ Radiology Procedure 07/29/18 14:45 07/31/18 14:31 Lisinopril (Prinivil) 40 mg DAILY ORAL 07/29/18 09:00 08/21/18 08:59 07/29/18 09:46 Methadone HCl (Methadone HCl) 50 mg DAILY ORAL 07/29/18 09:00 08/05/18 08:59 07/29/18 09:47 Metronidazole (Flagyl) 500 mg Q8HR ORAL 07/28/18 22:00 07/31/18 06:59 07/29/18 13:20 Ondansetron HCl (Zofran) 4 mg Q6H PRN IVP Nausea & Vomiting 07/28/18 20:00 08/20/18 19:59 Polyethylene Glycol (Miralax) 17 gm BEDTIME ORAL 07/28/18 21:00 08/20/18 20:59 07/28/18 21:01 Sodium Chloride 1,000 ml @ 75 mls/hr [id number] IV 07/28/18 20:00 08/25/18 19:59 07/29/18 13:51 Assessment/Plan Assessment/Plan (1) Lumbar DDD (2) Lumbar Spondylosis (3) Lumbar Herniated disc (4) Lumbar Radiculopathy (5) Opioid dependency Patient will be continued on Methadone. D/c [place] increase Dilaudid 6mg PO 1 tab Q4H PRN severe pain. D/w Dr. Mena and he concurred. Thank you for consult. Carlitos Finn Jul 29, 2018 17:48
--- NOTE | 2018-07-29 18:04 | Cardiology Report ---
APPROVED REPORT EKG Measurement Heart [id number] Normal sinus rhythm Normal ECG
--- NOTE | 2018-07-29 19:27 | NUR ---
HAND-OFF: Report given to JOSE Monaco.
--- NOTE | 2018-07-29 19:28 | General Progress Note ---
Progress Note Progress Note Patient seen and examined Asked to eval r/o mesenteric stenosis/ischemia Abd pain with intermittent GI bleed Dysuria Obesity Ex IVDA Colitis + on scope CT angiogram revealed patent celiac and SMA with no proximal stenosis with no mesenteric ischemia Rec F/U per GI Abx per ID F/U on scope path reports Filiberto Up MD Jul 29, 2018 19:28
--- NOTE | 2018-07-29 19:30 | NUR ---
NURSE NOTES: Pt seen by Dr Up, received order to collect urine for stat UA and urine culture. Carried out.
[2018-07-29 20:00] VITALS: BP 155/82
--- NOTE | 2018-07-29 20:00 | NUR ---
NURSE NOTES: Received patient in bed. On O2 2L, no SOB, no acute distress. Patient c/o pain on abd area. Explained new frequency and dosage of pain med, pt verbalized understanding. R EJ IV intact running fluids. Bed in lowest position, locked, alarms on. Call light in reach.
--- NOTE | 2018-07-29 20:05 | General Progress Note ---
Assessment/Plan Assessment/Plan Assessment/Plan Problem List: (1) Opioid dependence (2) h/o IVDA (3) COPD (chronic obstructive pulmonary disease) (4) Oxygen dependent (5) Gastrointestinal hemorrhage (6) (L) sided colitis with ulceration, likely ischemic Assessment/Plan Push PO diet pain management team f/u OK to d/c abx from GI standpoint d/c HC suppositories IVF f/u path Subjective Allergies: Coded Allergies: ERYTHROMYCIN BASE (Verified Allergy, Severe, Hives, 01/29/17) SULFAMETHOXAZOLE (Verified Allergy, Severe, Shortness of Breath, 01/29/17) TRIMETHOPRIM (Verified Allergy, Severe, Shortness of Breath, 01/29/17) TRAMADOL (Verified Allergy, Unknown, 11/25/17) Subjective sleeping on my arrival awakened --> started c/o severe back and abd pain vascular evaluation noted Objective Last 24 Hour Vital Signs Date Time Temp Pulse Resp B/P (MAP) Pulse Ox O2 Delivery O2 Flow Rate FiO2 07/29/18 16:45 102 22 92 Nasal Cannula 2.0 28 07/29/18 16:45 28 07/29/18 16:45 100 20 92 Nasal Cannula 3.0 32 07/29/18 16:00 98.1 97 20 107/66 (80) 92 07/29/18 12:00 98.1 60 20 147/79 (101) 92 07/29/18 09:46 128/84 07/29/18 09:45 75 128/84 07/29/18 09:00 Room Air 07/29/18 08:00 97.9 75 20 128/84 (99) 94 07/29/18 06:49 Nasal Cannula 2.0 28 07/29/18 06:49 95 Nasal Cannula 2.0 28 07/29/18 06:49 73 22 Nasal Cannula 2.0 28 07/29/18 04:00 97.6 81 16 123/70 (87) 93 07/29/18 00:00 97.9 85 16 131/75 (93) 94 07/28/18 21:00 Nasal Cannula 2.0 07/28/18 20:14 73 18 Nasal Cannula 2.0 28 Intake and Output 07/28/18 07/29/18 19:00 07:00 Intake Total 124 ml 675 ml Balance 124 ml 675 ml Intake Oral 124 ml IV Total 675 ml # Voids 4 3 # Bowel Movements 1 Laboratory Tests 07/29/18 17:19: Lactate Dehydrogenase 262H Height (Feet): 5 Height (Inches): 3.00 Weight (Pounds): 195 Objective WDWN obese WW NCAT supple CTA RR abd soft obese, (+) diffuse abd TTP, worse in LLQ, less TTP with distracted exam no edema Haider Garcia MD Jul 29, 2018 20:05
[2018-07-29 21:36] LABS: APPEARANCE,URINE CLEAR; BILIRUBIN, URINE NEGATIVE (NEGATIVE); COLOR,URINE PALE YELLOW; GLUCOSE, URINE (UA) NEGATIVE (NEGATIVE); KETONES,URINE NEGATIVE (NEGATIVE); LEUKOCYTE ESTERASE ,URINE 3+ (NEGATIVE); NITRITE,URINE NEGATIVE (NEGATIVE); PH,URINE 6.5 (4.5-8.0); PROTEIN,URINE 3+ (NEGATIVE); UROBILINOGEN,URINE NORMAL MG/DL (0.0-1.0)
--- NOTE | 2018-07-29 22:15 | NUR ---
NURSE NOTES: Patient noted with fever @ 101.2F. Notified Dr Luther, received order for Tylenol 650mg PRN and blood culture x 2. Carried out.
[2018-07-29] MEDS: Miralax 17gm pkt ORAL SCH (22:16)
--- NOTE | 2018-07-29 23:00 | NUR ---
NURSE NOTES: Tylenol 650mg given with cooling measure. Current temp at 100.3, no acute distress noted. Will cont monitor closely.
[2018-07-30] VITALS: BP 124/70
[2018-07-30] MEDS: HYDROmorphone 4mg tab ORAL PRN ×5 (00:41→22:16)
--- NOTE | 2018-07-30 01:00 | NUR ---
NURSE NOTES: Temp noted at 99.6F. Pt asleep, no acute distress noted. Will cont monitoring.
[2018-07-30 04:00] VITALS: BP 123/68
[2018-07-30] MEDS: metroNIDAZOLE 500mg tab ORAL SCH (05:11)
--- NOTE | 2018-07-30 05:30 | NUR ---
NURSE NOTES: No fever noted. Current temp at 98.4F.
--- NOTE | 2018-07-30 07:35 | NUR ---
HAND-OFF: Report given to JOSE Stanton.
--- NOTE | 2018-07-30 07:41 | General Progress Note ---
Assessment/Plan Assessment/Plan IMPRESSION colitis abdominal pain gib chronic pain methadone dependence UTI PLAN vascular cleared ID evaluation for clearance ertapenem line placed monitor clinically pain control dc once cleared and improved UTI MDR- no po antibiotics sensitive at present impression, plan, and exam edited and reviewed in detail care discussed with RN Subjective Allergies: Coded Allergies: ERYTHROMYCIN BASE (Verified Allergy, Severe, Hives, 01/29/17) SULFAMETHOXAZOLE (Verified Allergy, Severe, Shortness of Breath, 01/29/17) TRIMETHOPRIM (Verified Allergy, Severe, Shortness of Breath, 01/29/17) TRAMADOL (Verified Allergy, Unknown, 11/25/17) Subjective awaiting ID ucx resistant to cipro Objective Last 24 Hour Vital Signs Date Time Temp Pulse Resp B/P (MAP) Pulse Ox O2 Delivery O2 Flow Rate FiO2 07/30/18 04:00 97.8 86 18 123/68 (86) 94 07/30/18 00:00 100.5 101 22 124/70 (88) 94 07/29/18 23:49 Nasal Cannula 2.0 28 07/29/18 23:49 96 Nasal Cannula 2.0 28 07/29/18 23:48 85 20 Nasal Cannula 2.0 28 07/29/18 22:46 100.0 07/29/18 21:00 Room Air 07/29/18 20:00 100.0 107 22 155/82 (106) 100 07/29/18 16:45 102 22 92 Nasal Cannula 2.0 28 07/29/18 16:45 28 07/29/18 16:45 100 20 92 Nasal Cannula 3.0 32 07/29/18 16:00 98.1 97 20 107/66 (80) 92 07/29/18 12:00 98.1 60 20 147/79 (101) 92 07/29/18 09:46 128/84 07/29/18 09:45 75 128/84 07/29/18 09:00 Room Air 07/29/18 08:00 97.9 75 20 128/84 (99) 94 Intake and Output 07/29/18 07/30/18 18:59 06:59 Intake Total 1525 ml 750 ml Output Total 1000 ml 600 ml Balance 525 ml 150 ml Intake Oral 720 ml IV Total 805 ml 750 ml Output Urine Total 1000 ml 600 ml # Voids 4 # Bowel Movements 1 2 Laboratory Tests 07/29/18 17:19: Lactate Dehydrogenase 262H 07/29/18 21:00: Urine Color Pale yellow, Urine Appearance Clear, Urine pH 6.5, Urine Specific [place] 1.010, Urine Protein 3+H, Urine Glucose (UA) Negative, Urine Ketones Negative, Urine Blood 5+H, Urine Nitrite Negative, Urine Bilirubin Negative, Urine Urobilinogen Normal, Urine Leukocyte Esterase 3+H, Urine RBC 5-10H, Urine WBC 20-30H, Urine Squamous Epithelial Cells Few, Urine Bacteria ModerateH Height (Feet): 5 Height (Inches): 3.00 Weight (Pounds): 195 Objective WDWN NAD clear breath sounds bilaterally without rhonchi or wheeze [id number] without MRG NABS mildly tender no CCE nonfocal Edgar Luther MD Jul 30, 2018 07:41
--- NOTE | 2018-07-30 07:45 | NUR ---
NURSE NOTES: Received patient on bed, awake. Ultrasound being done. IV site intact and patent. Bed in locked position, call light within reach. Room board updated, will continue to monitor.
[2018-07-30 08:00] VITALS: BP 128/75
[2018-07-30] MEDS: Lisinopril 20mg tab ORAL SCH (08:33)
[2018-07-30] MEDS: Docusate 100mg cap ORAL SCH ×2 (08:34→17:25)
--- NOTE | 2018-07-30 08:51 | General Progress Note ---
Assessment/Plan Assessment/Plan (1) Lumbar DDD (2) Lumbar Spondylosis (3) Lumbar Herniated disc (4) Lumbar Radiculopathy (5) Opioid dependency Patient will be continued on Methadone and Dilaudid. D/w Dr. Mena and he concurred. Subjective Date patient seen: Jul 30, 2018 Time patient seen: 08:15 - am Constitutional: Reports: weakness HEENT: Reports: no symptoms Cardiovascular: Reports: no symptoms Respiratory: Reports: shortness of breath Gastrointestinal/Abdominal: Reports: no symptoms Neurologic/Psychiatric: Reports: weakness Endocrine: Reports: no symptoms Hematologic/Lymphatic: Reports: no symptoms Allergies: Coded Allergies: ERYTHROMYCIN BASE (Verified Allergy, Severe, Hives, 01/29/17) SULFAMETHOXAZOLE (Verified Allergy, Severe, Shortness of Breath, 01/29/17) TRIMETHOPRIM (Verified Allergy, Severe, Shortness of Breath, 01/29/17) TRAMADOL (Verified Allergy, Unknown, 11/25/17) Subjective Patient reports continued pain and has gotten the Methadone daily and that the increase of Dilaudid has reduced her pain from a 10/10 to a 6/10. Objective Last 24 Hour Vital Signs Date Time Temp Pulse Resp B/P (MAP) Pulse Ox O2 Delivery O2 Flow Rate FiO2 07/30/18 08:33 128/75 07/30/18 08:33 84 128/75 07/30/18 08:00 99.4 84 20 128/75 (92) 95 07/30/18 04:00 97.8 86 18 123/68 (86) 94 07/30/18 00:00 100.5 101 22 124/70 (88) 94 07/29/18 23:49 Nasal Cannula 2.0 28 07/29/18 23:49 96 Nasal Cannula 2.0 28 07/29/18 23:48 85 20 Nasal Cannula 2.0 28 07/29/18 22:46 100.0 07/29/18 21:00 Room Air 07/29/18 20:00 100.0 107 22 155/82 (106) 100 07/29/18 16:45 102 22 92 Nasal Cannula 2.0 28 07/29/18 16:45 28 07/29/18 16:45 100 20 92 Nasal Cannula 3.0 32 07/29/18 16:00 98.1 97 20 107/66 (80) 92 07/29/18 12:00 98.1 60 20 147/79 (101) 92 07/29/18 09:46 128/84 07/29/18 09:45 75 128/84 07/29/18 09:00 Room Air Intake and Output 07/29/18 07/30/18 19:00 07:00 Intake Total 1525 ml 750 ml Output Total 1000 ml 600 ml Balance 525 ml 150 ml Intake Oral 720 ml IV Total 805 ml 750 ml Output Urine Total 1000 ml 600 ml # Voids 4 # Bowel Movements 1 2 Laboratory Tests 07/29/18 17:19: Lactate Dehydrogenase 262H 07/29/18 21:00: Urine Color Pale yellow, Urine Appearance Clear, Urine pH 6.5, Urine Specific [place] 1.010, Urine Protein 3+H, Urine Glucose (UA) Negative, Urine Ketones Negative, Urine Blood 5+H, Urine Nitrite Negative, Urine Bilirubin Negative, Urine Urobilinogen Normal, Urine Leukocyte Esterase 3+H, Urine RBC 5-10H, Urine WBC 20-30H, Urine Squamous Epithelial Cells Few, Urine Bacteria ModerateH Height (Feet): 5 Height (Inches): 3.00 Weight (Pounds): 195 General Appearance: no apparent distress, alert EENT: PERRL/EOMI, normal ENT inspection Neck: normal alignment, supple Cardiovascular: normal rate, regular rhythm Respiratory/Chest: decreased breath sounds Abdomen: soft Extremities: non-tender Edema: trace edema Neurologic: alert, oriented x 3 Skin: warm/dry Carlitos Finn Jul 30, 2018 08:51
[2018-07-30] MEDS: Ertapenem 1 GM in NS 55 ML IVPB SCH (09:27)
--- NOTE | 2018-07-30 10:08 | Diagnostic Imaging Report ---
Indication:Abdominal pain Technique: Grayscale and duplex Doppler imaging of the aorta, SMA and celiac artery performed. Comparison: None Findings: Preprandial assessment of the mesenteric arteries performed. The origins of the celiac artery and SMA appear patent by Doppler imaging with normal velocities, which range between 130 to 150 cm/s. No evidence of abdominal aortic aneurysm. IMPRESSION: No evidence of high-grade stenosis within the origins of the SMA or celiac artery.
[2018-07-30 12:00] VITALS: BP 127/83
--- NOTE | 2018-07-30 15:00 | Diagnostic Imaging Report ---
Indication: Abdominal Pain Technique: Continuous helical transaxial imaging of the abdomen and pelvis was obtained from the lung base to the pubic symphysis during rapid intravenous contrast administration. Arterial phase of enhancement obtained. Coronal 2-D reformats were also obtained and maximum intensity projection images in multiple planes. Study obtained in a Siemens sensation [address] Note: Infiltration of the IV occurred during intravenous infusion. Consequently, intravascular delivery of contrast material was suboptimal. Total Dose length Product (DLP): [address] Dose Index Volume (CTDIvol): 0.15, 8.11, 73, 17, 21.75 mGy Comparison: None Findings: Vascular findings: Opacification of the aorta and branches of the aorta is suboptimal on this exam. That said, the celiac trunk and the superior mesenteric artery appear widely patent. Some mural calcium noted within branches of the celiac artery particularly in the area of the splenic artery. Midportion of the SMA shows moderate calcific plaque. Difficult to assess second and third order branching of the SMA. There is mild calcification at the origins of both renal arteries. Although not optimally evaluated stenosis is not likely to be significant. Both kidneys appear to enhance symmetrically during arterial phase. Some breathing motion artifact is also present. There is no evidence of aortic dissection or aneurysm. The iliac arteries are unremarkable. Nonvascular findings: The urinary bladder is abnormal with moderate thickening of the wall and perivesical soft tissue stranding consistent with cystitis. There is minimal left hydroureteronephrosis. Some thickening of the uroepithelium of the left ureter is noted. Query possibility of pyelonephrosis. Correlate clinically. There is no visualized ascites. Gallbladder is unremarkable. The pancreas is moderately atrophic. There is no free fluid identified. Uterus is noted and partially visualized on this study. Anasarca noted. IMPRESSION: Suboptimal contrast bolus due to IV infiltration. No stenosis of the origins or proximal portions of the celiac artery or SMA identified on this study. Moderate atherosclerotic disease demonstrated. Mild calcific plaque origins of both renal arteries without significant stenosis. No evidence of aortic aneurysm or dissection. Suspected cystitis and left ureteritis. Pyelonephritis not excluded on the left. Correlate clinically. The CT scanner at [facility] is accredited by the [employer] and the scans are performed using dose optimization techniques as appropriate to a performed exam including Automatic Exposure control.
--- NOTE | 2018-07-30 15:19 | NUR ---
INSURANCE ALL CLINICALS AND REVIEWS FAXED TO: [employer] NCM: [place]ORE[place] P- [id number] [phone] [phone]
--- NOTE | 2018-07-30 15:30 | Consultation ---
DATE OF CONSULTATION: 07/30/2018 INFECTIOUS DISEASE CONSULTATION CONSULTING PHYSICIAN: Radha Sánchez M.D. REFERRING PHYSICIAN: Edgar Luther M.D. REASON FOR CONSULTATION: Urinary tract infection. HISTORY OF PRESENT ILLNESS: This is a 62-year-old lady with history of hypertension, asthma, and COPD, who comes in with burning in the urine as well as fevers and chills and nausea, as well as abdominal pain. She was found to have a urinary tract infection and an Infectious Disease consultation has been obtained for antibiotics. PAST MEDICAL HISTORY: 1. History of hypertension. 2. COPD. 3. Asthma. 4. Chronic back pain. SOCIAL HISTORY: She used to be a smoker. She does not smoke anymore. She does not drink alcohol. She has a history of intravenous drug use with heroin, not anymore. FAMILY HISTORY: Positive for uterine cancer in a great grandmother. Her father had pancreatic cancer. Her mother had lung cancer. REVIEW OF SYSTEMS: RESPIRATORY: She has fever and chills. She has a cough with green sputum. She has shortness of breath. No chest pain. CARDIAC: No chest pain. No palpitations. No dizziness. No syncope. GASTROINTESTINAL: She has nausea. No vomiting. She does complain of abdominal pain and diarrhea. GENITOURINARY: She has dysuria. No hematuria. MEDICATIONS: As an inpatient, she is on Tylenol, gabapentin, Dilaudid, Narcan, , Gastrografin, barium sulfate, ertapenem, amlodipine, docusate, lisinopril, methadone, albuterol, ipratropium, Benadryl, MiraLAX, and Zofran. ALLERGIES: 1. Erythromycin. 2. Bactrim. 3. Tramadol. PHYSICAL EXAMINATION: VITAL SIGNS: Temperature 99.4, T-max of 100.5, pulse 84, respiratory rate 20, and blood pressure 128/75. O2 saturation of 95%. HEENT: Pupils are equally reactive to light and accommodation. Mouth appears clean without thrush. NECK: Supple. No adenopathy. No JVD. CARDIOVASCULAR: Regular rate and rhythm. No murmurs. LUNGS: Clear to auscultation bilaterally. No crackles. No wheezes. ABDOMEN: Soft. There is bilateral CVA tenderness and suprapubic tenderness. EXTREMITIES: No cyanosis, no clubbing, no edema. LABORATORY AND DIAGNOSTIC DATA: White count 7.5, hemoglobin 12.7, hematocrit 37.3, MCV 87, and platelet count 145,000 with neutrophils of 52%. Sodium 140, potassium 3.7, chloride 102, bicarb 30, BUN 4, and creatinine 0.7. Glucose 98. Calcium 9.1. Total bilirubin 0.3, AST 42, ALT 28, and alkaline phosphatase 63. LDH 262. Total protein 7.4, albumin 3.7. Lipase 49. UA showing 20 to 30 white cells. Urine culture is growing ESBL E. coli, which is susceptible to ertapenem, piperacillin and tazobactam, imipenem, and tigecycline. Rectal swab was negative for VRE. Nasal swab was negative for MRSA. Abdominal ultrasound showing no evidence of high-grade stenosis within the origins of the SMA or celiac artery. Chest x-ray showing mildly increased interstitial markings, may suggest pulmonary vascular congestion or mild interstitial pneumonitis. No focal consolidation noted. CT abdomen and pelvis showing wall thickening of the splenic flexure and proximal descending colon with surrounding inflammatory stranding, may reflect inflammatory colitis, however, ischemic colitis must be excluded. No small bowel obstruction or biliary dilatation noted. Stable hepatomegaly noted. ASSESSMENT: This is a 62-year-old lady with history of hypertension and asthma, who comes in with fever, nausea, vomiting as well as dysuria and is found to have, 1. ESBL Escherichia coli urinary tract infection. 2. She also could have a colitis. We would like to rule out C. difficile colitis as a possibility or ischemic colitis as a possibility. PLAN: 1. Continue ertapenem for five more days. 2. We will order stool for C. difficile colitis. 3. We will follow up the patient clinically. I would like to thank Dr. Luther for this consultation. Radha Sánchez M.D. DR: CARRILLO JOB#: [id number] CC:
[2018-07-30 16:00] VITALS: BP 115/71
--- NOTE | 2018-07-30 16:13 | General Surgery Progress Note ---
General Surgery-Progress Note Subjective Additional Comments appreciate input of ID. needs IV Ertapenem for 5 more days. Objective Last 24 Hour Vital Signs Date Time Temp Pulse Resp B/P (MAP) Pulse Ox O2 Delivery O2 Flow Rate FiO2 07/30/18 12:00 97.6 103 20 127/83 (98) 95 07/30/18 09:00 Room Air 07/30/18 08:33 128/75 07/30/18 08:33 84 128/75 07/30/18 08:00 99.4 84 20 128/75 (92) 95 07/30/18 04:00 97.8 86 18 123/68 (86) 94 07/30/18 00:00 100.5 101 22 124/70 (88) 94 07/29/18 23:49 Nasal Cannula 2.0 28 07/29/18 23:49 96 Nasal Cannula 2.0 28 07/29/18 23:48 85 20 Nasal Cannula 2.0 28 07/29/18 22:46 100.0 07/29/18 21:00 Room Air 07/29/18 20:00 100.0 107 22 155/82 (106) 100 07/29/18 16:45 102 22 92 Nasal Cannula 2.0 28 07/29/18 16:45 28 07/29/18 16:45 100 20 92 Nasal Cannula 3.0 32 I&O Intake and Output 07/29/18 07/30/18 19:00 07:00 Intake Total 1525 ml 750 ml Output Total 1000 ml 600 ml Balance 525 ml 150 ml Intake Oral 720 ml IV Total 805 ml 750 ml Output Urine Total 1000 ml 600 ml # Voids 4 # Bowel Movements 1 2 Dressing: dry Wound: clean Drains: other Cardiovascular: RSR Respiratory: clear Abdomen: soft, present bowel sounds, non-distended Extremities: no cyanosis Laboratory Tests Test 07/29/18 17:19 07/29/18 21:00 Lactate Dehydrogenase 262 U/L (81-234) H Urine Color Pale yellow Urine Appearance Clear Urine pH 6.5 (4.5-8.0) Urine Specific [place] 1.010 (1.005-1.035) Urine Protein 3+ (NEGATIVE) H Urine Glucose (UA) Negative (NEGATIVE) Urine Ketones Negative (NEGATIVE) Urine Blood 5+ (NEGATIVE) H Urine Nitrite Negative (NEGATIVE) Urine Bilirubin Negative (NEGATIVE) Urine Urobilinogen Normal MG/DL (0.0-1.0) Urine Leukocyte Esterase 3+ (NEGATIVE) H Urine RBC 5-10 /HPF (0 - 2) H Urine WBC 20-30 /HPF (0 - 2) H Urine Squamous Epithelial Cells Few /LPF (NONE/OCC) Urine Bacteria Moderate /HPF (NONE) H Plan Problems: (1) Gastrointestinal hemorrhage Assessment & Plan: 62 year old female with GI bleed requiring GI scope. unable to perform procedure because of lack of good proper venous access for procedure. needs venous access that is stable for procedure no peripheral access and poor peripheral veins. states she has had this issue for [facility] and usually obtains picc line when needed right IJ 20g IV line placed under ultrasound guidance without complication. okay to use for procedure. once done can d/c safely. call me and I will d/c if still needs IV abx for few more days will discuss PICC thank you will follow with Fran Brothers Jul 30, 2018 16:13
[2018-07-30] MEDS ORDERED: Heparin 2000 units/Ns 1000ml INJ PRN (16:30)
[2018-07-30] MEDS ORDERED: Lidocaine 1% Plain 30 ml INJ PRN (16:30)
--- NOTE | 2018-07-30 18:24 | NUR ---
NURSE NOTES: Consent for PICC line signed and in patient chart.
--- NOTE | 2018-07-30 19:30 | NUR ---
HAND-OFF: Report given to JOSE Piña.
--- NOTE | 2018-07-30 19:33 | NUR ---
NURSE NOTES: Patient in bed, awake, alert. No s/s respiratory distress noted. Right EJ [address] Bed in lowest position, call light within reach. Will continue to monitor.
[2018-07-30] MEDS: Dyna-Hex 2% Top Sol 2oz TOPIC SCH (19:44)
[2018-07-30] MEDS: Miralax 17gm pkt ORAL SCH (19:45)
[2018-07-30 19:55] VITALS: BP 127/74
--- NOTE | 2018-07-30 22:12 | General Progress Note ---
Assessment/Plan Assessment/Plan Assessment - h/o IVDA and opioid dependence - COPD - focal ischemic colitis - UTI, MDR - loose BM Recommendations - Push PO - Pain management - Abx per ID - F/u C Diff - IVF - follow exam Subjective Allergies: Coded Allergies: ERYTHROMYCIN BASE (Verified Allergy, Severe, Hives, 01/29/17) SULFAMETHOXAZOLE (Verified Allergy, Severe, Shortness of Breath, 01/29/17) TRIMETHOPRIM (Verified Allergy, Severe, Shortness of Breath, 01/29/17) TRAMADOL (Verified Allergy, Unknown, 11/25/17) Subjective c/o dysuria ID noted loose BM abd pain path reviewed - consistent with focal ischemic at 40 cm Objective Last 24 Hour Vital Signs Date Time Temp Pulse Resp B/P (MAP) Pulse Ox O2 Delivery O2 Flow Rate FiO2 07/30/18 20:00 Room Air 07/30/18 19:55 99.1 87 18 127/74 (91) 96 07/30/18 19:26 Nasal Cannula 2.0 28 07/30/18 19:26 94 Nasal Cannula 2.0 28 07/30/18 19:25 80 18 Nasal Cannula 2.0 28 07/30/18 16:00 98.0 91 20 115/71 (86) 95 07/30/18 12:00 97.6 103 20 127/83 (98) 95 07/30/18 09:00 Room Air 07/30/18 08:33 128/75 07/30/18 08:33 84 128/75 07/30/18 08:00 99.4 84 20 128/75 (92) 95 07/30/18 04:00 97.8 86 18 123/68 (86) 94 07/30/18 00:00 100.5 101 22 124/70 (88) 94 07/29/18 23:49 Nasal Cannula 2.0 28 07/29/18 23:49 96 Nasal Cannula 2.0 28 07/29/18 23:48 85 20 Nasal Cannula 2.0 28 07/29/18 22:46 100.0 Intake and Output 07/29/18 07/30/18 19:00 07:00 Intake Total 1525 ml 750 ml Output Total 1000 ml 600 ml Balance 525 ml 150 ml Intake Oral 720 ml IV Total 805 ml 750 ml Output Urine Total 1000 ml 600 ml # Voids 4 # Bowel Movements 1 2 Height (Feet): 5 Height (Inches): 3.00 Weight (Pounds): 195 Objective WDWN obese WW NCAT supple CTA RR abd soft obese, (+) suprapubic TTP no edema Haider Garcia MD Jul 30, 2018 22:12
[2018-07-30] MEDS: Albuterol/Ipratropium 3ml neb HHN PRN (22:33)
[2018-07-31 00:18] VITALS: BP 123/77
[2018-07-31] MEDS: HYDROmorphone 4mg tab ORAL PRN ×5 (03:14→23:24)
[2018-07-31] MEDS: Albuterol/Ipratropium 3ml neb HHN PRN (03:30)
[2018-07-31 04:31] VITALS: BP 124/65
--- NOTE | 2018-07-31 04:33 | NUR ---
NURSE NOTES: Patient's right neck EJ, reddened and tender, access removed.
--- NOTE | 2018-07-31 07:01 | NUR ---
HAND-OFF: Report given to ZURDO GREENE RN.
[2018-07-31 08:00] VITALS: BP 133/70
--- NOTE | 2018-07-31 08:00 | NUR ---
NURSE NOTES: PT WITH FEVER 100 DEGREES F. REFUSES ICE PACK. NOT DUE FOR PRN TYLENOL.
--- NOTE | 2018-07-31 08:49 | General Progress Note ---
Assessment/Plan Assessment/Plan (1) Lumbar DDD (2) Lumbar Spondylosis (3) Lumbar Herniated disc (4) Lumbar Radiculopathy (5) Opioid dependency Patient will be continued on Methadone and Dilaudid. D/w Dr. Mena and he concurred. Subjective Date patient seen: Jul 31, 2018 Time patient seen: 07:00 - am Allergies: Coded Allergies: ERYTHROMYCIN BASE (Verified Allergy, Severe, Hives, 01/29/17) SULFAMETHOXAZOLE (Verified Allergy, Severe, Shortness of Breath, 01/29/17) TRIMETHOPRIM (Verified Allergy, Severe, Shortness of Breath, 01/29/17) TRAMADOL (Verified Allergy, Unknown, 11/25/17) Subjective Constitutional: Reports: weakness HEENT: Reports: no symptoms Cardiovascular: Reports: no symptoms Respiratory: Reports: shortness of breath Gastrointestinal/Abdominal: Reports: no symptoms Neurologic/Psychiatric: Reports: weakness Endocrine: Reports: no symptoms Hematologic/Lymphatic: Reports: no symptoms Subjective Patient has been tolerating her pain of the methadone and 5 doses of Dilaudid in the last 24hrs. Objective Last 24 Hour Vital Signs Date Time Temp Pulse Resp B/P (MAP) Pulse Ox O2 Delivery O2 Flow Rate FiO2 07/31/18 08:00 100.0 97 19 133/70 (91) 93 07/31/18 05:07 100.0 07/31/18 04:31 100.2 95 18 124/65 (84) 99 07/31/18 03:44 98.8 07/31/18 03:31 96 20 99 Nasal Cannula 2.0 28 07/31/18 03:20 92 20 95 Nasal Cannula 2.0 28 07/31/18 00:18 98.8 102 18 123/77 (92) 95 07/30/18 22:32 94 20 98 Nasal Cannula 2.0 28 07/30/18 22:21 90 20 96 Nasal Cannula 2.0 28 07/30/18 20:00 Room Air 07/30/18 19:55 99.1 87 18 127/74 (91) 96 07/30/18 19:26 Nasal Cannula 2.0 28 07/30/18 19:26 94 Nasal Cannula 2.0 28 07/30/18 19:25 80 18 Nasal Cannula 2.0 28 07/30/18 16:00 98.0 91 20 115/71 (86) 95 07/30/18 12:00 97.6 103 20 127/83 (98) 95 07/30/18 09:00 Room Air Intake and Output 07/30/18 07/31/18 18:59 06:59 Intake Total 1285 ml 120 ml Balance 1285 ml 120 ml Intake Oral 480 ml 120 ml IV Total 805 ml # Voids 3 2 # Bowel Movements 1 2 Height (Feet): 5 Height (Inches): 3.00 Weight (Pounds): 201 Objective General Appearance: no apparent distress, alert EENT: PERRL/EOMI, normal ENT inspection Neck: normal alignment, supple Cardiovascular: normal rate, regular rhythm Respiratory/Chest: decreased breath sounds Abdomen: soft Extremities: non-tender Edema: trace edema Neurologic: alert, oriented x 3 Skin: warm/dry Carlitos Finn Jul 31, 2018 08:49
[2018-07-31] MEDS: Docusate 100mg cap ORAL SCH ×2 (09:00→18:00)
[2018-07-31] MEDS: Ertapenem 1 GM in NS 55 ML IVPB SCH (09:00)
[2018-07-31] MEDS: Lisinopril 20mg tab ORAL SCH (09:00)
--- NOTE | 2018-07-31 10:00 | NUR ---
NURSE NOTES: PT MADE AWARE OF PLAN FOR PICC LINE INSERTION TODAY. PT REQUESTS TO CONTINUE CLONAZEPAM 1MG QID. ORDER HAS REACHED END OF DATE. RN CLARIFIED WITH DR. JIANG, WITH ORDER TO CONTINUE ORDER FOR CLONAZEPAM 1MG QID. PT AXOX4, CALM, RESTING IN BED. PT STATES SHE NEEDS HER CLONAZEPAM TO PREVENT ANXIETY ATTACKS AND IS FEELING ANXIOUS NOW.
--- NOTE | 2018-07-31 10:46 | NUR ---
NURSE NOTES: DR ORTIZ MADE AWARE OF FEVER. NO NEW ORDERS GIVEN.
--- NOTE | 2018-07-31 10:54 | Infectious Diseases Prog Note ---
Assessment/Plan Assessment/Plan antibiotics : ertapenem A 1. e.coli esbl UTI 2. colitis 3. hypertension 4. asthma P 1. continue ertapenem 4 more days 2. will follow up cultures Subjective Constitutional: Denies: fever, chills Respiratory: Denies: shortness of breath, dry cough Gastrointestinal/Abdominal: Reports: other - loose stools; Denies: nausea, vomiting Musculoskeletal: Reports: pain - decreased pain on urination Allergies: Coded Allergies: ERYTHROMYCIN BASE (Verified Allergy, Severe, Hives, 01/29/17) SULFAMETHOXAZOLE (Verified Allergy, Severe, Shortness of Breath, 01/29/17) TRIMETHOPRIM (Verified Allergy, Severe, Shortness of Breath, 01/29/17) TRAMADOL (Verified Allergy, Unknown, 11/25/17) Objective Vital Signs Last 24 Hour Vital Signs Date Time Temp Pulse Resp B/P (MAP) Pulse Ox O2 Delivery O2 Flow Rate FiO2 07/31/18 09:00 133/70 07/31/18 09:00 Room Air 07/31/18 08:59 97 133/70 07/31/18 08:50 97 18 Room Air 21 07/31/18 08:50 94 Room Air 21 07/31/18 08:50 Room Air 07/31/18 08:00 100.0 97 19 133/70 (91) 93 07/31/18 05:07 100.0 07/31/18 04:31 100.2 95 18 124/65 (84) 99 07/31/18 03:44 98.8 07/31/18 03:31 96 20 99 Nasal Cannula 2.0 28 07/31/18 03:20 92 20 95 Nasal Cannula 2.0 28 07/31/18 00:18 98.8 102 18 123/77 (92) 95 07/30/18 22:32 94 20 98 Nasal Cannula 2.0 28 07/30/18 22:21 90 20 96 Nasal Cannula 2.0 28 07/30/18 20:00 Room Air 07/30/18 19:55 99.1 87 18 127/74 (91) 96 07/30/18 19:26 Nasal Cannula 2.0 28 07/30/18 19:26 94 Nasal Cannula 2.0 28 07/30/18 19:25 80 18 Nasal Cannula 2.0 28 07/30/18 16:00 98.0 91 20 115/71 (86) 95 07/30/18 12:00 97.6 103 20 127/83 (98) 95 Height (Feet): 5 Height (Inches): 3.00 Weight (Pounds): 201 Respiratory/Chest: lungs clear Cardiovascular: normal rate, regular rhythm, no gallop/murmur Abdomen: soft, non tender Extremities: no edema Microbiology Date/Time Source Procedure Growth Status 07/29/18 21:00 Urine,Clean Catch Urine Culture - Preliminary Resulted Current Medications Medications (Trade) Dose Ordered Sig/Sumeet Route PRN Reason Start Time Stop Time Status Last Admin Dose Admin Acetaminophen (Tylenol) 650 mg Q4H PRN ORAL Mild Pain/Temp > 100.5 07/29/18 22:15 08/28/18 22:14 07/31/18 04:37 Albuterol/ Ipratropium (Albuterol/ Ipratropium) 3 ml Q4H PRN HHN Shortness of Breath 07/28/18 21:15 07/31/18 17:14 07/31/18 03:30 Amlodipine Besylate (Norvasc) 10 mg DAILY ORAL 07/29/18 09:00 08/21/18 08:59 07/31/18 08:59 Barium Sulfate (Readi-Cat 2) 450 ml NOW PRN ORAL Radiology Procedure 07/29/18 14:45 07/31/18 14:31 Barium Sulfate (Readi-Cat 2) 450 ml NOW PRN ORAL Radiology Procedure 07/29/18 14:45 07/31/18 14:33 Chlorhexidine Gluconate (Lynne-Hex 2%) 1 applic DAILY@1999 TOPIC 07/30/18 20:00 08/29/18 19:59 Clonazepam (KlonoPIN) 1 mg QID ORAL 07/31/18 13:00 08/07/18 12:59 Diatrizoate Meglum/ Diatrizoate Sod (Gastrografin) 30 ml NOW PRN ORAL Radiology Procedure 07/29/18 14:45 07/31/18 14:31 Diatrizoate Meglum/ Diatrizoate Sod (Gastrografin) 60 ml NOW PRN RECTAL Radiology Procedure 07/29/18 14:45 07/31/18 14:31 Diphenhydramine HCl (Benadryl) 50 mg FOUR TIMES A DAY ORAL 07/28/18 21:00 08/20/18 12:59 07/31/18 09:00 Docusate Sodium (Colace) 100 mg TWICE A DAY ORAL 07/29/18 09:00 08/21/18 08:59 07/29/18 17:12 Ertapenem 1 gm/ Sodium Chloride 55 ml @ 110 mls/hr DAILY IVPB 07/29/18 09:30 08/04/18 23:00 07/30/18 09:27 Gabapentin (Neurontin) 300 mg QID ORAL 07/29/18 21:00 08/20/18 20:59 07/31/18 08:59 Heparin Sodium/ Sodium Chloride (Heparin 2000 units/Ns 1000ml premix) 2,000 unit ONCE PRN INJ PICC 07/30/18 16:30 07/31/18 23:59 Hydromorphone HCl (Dilaudid) 6 mg Q4H PRN ORAL severe pain 07/29/18 21:00 08/05/18 20:59 07/31/18 07:51 Iopamidol (Isovue-370 150ml) 150 ml NOW PRN INJ Radiology Procedure 07/29/18 14:45 07/31/18 14:31 Lidocaine HCl (Xylocaine 1% 30ml) 30 ml ONCE PRN INJ PICC 07/30/18 16:30 07/31/18 23:59 Lisinopril (Prinivil) 40 mg DAILY ORAL 07/29/18 09:00 08/21/18 08:59 07/31/18 09:00 Methadone HCl (Methadone HCl) 50 mg DAILY ORAL 07/29/18 09:00 08/05/18 08:59 07/31/18 09:01 Naloxone HCl (Narcan) 0.2 mg Q30MIN PRN IVP RR<8/min 07/29/18 17:45 08/28/18 17:44 Ondansetron HCl (Zofran) 4 mg Q6H PRN IVP Nausea & Vomiting 07/28/18 20:00 08/20/18 19:59 Polyethylene Glycol (Miralax) 17 gm BEDTIME ORAL 07/28/18 21:00 08/20/18 20:59 07/29/18 22:16 Sodium Chloride 1,000 ml @ 75 mls/hr [id number] IV 07/28/18 20:00 08/25/18 19:59 07/30/18 05:11 Radha Sánchez MD Jul 31, 2018 10:54
--- NOTE | 2018-07-31 11:10 | NUR ---
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 100.0 HR 95 RR 18 B/P 133/70 RA 95% IS: IVF NS @ 75ML/HR ERTAPENEM IV NEURONTIN PO HEPARIN SUBC MED/SURG STATUS
[2018-07-31 12:00] VITALS: BP 112/70
--- NOTE | 2018-07-31 13:08 | NUR ---
NURSE NOTES: RN SPOKE TO PICC RADIOLOGY. POSSIBLE PICC PROCEDURE TODAY AT 1500HRS. IF NOT TODAY, WILL BE DONE TOMORROW PER TECH.
[2018-07-31 16:00] VITALS: BP 140/71
--- NOTE | 2018-07-31 16:00 | Pulmonology Progress Note ---
Assessment/Plan Assessment/Plan Pulmonary Progress Note Assessment/Plan Assessment/Plan IMPRESSION colitis abdominal pain gib awaiting GI scope chronic pain methadone dependence On Cipro for UTI PLAN gi evaluation noted refusing colonscopy flagyl monitor clinically pain control dc in am if stable impression, plan, and exam edited and reviewed in detail care discussed with RN Subjective Allergies: Coded Allergies: ERYTHROMYCIN BASE (Verified Allergy, Severe, Hives, 01/29/17) SULFAMETHOXAZOLE (Verified Allergy, Severe, Shortness of Breath, 01/29/17) TRIMETHOPRIM (Verified Allergy, Severe, Shortness of Breath, 01/29/17) TRAMADOL (Verified Allergy, Unknown, 11/25/17) Objective Vital Signs Noted CXR: 07/27/2018 R Chest, 1 View CLINICAL HISTORY: Shortness of breath TECHNIQUE: Frontal view of the chest. COMPARISON: Chest x-rays dated 07/29/17 FINDINGS: Lungs: Mildly increased interstitial markings. The lungs are otherwise clear without focal consolidation. Pleural space: Unremarkable. The costophrenic angles are sharp. No visible pneumothorax. Heart: Unremarkable. No cardiomegaly. Mediastinum: Unremarkable. Bones/joints: Unremarkable. Lymph nodes: Post surgical changes with chain sutures seen at the periphery of the right midlung, Tubes, lines and devices: EKG leads overlie the thorax. IMPRESSION: Mildly increased interstitial markings. This is nonspecific but may suggest mild pulmonary vascular congestion or a mild interstitial pneumonitis. No focal consolidation. Laboratory Tests 07/22/18 06:48: White Blood Count 6.2, Red Blood Count 4.46, Hemoglobin 13.2, Hematocrit 39.5, Mean Corpuscular Volume 89, Mean Corpuscular Hemoglobin 29.6, Mean Corpuscular Hemoglobin Concent 33.4, Red Cell Distribution Width 11.6, Platelet Count 97L, Mean Platelet Volume 7.4, Neutrophils (%) (Auto) , Lymphocytes (%) (Auto) , Monocytes (%) (Auto) , Eosinophils (%) (Auto) , Basophils (%) (Auto) , Differential Total Cells Counted 100, Neutrophils % (Manual) 51, Lymphocytes % ( Manual) 40, Monocytes % (Manual) 4, Eosinophils % (Manual) 4H, Basophils % ( Manual) 1, Band Neutrophils 0, Platelet Estimate DecreasedL, Platelet Morphology Normal, Red Blood Cell Morphology Normal 07/22/18 09:00: White Blood Count 6.6, Red Blood Count 4.59, Hemoglobin 13.5, Hematocrit 40.8, Mean Corpuscular Volume 89, Mean Corpuscular Hemoglobin 29.5, Mean Corpuscular Hemoglobin Concent 33.2, Red Cell Distribution Width 11.6, Platelet Count 106L, Mean Platelet Volume 8.2, Neutrophils (%) (Auto) 49.1, Lymphocytes (%) (Auto) 37.6, Monocytes (%) (Auto) 6.3, Eosinophils (%) (Auto) 5.4H, Basophils (%) (Auto ) 1.6, Sodium Level 138, Potassium Level 4.1, Chloride Level 102, Carbon Dioxide Level 33H, Anion Gap 3L, Blood Urea Nitrogen 11, Creatinine 0.6, Estimat Glomerular Filtration Rate > 60, Glucose Level 134H, Calcium Level 8.5 Height (Feet): 5 Height (Inches): 3.00 Weight (Pounds): 190 Objective WDWN NAD clear breath sounds bilaterally without rhonchi or wheeze [id number] without MRG NABS nontender no HSM no CCE nonfocal Subjective ROS Limited/Unobtainable: No Allergies: Coded Allergies: ERYTHROMYCIN BASE (Verified Allergy, Severe, Hives, 01/29/17) SULFAMETHOXAZOLE (Verified Allergy, Severe, Shortness of Breath, 01/29/17) TRIMETHOPRIM (Verified Allergy, Severe, Shortness of Breath, 01/29/17) TRAMADOL (Verified Allergy, Unknown, 11/25/17) Objective Last 24 Hour Vital Signs Date Time Temp Pulse Resp B/P (MAP) Pulse Ox O2 Delivery O2 Flow Rate FiO2 07/31/18 12:00 99.3 90 21 112/70 (84) 93 07/31/18 09:00 133/70 07/31/18 09:00 Room Air 07/31/18 08:59 97 133/70 07/31/18 08:50 97 18 Room Air 21 07/31/18 08:50 94 Room Air 21 07/31/18 08:50 Room Air 07/31/18 08:00 100.0 97 19 133/70 (91) 93 07/31/18 05:07 100.0 07/31/18 04:31 100.2 95 18 124/65 (84) 99 07/31/18 03:44 98.8 07/31/18 03:31 96 20 99 Nasal Cannula 2.0 28 07/31/18 03:20 92 20 95 Nasal Cannula 2.0 28 07/31/18 00:18 98.8 102 18 123/77 (92) 95 07/30/18 22:32 94 20 98 Nasal Cannula 2.0 28 07/30/18 22:21 90 20 96 Nasal Cannula 2.0 28 07/30/18 20:00 Room Air 07/30/18 19:55 99.1 87 18 127/74 (91) 96 07/30/18 19:26 Nasal Cannula 2.0 28 07/30/18 19:26 94 Nasal Cannula 2.0 28 07/30/18 19:25 80 18 Nasal Cannula 2.0 28 Intake and Output 07/30/18 07/31/18 19:00 07:00 Intake Total 1285 ml 120 ml Balance 1285 ml 120 ml Intake Oral 480 ml 120 ml IV Total 805 ml # Voids 3 2 # Bowel Movements 1 2 Microbiology Date/Time Source Procedure Growth Status 07/29/18 21:00 Urine,Clean Catch Urine Culture - Preliminary Resulted Current Medications Medications (Trade) Dose Ordered Sig/Sumeet Route PRN Reason Start Time Stop Time Status Last Admin Dose Admin Acetaminophen (Tylenol) 650 mg Q4H PRN ORAL Mild Pain/Temp > 100.5 07/29/18 22:15 08/28/18 22:14 07/31/18 04:37 Albuterol/ Ipratropium (Albuterol/ Ipratropium) 3 ml Q4H PRN HHN Shortness of Breath 07/28/18 21:15 07/31/18 17:14 07/31/18 03:30 Amlodipine Besylate (Norvasc) 10 mg DAILY ORAL 07/29/18 09:00 08/21/18 08:59 07/31/18 08:59 Chlorhexidine Gluconate (Lynne-Hex 2%) 1 applic DAILY@1999 TOPIC 07/30/18 20:00 08/29/18 19:59 Clonazepam (KlonoPIN) 1 mg QID ORAL 07/31/18 13:00 08/07/18 12:59 07/31/18 13:02 Diphenhydramine HCl (Benadryl) 50 mg FOUR TIMES A DAY ORAL 07/31/18 13:45 08/20/18 13:44 07/31/18 14:44 Docusate Sodium (Colace) 100 mg TWICE A DAY ORAL 07/29/18 09:00 08/21/18 08:59 07/29/18 17:12 Ertapenem 1 gm/ Sodium Chloride 55 ml @ 110 mls/hr DAILY IVPB 07/29/18 09:30 08/04/18 23:00 07/30/18 09:27 Gabapentin (Neurontin) 300 mg QID ORAL 07/29/18 21:00 08/20/18 20:59 07/31/18 13:01 Heparin Sodium/ Sodium Chloride (Heparin 2000 units/Ns 1000ml premix) 2,000 unit ONCE PRN INJ PICC 07/30/18 16:30 07/31/18 23:59 Hydromorphone HCl (Dilaudid) 6 mg Q4H PRN ORAL severe pain 07/29/18 21:00 08/05/18 20:59 07/31/18 12:18 Lidocaine HCl (Xylocaine 1% 30ml) 30 ml ONCE PRN INJ PICC 07/30/18 16:30 07/31/18 23:59 Lisinopril (Prinivil) 40 mg DAILY ORAL 07/29/18 09:00 08/21/18 08:59 07/31/18 09:00 Methadone HCl (Methadone HCl) 50 mg DAILY ORAL 07/29/18 09:00 08/05/18 08:59 07/31/18 09:01 Naloxone HCl (Narcan) 0.2 mg Q30MIN PRN IVP RR<8/min 07/29/18 17:45 08/28/18 17:44 Ondansetron HCl (Zofran) 4 mg Q6H PRN IVP Nausea & Vomiting 07/28/18 20:00 08/20/18 19:59 Polyethylene Glycol (Miralax) 17 gm BEDTIME ORAL 07/28/18 21:00 08/20/18 20:59 07/29/18 22:16 Sodium Chloride 1,000 ml @ 75 mls/hr [id number] IV 07/28/18 20:00 08/25/18 19:59 07/30/18 05:11 Maximino Bedoya MD Jul 31, 2018 16:00
--- NOTE | 2018-07-31 19:10 | NUR ---
HAND-OFF: Report given to Jeremy MATOS RN.
--- NOTE | 2018-07-31 19:31 | NUR ---
NURSE NOTES: Patient in bed, awake, alert. No IV access, for PICC tomorrow. No complaints of pain or distress at this time. Bed in lowest position, call light within reach. Will continue to monitor.
[2018-07-31] MEDS: Dyna-Hex 2% Top Sol 2oz TOPIC SCH (19:42)
[2018-07-31] MEDS: Miralax 17gm pkt ORAL SCH (20:08)
[2018-07-31 20:40] VITALS: BP 142/80
--- NOTE | 2018-07-31 21:11 | General Progress Note ---
Assessment/Plan Assessment/Plan Assessment - h/o IVDA and opioid dependence - COPD - focal ischemic colitis - UTI, MDR - loose BM Recommendations - Push PO - Pain management - Abx per ID - F/u C Diff - IVF - follow exam Subjective Allergies: Coded Allergies: ERYTHROMYCIN BASE (Verified Allergy, Severe, Hives, 01/29/17) SULFAMETHOXAZOLE (Verified Allergy, Severe, Shortness of Breath, 01/29/17) TRIMETHOPRIM (Verified Allergy, Severe, Shortness of Breath, 01/29/17) TRAMADOL (Verified Allergy, Unknown, 11/25/17) Subjective c/o dysuria ID noted no diarrhea today eating well, eating home food less pain overall feels better Objective Last 24 Hour Vital Signs Date Time Temp Pulse Resp B/P (MAP) Pulse Ox O2 Delivery O2 Flow Rate FiO2 07/31/18 20:40 98.5 97 20 142/80 (100) 94 07/31/18 16:00 99.1 97 20 140/71 (94) 93 07/31/18 12:00 99.3 90 21 112/70 (84) 93 07/31/18 09:00 133/70 07/31/18 09:00 Room Air 07/31/18 08:59 97 133/70 07/31/18 08:50 97 18 Room Air 21 07/31/18 08:50 94 Room Air 21 07/31/18 08:50 Room Air 07/31/18 08:00 100.0 97 19 133/70 (91) 93 07/31/18 05:07 100.0 07/31/18 04:31 100.2 95 18 124/65 (84) 99 07/31/18 03:44 98.8 07/31/18 03:31 96 20 99 Nasal Cannula 2.0 28 07/31/18 03:20 92 20 95 Nasal Cannula 2.0 28 07/31/18 00:18 98.8 102 18 123/77 (92) 95 07/30/18 22:32 94 20 98 Nasal Cannula 2.0 28 07/30/18 22:21 90 20 96 Nasal Cannula 2.0 28 Intake and Output 07/30/18 07/31/18 19:00 07:00 Intake Total 1285 ml 120 ml Balance 1285 ml 120 ml Intake Oral 480 ml 120 ml IV Total 805 ml # Voids 3 2 # Bowel Movements 1 2 Height (Feet): 5 Height (Inches): 3.00 Weight (Pounds): 201 Objective WDWN obese WW NCAT supple CTA RR abd soft obese, (+) suprapubic TTP, but less TTP today no edema Haider Garcia MD Jul 31, 2018 21:11
--- NOTE | 2018-08-01 00:11 | NUR ---
NURSE NOTES: Patient complained of severe burning sensation/pain when urinating. Patient abdomen soft, no vaginal redness/discharge noted. Left message for Dr. Luther, awaiting response. Charge nurse made aware. Addendum: 08/01/18 at 0253 by MARY MATOS RN RN Left another message for Dr. Luther awaiting response.
[2018-08-01 00:29] VITALS: BP 146/88
[2018-08-01] MEDS: Albuterol/Ipratropium 3ml neb HHN PRN (02:52)
[2018-08-01 04:00] VITALS: BP 131/76
[2018-08-01] MEDS: HYDROmorphone 4mg tab ORAL PRN ×4 (05:00→21:03)
--- NOTE | 2018-08-01 07:00 | NUR ---
HAND-OFF: Report given to ZURDO GREENE RN.
[2018-08-01 08:00] VITALS: BP 108/71
[2018-08-01] MEDS: Lisinopril 20mg tab ORAL SCH (09:00)
[2018-08-01] MEDS: Docusate 100mg cap ORAL SCH ×2 (09:00→18:00)
[2018-08-01] MEDS: Ertapenem 1 GM in NS 55 ML IVPB SCH ×2 (09:00→16:35)
--- NOTE | 2018-08-01 10:01 | General Progress Note ---
Assessment/Plan Assessment/Plan (1) Lumbar DDD (2) Lumbar Spondylosis (3) Lumbar Herniated disc (4) Lumbar Radiculopathy (5) Opioid dependency Patient will be continued on Methadone and Dilaudid. D/w Dr. Mena and he concurred. Subjective Date patient seen: Aug 01, 2018 Time patient seen: 08:00 - am Allergies: Coded Allergies: ERYTHROMYCIN BASE (Verified Allergy, Severe, Hives, 01/29/17) SULFAMETHOXAZOLE (Verified Allergy, Severe, Shortness of Breath, 01/29/17) TRIMETHOPRIM (Verified Allergy, Severe, Shortness of Breath, 01/29/17) TRAMADOL (Verified Allergy, Unknown, 11/25/17) Subjective Constitutional: Reports: weakness HEENT: Reports: no symptoms Cardiovascular: Reports: no symptoms Respiratory: Reports: shortness of breath Gastrointestinal/Abdominal: Reports: no symptoms Neurologic/Psychiatric: Reports: weakness Endocrine: Reports: no symptoms Hematologic/Lymphatic: Reports: no symptoms Subjective Patient in bed continues to c/o pain having used methadone daily and 5 doses of Dilaudid in the last 24hrs which she explains has tolerated her pain. No new complaints at this time. Objective Last 24 Hour Vital Signs Date Time Temp Pulse Resp B/P (MAP) Pulse Ox O2 Delivery O2 Flow Rate FiO2 08/01/18 09:00 108/71 08/01/18 09:00 87 108/71 08/01/18 08:00 98.7 87 18 108/71 (83) 96 08/01/18 07:35 Nasal Cannula 2.0 28 08/01/18 07:35 98 Nasal Cannula 2.0 28 08/01/18 07:35 87 17 Nasal Cannula 2.0 28 08/01/18 05:30 98.2 08/01/18 04:00 98.5 109 20 131/76 (94) 93 08/01/18 02:56 95 20 96 Nasal Cannula 2.0 28 08/01/18 02:45 94 20 92 Nasal Cannula 2.0 28 08/01/18 00:29 98.2 97 20 146/88 (107) 92 07/31/18 20:40 98.5 97 20 142/80 (100) 94 07/31/18 20:30 Nasal Cannula 2.0 28 07/31/18 20:30 94 Nasal Cannula 2.0 28 07/31/18 20:30 Room Air 07/31/18 20:30 90 18 Nasal Cannula 2.0 28 07/31/18 16:00 99.1 97 20 140/71 (94) 93 07/31/18 12:00 99.3 90 21 112/70 (84) 93 Intake and Output 07/31/18 08/01/18 18:59 06:59 Intake Total 600 ml 240 ml Balance 600 ml 240 ml Intake Oral 600 ml 240 ml # Voids 3 3 # Bowel Movements 2 Height (Feet): 5 Height (Inches): 3.00 Weight (Pounds): 201 Objective General Appearance: no apparent distress, alert EENT: PERRL/EOMI, normal ENT inspection Neck: normal alignment, supple Cardiovascular: normal rate, regular rhythm Respiratory/Chest: decreased breath sounds Abdomen: soft Extremities: non-tender Edema: trace edema Neurologic: alert, oriented x 3 Skin: warm/dry Carlitos Finn Aug 01, 2018 10:01
--- NOTE | 2018-08-01 11:56 | General Progress Note ---
Assessment/Plan Assessment/Plan IMPRESSION colitis abdominal pain gib chronic pain methadone dependence UTI PLAN vascular cleared ID evaluation for clearance ertapenem x 3 days...dc sturday line placed monitor clinically pain control pyridium dc iv fluids dc once cleared and improved UTI MDR- no po antibiotics sensitive at present impression, plan, and exam edited and reviewed in detail care discussed with RN Subjective Allergies: Coded Allergies: ERYTHROMYCIN BASE (Verified Allergy, Severe, Hives, 01/29/17) SULFAMETHOXAZOLE (Verified Allergy, Severe, Shortness of Breath, 01/29/17) TRIMETHOPRIM (Verified Allergy, Severe, Shortness of Breath, 01/29/17) TRAMADOL (Verified Allergy, Unknown, 11/25/17) Subjective awaiting ID clearance ucx resistant to cipro dysuria Objective Last 24 Hour Vital Signs Date Time Temp Pulse Resp B/P (MAP) Pulse Ox O2 Delivery O2 Flow Rate FiO2 08/01/18 09:00 Room Air 08/01/18 09:00 108/71 08/01/18 09:00 87 108/71 08/01/18 08:00 98.7 87 18 108/71 (83) 96 08/01/18 07:35 Nasal Cannula 2.0 28 08/01/18 07:35 98 Nasal Cannula 2.0 28 08/01/18 07:35 87 17 Nasal Cannula 2.0 28 08/01/18 05:30 98.2 08/01/18 04:00 98.5 109 20 131/76 (94) 93 08/01/18 02:56 95 20 96 Nasal Cannula 2.0 28 08/01/18 02:45 94 20 92 Nasal Cannula 2.0 28 08/01/18 00:29 98.2 97 20 146/88 (107) 92 07/31/18 20:40 98.5 97 20 142/80 (100) 94 07/31/18 20:30 Nasal Cannula 2.0 28 07/31/18 20:30 94 Nasal Cannula 2.0 28 07/31/18 20:30 Room Air 07/31/18 20:30 90 18 Nasal Cannula 2.0 28 07/31/18 16:00 99.1 97 20 140/71 (94) 93 07/31/18 12:00 99.3 90 21 112/70 (84) 93 Intake and Output 1/16/19 1/17/19 18:59 06:59 Intake Total 600 ml 240 ml Balance 600 ml 240 ml Intake Oral 600 ml 240 ml # Voids 3 3 # Bowel Movements 2 Height (Feet): 5 Height (Inches): 3.00 Weight (Pounds): 201 Objective WDWN NAD clear breath sounds bilaterally without rhonchi or wheeze [id number] without MRG NABS mildly tender no CCE nonfocal Edgar Luther MD Aug 01, 2018 11:56
[2018-08-01 12:00] VITALS: BP 128/77
--- NOTE | 2018-08-01 13:04 | Infectious Diseases Prog Note ---
Assessment/Plan Assessment/Plan A 1. E.coli ESBL UTI 2. colitis, likely ischemic 3. hypertension 4. asthma, COPD 5. chronic back pain P 1. continue Ertapenem 3 more days Subjective ROS Limited/Unobtainable: No Constitutional: Reports: no symptoms Respiratory: Reports: dry cough Gastrointestinal/Abdominal: Reports: diarrhea Genitourinary: Reports: dysuria Musculoskeletal: Reports: pain, other - back Allergies: Coded Allergies: ERYTHROMYCIN BASE (Verified Allergy, Severe, Hives, 01/29/17) SULFAMETHOXAZOLE (Verified Allergy, Severe, Shortness of Breath, 01/29/17) TRIMETHOPRIM (Verified Allergy, Severe, Shortness of Breath, 01/29/17) TRAMADOL (Verified Allergy, Unknown, 11/25/17) Objective Vital Signs Last 24 Hour Vital Signs Date Time Temp Pulse Resp B/P (MAP) Pulse Ox O2 Delivery O2 Flow Rate FiO2 08/01/18 09:00 Room Air 08/01/18 09:00 108/71 08/01/18 09:00 87 108/71 08/01/18 08:00 98.7 87 18 108/71 (83) 96 08/01/18 07:35 Nasal Cannula 2.0 28 08/01/18 07:35 98 Nasal Cannula 2.0 28 08/01/18 07:35 87 17 Nasal Cannula 2.0 28 08/01/18 05:30 98.2 08/01/18 04:00 98.5 109 20 131/76 (94) 93 08/01/18 02:56 95 20 96 Nasal Cannula 2.0 28 08/01/18 02:45 94 20 92 Nasal Cannula 2.0 28 08/01/18 00:29 98.2 97 20 146/88 (107) 92 07/31/18 20:40 98.5 97 20 142/80 (100) 94 07/31/18 20:30 Nasal Cannula 2.0 28 07/31/18 20:30 94 Nasal Cannula 2.0 28 07/31/18 20:30 Room Air 07/31/18 20:30 90 18 Nasal Cannula 2.0 28 07/31/18 16:00 99.1 97 20 140/71 (94) 93 Height (Feet): 5 Height (Inches): 3.00 Weight (Pounds): 201 General Appearance: no acute distress HEENT: mucous membranes moist Respiratory/Chest: decreased breath sounds Cardiovascular: normal rate Abdomen: soft, non tender Extremities: other - edema of hands Neurologic/Psychiatric: alert, oriented x 3, responsive Microbiology Date/Time Source Procedure Growth Status 07/30/18 07:30 Blood Blood Culture - Preliminary NO GROWTH AFTER 24 HOURS Resulted 07/30/18 07:20 Blood Blood Culture - Preliminary NO GROWTH AFTER 24 HOURS Resulted 07/29/18 21:00 Urine,Clean Catch Urine Culture - Preliminary Gram Positive Cocci Resulted Current Medications Medications (Trade) Dose Ordered Sig/Sumeet Route PRN Reason Start Time Stop Time Status Last Admin Dose Admin Acetaminophen (Tylenol) 650 mg Q4H PRN ORAL Mild Pain/Temp > 100.5 07/29/18 22:15 08/28/18 22:14 07/31/18 04:37 Albuterol/ Ipratropium (Albuterol/ Ipratropium) 3 ml Q4H PRN HHN Shortness of Breath 08/01/18 02:30 08/06/18 02:29 08/01/18 02:52 Amlodipine Besylate (Norvasc) 10 mg DAILY ORAL 07/29/18 09:00 08/21/18 08:59 07/31/18 08:59 Chlorhexidine Gluconate (Lynne-Hex 2%) 1 applic DAILY@2000 TOPIC 07/30/18 20:00 08/29/18 19:59 Clonazepam (KlonoPIN) 1 mg QID ORAL 07/31/18 13:00 08/07/18 12:59 08/01/18 10:13 Diphenhydramine HCl (Benadryl) 50 mg FOUR TIMES A DAY ORAL 07/31/18 13:45 08/20/18 13:44 07/31/18 21:35 Docusate Sodium (Colace) 100 mg TWICE A DAY ORAL 07/29/18 09:00 08/21/18 08:59 07/29/18 17:12 Ertapenem 1 gm/ Sodium Chloride 55 ml @ 110 mls/hr DAILY IVPB 07/29/18 09:30 08/04/18 23:00 07/30/18 09:27 Gabapentin (Neurontin) 300 mg QID ORAL 07/29/18 21:00 08/20/18 20:59 08/01/18 09:14 Hydromorphone HCl (Dilaudid) 6 mg Q4H PRN ORAL severe pain 07/29/18 21:00 08/05/18 20:59 08/01/18 09:14 Lisinopril (Prinivil) 40 mg DAILY ORAL 07/29/18 09:00 08/21/18 08:59 07/31/18 09:00 Methadone HCl (Methadone HCl) 50 mg DAILY ORAL 07/29/18 09:00 08/05/18 08:59 08/01/18 09:15 Naloxone HCl (Narcan) 0.2 mg Q30MIN PRN IVP RR<8/min 07/29/18 17:45 08/28/18 17:44 Ondansetron HCl (Zofran) 4 mg Q6H PRN IVP Nausea & Vomiting 07/28/18 20:00 08/20/18 19:59 Phenazopyridine HCl (Pyridium) 100 mg THREE TIMES A DAY PRN ORAL BURNING URINATION 08/01/18 05:30 08/31/18 05:29 Polyethylene Glycol (Miralax) 17 gm BEDTIME ORAL 07/28/18 21:00 08/20/18 20:59 07/29/18 22:16 Dick Hitchcock MD Aug 01, 2018 13:04
--- NOTE | 2018-08-01 13:15 | NUR ---
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 98.7 HR 87 RR 18 B/P 108/71 2L NC IS; ERTAPENEM IV ALB HHN NORVASC PO MED/SURG STATUS
[2018-08-01] MEDS ORDERED: Lidocaine 1% Plain 30 ml INJ PRN (13:37)
--- NOTE | 2018-08-01 14:39 | General Surgery Progress Note ---
General Surgery-Progress Note Subjective Additional Comments right IJ non functional and removed. pending PICC placement Objective Last 24 Hour Vital Signs Date Time Temp Pulse Resp B/P (MAP) Pulse Ox O2 Delivery O2 Flow Rate FiO2 08/01/18 12:00 98.7 95 18 128/77 (94) 93 08/01/18 09:00 Room Air 08/01/18 09:00 108/71 08/01/18 09:00 87 108/71 08/01/18 08:00 98.7 87 18 108/71 (83) 96 08/01/18 07:35 Nasal Cannula 2.0 28 08/01/18 07:35 98 Nasal Cannula 2.0 28 08/01/18 07:35 87 17 Nasal Cannula 2.0 28 08/01/18 05:30 98.2 08/01/18 04:00 98.5 109 20 131/76 (94) 93 08/01/18 02:56 95 20 96 Nasal Cannula 2.0 28 08/01/18 02:45 94 20 92 Nasal Cannula 2.0 28 08/01/18 00:29 98.2 97 20 146/88 (107) 92 07/31/18 20:40 98.5 97 20 142/80 (100) 94 07/31/18 20:30 Nasal Cannula 2.0 28 07/31/18 20:30 94 Nasal Cannula 2.0 28 07/31/18 20:30 Room Air 07/31/18 20:30 90 18 Nasal Cannula 2.0 28 07/31/18 16:00 99.1 97 20 140/71 (94) 93 I&O Intake and Output 07/31/18 08/01/18 19:00 07:00 Intake Total 600 ml 240 ml Balance 600 ml 240 ml Intake Oral 600 ml 240 ml # Voids 3 3 # Bowel Movements 2 Dressing: dry Wound: clean Drains: none Cardiovascular: RSR Respiratory: clear Abdomen: soft, flat, non-tender, present bowel sounds, non-distended Extremities: no cyanosis Plan Problems: (1) Gastrointestinal hemorrhage Assessment & Plan: 62 year old female with GI bleed requiring GI scope. unable to perform procedure because of lack of good proper venous access for procedure. needs venous access that is stable for procedure no peripheral access and poor peripheral veins. states she has had this issue for jail and usually obtains picc line when needed right IJ 20g IV line placed under ultrasound guidance without complication. right IJ line d/c Pending PICC thank you will follow with Fran Brothers Aug 01, 2018 14:39
[2018-08-01] MEDS ORDERED: Heparin 2000 units/Ns 1000ml INJ PRN (15:00)
--- NOTE | 2018-08-01 15:14 | NUR ---
NURSE NOTES: PT WITH CHAU PICC LINE, DOUBLE LUMEN. RN MESSAGED PHARMACY REGARDING RE-SCHEDULING DAILY IV ERTAPENEM 1GM. PT IN NO APPARENT DISTRESS AT THIS TIME. WILL CONTINUE TO MONITOR.
--- NOTE | 2018-08-01 15:40 | Diagnostic Imaging Report ---
Indication: long term care pharmacist venous access Findings: After the indications, procedure, risks, complications, and alternatives of the procedure were explained, written informed consent was obtained. The left upper extremity was prepped with alcohol. All elements of maximal sterile barrier technique were followed including usage of a cap, mask, sterile gown, sterile gloves, hand hygiene and a large sterile sheet. Sonographic evaluation of the upper extremity was performed demonstrating a patent and compressible basilic vein. Access was obtained under real-time ultrasound guidance (with utilization of sterile gel and sterile probe cover) and digital image was saved and archived. An .018 wire was introduced. Needle exchanged for a 5 Urdu peel-away sheath. Measurements were obtained. A 5 Urdu dual-lumen Power PICC line catheter was cut to 45 cm and introduced over the wire. Peel-away sheath and wire were removed.Catheter was secured to the skin using 2-0 Prolene suture. Both ports aspirate and flush easily. Fluoroscopic images show distal tip in the superior vena cava. Total fluoroscopic time 4.9 seconds Impression: Successful placement of an upper extremity PICC line catheter
[2018-08-01 16:00] VITALS: BP 128/73
--- NOTE | 2018-08-01 17:55 | General Progress Note ---
Assessment/Plan Assessment/Plan Assessment - h/o IVDA and opioid dependence - COPD - focal ischemic colitis - UTI, MDR - loose BM Recommendations - Push PO - Pain management - Abx per ID - F/u C Diff - RN to send - IVF - follow exam Subjective Allergies: Coded Allergies: ERYTHROMYCIN BASE (Verified Allergy, Severe, Hives, 01/29/17) SULFAMETHOXAZOLE (Verified Allergy, Severe, Shortness of Breath, 01/29/17) TRIMETHOPRIM (Verified Allergy, Severe, Shortness of Breath, 01/29/17) TRAMADOL (Verified Allergy, Unknown, 11/25/17) Subjective c/o some loose BM d/w RN - No C Diff speciment sent yet Objective Last 24 Hour Vital Signs Date Time Temp Pulse Resp B/P (MAP) Pulse Ox O2 Delivery O2 Flow Rate FiO2 08/01/18 16:00 99.0 90 18 128/73 (91) 94 08/01/18 12:00 98.7 95 18 128/77 (94) 93 08/01/18 09:00 Room Air 08/01/18 09:00 108/71 08/01/18 09:00 87 108/71 08/01/18 08:00 98.7 87 18 108/71 (83) 96 08/01/18 07:35 Nasal Cannula 2.0 28 08/01/18 07:35 98 Nasal Cannula 2.0 28 08/01/18 07:35 87 17 Nasal Cannula 2.0 28 08/01/18 05:30 98.2 08/01/18 04:00 98.5 109 20 131/76 (94) 93 08/01/18 02:56 95 20 96 Nasal Cannula 2.0 28 08/01/18 02:45 94 20 92 Nasal Cannula 2.0 28 08/01/18 00:29 98.2 97 20 146/88 (107) 92 07/31/18 20:40 98.5 97 20 142/80 (100) 94 07/31/18 20:30 Nasal Cannula 2.0 28 07/31/18 20:30 94 Nasal Cannula 2.0 28 07/31/18 20:30 Room Air 07/31/18 20:30 90 18 Nasal Cannula 2.0 28 Intake and Output 07/31/18 08/01/18 19:00 07:00 Intake Total 600 ml 240 ml Balance 600 ml 240 ml Intake Oral 600 ml 240 ml # Voids 3 3 # Bowel Movements 2 Height (Feet): 5 Height (Inches): 3.00 Weight (Pounds): 201 Objective WDWN obese WW NCAT supple CTA RR abd soft obese, (+) suprapubic TTP, but less TTP today no edema Haider Garcia MD Aug 01, 2018 17:55
--- NOTE | 2018-08-01 18:53 | NUR ---
NURSE NOTES: DR BETH WITH ORDER TO COLLECT C DIFF. RN ENTERED ORDER FOR C DIFF BUT AUTOMATICALLY CANCELED. RN SPOKE TO LAURIE IN LAB, AND MADE AWARE. PER LAURIE, THE SYSTEM AUTOMATICALLY CANCELS ORDER DUE TO A PREVIOUS C DIFF ORDER. PER LAURIE, ENTER ORDER FOR "REQUEST FOR SERVICE" FOR C DIFF AND LAB WILL PROCESS. RN ENTERED ORDER FOR "REQUEST FOR SERVICE".
--- NOTE | 2018-08-01 19:30 | NUR ---
NURSE NOTES: RECEIVED PATIENT LYING IN BED, AWAKE, ALERT/ORIENTED X4, ABLE TO EFFECTIVELY VERBALIZE NEEDS; NO SIGNS AND SYMPTOMS OF ACUTE CARDIO RESPIRATORY DISTRESS/SHORTNESS OF BREATH, DENIES CHEST PAIN, NO PERIPHERAL EDEMA NOTED. ADM. DIAGNOSIS GI BLEED, NO FURTHER EPISODE OF BLEEDING REPORTED, ABDOMEN SOFT/NON DISTENDED, BOWEL SOUNDS AUDIBLE. CONTINENT OF B/B, BATHROOM PRIVILEGES, NOTED WITH SOFT STOOL TODAY, SPECIMEN FOR C DIFF SENT TO LAB. SIDE RAILS UP X3/BED IN LOWEST POSITION FOR SAFETY. CALL LIGHT WITHIN REACH, ENCOURAGED PATIENT TO UTILIZE CALL LIGHT FOR ASSISTANCE, VERBALIZED UNDERSTANDING. NAD.
--- NOTE | 2018-08-01 19:43 | NUR ---
HAND-OFF: Report given to Peña KAUR LVN.
[2018-08-01 20:00] VITALS: BP 129/93
[2018-08-01] MEDS: Miralax 17gm pkt ORAL SCH ×2 (21:00→22:01)
[2018-08-01] MEDS: Dyna-Hex 2% Top Sol 2oz TOPIC SCH (21:05)
--- NOTE | 2018-08-01 22:05 | NUR ---
NURSE NOTES: DUE TO NARCOTIC USAGE, INSTRUCTED PATIENT TO CALL FOR ASSISTANCE PRIOR TO AMBULATING, VERBALIZED UNDERSTANDING.
[2018-08-02] VITALS: BP 133/91
[2018-08-02] MEDS: HYDROmorphone 4mg tab ORAL PRN ×4 (01:25→20:31)
[2018-08-02] MEDS: Albuterol/Ipratropium 3ml neb HHN PRN ×2 (01:57→20:39)
[2018-08-02 04:00] VITALS: BP 137/91
--- NOTE | 2018-08-02 06:24 | NUR ---
NURSE NOTES: RESTED WELL, NO SIGNIFICANT CHANGE OF CONDITION NOTED THROUGHOUT THE NIGHT. SAFETY MAINTAINED. NAD.
[2018-08-02 08:00] VITALS: BP 146/75
--- NOTE | 2018-08-02 08:00 | NUR ---
NURSE NOTES: Patient awake and eating breakfast.02 at 2L N/C,respirations unlabored.Picc line double lumen intact.Will monitor.
[2018-08-02] MEDS: Docusate 100mg cap ORAL SCH ×2 (09:00→18:00)
[2018-08-02] MEDS: Lisinopril 20mg tab ORAL SCH (09:17)
--- NOTE | 2018-08-02 10:07 | General Progress Note ---
Assessment/Plan Problem List: (1) Lumbar degenerative disc disease ICD Codes: M51.36 - Other intervertebral disc degeneration, lumbar region SNOMED: 17973852 (2) Lumbar spondylolysis ICD Codes: M43.06 - Spondylolysis, lumbar region SNOMED: 456867626, 421764217 (3) COPD (chronic obstructive pulmonary disease) ICD Codes: J44.9 - Chronic obstructive pulmonary disease, unspecified SNOMED: 79347326 (4) Opioid dependence ICD Codes: F11.20 - Opioid dependence, uncomplicated SNOMED: 16217381 Status: doing well, stable Assessment/Plan we will reduce Dilaudid to 4 mg Q 4 hors Subjective Constitutional: Denies: no symptoms, chills, diaphoresis, fever, malaise, weakness, other HEENT: Denies: no symptoms, eye pain, blurred vision, tearing, double vision, ear pain, ear discharge, nose pain, nose congestion, throat pain, throat swelling, mouth pain, mouth swelling, other Cardiovascular: Denies: no symptoms, chest pain, edema, irregular heart rate, lightheadedness, palpitations, syncope, other Respiratory: Reports: cough, shortness of breath, SOB with excertion Gastrointestinal/Abdominal: Denies: no symptoms, abdomen distended, abdominal pain, black stools, tarry stools, blood in stool, constipated, diarrhea, difficulty swallowing, nausea, poor appetite, poor fluid intake, rectal bleeding , vomiting, other Genitourinary: Reports: burning, pain, urgency Neurologic/Psychiatric: Reports: anxiety Endocrine: Denies: no symptoms, excessive sweating, flushing, intolerance to cold, intolerance to heat, increased hunger, increased thirst, increased urine, unexplained weight gain, unexplained weight loss, other Hematologic/Lymphatic: Denies: no symptoms, anemia, easy bleeding, easy bruising, other Allergies: Coded Allergies: ERYTHROMYCIN BASE (Verified Allergy, Severe, Hives, 01/29/17) SULFAMETHOXAZOLE (Verified Allergy, Severe, Shortness of Breath, 01/29/17) TRIMETHOPRIM (Verified Allergy, Severe, Shortness of Breath, 01/29/17) TRAMADOL (Verified Allergy, Unknown, 11/25/17) Subjective Pt has COPD and out of hospital goes to Methadone clinic. I d/w her that the dose of Dilaudid is too high considering her condition. But she reports that she is on Dilaudid out of hospital also but she is on 4 mg PO. She agreed to reduce to 4 mg. Objective Last 24 Hour Vital Signs Date Time Temp Pulse Resp B/P (MAP) Pulse Ox O2 Delivery O2 Flow Rate FiO2 08/02/18 09:17 132/80 08/02/18 09:16 83 132/80 08/02/18 08:00 92 Nasal Cannula 2.0 28 08/02/18 08:00 Nasal Cannula 2.0 28 08/02/18 08:00 89 18 Nasal Cannula 2.0 28 08/02/18 05:12 98.6 08/02/18 04:00 98.3 89 18 137/91 (106) 97 08/02/18 02:07 88 20 96 Nasal Cannula 2.0 28 08/02/18 01:57 94 20 94 Nasal Cannula 2.0 28 08/02/18 00:00 98.6 91 18 133/91 (105) 97 08/01/18 21:33 99.0 08/01/18 21:00 Room Air 08/01/18 20:40 96 Nasal Cannula 2.0 28 08/01/18 20:40 Nasal Cannula 2.0 28 08/01/18 20:40 88 18 Nasal Cannula 2.0 28 08/01/18 20:00 99.2 95 18 129/93 (105) 95 08/01/18 16:00 99.0 90 18 128/73 (91) 94 08/01/18 12:00 98.7 95 18 128/77 (94) 93 Intake and Output 08/01/18 08/02/18 19:00 07:00 Intake Total 1095 ml 660 ml Balance 1095 ml 660 ml Intake Oral 1040 ml 660 ml IV Total 55 ml # Voids 5 4 # Bowel Movements 1 Height (Feet): 5 Height (Inches): 3.00 Weight (Pounds): 201 General Appearance: WD/WN, alert EENT: PERRL/EOMI Neck: non-tender Cardiovascular: normal rate Respiratory/Chest: decreased breath sounds Abdomen: non tender, soft Extremities: non-tender Edema: no edema noted Arm (L), no edema noted Arm (R), no edema noted Leg (L), no edema noted Leg (R), no edema noted Pedal (L), no edema noted Pedal (R), no edema noted Generalized 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
--- NOTE | 2018-08-02 11:12 | Infectious Diseases Prog Note ---
"Assessment/Plan Assessment/Plan antibiotics : ertapenem A 1. e.coli esbl | enterococcus UTI 2. colitis 3. hypertension 4. asthma P 1. continue ertapenem 2 more days 2. will follow up cultures Subjective Constitutional: Denies: fever, chills Respiratory: Reports: shortness of breath, dry cough Gastrointestinal/Abdominal: Reports: diarrhea; Denies: nausea, vomiting Musculoskeletal: Reports: pain Allergies: Coded Allergies: ERYTHROMYCIN BASE (Verified Allergy, Severe, Hives, 01/29/17) SULFAMETHOXAZOLE (Verified Allergy, Severe, Shortness of Breath, 01/29/17) TRIMETHOPRIM (Verified Allergy, Severe, Shortness of Breath, 01/29/17) TRAMADOL (Verified Allergy, Unknown, 11/25/17) Objective Vital Signs Last 24 Hour Vital Signs Date Time Temp Pulse Resp B/P (MAP) Pulse Ox O2 Delivery O2 Flow Rate FiO2 08/02/18 09:17 132/80 08/02/18 09:16 83 132/80 08/02/18 08:00 92 Nasal Cannula 2.0 28 08/02/18 08:00 Nasal Cannula 2.0 28 08/02/18 08:00 89 18 Nasal Cannula 2.0 28 08/02/18 05:12 98.6 08/02/18 04:00 98.3 89 18 137/91 (106) 97 08/02/18 02:07 88 20 96 Nasal Cannula 2.0 28 08/02/18 01:57 94 20 94 Nasal Cannula 2.0 28 08/02/18 00:00 98.6 91 18 133/91 (105) 97 08/01/18 21:33 99.0 08/01/18 21:00 Room Air 08/01/18 20:40 96 Nasal Cannula 2.0 28 08/01/18 20:40 Nasal Cannula 2.0 28 08/01/18 20:40 88 18 Nasal Cannula 2.0 28 08/01/18 20:00 99.2 95 18 129/93 (105) 95 08/01/18 16:00 99.0 90 18 128/73 (91) 94 08/01/18 12:00 98.7 95 18 128/77 (94) 93 Height (Feet): 5 Height (Inches): 3.00 Weight (Pounds): 201 Respiratory/Chest: lungs clear Cardiovascular: normal rate, regular rhythm, no gallop/murmur Abdomen: soft, non tender Extremities: no edema, other - left arm PICC Microbiology Date/Time Source Procedure Growth Status 08/01/18 19:00 Stool Clostridium difficile Toxin Assay - Final Complete Current Medications Medications (Trade) Dose Ordered Sig/Sumeet Route PRN Reason Start Time Stop Time Status Last Admin Dose Admin Acetaminophen (Tylenol) 650 mg Q4H PRN ORAL Mild Pain/Temp > 100.5 07/29/18 22:15 08/28/18 22:14 08/02/18 04:42 Albuterol/ Ipratropium (Albuterol/ Ipratropium) 3 ml Q4H PRN HHN Shortness of Breath 08/01/18 02:30 08/06/18 02:29 08/02/18 01:57 Amlodipine Besylate (Norvasc) 10 mg DAILY ORAL 07/29/18 09:00 08/21/18 08:59 08/02/18 09:16 Chlorhexidine Gluconate (Lynne-Hex 2%) 1 applic DAILY@2000 TOPIC 08/01/18 20:00 08/31/18 19:59 08/01/18 21:05 Clonazepam (KlonoPIN) 1 mg QID ORAL 07/31/18 13:00 08/07/18 12:59 08/02/18 09:15 Diphenhydramine HCl (Benadryl) 50 mg FOUR TIMES A DAY ORAL 07/31/18 13:45 08/20/18 13:44 08/01/18 22:01 Docusate Sodium (Colace) 100 mg TWICE A DAY ORAL 07/29/18 09:00 08/21/18 08:59 07/29/18 17:12 Ertapenem 1 gm/ Sodium Chloride 55 ml @ 110 mls/hr Q24H IVPB 08/01/18 16:00 08/06/18 15:59 08/01/18 16:35 Gabapentin (Neurontin) 300 mg QID ORAL 07/29/18 21:00 08/20/18 20:59 08/01/18 22:01 Hydromorphone HCl (Dilaudid) 4 mg Q4H PRN ORAL Severe Pain (Pain Scale 7-10) 08/02/18 13:00 08/05/18 20:59 Lisinopril (Prinivil) 40 mg DAILY ORAL 07/29/18 09:00 08/21/18 08:59 08/02/18 09:17 Methadone HCl (Methadone HCl) 50 mg DAILY ORAL 07/29/18 09:00 08/05/18 08:59 08/02/18 09:15 Naloxone HCl (Narcan) 0.2 mg Q30MIN PRN IVP RR<8/min 07/29/18 17:45 08/28/18 17:44 Ondansetron HCl (Zofran) 4 mg Q6H PRN IVP Nausea & Vomiting 07/28/18 20:00 08/20/18 19:59 Phenazopyridine HCl (Pyridium) 100 mg THREE TIMES A DAY PRN ORAL BURNING URINATION 08/01/18 05:30 08/31/18 05:29 08/01/18 16:35 Polyethylene Glycol (Miralax) 17 gm BEDTIME ORAL 07/28/18 21:00 08/20/18 20:59 07/29/18 22:16 Sodium Chloride 1,000 ml @ 75 mls/hr [id number] IV 08/02/18 09:45 09/01/18 09:44 Radha Sánchez MD Aug 02, 2018 11:12"
--- NOTE | 2018-08-02 11:16 | NUR ---
RD ASSESSMENT & RECOMMENDATIONS SEE CARE ACTIVITY FOR COMPLETE ASSESSMENT DAILY ESTIMATED NEEDS: Needs based on Colitis, obese/ 61kg abw 23-27 kcals/kg 0848-4820 total kcals 1-1.3 g protein/kg 61-79 g total protein 25-30 mL/kg 3804-0127 total fluid mLs NUTRITION DIAGNOSIS: * Altered GI function R/T unknown etiology as evidenced by c/o EGD/colonoscopy which showed left sided colitis with ulceration CURRENT DIET: REGULAR PO DIET RECOMMENDATIONS: CCHO Low, LOW NA/ SOFT ADDITIONAL RECOMMENDATIONS: * Standing wt as able * A1C for eval of glycemic control- h/o DM * Monitor PO tolerance- colitis dx * SSI as needed .
--- NOTE | 2018-08-02 11:30 | General Surgery Progress Note ---
General Surgery-Progress Note Subjective Additional Comments no acute events. stable. Objective Last 24 Hour Vital Signs Date Time Temp Pulse Resp B/P (MAP) Pulse Ox O2 Delivery O2 Flow Rate FiO2 08/02/18 09:17 132/80 08/02/18 09:16 83 132/80 08/02/18 08:00 92 Nasal Cannula 2.0 28 08/02/18 08:00 Nasal Cannula 2.0 28 08/02/18 08:00 89 18 Nasal Cannula 2.0 28 08/02/18 05:12 98.6 08/02/18 04:00 98.3 89 18 137/91 (106) 97 08/02/18 02:07 88 20 96 Nasal Cannula 2.0 28 08/02/18 01:57 94 20 94 Nasal Cannula 2.0 28 08/02/18 00:00 98.6 91 18 133/91 (105) 97 08/01/18 21:33 99.0 08/01/18 21:00 Room Air 08/01/18 20:40 96 Nasal Cannula 2.0 28 08/01/18 20:40 Nasal Cannula 2.0 28 08/01/18 20:40 88 18 Nasal Cannula 2.0 28 08/01/18 20:00 99.2 95 18 129/93 (105) 95 08/01/18 16:00 99.0 90 18 128/73 (91) 94 08/01/18 12:00 98.7 95 18 128/77 (94) 93 I&O Intake and Output 08/01/18 08/02/18 18:59 06:59 Intake Total 1095 ml 660 ml Balance 1095 ml 660 ml Intake Oral 1040 ml 660 ml IV Total 55 ml # Voids 5 4 # Bowel Movements 1 Dressing: dry Wound: clean Drains: other Respiratory: clear Abdomen: soft, flat, present bowel sounds Extremities: no cyanosis Plan Problems: (1) Gastrointestinal hemorrhage Assessment & Plan: 62 year old female with GI bleed requiring GI scope. unable to perform procedure because of lack of good proper venous access for procedure. needs venous access that is stable for procedure no peripheral access and poor peripheral veins. 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 right IJ line d/c PICC neck erythema improving thank you will follow with Fran Brothers Aug 02, 2018 11:30
[2018-08-02 12:00] VITALS: BP 110/67
--- NOTE | 2018-08-02 12:35 | Pulmonology Progress Note ---
Assessment/Plan Assessment/Plan Pulmonary Progress Note Assessment/Plan Assessment/Plan IMPRESSION colitis abdominal pain gib chronic pain methadone dependence UTI PLAN vascular cleared ID evaluation for clearance ertapenem x 3 days...dc sturday line placed monitor clinically pain control pyridium dc iv fluids dc once cleared and improved UTI MDR- no po antibiotics sensitive at present impression, plan, and exam edited and reviewed in detail care discussed with RN Subjective Allergies: Coded Allergies: ERYTHROMYCIN BASE (Verified Allergy, Severe, Hives, 01/29/17) SULFAMETHOXAZOLE (Verified Allergy, Severe, Shortness of Breath, 01/29/17) TRIMETHOPRIM (Verified Allergy, Severe, Shortness of Breath, 01/29/17) TRAMADOL (Verified Allergy, Unknown, 11/25/17) Objective Vital Signs Noted CXR: 07/27/2018 R Chest, 1 View CLINICAL HISTORY: Shortness of breath TECHNIQUE: Frontal view of the chest. COMPARISON: Chest x-rays dated 07/29/17 FINDINGS: Lungs: Mildly increased interstitial markings. The lungs are otherwise clear without focal consolidation. Pleural space: Unremarkable. The costophrenic angles are sharp. No visible pneumothorax. Heart: Unremarkable. No cardiomegaly. Mediastinum: Unremarkable. Bones/joints: Unremarkable. Lymph nodes: Post surgical changes with chain sutures seen at the periphery of the right midlung, Tubes, lines and devices: EKG leads overlie the thorax. IMPRESSION: Mildly increased interstitial markings. This is nonspecific but may suggest mild pulmonary vascular congestion or a mild interstitial pneumonitis. No focal consolidation. Laboratory Tests 07/22/18 06:48: White Blood Count 6.2, Red Blood Count 4.46, Hemoglobin 13.2, Hematocrit 39.5, Mean Corpuscular Volume 89, Mean Corpuscular Hemoglobin 29.6, Mean Corpuscular Hemoglobin Concent 33.4, Red Cell Distribution Width 11.6, Platelet Count 97L, Mean Platelet Volume 7.4, Neutrophils (%) (Auto) , Lymphocytes (%) (Auto) , Monocytes (%) (Auto) , Eosinophils (%) (Auto) , Basophils (%) (Auto) , Differential Total Cells Counted 100, Neutrophils % (Manual) 51, Lymphocytes % ( Manual) 40, Monocytes % (Manual) 4, Eosinophils % (Manual) 4H, Basophils % ( Manual) 1, Band Neutrophils 0, Platelet Estimate DecreasedL, Platelet Morphology Normal, Red Blood Cell Morphology Normal 07/22/18 09:00: White Blood Count 6.6, Red Blood Count 4.59, Hemoglobin 13.5, Hematocrit 40.8, Mean Corpuscular Volume 89, Mean Corpuscular Hemoglobin 29.5, Mean Corpuscular Hemoglobin Concent 33.2, Red Cell Distribution Width 11.6, Platelet Count 106L, Mean Platelet Volume 8.2, Neutrophils (%) (Auto) 49.1, Lymphocytes (%) (Auto) 37.6, Monocytes (%) (Auto) 6.3, Eosinophils (%) (Auto) 5.4H, Basophils (%) (Auto ) 1.6, Sodium Level 138, Potassium Level 4.1, Chloride Level 102, Carbon Dioxide Level 33H, Anion Gap 3L, Blood Urea Nitrogen 11, Creatinine 0.6, Estimat Glomerular Filtration Rate > 60, Glucose Level 134H, Calcium Level 8.5 Height (Feet): 5 Height (Inches): 3.00 Weight (Pounds): 190 Objective WDWN NAD clear breath sounds bilaterally without rhonchi or wheeze [id number] without MRG NABS nontender no HSM no CCE nonfocal Subjective ROS Limited/Unobtainable: No Allergies: Coded Allergies: ERYTHROMYCIN BASE (Verified Allergy, Severe, Hives, 01/29/17) SULFAMETHOXAZOLE (Verified Allergy, Severe, Shortness of Breath, 01/29/17) TRIMETHOPRIM (Verified Allergy, Severe, Shortness of Breath, 01/29/17) TRAMADOL (Verified Allergy, Unknown, 11/25/17) Objective Last 24 Hour Vital Signs Date Time Temp Pulse Resp B/P (MAP) Pulse Ox O2 Delivery O2 Flow Rate FiO2 08/02/18 09:17 132/80 08/02/18 09:16 83 132/80 08/02/18 08:00 92 Nasal Cannula 2.0 28 08/02/18 08:00 Nasal Cannula 2.0 28 08/02/18 08:00 89 18 Nasal Cannula 2.0 28 08/02/18 05:12 98.6 08/02/18 04:00 98.3 89 18 137/91 (106) 97 08/02/18 02:07 88 20 96 Nasal Cannula 2.0 28 08/02/18 01:57 94 20 94 Nasal Cannula 2.0 28 08/02/18 00:00 98.6 91 18 133/91 (105) 97 08/01/18 21:33 99.0 08/01/18 21:00 Room Air 08/01/18 20:40 96 Nasal Cannula 2.0 28 08/01/18 20:40 Nasal Cannula 2.0 28 08/01/18 20:40 88 18 Nasal Cannula 2.0 28 08/01/18 20:00 99.2 95 18 129/93 (105) 95 08/01/18 16:00 99.0 90 18 128/73 (91) 94 Intake and Output 08/01/18 08/02/18 18:59 06:59 Intake Total 1095 ml 660 ml Balance 1095 ml 660 ml Intake Oral 1040 ml 660 ml IV Total 55 ml # Voids 5 4 # Bowel Movements 1 Microbiology Date/Time Source Procedure Growth Status 08/01/18 19:00 Stool Clostridium difficile Toxin Assay - Final Complete Current Medications Medications (Trade) Dose Ordered Sig/Sumeet Route PRN Reason Start Time Stop Time Status Last Admin Dose Admin Acetaminophen (Tylenol) 650 mg Q4H PRN ORAL Mild Pain/Temp > 100.5 07/29/18 22:15 08/28/18 22:14 08/02/18 04:42 Albuterol/ Ipratropium (Albuterol/ Ipratropium) 3 ml Q4H PRN HHN Shortness of Breath 08/01/18 02:30 08/06/18 02:29 08/02/18 01:57 Amlodipine Besylate (Norvasc) 10 mg DAILY ORAL 07/29/18 09:00 08/21/18 08:59 08/02/18 09:16 Chlorhexidine Gluconate (Lynne-Hex 2%) 1 applic DAILY@1999 TOPIC 08/01/18 20:00 08/31/18 19:59 08/01/18 21:05 Clonazepam (KlonoPIN) 1 mg QID ORAL 07/31/18 13:00 08/07/18 12:59 08/02/18 09:15 Diphenhydramine HCl (Benadryl) 50 mg FOUR TIMES A DAY ORAL 07/31/18 13:45 08/20/18 13:44 08/01/18 22:01 Docusate Sodium (Colace) 100 mg TWICE A DAY ORAL 07/29/18 09:00 08/21/18 08:59 07/29/18 17:12 Ertapenem 1 gm/ Sodium Chloride 55 ml @ 110 mls/hr Q24H IVPB 08/01/18 16:00 08/06/18 15:59 08/01/18 16:35 Gabapentin (Neurontin) 300 mg QID ORAL 07/29/18 21:00 08/20/18 20:59 08/01/18 22:01 Hydromorphone HCl (Dilaudid) 4 mg Q4H PRN ORAL Severe Pain (Pain Scale 7-10) 08/02/18 13:00 08/05/18 20:59 Lisinopril (Prinivil) 40 mg DAILY ORAL 07/29/18 09:00 08/21/18 08:59 08/02/18 09:17 Methadone HCl (Methadone HCl) 50 mg DAILY ORAL 07/29/18 09:00 08/05/18 08:59 08/02/18 09:15 Naloxone HCl (Narcan) 0.2 mg Q30MIN PRN IVP RR<8/min 07/29/18 17:45 08/28/18 17:44 Ondansetron HCl (Zofran) 4 mg Q6H PRN IVP Nausea & Vomiting 07/28/18 20:00 08/20/18 19:59 Phenazopyridine HCl (Pyridium) 100 mg THREE TIMES A DAY PRN ORAL BURNING URINATION 08/01/18 05:30 08/31/18 05:29 08/01/18 16:35 Polyethylene Glycol (Miralax) 17 gm BEDTIME ORAL 07/28/18 21:00 08/20/18 20:59 07/29/18 22:16 Sodium Chloride 1,000 ml @ 75 mls/hr [id number] IV 08/02/18 09:45 09/01/18 09:44 Maximino Bedoya MD Aug 02, 2018 12:34
[2018-08-02 16:00] VITALS: BP 137/72
[2018-08-02] MEDS: Ertapenem 1 GM in NS 55 ML IVPB SCH (16:08)
--- NOTE | 2018-08-02 16:32 | General Progress Note ---
Assessment/Plan Assessment/Plan Assessment - h/o IVDA and opioid dependence - COPD - focal ischemic colitis - UTI, MDR - loose BM - C Diff (-) Recommendations - Push PO - Pain management - Abx per ID - IVF - follow exam Subjective Allergies: Coded Allergies: ERYTHROMYCIN BASE (Verified Allergy, Severe, Hives, 01/29/17) SULFAMETHOXAZOLE (Verified Allergy, Severe, Shortness of Breath, 01/29/17) TRIMETHOPRIM (Verified Allergy, Severe, Shortness of Breath, 01/29/17) TRAMADOL (Verified Allergy, Unknown, 11/25/17) Subjective Resting / sleeping on my arrival no new complaints C Diff (-) stools noted Objective Last 24 Hour Vital Signs Date Time Temp Pulse Resp B/P (MAP) Pulse Ox O2 Delivery O2 Flow Rate FiO2 08/02/18 12:00 98.4 92 20 110/67 (81) 95 08/02/18 09:17 132/80 08/02/18 09:16 83 132/80 08/02/18 09:00 Room Air 08/02/18 08:00 92 Nasal Cannula 2.0 28 08/02/18 08:00 Nasal Cannula 2.0 28 08/02/18 08:00 89 18 Nasal Cannula 2.0 28 08/02/18 08:00 98.1 95 20 146/75 (98) 95 08/02/18 05:12 98.6 08/02/18 04:00 98.3 89 18 137/91 (106) 97 08/02/18 02:07 88 20 96 Nasal Cannula 2.0 28 08/02/18 01:57 94 20 94 Nasal Cannula 2.0 28 08/02/18 00:00 98.6 91 18 133/91 (105) 97 08/01/18 21:33 99.0 08/01/18 21:00 Room Air 08/01/18 20:40 96 Nasal Cannula 2.0 28 08/01/18 20:40 Nasal Cannula 2.0 28 08/01/18 20:40 88 18 Nasal Cannula 2.0 28 08/01/18 20:00 99.2 95 18 129/93 (105) 95 Intake and Output 08/01/18 08/02/18 18:59 06:59 Intake Total 1095 ml 660 ml Balance 1095 ml 660 ml Intake Oral 1040 ml 660 ml IV Total 55 ml # Voids 5 4 # Bowel Movements 1 Height (Feet): 5 Height (Inches): 3.00 Weight (Pounds): 201 Objective WDWN obese WW NCAT supple CTA RR abd soft obese, (+) suprapubic TTP, but less TTP today no edema Haider Garcia MD Aug 02, 2018 16:32
--- NOTE | 2018-08-02 18:50 | NUR ---
NURSE NOTES: Patient sitting up,no distress noted,call light within reach,remind patient to call for assist.
--- NOTE | 2018-08-02 19:30 | NUR ---
HAND-OFF: Report given to KESHAWN OLVERA.
--- NOTE | 2018-08-02 19:55 | NUR ---
NURSE NOTES: RECEIVED PATIENT LYING IN BED, APPEAR TO BE ASLEEP, AWAKENED TO NAME, PICC LINE INTACT TO LEFT UPPER ARM, DRESSING DRY AND INTACT, IV FLUIDS INFUSING/NS AT 75ML PER HOUR. NO SIGNS AND SYMPTOMS OF ACUTE CARDIO RESPIRATORY DISTRESS/SHORTNESS OF BREATH, DENIES CHEST PAIN. DENIES GI DISTRESS, BOWEL SOUNDS AUDIBLE, BATHROOM PRIVILEGES, NO N/V/D. SIDE RAILS UP X2, BED IN LOWEST POSITION FOR SAFETY. CALL LIGHT WITHIN REACH, ENCOURAGED PATIENT TO UTILIZE CALL LIGHT FOR ASSISTANCE, VERBALIZED UNDERSTANDING. WILL MONITOR FOR SAFETY/NEEDS.
[2018-08-02 20:02] VITALS: BP 133/80
[2018-08-02] MEDS: Dyna-Hex 2% Top Sol 2oz TOPIC SCH (20:23)
--- NOTE | 2018-08-02 22:00 | Consultation ---
DATE OF CONSULTATION: 07/29/2018 NOTE: UNCLEAR AUDIO VASCULAR SURGERY CONSULTATION CONSULTING PHYSICIAN: Filiberto Up M.D. REFERRING PHYSICIAN: Edgar Luther M.D. REASON FOR EVALUATION: Rule out mesenteric intestinal ischemia and abdominal pain. HISTORY OF PRESENT COMPLAINT: This is a 62-year-old female, who has a history of intravenous drug abuse and substance abuse in the past, currently on methadone. The patient presented with abdominal pain and lower GI bleeding. The patient underwent endoscopy and GI workup by Gastroenterology service. Vascular Surgery is consulted for rule out of any mesenteric stenosis or ischemia. The patient is currently complaining of lower pelvic pain with more painful urination. Appetite is fair. No diarrhea. No nausea. No vomiting. She has been gaining weight. PAST MEDICAL HISTORY: As above. History of intravenous drug abuse, substance abuse, obesity, and intermittent abdominal pain. MEDICATIONS: See attached MAR. ALLERGIES: Multiple erythromycin, sulfa, tramadol, and Bactrim. SOCIAL HISTORY: Denies history of smoking, drugs, or alcohol abuse. She is a former intravenous drug abuser. FAMILY HISTORY: Unremarkable. SYSTEM REVIEW: CARDIOVASCULAR: No history of chest pain or palpitations. PULMONARY: No cough or hemoptysis. GASTROINTESTINAL: As above. GENITOURINARY: No urinary complaints. NEUROLOGIC: No history of strokes or seizures. PHYSICAL EXAMINATION: VITAL SIGNS: The patient is afebrile 97.3, blood pressure is 140/70. VASCULAR: The patient has palpable radial pulses. No evidence of carotid bruit. LUNGS: Clear to auscultation. HEART: Regular rate and rhythm. ABDOMEN: Soft. She has suprapubic abdominal tenderness and there is no peritonitis. EXTREMITIES: Feet are warm with intact distal pulses bilaterally. DIAGNOSTIC DATA: CT angiogram was also performed. There is a widely patent proximal celiac and superior mesenteric artery. There is some distal SMA calcification without any thrombus and there is no evidence of intestinal mesenteric ischemia. IMPRESSION: 1. Abdominal pain with intermittent GI bleeding, rule out colitis. 2. Suprapubic abdominal pain, rule out urinary tract infection with dysuria. 3. Obesity. 4. History of intravenous drug abuse, possible psychosis, colitis, on methadone. 5. Continue with Gastroenterology and recommendation antibiotics per ID service. Follow up with colonoscopy and pathology reports. Should be on antiplatelet and statin therapy. No current findings suggestive of mesenteric ischemia on the CT angiogram with widely patent celiac and SMA. Filiberto Up M.D. DR: RICHI JOB#: [id number] CC: Edgar Luther M.D.; Fax#: [phone] [facility]
[2018-08-02] MEDS: Miralax 17gm pkt ORAL SCH (22:01)
[2018-08-03] VITALS: BP 134/76
[2018-08-03] MEDS: HYDROmorphone 4mg tab ORAL PRN ×3 (02:55→12:18)
[2018-08-03 04:00] VITALS: BP 130/81
--- NOTE | 2018-08-03 06:14 | NUR ---
NURSE NOTES: RESTED WELL, NO SIGNIFICANT CHANGE OF CONDITION NOTED THROUGHOUT THE NIGHT. SAFETY MAINTAINED. NAD.
--- NOTE | 2018-08-03 07:24 | NUR ---
NURSE NOTES: Patient alert x4, on nasal cannula 2 liter, no sign of distress and shortness of breath. No sign of chest pain. Skin- intact. PICC line on left Upper double lumen, dressing dry and intact. Isolation of ESBL urine. Patient complaine of pain, will give pain medications as order. Side rails up x2, bed at lowest position, breaks engaged. Call light within reach. Will keep monitoring.
--- NOTE | 2018-08-03 07:41 | NUR ---
HAND-OFF: Report given to JOSE BASSETT.
[2018-08-03 08:00] VITALS: BP 123/77
[2018-08-03] MEDS: Docusate 100mg cap ORAL SCH ×2 (08:46→17:13)
[2018-08-03] MEDS: Lisinopril 20mg tab ORAL SCH (08:47)
--- NOTE | 2018-08-03 10:04 | NUR ---
SS note Chart reviewed; no SW needs/concerns identified at this time. Patient remains independent with ADLs, ambulation.
--- NOTE | 2018-08-03 10:32 | Infectious Diseases Prog Note ---
"Assessment/Plan Assessment/Plan antibiotics : ertapenem A 1. e.coli esbl | enterococcus UTI 2. colitis 3. hypertension 4. asthma P 1. continue ertapenem 1 more day 2. will follow up cultures Subjective Constitutional: Denies: fever, chills Respiratory: Reports: shortness of breath, dry cough Gastrointestinal/Abdominal: Reports: nausea Musculoskeletal: Reports: pain Allergies: Coded Allergies: ERYTHROMYCIN BASE (Verified Allergy, Severe, Hives, 01/29/17) SULFAMETHOXAZOLE (Verified Allergy, Severe, Shortness of Breath, 01/29/17) TRIMETHOPRIM (Verified Allergy, Severe, Shortness of Breath, 01/29/17) TRAMADOL (Verified Allergy, Unknown, 11/25/17) Objective Vital Signs Last 24 Hour Vital Signs Date Time Temp Pulse Resp B/P (MAP) Pulse Ox O2 Delivery O2 Flow Rate FiO2 08/03/18 09:00 Nasal Cannula 2.0 08/03/18 08:47 123/77 08/03/18 08:46 94 123/77 08/03/18 08:00 98.5 94 20 123/77 (92) 95 08/03/18 07:53 98.1 08/03/18 04:00 98.1 85 20 130/81 (97) 96 08/03/18 00:00 97.9 91 20 134/76 (95) 99 08/02/18 21:43 Room Air 08/02/18 20:49 82 20 98 Nasal Cannula 2.0 28 08/02/18 20:39 89 22 92 Nasal Cannula 2.0 28 08/02/18 20:02 97.7 89 20 133/80 (97) 97 08/02/18 19:59 94 Nasal Cannula 2.0 28 08/02/18 19:59 Nasal Cannula 2.0 28 08/02/18 19:59 91 18 Nasal Cannula 2.0 28 08/02/18 16:00 98.3 90 20 137/72 (93) 95 08/02/18 12:00 98.4 92 20 110/67 (81) 95 Height (Feet): 5 Height (Inches): 3.00 Weight (Pounds): 201 Respiratory/Chest: lungs clear Cardiovascular: normal rate, regular rhythm, no gallop/murmur Abdomen: soft, non tender Extremities: no edema, other - left arm PICC Microbiology Date/Time Source Procedure Growth Status 08/01/18 05:22 Sputum Gram Stain - Final Resulted 08/01/18 05:22 Sputum Sputum Culture - Preliminary Resulted 08/01/18 19:00 Stool Clostridium difficile Toxin Assay - Final Complete Current Medications Medications (Trade) Dose Ordered Sig/Sumeet Route PRN Reason Start Time Stop Time Status Last Admin Dose Admin Acetaminophen (Tylenol) 650 mg Q4H PRN ORAL Mild Pain/Temp > 100.5 07/29/18 22:15 08/28/18 22:14 08/02/18 04:42 Albuterol/ Ipratropium (Albuterol/ Ipratropium) 3 ml Q4H PRN HHN Shortness of Breath 08/01/18 02:30 08/06/18 02:29 08/02/18 20:39 Amlodipine Besylate (Norvasc) 10 mg DAILY ORAL 07/29/18 09:00 08/21/18 08:59 08/03/18 08:46 Chlorhexidine Gluconate (Lynne-Hex 2%) 1 applic DAILY@2000 TOPIC 08/01/18 20:00 08/31/18 19:59 08/02/18 20:23 Clonazepam (KlonoPIN) 1 mg QID ORAL 07/31/18 13:00 08/07/18 12:59 08/03/18 08:46 Diphenhydramine HCl (Benadryl) 50 mg FOUR TIMES A DAY ORAL 07/31/18 13:45 08/20/18 13:44 08/03/18 08:46 Docusate Sodium (Colace) 100 mg TWICE A DAY ORAL 07/29/18 09:00 08/21/18 08:59 08/03/18 08:46 Ertapenem 1 gm/ Sodium Chloride 55 ml @ 110 mls/hr Q24H IVPB 08/01/18 16:00 08/06/18 15:59 08/02/18 16:08 Gabapentin (Neurontin) 300 mg QID ORAL 07/29/18 21:00 08/20/18 20:59 08/03/18 08:46 Hydromorphone HCl (Dilaudid) 4 mg Q4H PRN ORAL Severe Pain (Pain Scale 7-10) 08/02/18 13:00 08/05/18 20:59 08/03/18 07:23 Lisinopril (Prinivil) 40 mg DAILY ORAL 07/29/18 09:00 08/21/18 08:59 08/03/18 08:47 Methadone HCl (Methadone HCl) 50 mg DAILY ORAL 07/29/18 09:00 08/05/18 08:59 08/03/18 08:47 Naloxone HCl (Narcan) 0.2 mg Q30MIN PRN IVP RR<8/min 07/29/18 17:45 08/28/18 17:44 Ondansetron HCl (Zofran) 4 mg Q6H PRN IVP Nausea & Vomiting 07/28/18 20:00 08/20/18 19:59 Phenazopyridine HCl (Pyridium) 100 mg THREE TIMES A DAY PRN ORAL BURNING URINATION 08/01/18 05:30 08/31/18 05:29 08/01/18 16:35 Polyethylene Glycol (Miralax) 17 gm BEDTIME ORAL 07/28/18 21:00 08/20/18 20:59 08/02/18 22:01 Radha Sánchez MD Aug 03, 2018 10:32"
--- NOTE | 2018-08-03 11:05 | General Progress Note ---
Assessment/Plan Assessment/Plan IMPRESSION colitis abdominal pain gib chronic pain methadone dependence UTI PLAN vascular cleared ID evaluation for clearance ertapenem x 1 day line to be removed monitor clinically pain control pyridium UTI MDR- no po antibiotics sensitive at present impression, plan, and exam edited and reviewed in detail care discussed with RN Subjective Allergies: Coded Allergies: ERYTHROMYCIN BASE (Verified Allergy, Severe, Hives, 01/29/17) SULFAMETHOXAZOLE (Verified Allergy, Severe, Shortness of Breath, 01/29/17) TRIMETHOPRIM (Verified Allergy, Severe, Shortness of Breath, 01/29/17) TRAMADOL (Verified Allergy, Unknown, 11/25/17) Subjective awaiting ID clearance ucx resistant to cipro dysuria better Objective Last 24 Hour Vital Signs Date Time Temp Pulse Resp B/P (MAP) Pulse Ox O2 Delivery O2 Flow Rate FiO2 08/03/18 09:00 Nasal Cannula 2.0 08/03/18 08:47 123/77 08/03/18 08:46 94 123/77 08/03/18 08:00 98.5 94 20 123/77 (92) 95 08/03/18 07:53 98.1 08/03/18 04:00 98.1 85 20 130/81 (97) 96 08/03/18 00:00 97.9 91 20 134/76 (95) 99 08/02/18 21:43 Room Air 08/02/18 20:49 82 20 98 Nasal Cannula 2.0 28 08/02/18 20:39 89 22 92 Nasal Cannula 2.0 28 08/02/18 20:02 97.7 89 20 133/80 (97) 97 08/02/18 19:59 94 Nasal Cannula 2.0 28 08/02/18 19:59 Nasal Cannula 2.0 28 08/02/18 19:59 91 18 Nasal Cannula 2.0 28 08/02/18 16:00 98.3 90 20 137/72 (93) 95 08/02/18 12:00 98.4 92 20 110/67 (81) 95 Intake and Output 08/02/18 08/03/18 19:00 07:00 Intake Total 1547.2 ml 2165 ml Balance 1547.2 ml 2165 ml Intake Oral 1080 ml 1340 ml IV Total 467.2 ml 825 ml # Voids 3 8 Height (Feet): 5 Height (Inches): 3.00 Weight (Pounds): 201 Objective WDWN NAD clear breath sounds bilaterally without rhonchi or wheeze [id number] without MRG NABS mildly tender no CCE nonfocal Edgar Luther MD Aug 03, 2018 11:05
--- NOTE | 2018-08-03 11:39 | NUR ---
[employer] 08/03/2018 SI: GI BLEED, UTI T 98.1 HR 85 RR 20 B/P 130/81 SATS 96% ON 2L/NC NO LABS TODAY IS: ERTAPENEM IV ALB HHN NORVASC PO MED/SURG STATUS
[2018-08-03 12:00] VITALS: BP 130/72
[2018-08-03] MEDS ORDERED: Vancomycin 1250mg/D5W 250ml IVPB SCH (12:00)
[2018-08-03] MEDS: Ertapenem 1 GM in NS 55 ML IVPB SCH (15:30)
[2018-08-03 16:00] VITALS: BP 133/106
--- NOTE | 2018-08-03 17:33 | General Surgery Progress Note ---
General Surgery-Progress Note Subjective Symptoms: improved, tolerating diet, passing flatus Additional Comments no acute events. picc functional. plan for 1 more day of abx as per ID Objective Last 24 Hour Vital Signs Date Time Temp Pulse Resp B/P (MAP) Pulse Ox O2 Delivery O2 Flow Rate FiO2 08/03/18 16:00 98.3 100 20 133/106 (115) 93 08/03/18 12:48 98.6 08/03/18 12:00 98.6 98 20 130/72 (91) 95 08/03/18 09:00 Nasal Cannula 2.0 08/03/18 08:47 123/77 08/03/18 08:46 94 123/77 08/03/18 08:00 98.5 94 20 123/77 (92) 95 08/03/18 04:00 98.1 85 20 130/81 (97) 96 08/03/18 00:00 97.9 91 20 134/76 (95) 99 08/02/18 21:43 Room Air 08/02/18 20:49 82 20 98 Nasal Cannula 2.0 28 08/02/18 20:39 89 22 92 Nasal Cannula 2.0 28 08/02/18 20:02 97.7 89 20 133/80 (97) 97 08/02/18 19:59 94 Nasal Cannula 2.0 28 08/02/18 19:59 Nasal Cannula 2.0 28 08/02/18 19:59 91 18 Nasal Cannula 2.0 28 I&O Intake and Output 08/02/18 08/03/18 18:59 06:59 Intake Total 1472.2 ml 2240 ml Balance 1472.2 ml 2240 ml Intake Oral 1080 ml 1340 ml IV Total 392.2 ml 900 ml # Voids 3 8 Wound: clean Drains: none Cardiovascular: RSR Respiratory: clear Abdomen: soft, flat, non-tender, present bowel sounds, non-distended Extremities: no cyanosis Plan Problems: (1) Gastrointestinal hemorrhage Assessment & Plan: 62 year old female with GI bleed requiring GI scope. unable to perform procedure because of lack of good proper venous access for procedure. needs venous access that is stable for procedure no peripheral access and poor peripheral veins. states she has had this issue for intermediate and usually obtains picc line when needed right IJ 20g IV line placed under ultrasound guidance without complication. right IJ line d/c PICC neck erythema improving Abx for 1 more day per ID d/c planning thank you will follow with Fran Brothers Aug 03, 2018 17:33
--- NOTE | 2018-08-03 19:18 | NUR ---
HAND-OFF: Report given to JOSE Baugh.
--- NOTE | 2018-08-03 19:37 | General Progress Note ---
Assessment/Plan Assessment/Plan Assessment - h/o IVDA and opioid dependence - COPD - focal ischemic colitis - UTI, MDR - loose BM - C Diff (-) Recommendations - Push PO - Pain management - Abx per ID - IVF - follow exam Subjective Allergies: Coded Allergies: ERYTHROMYCIN BASE (Verified Allergy, Severe, Hives, 01/29/17) SULFAMETHOXAZOLE (Verified Allergy, Severe, Shortness of Breath, 01/29/17) TRIMETHOPRIM (Verified Allergy, Severe, Shortness of Breath, 01/29/17) TRAMADOL (Verified Allergy, Unknown, 11/25/17) Subjective Resting / sleeping on my arrival tolerating PO Objective Last 24 Hour Vital Signs Date Time Temp Pulse Resp B/P (MAP) Pulse Ox O2 Delivery O2 Flow Rate FiO2 08/03/18 16:00 98.3 100 20 133/106 (115) 93 08/03/18 13:28 95 Nasal Cannula 2.0 28 08/03/18 13:28 Nasal Cannula 2.0 28 08/03/18 13:28 99 18 Nasal Cannula 2.0 28 08/03/18 12:48 98.6 08/03/18 12:00 98.6 98 20 130/72 (91) 95 08/03/18 09:00 Nasal Cannula 2.0 08/03/18 08:47 123/77 08/03/18 08:46 94 123/77 08/03/18 08:00 98.5 94 20 123/77 (92) 95 08/03/18 04:00 98.1 85 20 130/81 (97) 96 08/03/18 00:00 97.9 91 20 134/76 (95) 99 08/02/18 21:43 Room Air 08/02/18 20:49 82 20 98 Nasal Cannula 2.0 28 08/02/18 20:39 89 22 92 Nasal Cannula 2.0 28 08/02/18 20:02 97.7 89 20 133/80 (97) 97 08/02/18 19:59 94 Nasal Cannula 2.0 28 08/02/18 19:59 Nasal Cannula 2.0 28 08/02/18 19:59 91 18 Nasal Cannula 2.0 28 Intake and Output 08/02/18 08/03/18 18:59 06:59 Intake Total 1472.2 ml 2240 ml Balance 1472.2 ml 2240 ml Intake Oral 1080 ml 1340 ml IV Total 392.2 ml 900 ml # Voids 3 8 Height (Feet): 5 Height (Inches): 3.00 Weight (Pounds): 201 Objective WDWN obese WW NCAT supple CTA RR abd soft obese, (+) suprapubic TTP, but less TTP today no edema Haider Garcia MD Aug 03, 2018 19:37
--- NOTE | 2018-08-03 19:45 | NUR ---
NURSE NOTES: Patient in bed, awake, alert, in the bathroom. No s/s pain or distress noted. Bed in low position, call light within reach. Will continue to monitor. Addendum: 08/03/18 at 2335 by MARY MATOS RN RN Bed alarm on, patient instructed to use call light for assistance, verbalized understanding.
[2018-08-03 20:13] VITALS: BP 142/90
[2018-08-03] MEDS: Vancomycin 750mg/NS 250ml IVPB SCH (20:21)
[2018-08-03] MEDS: Miralax 17gm pkt ORAL SCH (20:21)
[2018-08-03] MEDS: Dyna-Hex 2% Top Sol 2oz TOPIC SCH (20:21)
[2018-08-04 00:57] VITALS: BP 124/82
[2018-08-04] MEDS: HYDROmorphone 4mg tab ORAL PRN ×2 (02:06→16:29)
[2018-08-04] MEDS: Vancomycin 750mg/NS 250ml IVPB SCH ×2 (04:06→12:47)
[2018-08-04 04:31] VITALS: BP 133/88
[2018-08-04] MEDS: Albuterol/Ipratropium 3ml neb HHN PRN (04:34)
--- NOTE | 2018-08-04 05:30 | NUR ---
NURSE NOTES: PATIENT ASLEEP, V/S STABLE.
--- NOTE | 2018-08-04 06:55 | NUR ---
HAND-OFF: Report given to SERJIO IRVIN RN.
--- NOTE | 2018-08-04 07:07 | NUR ---
NURSE NOTES: Patient sleeping, on nasal cannula at 2 liter, no sign of distress and shortness of breath. No sign of chest pain. Double lumen PICC line on left upper hand, fluid running. Bed at lowest position, side rails up x2, breaks engaged. Call light within reach. Will keep on monitoring and give pain meds and other meds as order.
[2018-08-04 08:00] VITALS: BP 129/78
[2018-08-04] MEDS: Docusate 100mg cap ORAL SCH ×2 (08:29→17:21)
[2018-08-04] MEDS: Lisinopril 20mg tab ORAL SCH (08:29)
--- NOTE | 2018-08-04 10:18 | General Progress Note ---
Assessment/Plan Assessment/Plan IMPRESSION colitis abdominal pain gib chronic pain methadone dependence UTI constipation PLAN dc antibiotics line to be removed monitor clinically pain control laxatives dc home and follow up with PMD cleared by all consultants impression, plan, and exam edited and reviewed in detail care discussed with RN Subjective Allergies: Coded Allergies: ERYTHROMYCIN BASE (Verified Allergy, Severe, Hives, 01/29/17) SULFAMETHOXAZOLE (Verified Allergy, Severe, Shortness of Breath, 01/29/17) TRIMETHOPRIM (Verified Allergy, Severe, Shortness of Breath, 01/29/17) TRAMADOL (Verified Allergy, Unknown, 11/25/17) Subjective cleared by ID dc antibiotics today Objective Last 24 Hour Vital Signs Date Time Temp Pulse Resp B/P (MAP) Pulse Ox O2 Delivery O2 Flow Rate FiO2 08/04/18 09:00 Nasal Cannula 2.0 08/04/18 08:29 129/78 08/04/18 08:28 91 129/78 08/04/18 08:00 98.2 91 20 129/78 (95) 96 08/04/18 04:50 98.6 08/04/18 04:39 86 20 99 Nasal Cannula 2.0 28 08/04/18 04:32 82 20 93 Nasal Cannula 2.0 28 08/04/18 04:31 98.6 96 22 133/88 (103) 96 08/04/18 02:36 97.9 08/04/18 00:57 97.9 90 21 124/82 (96) 92 08/03/18 20:13 99.2 108 20 142/90 (107) 92 08/03/18 20:00 Nasal Cannula 2.0 08/03/18 19:36 92 18 Nasal Cannula 2.0 28 08/03/18 19:36 Nasal Cannula 2.0 28 08/03/18 19:36 96 Nasal Cannula 2.0 28 08/03/18 16:00 98.3 100 20 133/106 (115) 93 08/03/18 13:28 95 Nasal Cannula 2.0 28 08/03/18 13:28 Nasal Cannula 2.0 28 08/03/18 13:28 99 18 Nasal Cannula 2.0 28 08/03/18 12:00 98.6 98 20 130/72 (91) 95 Intake and Output 08/03/18 08/04/18 19:00 07:00 Intake Total 960 ml 500.000 ml Balance 960 ml 500.000 ml Intake Oral 960 ml IV Total 500.000 ml # Voids 3 3 Height (Feet): 5 Height (Inches): 3.00 Weight (Pounds): 201 Objective WDWN NAD clear breath sounds bilaterally without rhonchi or wheeze [id number] without MRG NABS mildly tender no CCE nonfocal Edgar Luther MD Aug 04, 2018 10:18
--- NOTE | 2018-08-04 10:50 | NUR ---
NURSE NOTES: Suppository given, will keep monitoring. Patient is off from oxygen, will keep monitoring.
[2018-08-04 12:00] VITALS: BP 120/81
--- NOTE | 2018-08-04 13:36 | Infectious Diseases Prog Note ---
Assessment/Plan Assessment/Plan A 1. E.coli ESBL UTI treated 2. colitis, likely ischemic 3. hypertension 4. asthma, COPD 5. chronic back pain P 1. Discontinue Ertapenem & Vancomycin Subjective ROS Limited/Unobtainable: No Constitutional: Reports: no symptoms HEENT: Reports: no symptoms Respiratory: Reports: productive cough Cardiovascular: Reports: no symptoms Gastrointestinal/Abdominal: Reports: no symptoms Genitourinary: Reports: dysuria Musculoskeletal: Reports: pain, swelling Allergies: Coded Allergies: ERYTHROMYCIN BASE (Verified Allergy, Severe, Hives, 01/29/17) SULFAMETHOXAZOLE (Verified Allergy, Severe, Shortness of Breath, 01/29/17) TRIMETHOPRIM (Verified Allergy, Severe, Shortness of Breath, 01/29/17) TRAMADOL (Verified Allergy, Unknown, 11/25/17) Objective Vital Signs Last 24 Hour Vital Signs Date Time Temp Pulse Resp B/P (MAP) Pulse Ox O2 Delivery O2 Flow Rate FiO2 08/04/18 09:00 Nasal Cannula 2.0 08/04/18 08:29 129/78 08/04/18 08:28 91 129/78 08/04/18 08:00 98.2 91 20 129/78 (95) 96 08/04/18 04:50 98.6 08/04/18 04:39 86 20 99 Nasal Cannula 2.0 28 08/04/18 04:32 82 20 93 Nasal Cannula 2.0 28 08/04/18 04:31 98.6 96 22 133/88 (103) 96 08/04/18 02:36 97.9 08/04/18 00:57 97.9 90 21 124/82 (96) 92 08/03/18 20:13 99.2 108 20 142/90 (107) 92 08/03/18 20:00 Nasal Cannula 2.0 08/03/18 19:36 92 18 Nasal Cannula 2.0 28 08/03/18 19:36 Nasal Cannula 2.0 28 08/03/18 19:36 96 Nasal Cannula 2.0 28 08/03/18 16:00 98.3 100 20 133/106 (115) 93 Height (Feet): 5 Height (Inches): 3.00 Weight (Pounds): 201 General Appearance: no acute distress HEENT: mucous membranes moist Respiratory/Chest: lungs clear Cardiovascular: normal rate Abdomen: soft, non tender Extremities: other - edema Neurologic/Psychiatric: alert, oriented x 3, responsive Microbiology Date/Time Source Procedure Growth Status 08/01/18 19:00 Stool Clostridium difficile Toxin Assay - Final Complete Laboratory Tests Test 08/04/18 10:50 Vancomycin Level Trough 15.0 ug/mL (5.0-12.0) H Current Medications Medications (Trade) Dose Ordered Sig/Sumeet Route PRN Reason Start Time Stop Time Status Last Admin Dose Admin Acetaminophen (Tylenol) 650 mg Q4H PRN ORAL Mild Pain/Temp > 100.5 07/29/18 22:15 08/28/18 22:14 08/04/18 04:20 Albuterol/ Ipratropium (Albuterol/ Ipratropium) 3 ml Q4H PRN HHN Shortness of Breath 08/01/18 02:30 08/06/18 02:29 08/04/18 04:34 Amlodipine Besylate (Norvasc) 10 mg DAILY ORAL 07/29/18 09:00 08/21/18 08:59 08/04/18 08:28 Chlorhexidine Gluconate (Lynne-Hex 2%) 1 applic DAILY@2000 TOPIC 08/01/18 20:00 08/31/18 19:59 08/03/18 20:21 Clonazepam (KlonoPIN) 1 mg QID ORAL 07/31/18 13:00 08/07/18 12:59 08/04/18 12:09 Diphenhydramine HCl (Benadryl) 50 mg FOUR TIMES A DAY ORAL 07/31/18 13:45 08/20/18 13:44 08/04/18 12:09 Docusate Sodium (Colace) 100 mg TWICE A DAY ORAL 07/29/18 09:00 08/21/18 08:59 08/04/18 08:29 Ertapenem 1 gm/ Sodium Chloride 55 ml @ 110 mls/hr Q24H IVPB 08/01/18 16:00 08/06/18 15:59 08/03/18 15:30 Gabapentin (Neurontin) 300 mg QID ORAL 07/29/18 21:00 08/20/18 20:59 08/04/18 12:09 Hydromorphone HCl (Dilaudid) 4 mg Q4H PRN ORAL Severe Pain (Pain Scale 7-10) 08/02/18 13:00 08/05/18 20:59 08/04/18 02:06 Lisinopril (Prinivil) 40 mg DAILY ORAL 07/29/18 09:00 08/21/18 08:59 08/04/18 08:29 Methadone HCl (Methadone HCl) 50 mg DAILY ORAL 07/29/18 09:00 08/05/18 08:59 08/04/18 08:30 Naloxone HCl (Narcan) 0.2 mg Q30MIN PRN IVP RR<8/min 07/29/18 17:45 08/28/18 17:44 Ondansetron HCl (Zofran) 4 mg Q6H PRN IVP Nausea & Vomiting 07/28/18 20:00 08/20/18 19:59 Phenazopyridine HCl (Pyridium) 100 mg THREE TIMES A DAY PRN ORAL BURNING URINATION 08/01/18 05:30 08/31/18 05:29 08/04/18 08:35 Polyethylene Glycol (Miralax) 17 gm BEDTIME ORAL 07/28/18 21:00 08/20/18 20:59 08/03/18 20:21 Vancomycin HCl (Vanco rx to dose) 1 ea DAILY PRN MISC Per rx protocol 08/03/18 10:45 09/02/18 10:44 Vancomycin/Sodium Chloride 250 ml @ 166.667 mls/hr Q8H IVPB 08/03/18 20:00 08/08/18 19:59 08/04/18 12:47 Dick Hitchcock MD Aug 04, 2018 13:36
--- NOTE | 2018-08-04 14:24 | NUR ---
DISCHARGE PLANNING: NOTE PATIENT TO BE DISCHARGED TO HOME. TRANSITION REVIEW COMPLETE.
--- NOTE | 2018-08-04 15:50 | NUR ---
NURSE NOTES: Patient is waiting her drive.
[2018-08-04 16:00] VITALS: BP 132/78
--- NOTE | 2018-08-04 18:13 | NUR ---
NURSE NOTES: Patient discharge from the floor around 1800, accompanied by patient's daughter and another family member. PICC line removed before discharge; patient off from oxygen and sats well. Name tag removed before discharge. Printed material given to patient regarding patient's diagnosis, when to communicate MD, and medications that patient is going to continue at home. Belonging list was signed by patient and RN. Patient left the floor by wheel chair. Patient was stable upon discharge. Vitals were stable.
--- NOTE | 2018-08-05 15:52 | NUR ---
INSURANCE UPDATED AND REVIEWS FAXED TO: [employer] NCM: KOREY P- [id number] [phone] F- [phone]
--- NOTE | 2018-08-06 10:02 | Discharge Summary ---
Discharge Summary Discharge Summary _ DATE OF ADMISSION: 07/21/2018 DATE OF DISCHARGE: 08/04/2018 DISCHARGED BY: Dr. Luther REASON FOR ADMISSION: 62 years old female with past medical history of hypertension, COPD/asthma, chronic back pain, presented with abdominal pain and rectal bleeding. Patient reported history of colonoscopy about two years ago with perforation. Patient reported large amount of rectal bleeding. She denied nausea and vomiting. She denied fever and chills. Upon evaluation vital signs revealed no fever. Elevated blood pressure 154/86. Pulse oximetry on 2 L of oxygen via nasal cannula was 97%. Laboratory workup revealed no leukocytosis , stable hemoglobin and hematocrit with hemoglobin 13.5 and hematocrit 40.1. Coagulation profile stable Platelet count 104. Lactic acid 0.7. Stable electrolytes and renal parameters . Troponin negative . Urinalysis with evidence of hematuria , +1 protein , possible f UTI. CT of the abdomen and pelvis revealed wall thickening of the splenic flexure and proximal descending colon with surrounding inflammatory stranding ,possibly reflecting infectious/inflammatory colitis, however ischemic colitis must be excluded with involvement of this segment. No pneumatosis present.. Additionally diverticula present in the region , however the length of the involved segment was not typical of acute diverticulitis. No free fluid, free air or small bowel obstruction ,hydroureteronephrosis or biliary ductal dilatation. Stable hepatomegaly. Mild nodular hepatic surface contour ,possible cirrhosis. Patient was admitted for further management. CONSULTANTS: ID specialist Dr. Sánchez GI specialist Dr. Torres General surgery Dr. Biswas Vascular surgery Dr. Chiuedith [facility] Pain specialist Dr. Mena [facility] COURSE: Patient admitted to medical surgical floor. Patient started on IV fluids and broad-spectrum antibiotic. GI, ID ,and surgery consults were requested. Pain management was addressed. GI specialist closely followed. Last colonoscopy was 2 years ago. Patient refused to repeat colonoscopy. Patient started on Anusol suppository and bowel regimen instituted. Hemoglobin and hematocrit were closely monitored with goal to keep hemoglobin above 7. Rectal bleeding stopped. Hemoglobin hematocrit remained stable throughout patient's stay in the hospital. General and vascular surgeon closely follow. CTA of the abdomen and pelvis revealed no evidence of aortic aneurysm or dissection. Acute cystitis and left urethritis noted. Pyelonephritis was not excluded on the left. Abdominal ultrasound revealed no evidence of high-grade stenosis within the origin of the SMA or celiac artery. No evidence of abdominal aortic aneurysm. Per vascular surgeon, no current findings suggestive of mesenteric ischemia on the CT angiogram with widely patent celiac and SMA. Vascular surgeon recommended to follow-up with GI and ID recommendations. Patient with a history of chronic back pain due to lumbar degenerative disc disease and lumbar spondylosis along with methadone dependency and history of IVDA. Pain management was addressed as per pain specialist recommendation. Infectious disease specialist closely followed. Urine culture revealed E. coli ESBL and repeated urine culture showed Enterococcus faecalis. Blood cultures were negative. Stool for C. difficile was negative. Repeated urine culture revealed Tran. Antibiotic provided as per ID recommendation. Pyridium was provided for comfort. Patient status post treatment for urinary tract infection and colitis. PICC line discontinued prior to discharge. Supplemental oxygen provided as needed to keep pulse oximetry above 92%. Pulmonary toilet was on board as needed. Chest x-ray revealed mildly increased interstitial marking no focal consolidation. Blood pressure was managed with calcium channel trevor and remained stable. Patient clinically stabilized. No further rectal bleeding. Stable hemoglobin hematocrit. Pain controlled. Patient was stable for discharge home. Recommended outpatient colonoscopy , if patient agrees. FINAL DIAGNOSES: Gastrointestinal hemorrhage Focal ischemic colitis E. coli ESBL and enterococci UTI , s/p treatment Hypertension COPD/asthma Lumbar degenerative disc disease Lumbar spondylolysis Chronic back pain secondary to lumbar degenerative disc disease and lumbar spondylolysis. Methadone dependency with history of IVDA DISCHARGE MEDICATIONS: See Medication Reconciliation list. DISCHARGE INSTRUCTIONS: Patient was discharged home. Follow up with primary care provider in one week. I have been assigned to dictate discharge summary for this account. I was not involved in the patient's management. Faith Casas NP Aug 06, 2018 10:02
== END 2018-08-04 18:07 | disposition home or self-care (01) | DRG 246 ==
LOC: EMR 03:33 → EDBEDREQ 08:47 → 2E 09:24 → 4E 07-28 19:30
PROC: 05HM33Z Insertion of Infusion Device into Right Internal Jugular Vein, Percutaneous Approach (ICD-10-PCS; 2018-07-25)
PROC: 0DB78ZX Excision of Stomach, Pylorus, Via Natural or Artificial Opening Endoscopic, Diagnostic (ICD-10-PCS; principal; 2018-07-26 07:07)
PROC: 0DBP8ZX Excision of Rectum, Via Natural or Artificial Opening Endoscopic, Diagnostic (ICD-10-PCS; principal; 2018-07-26 07:07)
PROC: 0DBM8ZX Excision of Descending Colon, Via Natural or Artificial Opening Endoscopic, Diagnostic (ICD-10-PCS; principal; 2018-07-26 07:07)
PROC: 0DBF8ZX Excision of Right Large Intestine, Via Natural or Artificial Opening Endoscopic, Diagnostic (ICD-10-PCS; principal; 2018-07-26 07:07)
PROC: 0DBN8ZX Excision of Sigmoid Colon, Via Natural or Artificial Opening Endoscopic, Diagnostic (ICD-10-PCS; principal; 2018-07-26 07:07)
PROC: 0DB98ZX Excision of Duodenum, Via Natural or Artificial Opening Endoscopic, Diagnostic (ICD-10-PCS; principal; 2018-07-26 07:07)
PROC: 02HV33Z Insertion of Infusion Device into Superior Vena Cava, Percutaneous Approach (ICD-10-PCS; 2018-08-01)
PROC: B518ZZA Fluoroscopy of Superior Vena Cava, Guidance (ICD-10-PCS; 2018-08-01)
DX: K55.8 Other vascular disorders of intestine (principal); F11.20 Opioid dependence, uncomplicated; Z99.81 Dependence on supplemental oxygen; I10 Essential (primary) hypertension; J44.9 Chronic obstructive pulmonary disease, unspecified; N39.0 Urinary tract infection, site not specified; B96.20 Unspecified Escherichia coli [E. coli] as the cause of diseases classified elsewhere; K62.89 Other specified diseases of anus and rectum; K29.70 Gastritis, unspecified, without bleeding; M51.16 Intervertebral disc disorders with radiculopathy, lumbar region; M47.9 Spondylosis, unspecified; K59.00 Constipation, unspecified
CPT/HCPCS: 36415; 36569; 36600; 71045; 74175; 74176; 76705; 76937; 80048; 80053; 80202; 81001; 81003; 82803; 83605; 83615; 83690; 84484; 85007; 85025; 85610; 85730; 86850; 86900; 86901; 87040; 87070; 87081; 87086; 87181; 87205; 87324; 93005; 94003; 94150; 94640; 94664; 94760; 96361; 96365; 96367; 96375; 96376; 99285; J2405; J7620

== ENCOUNTER 2018-12-25 15:46 | Inpatient (IN) | payer OTHER ==
[2018-12-25] VITALS (8 sets, daily range): BP systolic 120–146; BP diastolic 66–97
[~2018-12-25] VITALS: Ht 160 cm; Wt 89.6 kg
[~2018-12-25 15:46] MED LIST changes: +BANOPHEN50 MG PO; +OMEPRAZOLE20 M2 ORAL
--- NOTE | 2018-12-25 16:10 | NUR ---
ED Nurse Note: pt came in from home c/o shortness of breath started 1 month ago, pt came with 87% o2 sat on room air and pt stated that she ran out of oxygen in her house, pt was is on 2L/min o2 now, pt stated most of the time it this happens to her she usually end up getting intubated. ermd made aware. will continue to monitor
[2018-12-25] MEDS ORDERED: Solu-MEDROL 125mg Inj IVP ONE (16:15)
[2018-12-25] MEDS ORDERED: Ipratropium 0.02% Inh Soln 2.5ml UD HHN ONE (16:15)
--- NOTE | 2018-12-25 16:17 | NUR ---
ED Nurse Note: respiratory on bedside giving nebulization and putting pt on bipap per ermd order.
[2018-12-25 16:37] LABS: BASOPHILS % (AUTO) 2.4 % (0.0-2.0); EOSINOPHILS % (AUTO) 5.5 % (0.0-3.0); HEMATOCRIT 40.6 % (37.0-47.0); HEMOGLOBIN 13.2 G/DL (12.0-16.0); LYMPHOCYTES % (AUTO) 37.5 % (20.0-45.0); MEAN CORPUSCULAR VOLUME 86 FL (80-99); MONOCYTES % (AUTO) 9.1 % (1.0-10.0); NEUTROPHILS % (AUTO) 45.5 % (45.0-75.0); PLATELET COUNT 112 K/UL (150-450); RED BLOOD COUNT 4.73 M/UL (4.20-5.40); RED CELL DISTRIBUTION WIDTH 12.1 % (11.6-14.8); WHITE BLOOD COUNT 5.5 K/UL (4.8-10.8)
[2018-12-25 16:48] LABS: ANION GAP 4 mmol/L (5-15); BLOOD UREA NITROGEN 8 mg/dL (7-18); CALCIUM 9.3 MG/DL (8.5-10.1); CARBON DIOXIDE 35 MMOL/L (21-32); CHLORIDE 102 MMOL/L (98-107); CREATININE 0.7 MG/DL (0.55-1.30); POTASSIUM 3.8 MMOL/L (3.5-5.1); SODIUM 141 MMOL/L (136-145)
--- NOTE | 2018-12-25 16:50 | NUR ---
ED Nurse Note: boiler service technician on bedside
[2018-12-25 17:01] LABS: ALANINE AMINOTRANSFERASE 27 U/L (12-78); ALBUMIN/GLOBULIN RATIO 1.1 (1.0-2.7); ALKALINE PHOSPHATASE 77 U/L (46-116); ASPARTATE AMINO TRANSFERASE 30 U/L (15-37); BILIRUBIN,TOTAL 0.2 MG/DL (0.2-1.0); CREATINE KINASE 150 U/L (26-308)
[2018-12-25 17:04] LABS: APPEARANCE,URINE CLEAR; BILIRUBIN, URINE NEGATIVE (NEGATIVE); COLOR,URINE PALE YELLOW; GLUCOSE, URINE (UA) NEGATIVE (NEGATIVE); KETONES,URINE NEGATIVE (NEGATIVE); LEUKOCYTE ESTERASE ,URINE NEGATIVE (NEGATIVE); NITRITE,URINE NEGATIVE (NEGATIVE); PH,URINE 7 (4.5-8.0); PROTEIN,URINE NEGATIVE (NEGATIVE); UROBILINOGEN,URINE NORMAL MG/DL (0.0-1.0)
[2018-12-25] MEDS: Albuterol ud Inhalation HHN SCH ×2 (17:07→17:08)
--- NOTE | 2018-12-25 17:08 | Diagnostic Imaging Report ---
Indication: Shortness of breath Technique: One view of the chest Comparison: 07/27/2018 Findings: Surgical staple line is seen in the right midlung. Surgical clips are seen adjacent to the mediastinum on the right. There is equivocal mild interstitial prominence which appears similar to the prior study. No definite acute infiltrates or effusions. Heart size upper limits normal. Impression: Equivocal mild interstitial prominence, probably on the basis of senescent changes and exaggerated by slight underexposure, but mild interstitial congestion also possible. Correlate with clinical findings. This is similar to the prior exam of 07/27/2018 Postsurgical changes, as described
--- NOTE | 2018-12-25 17:44 | Emergency Room Report ---
History of Present Illness General Chief Complaint: Dyspnea/Respdistress Source: Patient, Medical Record Present Illness HPI Patient presents with increasing shortness of breath. She also has chest pain. This has been worsening over the last month. She occasionally uses home oxygen. She hears herself wheezing. She ran out of oxygen on the way into the ED. She is not on prednisone at this time. When she gets this bad she usually has to get intubated at the hospital. She has end-stage COPD and also has been retaining fluid with CHF. She denies calf pain or hemoptysis. She complains about pain in her chest that is 8/10 and poorly described. It seems somewhat pleuritic. Unclear whether this is chronic pain that is worsened. She denies fevers or chills. There is no nausea, vomiting, diarrhea, dysuria. She has occasional headaches. The patient is on methadone 10 mg a day and also takes Dilaudid 4 mg to control pain. The Dilaudid causes itching in her legs. She is been scratching them. She has chronic back pain. History of diabetes. The patient was admitted in July of this year. Discharge diagnoses: Gastrointestinal hemorrhage Focal ischemic colitis E. coli ESBL and enterococci UTI , s/p treatment Hypertension COPD/asthma Lumbar degenerative disc disease Lumbar spondylolysis Chronic back pain secondary to lumbar degenerative disc disease and lumbar spondylolysis. Methadone dependency with history of IVDA Allergies: Coded Allergies: ERYTHROMYCIN BASE (Verified Allergy, Severe, Hives, 01/29/17) SULFAMETHOXAZOLE (Verified Allergy, Severe, Shortness of Breath, 01/29/17) TRIMETHOPRIM (Verified Allergy, Severe, Shortness of Breath, 01/29/17) TRAMADOL (Verified Allergy, Unknown, 11/25/17) Patient History Past Medical History: see triage record, old chart reviewed Social History: Denies: smoking - former, drug use - IVDA in past Social History Narrative at home Reviewed Nursing Documentation: PMH: Agreed; PSxH: Agreed Nursing Documentation-PMH Past Medical History: No History, Except For Hx Cardiac Problems: Yes - chronic back pain Hx Hypertension: Yes - Lupus Hx Asthma: Yes Hx COPD: Yes Hx Diabetes: Yes Hx Cancer: No Hx Gastrointestinal Problems: No Hx Neurological Problems: No Review of Systems All Other Systems: negative except mentioned in HPI Physical Exam Vital Signs Date Time Temp Pulse Resp B/P (MAP) Pulse Ox O2 Delivery O2 Flow Rate FiO2 12/25/18 15:59 98.4 92 20 139/89 (106) 96 Nasal Cannula 2.0 12/25/18 16:33 60 Sp02 EP Interpretation: reviewed, abnormal - Interpreted as low by me General Appearance: no apparent distress, lethargic, Chronically Ill Head: normocephalic Eyes: bilateral eye PERRL - Pinpoint, bilateral eye EOMI, bilateral eye Scleral Injection ENT: moist mucus membranes Neck: supple Respiratory: decreased breath sounds, wheezing, expiration, other Cardiovascular #1: regular rate, rhythm, edema - Trace to 1+ bilaterally lower extremities Cardiovascular #2: 2+ radial (R) Gastrointestinal: normal inspection, non tender, no mass, non-distended, decreased bowel sounds, overweight Musculoskeletal: back normal, normal range of motion, no calf tenderness Neurologic: DTRs symmetric, sensory intact, no Babinski, motor weakness - Diffuse, other - Lethargic, oriented - X2 Psychiatric: depressed affect Skin: warm/dry, abrasions - Lower extremities with scratches Procedures Critical Care Time Critical Care Time Total Critical Care Time: 30 min bedside evaluation and treatment excludes procedures (EKG). Reason for critical care: Respiratory failure and insufficiency, COPD, opiate influence, BiPAP Possible complications: hypotension, hypertension, [place], shock, arrhythmias, metabolic acidosis, end organ damage, respiratory failure. Interventions: BiPAP, adjustment of FiO2, Solu-Medrol, breathing treatments, repeat evaluations Course: Patient presents with 1 month of worsening COPD with productive cough. Respiratory insufficiency identified and BiPAP begun immediately. Climbing CO2 treated with adjustment of FiO2. Improvement with Solu-Medrol and breathing treatments. Still somnolent but easily awakened. Patient does not need intubation. Discussed with primary physician. Admission to ICU due to tenuous respiratory balance. Consultations: nursing staff, respiratory therapy, admitting physician Performed by: Dr. Bolaños Tolerated well condition = critical Medical Decision Making Diagnostic Impression: Primary Impression: Acute and chronic respiratory failure Additional Impressions: COPD (chronic obstructive pulmonary disease) Qualified Codes: J44.9 - Chronic obstructive pulmonary disease, unspecified Opioid dependence Qualified Codes: F11.29 - Opioid dependence with unspecified opioid-induced disorder ER Course Patient presents with 1 month of worsening dyspnea with history of COPD on oxygen and also CHF. Differential includes acute myocardial infarction, worsening CHF, COPD exacerbation, pneumonia, bronchitis amongst others. Patient evaluated with EKG, chest x-ray and labs. Clearly she appears to be somewhat somnolent and has respiratory distress and BiPAP is ordered immediately. This is particularly important as she has a history of being intubated. In addition breathing treatments will be started along with Solu- Medrol and a dose of Lasix. EKG - NSR CXR No infiltrate, Normal WBC + eosinophilia. CMP with minimally elevated blood glucose. Elevated bicarbonate. Minimally elevated BNP. Tox screen is negative however methadone does not show up. CO2 monitor with escalating CO2 values. Patient still wakes easily but is somnolent. Oxygen saturation is high. Patient still complains about pain however she is sleeping without being awakened. Some improved in BIPAP - titrating O2 so as not to extinguish hypoxemic drive. Wakes easily but still somnolent. CO2 improved. Sats 94%. Admit ICU Dr. Luther. Due to lack of ICU beds patient treated in the emergency department. Patient signed out to Dr. Chan. Laboratory Tests Test 12/25/18 16:05 12/25/18 16:40 White Blood Count 5.5 K/UL (4.8-10.8) Red Blood Count 4.73 M/UL (4.20-5.40) Hemoglobin 13.2 G/DL (12.0-16.0) Hematocrit 40.6 % (37.0-47.0) Mean Corpuscular Volume 86 FL (80-99) Mean Corpuscular Hemoglobin 28.0 PG (27.0-31.0) Mean Corpuscular Hemoglobin Concent 32.5 G/DL (32.0-36.0) Red Cell Distribution Width 12.1 % (11.6-14.8) Platelet Count 112 K/UL (150-450) L Mean Platelet Volume 6.4 FL (6.5-10.1) L Neutrophils (%) (Auto) 45.5 % (45.0-75.0) Lymphocytes (%) (Auto) 37.5 % (20.0-45.0) Monocytes (%) (Auto) 9.1 % (1.0-10.0) Eosinophils (%) (Auto) 5.5 % (0.0-3.0) H Basophils (%) (Auto) 2.4 % (0.0-2.0) H Prothrombin Time 10.4 SEC (9.30-11.50) Prothrombin Time INR 1.0 (0.9-1.1) PTT 27 SEC (23-33) Sodium Level 141 MMOL/L (136-145) Potassium Level 3.8 MMOL/L (3.5-5.1) Chloride Level 102 MMOL/L (98-107) Carbon Dioxide Level 35 MMOL/L (21-32) H Anion Gap 4 mmol/L (5-15) L Blood Urea Nitrogen 8 mg/dL (7-18) Creatinine 0.7 MG/DL (0.55-1.30) Estimate Glomerular Filtration Rate > 60 mL/min (>60) Glucose Level 122 MG/DL (74-106) H Lactic Acid Level 1.30 mmol/L (0.4-2.0) Calcium Level 9.3 MG/DL (8.5-10.1) Magnesium Level 2.1 MG/DL (1.8-2.4) Total Bilirubin 0.2 MG/DL (0.2-1.0) Aspartate Amino Transferase (AST) 30 U/L (15-37) Alanine Aminotransferase (ALT) 27 U/L (12-78) Alkaline Phosphatase 77 U/L (46-116) Total Creatine Kinase 150 U/L (26-308) Troponin I 0.000 ng/mL (0.000-0.056) Pro-B-Type Natriuretic Peptide 255 pg/mL (0-125) H Total Protein 7.8 G/DL (6.4-8.2) Albumin 4.0 G/DL (3.4-5.0) Globulin 3.8 g/dL Albumin/Globulin Ratio 1.1 (1.0-2.7) Thyroid Stimulating Hormone (TSH) 1.352 uiU/mL (0.358-3.740) Urine Color Pale yellow Urine Appearance Clear Urine pH 7 (4.5-8.0) Urine Specific Maceo 1.005 (1.005-1.035) Urine Protein Negative (NEGATIVE) Urine Glucose (UA) Negative (NEGATIVE) Urine Ketones Negative (NEGATIVE) Urine Blood Negative (NEGATIVE) Urine Nitrite Negative (NEGATIVE) Urine Bilirubin Negative (NEGATIVE) Urine Urobilinogen Normal MG/DL (0.0-1.0) Urine Leukocyte Esterase Negative (NEGATIVE) Urine Opiates Screen Negative (NEGATIVE) Urine Barbiturates Screen Negative (NEGATIVE) Phencyclidine (PCP) Screen Negative (NEGATIVE) Urine Amphetamines Screen Negative (NEGATIVE) Urine Benzodiazepines Screen Negative (NEGATIVE) Urine Cocaine Screen Negative (NEGATIVE) Urine Marijuana (THC) Screen Negative (NEGATIVE) EKG Diagnostic Results Rate: normal Rhythm: NSR ST Segments: no acute changes Rhythm Strip Diag. Results EP Interpretation: yes Rhythm: NSR, no PVC's, no ectopy Chest X-Ray Diagnostic Results Chest X-Ray Diagnostic Results : Chest X-Ray Ordered: Yes # of Views/Limited/Complete: 1 View Indication: Other EP Interpretation: Yes Interpretation: no consolidation, no effusion, no pneumothorax, other - COPD Impression: Other Electronically Signed by: Electronically signed by Maximino Bolaños MD Last Vital Signs Date Time Temp Pulse Resp B/P (MAP) Pulse Ox O2 Delivery O2 Flow Rate FiO2 12/26/18 01:14 87 14 96 Facial 30 12/26/18 00:48 98.4 116/64 14.0 Status: improved Disposition: ADMITTED INPATIENT Condition: Critical Referrals: NON PHYSICIAN (PCP) Maximino Bolaños MD Dec 25, 2018 17:44
--- NOTE | 2018-12-25 19:30 | NUR ---
RESPIRATORY NOTE: Received pt in ED on BiPAP 15/5, backup rate 14, 60%. Pt on a Facial mask, skin intact, no redness/breakdowns noted. Foam tape applied on pt's nosebridge/cheeks/chin to prevent any irritations. Pt also on continuous CO2 monitoring connected via nasal cannula underneath the mask per MD Miky. Pt is alert/awake, follows commands. B/S silke. diminished, nonproductive cough. FiO2 titrated to 30% just now, pt tolerating well. BiPAP plugged into red outlet. Pt resting comfortably, in no apparent distress at this time. Will continue plan of care.
--- NOTE | 2018-12-25 19:40 | NUR ---
ED Nurse Note: ermd aware of bipap settings changes by RT
--- NOTE | 2018-12-25 21:20 | NUR ---
ED Nurse Note: pt was placed on jesus manuel bed. vss, pt shows no signs of acute distress. pt is aox4. on bipap refer to interventions for settings.
--- NOTE | 2018-12-25 23:33 | NUR ---
ED Nurse Note: pt is resting in bed, no acute distress noted, pt denies pain, pt still on bipap
--- NOTE | 2018-12-25 23:36 | NUR ---
ED Nurse Note: RT at bedside. Pt says her mouth is dry, wiped pt mouth and lips with lemon swabs. pt is comfortable
[2018-12-26] VITALS (18 sets, daily range): BP systolic 96–138; BP diastolic 60–81
--- NOTE | 2018-12-26 00:48 | NUR ---
ED Nurse Note: pt is in bed asleep, will continue to monitor
--- NOTE | 2018-12-26 01:14 | NUR ---
ED Nurse Note: called dr abraham for admit orders, unable to reach dr. abraham, left voicemail and call back number
--- NOTE | 2018-12-26 02:50 | NUR ---
ED Nurse Note: attempted to contact dr. abraham for admission orders, failed to do so. informed crn. will continue to monitor pt and attempt to contact dr. abraham again.
--- NOTE | 2018-12-26 04:40 | NUR ---
ED Nurse Note: received TO orders per dr. abraham
[2018-12-26] MEDS ORDERED: Albuterol ud Inhalation HHN PRN (04:45)
[2018-12-26] MEDS ORDERED: cefTRIAXone 1 GM in NS 55 ML IVPB ONE (04:45)
--- NOTE | 2018-12-26 05:15 | NUR ---
ED Nurse Notes: contacted [facility] to verify admission orders given TO per dr. abraham
--- NOTE | 2018-12-26 05:18 | NUR ---
RESPIRATORY NOTE: Pt taken off BiPAP per MD Homa. Pt now on 2L NC connected w/ CO2 monitor. Bedside RN aware. Pt tolerating well, in no apparent distress at this time. Will continue plan of care.
--- NOTE | 2018-12-26 05:55 | NUR ---
ED Nurse Note: BLOOD SPECIMEN SENT TO LAB
[2018-12-26 06:15] LABS: ANION GAP 7 mmol/L (5-15); BLOOD UREA NITROGEN 15 mg/dL (7-18); CALCIUM 8.6 MG/DL (8.5-10.1); CARBON DIOXIDE 31 MMOL/L (21-32); CHLORIDE 102 MMOL/L (98-107); CREATININE 0.7 MG/DL (0.55-1.30); POTASSIUM 4.1 MMOL/L (3.5-5.1); SODIUM 140 MMOL/L (136-145)
[2018-12-26 06:22] LABS: ALANINE AMINOTRANSFERASE 19 U/L (12-78); ALBUMIN 3.6 G/DL (3.4-5.0); ALKALINE PHOSPHATASE 62 U/L (46-116); ASPARTATE AMINO TRANSFERASE 20 U/L (15-37); BILIRUBIN,TOTAL 0.3 MG/DL (0.2-1.0)
--- NOTE | 2018-12-26 06:23 | NUR ---
ED Nurse Note: REPOSITIONED PT
--- NOTE | 2018-12-26 07:11 | NUR ---
HAND-OFF: Report given to JOSE NAEL.
--- NOTE | 2018-12-26 07:20 | NUR ---
ED Nurse Note: REPORT RECEIVED FROM JOSE HERNANDEZ. PT SLEEPING PEACEFULLY IN BED IN NAD. AOX4. VSS. PER NURSING WINDOW CASER, PT TO BE SENT TO ICU AT 0730. WILL SEND UP PT AT THAT TIME.
--- NOTE | 2018-12-26 07:38 | NUR ---
ED Nurse Note: ICU CALLED FOR PT TRANSFER. REPORT GIVEN TO JOSE CISNEROS. PER CLINICAL HAEMATOLOGIST, BED IS STILL NOT READY. ICU WILL CALL WHEN BED BECOMES AVAILABLE.
--- NOTE | 2018-12-26 08:00 | NUR ---
ED Nurse Note: PT TAKEN UP TO ICU VIA GURNEY ON ASW/ASUW TACTICAL AIR CONTROLLER WITH ALL BELONGINGS ACCOMPANIED BY PRIMARY RN AND EMT. VSS.
--- NOTE | 2018-12-26 08:10 | NUR ---
NURSE NOTES: Received the patient from JOSE Greenwood. Patient is awake, alert and orientedx4. On 2L O2 via NC. O2 sat 93%. SR noted on the case monitor. No acute distress noted. abrasions noted on left elbow and right ankle. Left hand 22G and right upper arm 22G intact, asymptomatic. Jordan cath intact, draining yellow urine by gravity. Bed in lowest position, locked, side rails x3. Call light within reach. Will continue to monitor. Addendum: 12/26/18 at 1103 by BLAYNE PRITCHARD RN abrasions on left elbow and left wrist
[2018-12-26] MEDS ORDERED: HYDROmorphone 4mg tab ORAL PRN (08:30)
--- NOTE | 2018-12-26 08:40 | NUR ---
NURSE NOTES: Patient seen by Dr. Luther. Kavon to transfer the patient to Tele per MD.
--- NOTE | 2018-12-26 08:45 | NUR ---
NURSE NOTES: Okay to continue methadone after verifying with methadone clinic. Called [facility] [phone], left a message.
[2018-12-26] MEDS ORDERED: Solu-MEDROL 125mg Inj IVP SCH (09:00)
[2018-12-26] MEDS ORDERED: Lisinopril 20mg tab ORAL SCH (09:00)
[2018-12-26] MEDS ORDERED: Heparin 5000 units/ml inj SUBQ SCH (09:00)
[2018-12-26] MEDS: HYDROmorphone 4mg tab ORAL PRN ×2 (09:34→17:26)
--- NOTE | 2018-12-26 10:05 | NUR ---
NURSE NOTES: Called methadone clinic, unable to reach at this time.
--- NOTE | 2018-12-26 11:25 | NUR ---
NURSE NOTES: Attempted to contact methadone clinic, left a message, awaiting for call back.
--- NOTE | 2018-12-26 11:57 | NUR ---
NURSE NOTES: spoke with Joycelyn at methadone clinic [facility], , awaiting for callback.
--- NOTE | 2018-12-26 13:02 | NUR ---
NURSE NOTES: Spoke with Shea from [facility]. Verified that patient was on methadone 50mg daily. will continue per Dr. Luther.
--- NOTE | 2018-12-26 13:30 | History and Physical Report ---
DATE OF ADMISSION: 12/25/2018 REASON FOR ADMISSION: Respiratory failure. HISTORY OF PRESENT ILLNESS: This is a 63-year-old female, presents with worsening shortness of breath for the past one month. The patient has used home oxygen. 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 The patient apparently ran out of her inhalers. The patient also has significant amount of pain. The patient was seen and evaluated. The patient does take methadone and Dilaudid at home. The patient now admitted for respiratory failure, requiring BiPAP. PAST MEDICAL HISTORY: GI bleed, pancolitis, lumbar disc disease, COPD, asthma, hypertension, chronic back pain, methadone dependency, history of IV drug abuse. MEDICATIONS: Otherwise noted. ALLERGIES: Otherwise noted. SOCIAL HISTORY: The patient is IV drug user. Denies smoking. Currently, the patient lives at home. REVIEW OF SYSTEMS: Notable for lupus, hypertension, COPD, diabetes. PHYSICAL EXAMINATION: GENERAL: This is an ill-appearing female, currently improved overall. VITAL SIGNS: Reviewed. Blood pressure 134/76, pulse 90, respirations 17, the patient is currently on nasal cannula. HEENT: Negative. NECK: Supple. LUNGS: With moderate breath sounds. CARDIAC: S1 and S2. Regular rate and rhythm. ABDOMEN: Soft and nontender. EXTREMITIES: No edema. LABORATORY DATA: Reviewed in detail. Electrolytes, CBC, blood gases as well reviewed with chronic CO2 retention and evidence of hypoxemia. X-ray with mild interstitial prominence. IMPRESSION: 1. COPD with acute exacerbation. 2. Chronic respiratory failure. 3. Chronic methadone dependence. 4. Possible underlying respiratory infection. RECOMMENDATIONS: Supportive care. IV antibiotics. IV steroids. Resume pain control. Resume antihypertensives. Resume Klonopin and gabapentin. The patient does take Dilaudid at home and we will monitor for changes. Edgar Luther M.D. DR: GEMA JOB#: [id number] CC:
--- NOTE | 2018-12-26 13:30 | NUR ---
NURSE NOTES: Left a message to methadone clinic after hour for another dose verification, awaiting for call back.
--- NOTE | 2018-12-26 13:42 | NUR ---
CASE MANAGEMENT: INITIAL REVIEW 63 YO F PRESENTED TO OUR ED FROM HOME CC: DYSPNEA PMHx: HOME O2. COPD. DM. ASTHMA. HTN. SI: RESPIRATORY FAILURE. T 98.4 HR 92 RR 20 B/P 139/89 SATS 96% ON 2L/NC ABGs pCO2 50.1 pO2 56.5 HCO3 33 O2 SATS 91.2 BE 7.5 GLU 134 IS:DUO NEB HHN X1 SOLU MEDROL IV X1 LASIX IV X1 PATIENT ADMITTED TO ICU 12/25/2018 @ 1938 DCP: PATIENT TO BE DISCHARGED TO HOME ONCE MEDICALLY CLEARED. PLAN OF CARE: IV ANTIBx IV STEROIDS Addendum: 12/26/18 at 1455 by Stacey Robles CM INTERQUAL MET
--- NOTE | 2018-12-26 15:30 | NUR ---
NURSE NOTES: Patient is resting in bed comfortably. No acute distress noted. Breathing even and unlabored. Denies SOB or pain. VSS. On 2L O2 via NC. Patient's daughter at bedside.
--- NOTE | 2018-12-26 16:18 | NUR ---
*-* NO INSURANCE INFORMATION IN THE BAR UNABLE TO SEND CLINICALS OR REVIEWS *-*
--- NOTE | 2018-12-26 17:30 | NUR ---
NURSE NOTES: Patient c/o pain in back. prn dilaudid given for pain.
--- NOTE | 2018-12-26 18:40 | NUR ---
TRANSFER TO FLOOR: Patient transferred to [facility] Report given to JOSE Nolen. Belongings given to husam GARCIA. patient's husbnad informed of transfer.
--- NOTE | 2018-12-26 18:41 | NUR ---
NURSE NOTES: Received patient via gurney, report given by Marlen Amado ICU nurse. Patient transferred in stable condition. Belongings checked with ICU nurse. No signs and symptoms of acute distress at this moment. Bed in lowest position with two side rails up, break engaged. Will continue to monitor.
--- NOTE | 2018-12-26 19:46 | NUR ---
OBTAINED REPORT FROM ODALYS GARCIA.
--- NOTE | 2018-12-26 19:46 | NUR ---
HAND-OFF: Report given to JOSE crews.
[2018-12-26] MEDS: Solu-MEDROL 125mg Inj IVP SCH (21:08)
[2018-12-26] MEDS: Heparin 5000 units/ml inj SUBQ SCH (21:12)
[2018-12-26] MEDS: Albuterol ud Inhalation HHN PRN (22:17)
[2018-12-27] VITALS: BP 112/64
[2018-12-27] MEDS: HYDROmorphone 4mg tab ORAL PRN ×4 (03:26→22:56)
[2018-12-27 04:00] VITALS: BP 130/68
[2018-12-27] MEDS: Albuterol ud Inhalation HHN PRN ×3 (04:42→22:05)
--- NOTE | 2018-12-27 06:53 | NUR ---
CALLED [facility] AFTER HOURS AND SPOKE TO FINAL RAIL CUTTER TO REQUEST VERIFICATION PT TAKES METHADONE 50 MG PO DAILY. PROVIDED FAX NUMBER AND CONTACT NUMBER FOR TELEMETRY UNIT. FINAL RAIL CUTTER STATED SHE WILL FAX OVER REQUESTED FORM. WILL MAKE DAY SHIFT RN AWARE.
--- NOTE | 2018-12-27 07:00 | NUR ---
HAND-OFF: REPORT GIVEN TO ODALYS GARCIA. PT RESTING IN BED FREE FROM APPARENT DISTRESS.
--- NOTE | 2018-12-27 07:49 | NUR ---
NURSE NOTES: Report received from JOSE Mcnair. Pt is resting in bed in stable condition. Based on report oriented x4. Breathing is even and unlabored in 2 liter nasal cannula. No acute distress noted at this time. IV is intact . Bed in lowest position with brake engaged and side rails up x2. Call light and side table placed within reach. Bed alarm on. Night nurse contacted to patient's clinic for Methadone, waiting for their text. Will continue to monitor.
[2018-12-27 08:00] VITALS: BP 113/62
--- NOTE | 2018-12-27 08:12 | NUR ---
CASE MANAGEMENT: REVIEW 12/27/2018 SI:RESP FAILURE T 98.2 HR 82 RR 20 B/P 113/62 SATS 91% ON 2L/NC NO LABS TODAY IS:SOLU MEDROL IV X1 NORVASC PO QD LISINOPRIL PO QD METHADONE PO QD KLONOPIN PO QID GABAPENTIN PO TID TELE STATUS
--- NOTE | 2018-12-27 08:18 | NUR ---
INSURANCE NO B/AR INFO AT THIS TIME.
[2018-12-27] MEDS: Solu-MEDROL 125mg Inj IVP SCH ×2 (08:49→21:37)
[2018-12-27] MEDS: Lisinopril 20mg tab ORAL SCH (08:50)
[2018-12-27] MEDS: Heparin 5000 units/ml inj SUBQ SCH ×2 (09:00→20:36)
[2018-12-27 12:00] VITALS: BP 113/69
--- NOTE | 2018-12-27 13:09 | Pulmonology Progress Note ---
Assessment/Plan Assessment/Plan Pulmonary Progress Note: HPI: This is a 63-year-old female, presents with worsening shortness of breath for the past one month. The patient has used home oxygen. 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 The patient apparently ran out of her inhalers. The patient also has significant amount of pain. The patient was seen and evaluated. The patient does take methadone and Dilaudid at home. The patient now admitted for respiratory failure, requiring BiPAP. PAST MEDICAL HISTORY: GI bleed, pancolitis, lumbar disc disease, COPD, asthma, hypertension, chronic back pain, methadone dependency, history of IV drug abuse. MEDICATIONS: Otherwise noted. ALLERGIES: Otherwise noted. SOCIAL HISTORY: The patient is IV drug user. Denies smoking. Currently, the patient lives at home. REVIEW OF SYSTEMS: Notable for lupus, hypertension, COPD, diabetes. PHYSICAL EXAMINATION: GENERAL: This is an ill-appearing female, currently improved overall. VITAL SIGNS NOTED HEENT: Negative. NECK: Supple. LUNGS: With moderate breath sounds. CARDIAC: S1 and S2. Regular rate and rhythm. ABDOMEN: Soft and nontender. EXTREMITIES: No edema. LABORATORY DATA: Reviewed in detail. Electrolytes, CBC, blood gases as well reviewed with chronic CO2 retention and evidence of hypoxemia. X-ray with mild interstitial prominence. IMPRESSION: 1. COPD with acute exacerbation. 2. Chronic respiratory failure. 3. Chronic methadone dependence. 4. Possible underlying respiratory infection. PLAN: Supportive care. IV antibiotics. IV steroids. Resume pain meds. Resume antihypertensives. Resume Klonopin and gabapentin. The patient does take Dilaudid at home and we will monitor for changes. Labs/CXR noted Subjective ROS Limited/Unobtainable: No Allergies: Coded Allergies: ERYTHROMYCIN BASE (Verified Allergy, Severe, Hives, 01/29/17) SULFAMETHOXAZOLE (Verified Allergy, Severe, Shortness of Breath, 01/29/17) TRIMETHOPRIM (Verified Allergy, Severe, Shortness of Breath, 01/29/17) TRAMADOL (Verified Allergy, Unknown, 11/25/17) Objective Last 24 Hour Vital Signs Date Time Temp Pulse Resp B/P (MAP) Pulse Ox O2 Delivery O2 Flow Rate FiO2 12/27/18 12:00 97.8 66 20 113/69 (84) 91 12/27/18 09:00 Nasal Cannula 2.0 12/27/18 08:51 82 113/62 12/27/18 08:50 113/62 12/27/18 08:00 98.2 82 20 113/62 (79) 91 12/27/18 08:00 92 12/27/18 04:47 60 20 97 Nasal Cannula 2.0 28 12/27/18 04:42 59 20 93 Nasal Cannula 2.0 28 12/27/18 04:00 71 12/27/18 04:00 98.1 85 18 130/68 (88) 95 12/27/18 00:00 98.4 79 18 112/64 (80) 95 12/27/18 00:00 78 12/26/18 22:27 62 20 97 Nasal Cannula 2.0 28 12/26/18 22:17 75 20 92 Nasal Cannula 2.0 28 12/26/18 21:15 93 Nasal Cannula 2.0 28 12/26/18 21:00 Nasal Cannula 2.0 12/26/18 20:00 100 12/26/18 20:00 98.6 76 18 96/60 (72) 95 12/26/18 18:00 91 18 110/78 (89) 91 12/26/18 17:00 91 17 101/65 (77) 92 12/26/18 16:00 90 12/26/18 16:00 97.8 94 16 111/71 (84) 92 12/26/18 16:00 Nasal Cannula 2.0 12/26/18 15:00 91 20 113/64 (80) 92 12/26/18 14:00 94 15 128/81 (97) 93 Intake and Output 12/26/18 12/27/18 19:00 07:00 Intake Total 660 ml 120 ml Output Total 550 ml Balance 110 ml 120 ml Intake Oral 660 ml 120 ml Output Urine Total 550 ml Microbiology Date/Time Source Procedure Growth Status 12/25/18 16:20 Blood Blood Culture - Preliminary NO GROWTH AFTER 24 HOURS Resulted 12/25/18 16:05 Blood Blood Culture - Preliminary NO GROWTH AFTER 24 HOURS Resulted Current Medications Medications (Trade) Dose Ordered Sig/Sumeet Route PRN Reason Start Time Stop Time Status Last Admin Dose Admin Acetaminophen (Tylenol) 650 mg Q4H PRN ORAL Mild Pain (Pain Scale 1-3) 12/26/18 19:00 01/25/19 18:59 Al Hydroxide/Mg Hydroxide (Mylanta) 30 ml Q4H PRN ORAL dyspepsia/stomach pain 12/26/18 21:00 01/25/19 20:59 Albuterol Sulfate (Proventil) 2.5 mg Q4H PRN HHN Shortness of Breath 12/26/18 19:00 12/31/18 18:59 12/27/18 04:42 Amlodipine Besylate (Norvasc) 10 mg DAILY ORAL 12/27/18 09:00 01/25/19 08:59 12/27/18 08:51 Clonazepam (KlonoPIN) 1 mg QID ORAL 12/26/18 21:00 01/02/19 08:59 12/27/18 12:17 Diphenhydramine HCl (Benadryl) 50 mg BIDPRN PRN ORAL itching 12/26/18 19:00 01/25/19 18:59 Gabapentin (Neurontin) 300 mg THREE TIMES A DAY ORAL 12/27/18 09:00 01/25/19 08:59 12/27/18 12:17 Heparin Sodium (Porcine) (Heparin 5000 units/ml) 5,000 units Q12HR SUBQ 12/26/18 21:00 01/25/19 08:59 12/26/18 21:12 Hydromorphone HCl (Dilaudid) 4 mg Q4H PRN ORAL Severe Pain (Pain Scale 7-10) 12/26/18 18:30 01/02/19 18:29 12/27/18 08:52 Lisinopril (Prinivil) 40 mg DAILY ORAL 12/27/18 09:00 01/25/19 08:59 12/27/18 08:50 Methadone HCl (Methadone HCl) 50 mg DAILY ORAL 12/27/18 09:39 01/03/19 09:38 12/27/18 10:35 Methylprednisolone Sodium Succinate (Solu-MEDROL) 60 mg EVERY 12 HOURS IVP 12/26/18 21:00 01/25/19 08:59 12/27/18 08:49 Maximino Bedoya MD Dec 27, 2018 13:09
[2018-12-27 16:00] VITALS: BP 113/72
--- NOTE | 2018-12-27 19:36 | NUR ---
HAND-OFF: Report given to JOSE Farley.
[2018-12-27 20:00] VITALS: BP 117/70
[2018-12-28] VITALS: BP 119/61
[2018-12-28] MEDS: HYDROmorphone 4mg tab ORAL PRN ×4 (03:49→19:43)
[2018-12-28 04:00] VITALS: BP 121/71
[2018-12-28 08:00] VITALS: BP 140/66
--- NOTE | 2018-12-28 08:00 | NUR ---
NURSE NOTES: Report received from JOSE Farley. Pt is resting in bed on O2 2l via NC. patient is A/A/Ox4. Breathing is even and unlabored No acute distress noted at this time. IV is patent and intact . Bed in lowest position with brake engaged and side rails up x2. Call light is within reach. Bed alarm on. will cont to monitor.
--- NOTE | 2018-12-28 08:28 | NUR ---
HAND-OFF: Report given to Tiana.
[2018-12-28] MEDS: Lisinopril 20mg tab ORAL SCH (08:35)
[2018-12-28] MEDS: Heparin 5000 units/ml inj SUBQ SCH ×2 (08:37→20:57)
[2018-12-28] MEDS: Solu-MEDROL 125mg Inj IVP SCH ×2 (10:08→20:56)
[2018-12-28 11:53] VITALS: BP 127/80
[2018-12-28] MEDS: Albuterol ud Inhalation HHN PRN (13:23)
--- NOTE | 2018-12-28 14:41 | NUR ---
NURSE NOTES: Obtained new order for patient has difficulty expectorating sputum after HHN. CPT and abx placed. patient is able to ambulate to the bathroom. patient isn talkative and instructed to calm and take time. O2 2L via NC administered for SOB. will cont to monitor.
[2018-12-28 16:00] VITALS: BP 108/66
[2018-12-28] MEDS: cefTRIAXone 1 GM in D5W 55 ML IVPB SCH (16:09)
--- NOTE | 2018-12-28 17:58 | General Progress Note ---
Assessment/Plan Assessment/Plan: COPD with acute exacerbation pulmonary congestion chronic pain methadone dependence PLAN care as is respiratory care IV steroids IV antibiotics CPT Subjective Allergies: Coded Allergies: ERYTHROMYCIN BASE (Verified Allergy, Severe, Hives, 01/29/17) SULFAMETHOXAZOLE (Verified Allergy, Severe, Shortness of Breath, 01/29/17) TRIMETHOPRIM (Verified Allergy, Severe, Shortness of Breath, 01/29/17) TRAMADOL (Verified Allergy, Unknown, 11/25/17) Subjective still sob difficult to mobilize secretions Objective Last 24 Hour Vital Signs Date Time Temp Pulse Resp B/P (MAP) Pulse Ox O2 Delivery O2 Flow Rate FiO2 12/28/18 16:00 98.0 81 20 108/66 (80) 96 12/28/18 14:58 97.5 12/28/18 13:23 98 Nasal Cannula 3.0 32 12/28/18 13:23 98 Nasal Cannula 3.0 32 12/28/18 13:23 86 16 98 Nasal Cannula 3.0 32 12/28/18 12:00 75 12/28/18 11:53 97.5 75 18 127/80 (96) 95 12/28/18 08:40 Nasal Cannula 2.0 12/28/18 08:35 140/66 12/28/18 08:35 79 140/66 12/28/18 08:00 81 12/28/18 08:00 97.3 79 20 140/66 (90) 94 12/28/18 07:25 97.8 12/28/18 04:00 97.8 79 20 121/71 (88) 96 12/28/18 04:00 81 12/28/18 00:00 98.0 89 20 119/61 (80) 91 12/28/18 00:00 79 12/27/18 22:28 92 18 97 Nasal Cannula 3.0 32 12/27/18 22:08 90 18 92 Nasal Cannula 3.0 32 12/27/18 21:00 Nasal Cannula 2.0 12/27/18 20:00 80 12/27/18 20:00 97.8 91 20 117/70 (86) 92 Intake and Output 12/27/18 12/28/18 19:00 07:00 Intake Total 120 ml Output Total 50 ml Balance 70 ml Intake Oral 120 ml Output Urine Total 50 ml # Voids 1 # Bowel Movements 1 Height (Feet): 5 Height (Inches): 3.00 Weight (Pounds): 196 Objective WDWN NAD reduced breath sounds bilaterally without rhonchi or wheeze [id number] without MRG NABS nontender no HSM no CCE nonfocal Edgar Luther MD Dec 28, 2018 17:58
--- NOTE | 2018-12-28 18:58 | NUR ---
HAND-OFF: Report given to Esme.
--- NOTE | 2018-12-28 19:19 | NUR ---
NURSE NOTES: Report received from JOSE Gonzales. Pt is in stable condition. Bed in the lowest position, bed brakes engaged, side rails up x3 and call light within reach. Will continue to monitor.
[2018-12-28 20:00] VITALS: BP 119/66
[2018-12-29] VITALS: BP 122/63
[2018-12-29] MEDS: HYDROmorphone 4mg tab ORAL PRN ×4 (00:54→21:47)
[2018-12-29 04:00] VITALS: BP 133/72
[2018-12-29] MEDS ORDERED: Docusate 100mg cap ORAL PRN (04:15)
--- NOTE | 2018-12-29 07:19 | NUR ---
HAND-OFF: Report given to JOSE Gonzales.
[2018-12-29 08:03] VITALS: BP 122/82
[2018-12-29] MEDS: Lisinopril 20mg tab ORAL SCH (08:09)
--- NOTE | 2018-12-29 08:16 | NUR ---
NURSE NOTES: called RT and spoke with diaz regarding patient request for HHN and CPT as MD orderd. pain is sitting on the edge of the bed. able to ambulate to the bathroom with assistance. instructed to use call light for assistance. O2 2L via NC in placed. appetite is good. bed is in lowest position for safety. siderails are up and bed alarm is on and locked for fall precautions. will cont to monitor.
[2018-12-29] MEDS: Albuterol ud Inhalation HHN PRN (08:20)
[2018-12-29] MEDS: Heparin 5000 units/ml inj SUBQ SCH ×2 (08:28→21:15)
[2018-12-29] MEDS: cefTRIAXone 1 GM in D5W 55 ML IVPB SCH (10:54)
[2018-12-29] MEDS: Solu-MEDROL 125mg Inj IVP SCH ×2 (10:55→21:13)
--- NOTE | 2018-12-29 10:55 | General Progress Note ---
Assessment/Plan Assessment/Plan: COPD with acute exacerbation pulmonary congestion chronic pain methadone dependence PLAN care as is respiratory care IV steroids IV antibiotics CPT dc in am Subjective Allergies: Coded Allergies: ERYTHROMYCIN BASE (Verified Allergy, Severe, Hives, 01/29/17) SULFAMETHOXAZOLE (Verified Allergy, Severe, Shortness of Breath, 01/29/17) TRIMETHOPRIM (Verified Allergy, Severe, Shortness of Breath, 01/29/17) TRAMADOL (Verified Allergy, Unknown, 11/25/17) Subjective still sob difficult to mobilize secretions Objective Last 24 Hour Vital Signs Date Time Temp Pulse Resp B/P (MAP) Pulse Ox O2 Delivery O2 Flow Rate FiO2 12/29/18 08:41 98.4 12/29/18 08:31 76 20 98 Nasal Cannula 3.0 32 12/29/18 08:31 76 20 98 Nasal Cannula 3.0 32 12/29/18 08:21 71 18 97 Nasal Cannula 3.0 32 12/29/18 08:20 71 18 97 Nasal Cannula 3.0 32 12/29/18 08:20 97 Nasal Cannula 3.0 32 12/29/18 08:10 78 122/82 12/29/18 08:09 122/82 12/29/18 08:03 98.4 78 20 122/82 (95) 93 12/29/18 04:00 97.5 62 18 133/72 (92) 96 12/29/18 04:00 60 12/29/18 00:42 98 Nasal Cannula 3.0 32 12/29/18 00:00 64 12/29/18 00:00 97.8 70 18 122/63 (82) 94 12/28/18 21:00 Nasal Cannula 2.0 12/28/18 20:00 77 12/28/18 20:00 97.6 76 19 119/66 (83) 95 12/28/18 16:00 98.0 81 20 108/66 (80) 96 12/28/18 13:23 98 Nasal Cannula 3.0 32 12/28/18 13:23 98 Nasal Cannula 3.0 32 12/28/18 13:23 86 16 98 Nasal Cannula 3.0 32 12/28/18 12:00 75 12/28/18 11:53 97.5 75 18 127/80 (96) 95 Intake and Output 6/15/19 6/16/19 19:00 07:00 Intake Total 470 ml Balance 470 ml Intake Oral 360 ml IV Total 110 ml # Voids 3 Height (Feet): 5 Height (Inches): 3.00 Weight (Pounds): 196 Objective WDWN NAD reduced breath sounds bilaterally without rhonchi or wheeze [id number] without MRG NABS nontender no HSM no CCE nonfocal Edgar Luther MD Dec 29, 2018 10:55
[2018-12-29 12:00] VITALS: BP 117/67
--- NOTE | 2018-12-29 13:56 | Cardiology Report ---
APPROVED REPORT EKG Measurement Heart [id number] Normal sinus rhythm Normal ECG
[2018-12-29 16:00] VITALS: BP 138/72
--- NOTE | 2018-12-29 17:00 | NUR ---
CASE MANAGEMENT: REVIEW 12/28/2018 SI:RESP FAILURE T 98 HR 81 RR 20 B/P 108/66 SATS 96% ON 2L/NC NO LABS TODAY IS:SOLU MEDROL IV X1 NORVASC PO QD LISINOPRIL PO QD METHADONE PO QD KLONOPIN PO QID GABAPENTIN PO TID TELE STATUS 12/29/2018 SI:RESP FAILURE T 97.2 HR 79 RR 18 B/P 117/67 SATS 94% ON 3L/NC NO LABS TODAY IS:SOLU MEDROL IV X1 NORVASC PO QD LISINOPRIL PO QD METHADONE PO QD KLONOPIN PO QID GABAPENTIN PO TID TELE STATUS
--- NOTE | 2018-12-29 19:12 | NUR ---
HAND-OFF: Report given to Cem.
--- NOTE | 2018-12-29 19:17 | NUR ---
NURSE NOTES: Report received from JOSE Gonzales. Pt is in stable condition and lying comfortably in bed. No cardiopulmonary distress noted. Bed in the lowest position, bed brakes engaged, side rails up x3 and call light within reach. Will continue to monitor.
[2018-12-29 20:00] VITALS: BP 134/75
[2018-12-30] VITALS: BP 128/73
[2018-12-30] MEDS: Albuterol ud Inhalation HHN PRN ×2 (00:03→07:26)
[2018-12-30 04:00] VITALS: BP 122/79
--- NOTE | 2018-12-30 07:32 | NUR ---
HAND-OFF: Report given to JOSE Escalera.
[2018-12-30] MEDS: cefTRIAXone 1 GM in D5W 55 ML IVPB SCH ×2 (08:58→09:00)
[2018-12-30] MEDS: Solu-MEDROL 125mg Inj IVP SCH (09:00)
[2018-12-30] MEDS: Heparin 5000 units/ml inj SUBQ SCH ×2 (09:00→09:05)
[2018-12-30] MEDS: Lisinopril 20mg tab ORAL SCH (09:00)
[2018-12-30] MEDS: HYDROmorphone 4mg tab ORAL PRN ×2 (09:01→13:33)
[2018-12-30 09:02] VITALS: BP 139/70
--- NOTE | 2018-12-30 12:04 | General Progress Note ---
Assessment/Plan Assessment/Plan: COPD with acute exacerbation pulmonary congestion chronic pain methadone dependence PLAN dc home medrol herrera zpak resume home regimen has o2 at home impression, plan, and exam edited and reviewed in detail care discussed with RN Subjective Allergies: Coded Allergies: ERYTHROMYCIN BASE (Verified Allergy, Severe, Hives, 01/29/17) SULFAMETHOXAZOLE (Verified Allergy, Severe, Shortness of Breath, 01/29/17) TRIMETHOPRIM (Verified Allergy, Severe, Shortness of Breath, 01/29/17) TRAMADOL (Verified Allergy, Unknown, 11/25/17) Subjective better Objective Last 24 Hour Vital Signs Date Time Temp Pulse Resp B/P (MAP) Pulse Ox O2 Delivery O2 Flow Rate FiO2 12/30/18 11:00 Nasal Cannula 3.0 32 12/30/18 11:00 Nasal Cannula 3.0 32 12/30/18 09:02 85 139/70 12/30/18 09:00 139/70 12/30/18 07:29 88 20 97 Nasal Cannula 3.0 32 12/30/18 07:28 97 Nasal Cannula 3.0 32 12/30/18 07:10 Nasal Cannula 3.0 32 12/30/18 07:10 Nasal Cannula 3.0 32 12/30/18 07:10 70 20 91 Nasal Cannula 3.0 32 12/30/18 04:00 64 12/30/18 04:00 97.8 80 18 122/79 (93) 96 12/30/18 00:13 82 18 97 Nasal Cannula 3.0 32 12/30/18 00:03 65 18 95 Nasal Cannula 3.0 32 12/30/18 00:03 72 18 94 Nasal Cannula 3.0 32 12/30/18 00:00 85 12/30/18 00:00 98.0 80 18 128/73 (91) 94 12/29/18 22:17 97.4 12/29/18 21:00 Nasal Cannula 2.0 12/29/18 20:27 80 20 97 Nasal Cannula 3.0 32 12/29/18 20:26 78 20 98 Nasal Cannula 3.0 32 12/29/18 20:26 97 Nasal Cannula 3.0 32 12/29/18 20:00 98 12/29/18 20:00 98.3 77 18 134/75 (94) 95 12/29/18 16:00 97.4 81 20 138/72 (94) 96 12/29/18 16:00 74 12/29/18 15:33 83 20 98 Nasal Cannula 3.0 32 12/29/18 15:32 81 18 97 Nasal Cannula 3.0 32 Intake and Output 12/29/18 12/30/18 19:00 07:00 Intake Total 710 ml Balance 710 ml Intake Oral 600 ml IV Total 110 ml # Voids 6 2 # Bowel Movements 1 Height (Feet): 5 Height (Inches): 3.00 Weight (Pounds): 197 Objective WDWN NAD reduced breath sounds bilaterally without rhonchi or wheeze [id number] without MRG NABS nontender no HSM no CCE nonfocal Edgar Luther MD Dec 30, 2018 12:04
--- NOTE | 2018-12-30 15:51 | NUR ---
*-* INSURANCE *-* ALL CLINICALS AND REVIEWS HAVE BEEN FAXED TO: [employer] / DEPT S/W JYOTI ..STATED THAT YAW WILL BE HANDLING THIS ADMISSION. [facility]; YAW P- [phone] X [phone] F- [phone]...REVIEW & CLINICAL
--- NOTE | 2018-12-30 18:15 | NUR ---
NURSE NOTES: POt was discharged per MD orders. Pt stable at time od DC. Heart monitor removed and returned to [place]. All belongings are accounted for and are with the patient.
--- NOTE | 2018-12-31 08:57 | Discharge Summary ---
Discharge Summary Discharge Summary _ DATE OF ADMISSION: 12/25/2018 DATE OF DISCHARGE: 12/30/1989 DISCHARGED BY: Dr. Luther REASON FOR ADMISSION: 63 years old female with past medical history of COPD, asthma, hypertension, chronic back pain, methadone dependency, history of IV drug abuse, GI bleeding, pancolitis, lumbar disc disease, presented with worsening shortness of breath for the last month. Patient was using oxygen at home. Patient with history of end-stage COPD. Patient apparently ran out of her inhalers and also reported significant amount of pain. Patient was started on the BiPAP in the emergency department. Patient had a history of being intubated in the past. Patient provided with bronchodilator treatment via handheld nebulizing along with dose of Solu-Medrol and Lasix . Chest x-ray revealed no evidence of acute cardiopulmonary pathology. Troponin negative. Pro BNP 255. EKG showed normal sinus rhythm, no acute ischemic changes. Laboratory work-up revealed no leukocytosis, showed evidence of eosinophilia. Urine toxicology screen was negative. CO2 35. Urinalysis revealed no evidence of UTI. Patient initially admitted to ICU. HOSPITAL COURSE: Patient admitted to ICU. Patient started on the BiPAP. Patient started on IV steroids with gradual tapering and empiric antibiotic. Patient was able to be weaned to oxygen via nasal cannula. Supplemental oxygen titrated to keep pulse oximetry above 92%. Pulmonary toilet provided. Pain management was addressed. Antihypertensives were resumed. Gabapentin continued. Blood cultures were negative. Respiratory status was slowly improving. CO2 down to normal . Patient clinically stabilized and was ready for discharge home on Medrol Dosepak and Z-Case. Patient had oxygen at home. FINAL DIAGNOSES: Acute on chronic respiratory failure COPD with acute exacerbation Chronic methadone dependency DISCHARGE MEDICATIONS: See Medication Reconciliation list. DISCHARGE INSTRUCTIONS: Patient was discharged home . Follow up with primary care provider in one week. I have been assigned to dictate discharge summary for this account. I was not involved in the patient's management. Faith Casas NP Dec 31, 2018 08:57
--- NOTE | 2018-12-31 10:19 | NUR ---
*-* INSURANCE *-* ALL CLINICALS AND REVIEWS HAVE BEEN FAXED TO: [employer] / DEPT [facility]; YAW P- [phone] F- [phone]...REVIEW & CLINICAL
== END 2018-12-30 17:41 | disposition home or self-care (01) | DRG 140 ==
LOC: EMR 16:30 → ICU 19:38 → EDBEDREQ 12-26 06:11 → 2E 12-26 19:11
DX: J44.1 Chronic obstructive pulmonary disease with (acute) exacerbation (principal); J96.20 Acute and chronic respiratory failure, unspecified whether with hypoxia or hypercapnia; I10 Essential (primary) hypertension; M51.36 Other intervertebral disc degeneration, lumbar region; F11.20 Opioid dependence, uncomplicated; Z88.6 Allergy status to analgesic agent; Z88.1 Allergy status to other antibiotic agents; Z88.2 Allergy status to sulfonamides
CPT/HCPCS: 36415; 36600; 71045; 80053; 80307; 81003; 82550; 82803; 83605; 83735; 83880; 84443; 84484; 85025; 85610; 85730; 87040; 87081; 93005; 94640; 94660; 94664; 96374; 96375; 99291; J2405

== ENCOUNTER 2019-09-02 20:25 | Emergency (ER) | payer OTHER ==
[~2019-09-02] VITALS: Ht 160 cm; Wt 81.6 kg
--- NOTE | 2019-09-02 21:14 | Emergency Room Report ---
History of Present Illness General Chief Complaint: Headache Source: Patient, Family Member, Medical Record Present Illness HPI This is a 63-year-old female who is oxygen dependent COPD. She also has a history of chronic pain and migraine and low back pain. She presents with chief complaint headache. Onset for last 2-day. Pain is throbbing in nature. 10 out of 10. She has nausea and vomiting. No fever or chills. No trauma. Similar symptom in the past. She said she supposed package pick up her Dilaudid today but she did not go because she did not have a ride. She is out of her medication for about 2 days. Denies any other complaint. Nothing made it better. Lights and noise made it worse. Allergies: Coded Allergies: ERYTHROMYCIN BASE (Verified Allergy, Severe, Hives, 01/29/17) SULFAMETHOXAZOLE (Verified Allergy, Severe, Shortness of Breath, 01/29/17) TRIMETHOPRIM (Verified Allergy, Severe, Shortness of Breath, 01/29/17) TRAMADOL (Verified Allergy, Unknown, 11/25/17) Patient History Past Medical History: see triage record, old chart reviewed, HTN, COPD, migraines Past Surgical History: other Pertinent Family History: none Social History: Denies: smoking Now: No Immunizations: other Reviewed Nursing Documentation: PMH: Agreed; PSxH: Agreed Nursing Documentation-PMH Hx Cardiac Problems: No Hx Hypertension: Yes Hx Asthma: Yes Hx COPD: Yes Hx Diabetes: No Hx Cancer: No Hx Gastrointestinal Problems: No Hx Neurological Problems: No Review of Systems Eye: Denies: eye pain, blurred vision ENT: Denies: ear pain, nose congestion, throat swelling Respiratory: Denies: cough, shortness of breath Cardiovascular: Denies: chest pain, palpitations Gastrointestinal: Denies: abdominal pain, diarrhea, nausea, vomiting Musculoskeletal: Denies: back pain, joint pain Skin: Denies: rash Neurological: Reports: headache; Denies: numbness Endocrine: Denies: increased thirst, increased urine Hematologic/Lymphatic: Denies: easy bruising All Other Systems: negative except mentioned in HPI Physical Exam Vital Signs Date Time Temp Pulse Resp B/P (MAP) Pulse Ox O2 Delivery O2 Flow Rate FiO2 09/02/19 20:40 98.4 88 22 118/77 (91) 87 Nasal Cannula 2.0 Vitals unremarkable. Pulse ox is 92% on oxygen Sp02 EP Interpretation: reviewed, abnormal General Appearance: no apparent distress, alert, Chronically Ill Head: normocephalic, atraumatic Eyes: bilateral eye PERRL, bilateral eye EOMI ENT: hearing grossly normal, normal pharynx Neck: full range of motion, supple, no meningismus Respiratory: chest non-tender, normal breath sounds, decreased breath sounds Cardiovascular #1: regular rate, rhythm, no murmur Gastrointestinal: normal bowel sounds, non tender, no mass, no organomegaly, no bruit, non-distended Musculoskeletal: back normal, normal range of motion, gait/station normal Psychiatric: mood/affect normal Medical Decision Making Diagnostic Impression: Primary Impression: Headache Qualified Codes: R51 - Headache Additional Impression: Opioid dependence Qualified Codes: F11.20 - Opioid dependence, uncomplicated ER Course Presents with exacerbation of her headache. No focal deficit. No change in her headache episodes to warrant emergent CT scan. No evidence of meningitis, bleed, sepsis or neoplastic process. Will discharge home. 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 Follow-up with your doctor tomorrow if still having pain. Return if symptoms worsen. Sergey Rivera MD Sep 02, 2019 21:13
[2019-09-02] MEDS ORDERED: Promethazine 50mg/ml Inj IM ONE (21:15)
[2019-09-02 21:35] VITALS: BP 111/72
== END 2019-09-02 21:40 | disposition home or self-care (01) ==
LOC: EMR 21:40
DX: R51 Headache (principal); F11.20 Opioid dependence, uncomplicated; J44.9 Chronic obstructive pulmonary disease, unspecified; I10 Essential (primary) hypertension; Z99.81 Dependence on supplemental oxygen
CPT/HCPCS: 96372; J1170; J2550; Z7502; 99283